=== PATIENT | male | born 1945 | race Caucasian/White ===

== ENCOUNTER → 2017-03-02 | Outpatient (CLI) | payer MEDICARE, OTHER ==
[2017-03-02 18:13] LABS: BLOOD UREA NITROGEN 20 MG/DL (7-18); CREATININE FOR GFR 1.24 MG/DL (0.70-1.30); GLOMERULAR FILTRATION RATE > 60.0 (>42)
== END ==
LOC: M WUC 11:57
PROVIDERS: ATTEND Ophthalmology
DX: Z01.812 Encounter for preprocedural laboratory examination (principal)

== ENCOUNTER → 2017-03-07 | Outpatient (CLI) | payer MEDICARE, OTHER ==
[~2017-03-07] MED LIST: ALLO100T PO; ASPI81TA85 PO; BISO10TA3 PO; EZET10TA PO; FLOM5CAP PO; INDO25SU PO; LISI10TA4 PO; OMEP20CA3 PO; OMEP40CA2 PO; PLAV75TA38 PO; TRAV04OPD OU; TRIC145T PO; VITMTA PO; ZIAC10TA PO
--- NOTE | 2017-03-08 08:52 | REP ---
MRI BRAIN WITHOUT AND WITH IV GADOLINIUM: HISTORY: Right homonymous superior quadrant anopia. No comparison brain imaging. TECHNIQUE: Axial and sagittal imaging planes are utilized for T1 and T2-weighted scans. Sequences include spin-echo, fast spin echo, FLAIR, and diffusion weighted sequences. Post gadolinium enhanced axial and coronal T1 images are included. MRI FINDINGS: No bony calvarial lesion is seen. Craniocervical junction and upper cervical cord are normal in appearance. There is no evidence of significant paranasal sinus disease. No intraorbital abnormality is seen. There is mild to moderate diffuse cerebral atrophy. FLAIR and turbo spin echo T2-weighted scans demonstrate a small area of periventricular T2 hyperintensity in the inferomedial temporo-occipital lobe region. This area of T2 hyperintensity measures up to 2.6 cm in diameter. There is no corresponding T1 hypointensity. A subtle pattern of restricted diffusion is seen in this region on diffusion weighted scans consistent with a subacute infarct. There is no evidence of intracranial hemorrhage. Post gadolinium enhanced images show a subtle contrast enhancement again consistent with enhancement in the subacute infarction. No mass lesion is seen. No other abnormal gadolinium enhancement is seen. No midline shift or extra-axial fluid collection is observed. 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 No evidence of intracranial hemorrhage. Diffuse atrophy. Signed by Yeison Bunch MD 03/08/2017 10:43 A
--- NOTE | 2017-03-08 09:13 | REP ---
MRI STUDY OF THE ORBITS WITHOUT AND WITH IV GADOLINIUM: HISTORY: Right homonymous superior quadrant anopia. No comparison orbital imaging. Gadolinium enhancement dose: 15 mL of intravenous ProHance is administered. MRI TECHNIQUE: Axial and coronal and sagittal imaging planes are utilized. Sequences include turbo spin-echo, spin-echo thin-section and fat sat post gadolinium enhanced T1-weighted spin-echo images. MRI FINDINGS: The intraocular lenses have been replaced bilaterally. The optic nerves appear normal and symmetric. No intraorbital mass lesion is seen. There is diffuse moderate cranial atrophy change. Post gadolinium enhanced images show no abnormal gadolinium enhancement. The optic chiasm is unremarkable. No suprasellar lesion is seen IMPRESSION: Unremarkable MRI study of the orbits without and with IV gadolinium. Signed by Yeison Bunch MD 03/08/2017 10:44 A
== END ==
LOC: M RAD 16:55
PROVIDERS: ATTEND Ophthalmology
DX: H53.461 Homonymous bilateral field defects, right side (principal); H53.462 Homonymous bilateral field defects, left side; I63.9 Cerebral infarction, unspecified
CPT/HCPCS: 70543; 70553; A9576

== ENCOUNTER → 2017-04-06 | Outpatient (CLI) | payer MEDICARE, OTHER ==
[~2017-04-06] VITALS: Ht 170.2 cm; Wt 83.9 kg
[~2017-04-06] MED LIST changes: +INDO50CA PO; +LIDOCAINE 2% INJ 100 MG/5 ML SDV (FOR ANES.) As Ordered ONE; +NS 1,000 ML IV SCH; +PROPOFOL 500 MG/50 ML VIAL As Ordered ONE; +PROTPAK PO; +ROSU5TAB PO; +VITA100037 PO; +ZETI10TA2 PO
--- NOTE | 2017-04-06 08:39 | ROOR ---
Patient Name: Arti Abdul Procedure Date: 04/06/2017 8:26 AM Date of : 1945 Age: 72 Room: [facility] Gender: Male Note Status: Finalized Procedure: Upper GI endoscopy Indications: Heartburn Providers: Nathan ZARATE MD Referring MD: ADAMARIS TAYLOR JR, MD Requesting Provider: Medicines: Monitored Anesthesia Care Complications: No immediate complications. Procedure: Pre-Anesthesia Assessment: - The heart rate, respiratory rate, oxygen saturations, blood pressure, adequacy of pulmonary ventilation, and response to care were monitored throughout the procedure. The Endoscope was introduced through the mouth, and advanced to the second part of duodenum. The upper GI endoscopy was accomplished without difficulty. The patient tolerated the procedure well. Findings: A widely patent and non-obstructing Schatzki ring (acquired) was found at the gastroesophageal junction. The esophagus was normal. The stomach was normal. The examined duodenum was normal. Impression: - A slight eccentric and Widely patent and non-obstructing Schatzki ring. - Normal esophagus. - Normal stomach. - Normal examined duodenum. - No specimens collected. Recommendation: - Continue present medications. - Use Prilosec (omeprazole) 20 mg PO BID. Nathan Zarate MD Nathan ZARATE MD 04/06/2017 8:39:55 AM This report has been signed electronically. Number of Addenda: 0 Note Initiated On: 04/06/2017 8:26 AM Estimated Blood Loss: Estimated blood loss: none.
--- NOTE | 2017-04-06 08:53 | ROOR ---
Patient Name: Arti Abdul Procedure Date: 04/06/2017 8:27 AM Date of : 1945 Age: 72 Room: [facility] Gender: Male Note Status: Finalized Procedure: Colonoscopy Indications: Screening for colorectal malignant neoplasm Providers: Nathan ZARATE MD Referring MD: ADAMARIS TAYLOR JR, MD Requesting Provider: Medicines: Monitored Anesthesia Care Complications: No immediate complications. Procedure: Pre-Anesthesia Assessment: - The heart rate, respiratory rate, oxygen saturations, blood pressure, adequacy of pulmonary ventilation, and response to care were monitored throughout the procedure. The Colonoscope was introduced through the anus and advanced to the cecum, identified by appendiceal orifice and ileocecal valve. The colonoscopy was performed without difficulty. The patient tolerated the procedure well. The quality of the bowel preparation was good. Findings: The perianal and digital rectal examinations were normal. Multiple medium-mouthed diverticula were found in the sigmoid colon. A 4 mm polyp was found in the rectum. The polyp was sessile. The exam was otherwise without abnormality on direct and retroflexion views. Impression: - Moderate diverticulosis in the sigmoid colon. - One 4 mm polyp in the rectum. - The examination was otherwise normal on direct and retroflexion views. - No specimens collected. Recommendation: - Telephone endoscopist for pathology results in 2 weeks. - If the pathology report reveals adenomatous tissue, then repeat the colonoscopy for surveillance in 5 years. Nathan Zarate MD Nathan ZARATE MD 04/06/2017 8:53:25 AM This report has been signed electronically. Number of Addenda: 0 Note Initiated On: 04/06/2017 8:27 AM Estimated Blood Loss: Estimated blood loss: none.
[2017-04-06 09:15] VITALS: BP 156/60
== END | disposition home or self-care (01) ==
LOC: M OPP 06:50
PROVIDERS: ATTEND Internal Medicine Gastroenterology
DX: Z12.11 Encounter for screening for malignant neoplasm of colon (principal); D12.8 Benign neoplasm of rectum; K57.30 Diverticulosis of large intestine without perforation or abscess without bleeding; R12 Heartburn; K22.2 Esophageal obstruction; I10 Essential (primary) hypertension; E78.5 Hyperlipidemia, unspecified; Z95.828 Presence of other vascular implants and grafts; M10.9 Gout, unspecified; R13.10 Dysphagia, unspecified; K57.92 Diverticulitis of intestine, part unspecified, without perforation or abscess without bleeding; I63.9 Cerebral infarction, unspecified; G47.30 Sleep apnea, unspecified; R06.83 Snoring; N40.0 Benign prostatic hyperplasia without lower urinary tract symptoms; Z87.891 Personal history of nicotine dependence; Z79.82 Long term (current) use of aspirin; Z79.899 Other long term (current) drug therapy

== ENCOUNTER 2018-02-15 11:42 | Emergency (ER) | payer OTHER, MEDICARE ==
[2018-02-15 12:27] LABS: BASO % 0.4 % (0.0-1.0); EOS # 0.1 10^3/uL (0.0-0.50); EOS % 1.3 % (0.0-3.0); HEMATOCRIT 39.8 % (42.0-52.0); HEMOGLOBIN 13.5 g/dl (14.0-18.0); IMMATURE GRANULOCYTE % 0.2 % (0-3.0); LYMPH # 1.3 10^3/uL (1.5-4.5); LYMPH % 23.1 % (24.0-44.0); MEAN CORPUSCULAR HGB CONC 33.9 g/dl (32.0-36.5); MEAN CORPUSCULAR VOLUME 91.5 fl (80.0-96.0); MONO # 0.5 10^3/uL (0.0-0.8); NEUTROPHILS # 3.5 10^3/uL (1.8-7.7); PLATELET COUNT, AUTOMATED 198 10^3/uL (150-450); RED BLOOD COUNT 4.35 10^6/uL (4.30-6.10); RED CELL DISTRIBUTION WIDTH 13.2 % (11.5-14.5); WHITE BLOOD COUNT 5.4 10^3/uL (4.0-10.0)
[2018-02-15] MEDS: hydrALAZINE INJ 20 MG/ML VIAL IV ×2 (12:30→13:11)
[2018-02-15 12:46] LABS: INR 0.95; PROTHROMBIN TIME 12.8 SECONDS (12.4-14.5)
[2018-02-15 12:52] LABS: ALBUMIN 3.9 GM/DL (3.2-5.2); ALBUMIN/GLOBULIN RATIO 0.87 (1.00-1.93); ALKALINE PHOSPHATASE 85 U/L (45-117); ALT/SGPT 41 U/L (12-78); ANION GAP 7 MEQ/L (8-16); AST/SGOT 33 U/L (7-37); BILIRUBIN,DIRECT 0.1 MG/DL (0.0-0.2); BILIRUBIN,TOTAL 0.5 MG/DL (0.2-1.0); BLOOD UREA NITROGEN 20 MG/DL (7-18); C REACTIVE PROTEIN QUANTITATIV 0.67 MG/DL (0.00-0.30); CALCIUM LEVEL 9.4 MG/DL (8.8-10.2); CARBON DIOXIDE LEVEL 28 MEQ/L (21-32); CHLORIDE LEVEL 107 MEQ/L (98-107); CPK CREATINE PHOSPHOKINASE 90 U/L (39-308); CREATININE FOR GFR 0.89 MG/DL (0.70-1.30); FREE T4 0.91 NG/DL (0.76-1.46); GLOMERULAR FILTRATION RATE > 60.0 (>42); GLUCOSE, FASTING 110 MG/DL (70-100); LIPASE 193 U/L (73-393); POTASSIUM SERUM 4.3 MEQ/L (3.5-5.1); SODIUM LEVEL 142 MEQ/L (136-145); TOTAL PROTEIN 8.4 GM/DL (6.4-8.2); TROPONIN I < 0.02 NG/ML (< 0.10)
[2018-02-15 12:57] LABS: CK-MB VALUE MASS 1.2 NG/ML (<3.6); MB/CK RELATIVE INDEX 1.33 (< OR =4)
[2018-02-15] MEDS: amLODIPine 10 MG TAB PO (16:43)
[2018-02-15 17:13] LABS: CK-MB VALUE MASS 1.2 NG/ML (<3.6); CPK CREATINE PHOSPHOKINASE 70 U/L (39-308); MB/CK RELATIVE INDEX 1.71 (< OR =4); TROPONIN I < 0.02 NG/ML (< 0.10)
== END 2018-02-15 17:53 | disposition home or self-care (01) ==
LOC: M ED 11:42
DX: I10 Essential (primary) hypertension (principal); N40.0 Benign prostatic hyperplasia without lower urinary tract symptoms; K21.9 Gastro-esophageal reflux disease without esophagitis; M10.9 Gout, unspecified; Z87.891 Personal history of nicotine dependence; Z79.01 Long term (current) use of anticoagulants; Z79.899 Other long term (current) drug therapy; Z79.82 Long term (current) use of aspirin
CPT/HCPCS: 71045

== ENCOUNTER → 2018-09-05 | Outpatient (REF) | payer OTHER ==
[2018-09-07 00:24] LABS: PSA TOTAL 2.5 ng/mL (0.0-4.0)
== END ==
LOC: M LAB REF 13:23
DX: Z12.5 Encounter for screening for malignant neoplasm of prostate (principal)
CPT/HCPCS: 84154

== ENCOUNTER → 2020-01-20 | Outpatient (REF) | payer OTHER ==
[~2020-01-20] MED LIST changes: +AMLO5TAB6 PO; -BISO10TA3 PO; +BISO10TA4 PO; -EZET10TA PO; +EZET10TA21 PO; +FLOM0.4C39 PO; -FLOM5CAP PO; -INDO50CA PO; +INDO50CA91 PO; -LIDOCAINE 2% INJ 100 MG/5 ML SDV (FOR ANES.) As Ordered ONE; -NS 1,000 ML IV SCH; +OMEP1CAP73 PO; -OMEP20CA3 PO; -OMEP40CA2 PO; +OMEP40CA97 PO; +PLAV1TAB2 PO; -PLAV75TA38 PO; -PROPOFOL 500 MG/50 ML VIAL As Ordered ONE; -ROSU5TAB PO; +ROSU5TAB5 PO; -TRIC145T PO; +TRIC145T22 PO; -VITA100037 PO; +VITA100067 PO; +ZETI10TA16 PO; -ZETI10TA2 PO
[2020-01-20 18:57] LABS: C REACTIVE PROTEIN QUANTITATIV 6.13 MG/DL (0.00-0.30); URIC ACID 6.3 MG/DL (3.5-7.2)
== END ==
LOC: M LAB REF 16:42
PROVIDERS: ATTEND Nurse Practitioner Family
DX: M79.672 Pain in left foot (principal)

== ENCOUNTER → 2020-02-06 | Outpatient (REF) | payer OTHER | LOC: M LAB REF 12:33 | PROVIDERS: ATTEND Internal Medicine | DX: R79.82 Elevated C-reactive protein (CRP) (principal) ==

== ENCOUNTER → 2020-03-11 | Outpatient (REF) | payer OTHER | LOC: M LAB REF 16:21 | PROVIDERS: ATTEND Internal Medicine | DX: R32 Unspecified urinary incontinence (principal) ==

== ENCOUNTER 2020-03-23 08:14 | Inpatient (IN) | payer OTHER ==
[~2020-03-23] VITALS: Ht 170.2 cm; Wt 79.5 kg
[2020-03-23] MEDS ORDERED: XARE15TA PO (08:27)
[2020-03-23] MEDS ORDERED: BISO10TA4 PO (08:27)
[2020-03-23] MEDS ORDERED: NS 1,000 ML IV SCH (08:30)
[2020-03-23] MEDS ORDERED: SPIR-10 PO (09:06)
[2020-03-23] MEDS ORDERED: VITAD1000T PO (09:06)
[2020-03-23] MEDS ORDERED: NS 1,000 ML IV ONE (09:15)
[2020-03-23 09:18] LABS: BASO % 0.5 % (0.0-1.0); EOS # 0.1 10^3/uL (0.0-0.5); EOS % 1.1 % (0.0-3.0); HEMOGLOBIN 11.8 g/dl (13.5-17.5); LYMPH # 0.9 10^3/uL (1.5-5.0); LYMPH % 10.5 % (24.0-44.0); MEAN CORPUSCULAR HEMOGLOBIN 31.2 pg (27.0-33.0); MEAN CORPUSCULAR HGB CONC 33.7 g/dl (32.0-36.5); MEAN CORPUSCULAR VOLUME 92.6 fl (80.0-96.0); MONO # 0.6 10^3/uL (0.0-0.8); MONO % 6.9 % (0.0-5.0); NEUTROPHILS # 6.8 10^3/uL (1.5-8.5); NEUTROPHILS % 80.5 % (36.0-66.0); PLATELET COUNT, AUTOMATED 235 10^3/uL (150-450); RED BLOOD COUNT 3.78 10^6/uL (4.30-6.10); WHITE BLOOD COUNT 8.4 10^3/uL (4.0-10.0)
[2020-03-23 09:36] LABS: BLOOD UREA NITROGEN 33 MG/DL (7-18); CALCIUM LEVEL 9.4 MG/DL (8.8-10.2); CARBON DIOXIDE LEVEL 28 MEQ/L (21-32); CHLORIDE LEVEL 103 MEQ/L (98-107); CK-MB VALUE MASS < 1.0 NG/ML (<3.6); CPK CREATINE PHOSPHOKINASE 62 U/L (39-308); CREATININE FOR GFR 1.47 MG/DL (0.70-1.30); GLOMERULAR FILTRATION RATE 49.7 (>42); GLUCOSE, FASTING 144 MG/DL (70-100); MB/CK RELATIVE INDEX 1.61 (< OR =4); SODIUM LEVEL 139 MEQ/L (136-145); TROPONIN I < 0.02 NG/ML (< 0.10)
--- NOTE | 2020-03-23 10:42 | REP ---
CHEST: REASON: History of GI bleed. COMPARISON: 02/15/2018 The technique utilized in obtaining the radiograph has magnified the cardiac silhouette and accentuated the interstitial markings. FINDINGS: The superior mediastinal structures are midline. The cardiac silhouette is unremarkable in size, shape, and position. The diaphragmatic surfaces of the lungs are regular, and the costophrenic angles are clear. The pulmonary henderson are clear. The imaged osseous structures are intact. IMPRESSION: There is no acute cardiopulmonary disease. No significant change from the prior exam. Electronically Signed by Benji Del Toro DO 03/23/2020 02:00 P
[2020-03-23] MEDS ORDERED: amLODIPine 10 MG TAB PO ONE (11:00)
--- NOTE | 2020-03-23 11:21 | HPEPDOC ---
General Date of Admission 03/23/20 Date of Service: Mar 23, 2020 Chief Complaint The patient is a 75-year-old male admitted with a reason for visit of Blood In Stool. Source: Patient Exam Limitations: No limitations Timing/Duration: Day(s) Severity: Moderate History of Present Illness Patient is 75 years old male with past history of peripheral vascular diseases, gout, hypertension, BPH, gastroesophageal reflux disease (GERD), diverticulosis, bilateral extremity stenting and bypass surgery, endarterectomy presented to the hospital with GI bleed. Patient stated around 1 week ago he was found to have extensive deep vein thrombosis of right thigh. Patient received xarelto, last dose was on Monday on 03/21/20. In this day patient developed stool covered with red blood. Patient continued to have bloody stool for past 2 days. In emergency room patient was found elevated systolic blood pressure around 186/78, hemoglobin of 11.8, creatinine 1.47. Of note, patient also took Plavix in the outpatient settings. Home Medications Scheduled Allopurinol (Allopurinol) 100 Mg Tab, 100 MG PO DAILY, (Reported) Bisoprolol/Hydrochlorothiazide (Bisoprolol-Hctz 10-6.25 mg Tab) 1 Each Tablet, 1 TAB PO QPM, (Reported) Cholecalciferol (Vitamin D3) (Vitamin D3) 1,000 Unit Tablet, 1,000 UNITS PO DAILY, (Reported) Clopidogrel Bisulfate (Plavix) 75 Mg Tab, 75 MG PO DAILY, (Reported) Ezetimibe (Zetia) 10 Mg Tab, 10 MG PO QPM, (Reported) Multivitamins (Thera M Plus Tablet) 1 Tab Tab, 1 TAB PO DAILY, (Reported) Pantoprazole Sodium (Protonix) 40 Mg Wally, 40 MG PO Q2D, (Reported) Rivaroxaban (Xarelto) 15 Mg Tablet, 15 MG PO BID, (Reported) Rosuvastatin Calcium (Rosuvastatin Calcium) 5 Mg Tab, 5 MG PO QPM, (Reported) Spironolactone (Spironolactone) 25 Mg Tablet, 25 MG PO QPM, (Reported) Tamsulosin HCl (Flomax) 0.4 Mg Cap, 0.4 MG PO BID, (Reported) Travoprost (Travatan Z) 50 Drop/2.5 Ml Soln, 1 DROP OU QHS, (Reported) Allergies Coded Allergies: No Known Allergies (Verified Allergy, Unknown, 03/23/20) Past Medical History Medical History Significant for gout, hypertension, peripheral vascular disease (PVD), BPH, gastroesophageal reflux disease (GERD), diverticulosis. Surgical History Significant for: Bilateral extremity stenting and bypass surgery, endarterectomy. Family History His mother had PVD Social History * Smoker: former Smoker Alcohol: Denies Drugs: denies A-FIB/CHADSVASC A-FIB History Current/History of A-Fib/PAF?: No Current PO Anticoag Therapy: No Review of Systems Constitutional: Denies: Chills, Fever Eyes: Denies: Pain, Vision change ENT: Denies: Head Aches Skin: Denies: Rash, Lesions Pulmonary: Denies: Dyspnea, Cough Cardiovascular: Denies: Chest Pain Gastrointestinal: Reports: Melena; Denies: Nausea, Vomiting Genitourinary: Denies: Dysuria Endocrine: Denies: Polydipsia Musculoskeletal: Reports: Neck Pain (left neck area painful), Leg Pain (right leg); Denies: Back Pain Neurological: Denies: Weakness Psych: Reports: Mood Normal Physical Examination General Exam: Positive: Alert, Cooperative Eye Exam: Positive: PERRLA ENT Exam: Positive: Atraumatic (in the area of left trapezius muscles palpated mass, tender) Neck Exam: Positive: Supple; Negative: JVD Heart Exam: Positive: Rate Normal Telemetry: Positive: No significant arrhythmia Abdomen Exam: Positive: BS Hyperactive Extremity Exam: Positive: Tenderness, Swelling (right leg); Negative: Clubbing Skin Exam: Positive: Nl turgor and temperature Neuro Exam: Positive: Normal Gait, Strength at 5/5 X4 ext Psych Exam: Positive: Mental status NL Vital Signs Vital Signs Date Time Temp Pulse Resp B/P (MAP) Pulse Ox O2 Delivery O2 Flow Rate FiO2 03/23/20 10:00 57 18 181/79 (113) 98 Room Air 03/23/20 08:14 97.2 Laboratory Data Labs 24H Laboratory Tests 2 03/23/20 08:51: Immature Granulocyte % (Auto) 0.5, Neutrophils (%) (Auto) 80.5H, Lymphocytes (%) (Auto) 10.5L, Monocytes (%) (Auto) 6.9H, Eosinophils (%) (Auto) 1.1, Basophils (%) (Auto) 0.5, Neutrophils # (Auto) 6.8, Lymphocytes # (Auto) 0.9L, Monocytes # (Auto) 0.6, Eosinophils # (Auto) 0.1, Basophils # (Auto) 0.0, Nucleated Red Blood Cells % (auto) 0.0, Anion Gap 8, Glomerular Filtration Rate 49.7, Calcium Level 9.4, Total Creatine Kinase 62, Creatine Kinase MB < 1.0, Creatine Kinase MB Relative Index 1.61, Troponin I < 0.02 03/23/20 09:22: Coronavirus (COVID-19)(PCR) NEGATIVE CBC/BMP Laboratory Tests 03/23/20 08:51 Assessment/Plan Patient is 75 years old male with past history of peripheral vascular diseases, gout, hypertension, BPH, gastroesophageal reflux disease (GERD), diverticulosis, bilateral extremity stenting and bypass surgery, endarterectomy presented to [facility] with GI bleed. Patient stated around 1 week ago he was found to have extensive deep vein thrombosis of right thigh. Patient received xarelto, last dose was on Monday on 03/21/20. In this day patient developed stool covered with red blood. Patient continued to have bloody stool for past 2 days. In emergency room patient was found elevated systolic blood pressure around 186/78, hemoglobin of 11.8, creatinine 1.47. Of note, patient also took Plavix in the outpatient settings. Problems (1) DVT (deep venous thrombosis) Status: Acute Problem Text: Around 1 week ago patient developed extensive deep vein thr ombosis of right thigh Appreciate/agree with IR consult for IVC filter placement We will hold anticoagulation due to acute GI bleed (2) GI bleed Status: Acute Problem Text: Dr. Shields in 2017 upper endoscopy and colonoscopy Patient was found to have Moderate diverticulosis in the sigmoid colon and one 4 mm polyp in the rectum. Upper endoscopy was unremarkable PPI IV H&H every 6 hours Clear liquid diet for now If patient continues to have GI bleed he will need endoscopy and colonoscopy. (3) Anemia due to blood loss, acute Status: Acute Problem Text: Most likely secondary to anticoagulation and antiplatelet medications side effect Differential diagnosis also includes diverticulosis bleed Will transfuse if hemoglobin less than 7 (4) Hypertension Status: Acute Problem Text: Norvasc 10 mg Continue to monitor Plan / VTE VTE Prophylaxis Ordered?: No VTE Exclusion Pharmacological: Active Bleeding RENE MCARTHUR DO Mar 23, 2020 11:21
[2020-03-23 11:45] VITALS: BP 180/78
[2020-03-23] MEDS: TAMSULOSIN 0.4 MG CAP PO SCH ×2 (12:41→21:00)
[2020-03-23] MEDS: D5W/0.9% SODIUM CHLORIDE 1,000 ML IV SCH ×2 (12:41→21:01)
[2020-03-23] MEDS: PANTOPRAZOLE 40MG VIAL (C9113 PER 1) IV SCH ×2 (12:41→21:00)
[2020-03-23] MEDS ORDERED: fentaNYL 100 MCG/2 ML INJECTION (J3010) As Ordered ONE (13:20)
[2020-03-23] MEDS ORDERED: diphenhydrAMINE 50MG/ML VIAL (J1200) As Ordered ONE (13:20)
[2020-03-23] MEDS ORDERED: LIDOCAINE 1% MDV 20ML VIAL As Ordered ONE (13:21)
[2020-03-23] MEDS ORDERED: ISOVUE-300 61% 50ML VIAL As Ordered ONE (13:21)
[2020-03-23] MEDS ORDERED: MIDAZOLAM INJ 2MG/2ML VIAL (J2250 PER 1MG) As Ordered ONE (13:22)
--- NOTE | 2020-03-23 14:30 | REP ---
IR IVC filter placement. IR Venogram. IR moderate sedation. Ultrasound of the right groin. Clinical indication : Right leg DVT. Contraindication to anti coagulation due to GI bleed. Physician: Dr. Ly. Procedure: The patient was advised of the benefits, risks and alternatives of the procedure and informed consent was obtained. The time-out was performed with verification of the patient's name, MRN, site of procedure and type of procedure to be performed. The patient was positioned in the supine position on the angiographic table. The site was prepped and draped in the usual sterile fashion. Moderate sedation was performed by the physician including the presence of an independent trained observer that assisted in monitoring the patient's level of consciousness and physiologic status. Following administration of Fentanyl and Versed , the physician spent 45 minutes of continuous face to face time with the patient. Preliminary ultrasound of the right groin was performed and demonstrates a patent right common femoral vein which is easily compressible. The vein was accessed using a micropuncture kit, under ultrasound guidance. An 035 wire was placed into the peripheral inferior vena cava. An inferior vena cava venogram was then performed demonstrating a normal caliber inferior vena cava without filling defects and the renal vein inflow at the L1- 2 level. No caval anomalies were identified. The wire was then passed into the inferior vena cava and the filter sheath advanced over the wire. A filter was then advanced through the sheath and positioned within the infrarenal inferior vena cava. The filter was then deployed in the usual fashion. Positioning was confirmed fluoroscopically. The sheath was then removed and hemostasis obtained with manual compression. The patient tolerated the procedure well and was returned to PRU in stable condition. EBL: Less than 5 ml. Complications: None. Conclusion: 1. Normal inferior vena cava venogram. 2. Successful deployment of a cook select filter in the infrarenal inferior vena cava. 3. Patient to return for filter retrieval when no longer needed. Follow up in IR clinic in 6 months. Thank you this referral. Electronically Signed by Marcia Ly MD 03/23/2020 02:29 P
--- NOTE | 2020-03-23 14:42 | IRMSE ---
[facility] IR Moderate Sedation Eval. Date and Time Date: Mar 23, 2020 Time: 14:41 ASA Classification ASA Classification: III-Severe systemic dis. Mallampati Score: II NPO: Yes Obstructive Sleep Apnea: No Interval Plan: moderate sedation JAQUELINE SWENSON MD Mar 23, 2020 14:42
[2020-03-23 14:57] VITALS: BP 160/72
[2020-03-23 15:11] LABS: HEMOGLOBIN 10.8 g/dl (13.5-17.5)
[2020-03-23 15:31] VITALS: BP 160/60
[2020-03-23 19:56] LABS: HEMATOCRIT 31.7 % (42.0-52.0); HEMOGLOBIN 10.4 g/dl (13.5-17.5)
[2020-03-23] MEDS: LATANOPROST 0.005% OPHTH SOLN 2.5 ML OU SCH (20:59)
[2020-03-23] MEDS: EZETIMIBE 10 MG TAB (ZETIA) PO SCH (20:59)
[2020-03-23] MEDS: SPIRONOLACTONE 25 MG TAB PO SCH (21:00)
[2020-03-23] MEDS: ROSUVASTATIN 10 MG TAB (CRESTOR) PO SCH (21:00)
[2020-03-23 22:00] VITALS: BP 153/59
--- NOTE | 2020-03-23 22:13 | ECGEPIP ---
[facility] - ED Test Date: 2020-03-23 Pat Name: XOCHITL JEAN Department: Room: - Gender: Male [employer]ic: : 1945 Requested By: Rohith Bernal Order Number: [id number] Reading MD: Nathan Christensen Measurements Intervals [place] Rate: 56 P: 43 TX: 153 QRS: 1 QRSD: 93 T: 14 QT: 449 QTc: 437 Interpretive Statements SINUS BRADYCARDIA Similar to tracing done 02-15-18 Electronically Signed on 03-23-2020 22:13:36 EDT by Nathan Christensen
[2020-03-24 02:01] LABS: HEMATOCRIT 30.4 % (42.0-52.0); HEMOGLOBIN 9.8 g/dl (13.5-17.5)
[2020-03-24 06:00] VITALS: BP 163/71
[2020-03-24 06:58] LABS: BLOOD UREA NITROGEN 28 MG/DL (7-18); CARBON DIOXIDE LEVEL 27 MEQ/L (21-32); CHLORIDE LEVEL 109 MEQ/L (98-107); CREATININE FOR GFR 1.19 MG/DL (0.70-1.30); GLOMERULAR FILTRATION RATE > 60.0 (>42); GLUCOSE, FASTING 142 MG/DL (70-100); MAGNESIUM LEVEL 1.7 MG/DL (1.8-2.4); POTASSIUM SERUM 3.8 MEQ/L (3.5-5.1); SODIUM LEVEL 142 MEQ/L (136-145)
[2020-03-24 07:09] LABS: HEMATOCRIT 30.3 % (42.0-52.0); HEMOGLOBIN 10.1 g/dl (13.5-17.5); MEAN CORPUSCULAR HEMOGLOBIN 30.9 pg (27.0-33.0); MEAN CORPUSCULAR HGB CONC 33.3 g/dl (32.0-36.5); MEAN CORPUSCULAR VOLUME 92.7 fl (80.0-96.0); PLATELET COUNT, AUTOMATED 184 10^3/uL (150-450); RED BLOOD COUNT 3.27 10^6/uL (4.30-6.10); WHITE BLOOD COUNT 6.3 10^3/uL (4.0-10.0)
[2020-03-24] MEDS: PANTOPRAZOLE 40MG VIAL (C9113 PER 1) IV SCH ×2 (08:24→20:35)
[2020-03-24] MEDS: VITAMIN D 1,000 INTERNATIONAL UNITS TABLET PO SCH (08:24)
[2020-03-24] MEDS: TAMSULOSIN 0.4 MG CAP PO SCH ×2 (08:25→20:35)
[2020-03-24] MEDS: amLODIPine 10 MG TAB PO SCH (08:25)
[2020-03-24] MEDS: allopurinoL 100 MG TAB PO SCH (08:25)
[2020-03-24] MEDS: D5W/0.9% SODIUM CHLORIDE 1,000 ML IV SCH ×2 (08:27→20:35)
--- NOTE | 2020-03-24 10:45 | CR ---
DATE OF CONSULTATION: 03/24/2020 REASON FOR CONSULTATION: Gastrointestinal (GI) bleed. BRIEF HISTORY OF PRESENT ILLNESS: The patient is a 75-year-old male who presents with a history of peripheral vascular disease, had a deep venous thrombosis (DVT), was placed on anticoagulation for this and essentially developed bright red blood per rectum for the last 2 days. He was on Xarelto and Plavix/dual therapy. He has not been off Plavix only for last couple days and Xarelto for about 2-1/2 days at this time. Past medical history is significant for history of gout, hypertension, peripheral vascular disease, BPH, gastroesophageal reflux disease, diverticulosis, bilateral extremity stenting and bypass, and carotid endarterectomy. Previous colonoscopy revealing diverticulosis and history of gastroesophageal (GE) reflux. Medications include: - allopurinol - bisoprolol - hydrochlorothiazide - vitamin D - Plavix - Zetia - Thera M Plus - Protonix - Xarelto - rosuvastatin - spirolactone - Flomax - Travatan Physical exam reveals a 75-year-old who looks stated age. HEENT is unremarkable. Neck supple without adenopathy. Lungs are clear to auscultation without crackles, wheezes or rhonchi. Heart is regular. Abdomen is soft, mildly distended, nontender. IMPRESSION/PLAN: The patient had GI bleed undetermined etiology. He has had a colonoscopy in 2016 that did show some diverticulosis and a very small rectal polyp. At this point, the etiology is undetermined. However, he had some bright red blood per rectum, which suggest more of a lower GI etiology, but with all the medications he is taking he may have some gastritis as another possibility, and I would recommend that he undergo an upper and lower endoscopy. We will have him continue on his clear liquid diet, see how he does and if he is doing well with a clear liquid diet will plan on a bowel prep on Monday and plan for a colonoscopy, esophagogastroduodenoscopy (EGD) on . The patient understands and agrees to proceed with this. Otherwise, the patient at this time seems to be relatively stable and this morning did not have any bowel movements suggesting that his GI bleeding has stopped at this time. His hematocrit is stable, also supporting that.
--- NOTE | 2020-03-24 13:21 | IPNPDOC ---
Text Note Date of Service The patient was seen on 03/24/20. NOTE Subjective: No any acute events overnight, patient didn't have bowel movements. Patient denied fever, chills, nausea, vomiting, diarrhea or dysuria Objective: VITAL SIGNS: Please see below. GENERAL: awake, alert, NAD HEENT: NCAT, anicteric sclera, JANE NECK: supple, no JVD, in the area of left trapezius muscles palpated mass, tender CARDIOVASCULAR EXAMINATION: NS1S2, regular rate/rhythm RESPIRATORY EXAMINATION: CTA b/l, no wheezes/rales/rhonchi ABDOMINAL EXAMINATION: positive bowel sounds x 4, NT EXTREMITIES: no cyanosis, +2 pitting edema of right leg SKIN: warm, no rashes. NEUROLOGICAL EXAMINATION: AAO x 3, no motor/sensory deficits PSYCHIATRIC EXAMINATION: calm, normal affect Assessment/Plan Patient is 75 years old male with past history of peripheral vascular diseases, gout, hypertension, BPH, gastroesophageal reflux disease (GERD), diverticulosis, bilateral extremity stenting and bypass surgery, endarterectomy presented to the hospital with GI bleed. Patient stated around 1 week ago he was found to have extensive deep vein thrombosis of right thigh. Patient received xarelto, last dose was on Monday on 03/21/20. In this day patient developed stool co diana with red blood. Patient continued to have bloody stool for past 2 days. In emergency room patient was found elevated systolic blood pressure around 186/78, hemoglobin of 11.8, creatinine 1.47. Of note, patient also took Plavix in the outpatient settings. Problems (1) DVT (deep venous thrombosis) Around 1 week ago patient developed extensive deep vein thrombosis of right thigh IVC filter placed We will hold anticoagulation due to acute GI bleed (2) GI bleed possibly due to anticoagulation Dr. Shields in 2017 upper endoscopy and colonoscopy Patient was found to have Moderate diverticulosis in the sigmoid colon and one 4 mm polyp in the rectum. Upper endoscopy was unremarkable PPI IV H&H every 6 hours Clear liquid diet for now Dr James will proceed with colonoscopy and endoscopy on (3) Anemia due to blood loss, acute Most likely secondary to anticoagulation and antiplatelet medications side effect Differential diagnosis also includes diverticulosis bleed Will transfuse if hemoglobin less than 7 (4) Hypertension Norvasc 10 mg Continue to monitor Left neck mass unknown etiology CT neck VS,Fishbone, I+O VS, Fishbone, I+O Laboratory Tests 03/23/20 15:01 03/23/20 19:50 03/24/20 01:56 03/24/20 06:12 Vital Signs Date Time Temp Pulse Resp B/P (MAP) Pulse Ox O2 Delivery O2 Flow Rate FiO2 03/24/20 08:25 61 163/71 03/24/20 06:00 98.2 17 91 Room Air 03/23/20 14:20 2 I&O- Last 24 Hours up to 6 AM 03/24/20 05:59 Intake Total 1615 ml Output Total 200 ml Balance 1415 ml RENE MCARTHUR DO Mar 24, 2020 13:21
[2020-03-24 14:00] VITALS: BP 148/78
[2020-03-24 14:44] LABS: HEMATOCRIT 32.6 % (42.0-52.0); HEMOGLOBIN 10.6 g/dl (13.5-17.5)
[2020-03-24] MEDS: MAGNESIUM CHLORIDE 64 MG TABCR (SLO MAG) PO SCH (15:33)
--- NOTE | 2020-03-24 16:40 | REP ---
SOFT-TISSUE CT STUDY OF THE NECK WITHOUT CONTRAST: HISTORY: Swelling in the left supraclavicular region of the neck. Left neck mass. The patient reports that this swelling has been present for 2 years. No comparison soft-tissue neck imaging. Comparison is made with prior CT study chest images from June 01, 2018. CT FINDINGS: Digital preliminary geometry professor radiographs demonstrate vascular calcification and surgical clips in the soft tissues of the neck on the left. Axial CT images demonstrate significant asymmetry in the sternocleidomastoid muscle bellies with atrophy on the left compared to the right. There are surgical clips bilaterally suggesting prior carotid endarterectomy. Extensive vascular calcification is noted, and the subclavian arteries and great vessel origins show atherosclerotic calcification. There is skin thickening and soft tissue edema or fibrosis in the left supraclavicular soft tissues of uncertain significance. These changes were not present at the time of the June 01, [address] study. There is a linear area of what appears to be fibrosis extending from lateral to medial through this region suggesting a previous surgical dissection plane or drainage tract. Possibilities include postoperative fibrosis and chronic scarring. A contrast-enhanced study may show these changes to better advantage if this is feasible. No abnormal fluid collection is seen. No definite adenopathy is seen. Thyroid gland lobes are symmetric and unremarkable. Submandibular and parotid glands are unremarkable. The lung apices are clear. There are degenerative spondylosis changes in the cervical spine. IMPRESSION: Diffuse infiltrative and/or fibrotic changes in the supraclavicular and periclavicular soft tissues on the left. There are surgical clips in the region, question postoperative fibrosis and scarring. Correlation with surgical history recommended. Consider contrast-enhanced scan if feasible. An infiltrative neoplastic or lymphoproliferative process could be a possibility as well depending on the history. Electronically Signed by Yeison Bunch MD 03/24/2020 05:11 P
[2020-03-24 19:56] LABS: HEMATOCRIT 29.9 % (42.0-52.0); HEMOGLOBIN 9.9 g/dl (13.5-17.5)
[2020-03-24] MEDS: EZETIMIBE 10 MG TAB (ZETIA) PO SCH (20:35)
[2020-03-24] MEDS: ROSUVASTATIN 10 MG TAB (CRESTOR) PO SCH (20:35)
[2020-03-24] MEDS: LATANOPROST 0.005% OPHTH SOLN 2.5 ML OU SCH (20:35)
[2020-03-24] MEDS: SPIRONOLACTONE 25 MG TAB PO SCH (20:35)
[2020-03-24 22:00] VITALS: BP 155/65
[2020-03-25] MEDS: ACETAMINOPHEN TAB 650MG DOSE (2X325MG) PO PRN ×4 (01:17→20:48)
[2020-03-25 02:06] LABS: HEMOGLOBIN 9.4 g/dl (13.5-17.5)
[2020-03-25 06:00] VITALS: BP 153/64
[2020-03-25 06:45] LABS: HEMATOCRIT 33.1 % (42.0-52.0); HEMOGLOBIN 10.7 g/dl (13.5-17.5); MEAN CORPUSCULAR HEMOGLOBIN 30.4 pg (27.0-33.0); MEAN CORPUSCULAR HGB CONC 32.3 g/dl (32.0-36.5); PLATELET COUNT, AUTOMATED 158 10^3/uL (150-450); RED BLOOD COUNT 3.52 10^6/uL (4.30-6.10); WHITE BLOOD COUNT 6.8 10^3/uL (4.0-10.0)
[2020-03-25 07:09] LABS: BLOOD UREA NITROGEN 20 MG/DL (7-18); CARBON DIOXIDE LEVEL 26 MEQ/L (21-32); CHLORIDE LEVEL 109 MEQ/L (98-107); CREATININE FOR GFR 1.13 MG/DL (0.70-1.30); GLOMERULAR FILTRATION RATE > 60.0 (>42); GLUCOSE, FASTING 123 MG/DL (70-100); MAGNESIUM LEVEL 1.6 MG/DL (1.8-2.4); POTASSIUM SERUM 3.6 MEQ/L (3.5-5.1); SODIUM LEVEL 141 MEQ/L (136-145)
[2020-03-25] MEDS: allopurinoL 100 MG TAB PO SCH (08:05)
[2020-03-25] MEDS: VITAMIN D 1,000 INTERNATIONAL UNITS TABLET PO SCH (08:05)
[2020-03-25] MEDS: D5W/0.9% SODIUM CHLORIDE 1,000 ML IV SCH ×2 (08:05→20:49)
[2020-03-25] MEDS: MAGNESIUM CHLORIDE 64 MG TABCR (SLO MAG) PO SCH (08:05)
[2020-03-25] MEDS: PANTOPRAZOLE 40MG VIAL (C9113 PER 1) IV SCH ×2 (08:05→20:47)
[2020-03-25] MEDS: TAMSULOSIN 0.4 MG CAP PO SCH ×2 (08:05→20:47)
[2020-03-25] MEDS: amLODIPine 10 MG TAB PO SCH (08:07)
[2020-03-25] MEDS ORDERED: MAGNESIUM CITRATE 300 ML BTL PO ONE (13:00)
[2020-03-25] MEDS ORDERED: MOM 30ML SUSPENSION UDC PO ONE (13:00)
[2020-03-25 14:00] VITALS: BP 152/67
--- NOTE | 2020-03-25 14:36 | IPNPDOC ---
Text Note Date of Service The patient was seen on 03/25/20. NOTE Subjective: No any acute events overnight, patient didn't have bowel movements. Patient denied fever, chills, nausea, vomiting, diarrhea or dysuria Objective: VITAL SIGNS: Please see below. GENERAL: awake, alert, NAD HEENT: NCAT, anicteric sclera, JANE NECK: supple, no JVD, in the area of left trapezius muscles palpated mass, tender CARDIOVASCULAR EXAMINATION: NS1S2, regular rate/rhythm RESPIRATORY EXAMINATION: CTA b/l, no wheezes/rales/rhonchi ABDOMINAL EXAMINATION: positive bowel sounds x 4, NT EXTREMITIES: no cyanosis, +2 pitting edema of right leg SKIN: warm, no rashes. NEUROLOGICAL EXAMINATION: AAO x 3, no motor/sensory deficits PSYCHIATRIC EXAMINATION: calm, normal affect Assessment/Plan Patient is 75 years old male with past history of peripheral vascular diseases, gout, hypertension, BPH, gastroesophageal reflux disease (GERD), diverticulosis, bilateral extremity stenting and bypass surgery, endarterectomy presented to the hospital with GI bleed. Patient stated around 1 week ago he was found to have extensive deep vein thrombosis of right thigh. Patient received xarelto, last dose was on Monday on 03/21/20. In this day patient developed stool co diana with red blood. Patient continued to have bloody stool for past 2 days. In emergency room patient was found elevated systolic blood pressure around 186/78, hemoglobin of 11.8, creatinine 1.47. Of note, patient also took Plavix in the outpatient settings. Problems (1) DVT (deep venous thrombosis) Around 1 week ago patient developed extensive deep vein thrombosis of right thigh IVC filter placed We will hold anticoagulation due to acute GI bleed (2) GI bleed possibly due to anticoagulation Dr. Shields in 2017 upper endoscopy and colonoscopy Patient was found to have Moderate diverticulosis in the sigmoid colon and one 4 mm polyp in the rectum. Upper endoscopy was unremarkable PPI IV H&H every 6 hours Clear liquid diet for now Dr James will proceed with colonoscopy and endoscopy on (3) Anemia due to blood loss, acute Most likely secondary to anticoagulation and antiplatelet medications side effect Differential diagnosis also includes diverticulosis bleed Will transfuse if hemoglobin less than 7 (4) Hypertension Norvasc 10 mg Continue to monitor Left neck mass CT neck showed fibrotic changes most likely due to previous surgery. An infiltrative neoplastic or lymphoproliferative process could be a possibility as well depending on the history. Will proceed with US guided biopsy VS,Delvin, I+O VS, Delvin, I+O Laboratory Tests 03/24/20 19:44 03/25/20 01:53 03/25/20 06:33 Vital Signs Date Time Temp Pulse Resp B/P (MAP) Pulse Ox O2 Delivery O2 Flow Rate FiO2 03/25/20 14:00 97.0 70 18 152/67 (95) 95 Room Air 03/23/20 14:20 2 I&O- Last 24 Hours up to 6 AM 03/25/20 05:59 Intake Total 3060 ml Output Total 1400 ml Balance 1660 ml RENE MCARTHUR DO Mar 25, 2020 14:36
[2020-03-25 17:20] VITALS: BP 162/69
[2020-03-25] MEDS: SPIRONOLACTONE 25 MG TAB PO SCH (20:47)
[2020-03-25] MEDS: EZETIMIBE 10 MG TAB (ZETIA) PO SCH (20:48)
[2020-03-25] MEDS: ROSUVASTATIN 10 MG TAB (CRESTOR) PO SCH (20:48)
[2020-03-25] MEDS: LATANOPROST 0.005% OPHTH SOLN 2.5 ML OU SCH (20:50)
[2020-03-25 22:00] VITALS: BP 164/72
[2020-03-26] MEDS: ACETAMINOPHEN TAB 650MG DOSE (2X325MG) PO PRN ×2 (04:08→08:58)
[2020-03-26] MEDS ORDERED: MAGNESIUM CITRATE 300 ML BTL PO ONE (05:00)
[2020-03-26] MEDS: D5W/0.9% SODIUM CHLORIDE 1,000 ML IV SCH (05:18)
[2020-03-26 06:00] VITALS: BP 160/79
[2020-03-26 07:09] LABS: HEMATOCRIT 32.9 % (42.0-52.0); HEMOGLOBIN 10.7 g/dl (13.5-17.5); MEAN CORPUSCULAR HEMOGLOBIN 30.3 pg (27.0-33.0); MEAN CORPUSCULAR HGB CONC 32.5 g/dl (32.0-36.5); MEAN CORPUSCULAR VOLUME 93.2 fl (80.0-96.0); PLATELET COUNT, AUTOMATED 147 10^3/uL (150-450); RED BLOOD COUNT 3.53 10^6/uL (4.30-6.10); WHITE BLOOD COUNT 7.7 10^3/uL (4.0-10.0)
[2020-03-26 07:36] LABS: BLOOD UREA NITROGEN 17 MG/DL (7-18); CARBON DIOXIDE LEVEL 23 MEQ/L (21-32); CHLORIDE LEVEL 114 MEQ/L (98-107); CREATININE FOR GFR 1.09 MG/DL (0.70-1.30); GLOMERULAR FILTRATION RATE > 60.0 (>42); GLUCOSE, FASTING 130 MG/DL (70-100); MAGNESIUM LEVEL 1.8 MG/DL (1.8-2.4); POTASSIUM SERUM 3.4 MEQ/L (3.5-5.1); SODIUM LEVEL 144 MEQ/L (136-145)
[2020-03-26] MEDS: VITAMIN D 1,000 INTERNATIONAL UNITS TABLET PO SCH (08:53)
[2020-03-26] MEDS: TAMSULOSIN 0.4 MG CAP PO SCH (08:53)
[2020-03-26] MEDS: allopurinoL 100 MG TAB PO SCH (08:53)
[2020-03-26] MEDS: MAGNESIUM CHLORIDE 64 MG TABCR (SLO MAG) PO SCH (08:53)
[2020-03-26] MEDS: PANTOPRAZOLE 40MG VIAL (C9113 PER 1) IV SCH (08:53)
[2020-03-26 08:55] VITALS: BP 180/83
[2020-03-26] MEDS: amLODIPine 10 MG TAB PO SCH (08:55)
[2020-03-26] MEDS ORDERED: LIDOCAINE 2% 100MG/5ML SDV (FOR ANES.) As Ordered ONE (11:55)
[2020-03-26] MEDS ORDERED: propofoL 500 MG/50 ML VIAL As Ordered ONE (11:55)
[2020-03-26] MEDS ORDERED: SIMETHICONE 40MG/0.6ML DROPS 30ML As Ordered ONE (12:22)
[2020-03-26] MEDS ORDERED: NS 1,000 ML IV ONE (12:30)
[2020-03-26] MEDS ORDERED: FUROSEMIDE 40MG/4ML VIAL (J1940) IV ONE (12:30)
--- NOTE | 2020-03-26 13:22 | ROOR ---
Patient Name: Arti Abdul Procedure Date: 03/26/2020 12:42 PM Date of : 1945 Age: 75 Room: [facility] Gender: Male Note Status: Finalized Procedure: Upper GI endoscopy Indications: Gastrointestinal bleeding of unknown origin Providers: Carlos James Jr, MD Referring MD: 2. Inpatient 2. Inpatient, ADAMARIS TAYLOR JR, MD Requesting Provider: Medicines: Propofol per Anesthesia Complications: No immediate complications. Procedure: Pre-Anesthesia Assessment: - Prior to the procedure, a History and Physical was performed, and patient medications and allergies were reviewed. The patient is competent. The risks and benefits of the procedure and the sedation options and risks were discussed with the patient. All questions were answered and informed consent was obtained. Patient identification and proposed procedure were verified by the physician and the nurse in the pre-procedure area and in the procedure room. Mental Status Examination: alert and oriented. Airway Examination: normal oropharyngeal airway and neck mobility. Respiratory Examination: clear to auscultation. CV Examination: normal. ASA Grade Assessment: II - A patient with mild systemic disease. After reviewing the risks and benefits, the patient was deemed in satisfactory condition to undergo the procedure. The anesthesia plan was to use moderate sedation / analgesia (conscious sedation). Immediately prior to administration of medications, the patient was re-assessed for adequacy to receive sedatives. The heart rate, respiratory rate, oxygen saturations, blood pressure, adequacy of pulmonary ventilation, and response to care were monitored throughout the procedure. The physical status of the patient was re-assessed after the procedure. The Endoscope was introduced through the mouth, and advanced to the second part of duodenum. The upper GI endoscopy was accomplished without difficulty. The patient tolerated the procedure well. Findings: The upper third of the esophagus, middle third of the esophagus, lower third of the esophagus and gastroesophageal junction were normal. The cardia, gastric fundus, gastric body, gastric antrum, prepyloric region of the stomach and pylorus were normal. The first portion of the duodenum and second portion of the duodenum were normal. Localized mildly erythematous mucosa without active bleeding and with no stigmata of bleeding was found in the duodenal bulb. Estimated blood loss: none. Impression: - Normal upper third of esophagus, middle third of esophagus, lower third of esophagus and gastroesophageal junction. - Normal cardia, gastric fundus, gastric body, antrum, prepyloric region of the stomach and pylorus. - Normal first portion of the duodenum and second portion of the duodenum. - Erythematous duodenopathy. - No specimens collected. Recommendation: - Discharge patient to home (ambulatory). - Return to my office in 2 weeks. Carlos James MD Carlos James Jr, MD 03/26/2020 1:22:35 PM Electronically signed by Carlos James Jr, MD Number of Addenda: 0 Note Initiated On: 03/26/2020 12:42 PM Estimated Blood Loss: Estimated blood loss: none.
--- NOTE | 2020-03-26 13:25 | ROOR ---
Patient Name: Arti Abdul Procedure Date: 03/26/2020 12:43 PM Date of : 1945 Age: 75 Room: [facility] Gender: Male Note Status: Finalized Procedure: Colonoscopy Indications: Rectal bleeding Providers: Carlos James Jr, MD Referring MD: 2. Inpatient 2. Inpatient, ADAMARIS TAYLOR JR, MD Requesting Provider: Medicines: Propofol per Anesthesia Complications: No immediate complications. Procedure: Pre-Anesthesia Assessment: - Prior to the procedure, a History and Physical was performed, and patient medications and allergies were reviewed. The patient is competent. The risks and benefits of the procedure and the sedation options and risks were discussed with the patient. All questions were answered and informed consent was obtained. Patient identification and proposed procedure were verified by the physician and the nurse in the pre-procedure area and in the procedure room. Mental Status Examination: alert and oriented. Airway Examination: normal oropharyngeal airway and neck mobility. Respiratory Examination: clear to auscultation. CV Examination: normal. ASA Grade Assessment: II - A patient with mild systemic disease. After reviewing the risks and benefits, the patient was deemed in satisfactory condition to undergo the procedure. The anesthesia plan was to use moderate sedation / analgesia (conscious sedation). Immediately prior to administration of medications, the patient was re-assessed for adequacy to receive sedatives. The heart rate, respiratory rate, oxygen saturations, blood pressure, adequacy of pulmonary ventilation, and response to care were monitored throughout the procedure. The physical status of the patient was re-assessed after the procedure. The Colonoscope was introduced through the anus and advanced to the cecum, identified by appendiceal orifice and ileocecal valve. The colonoscopy was performed without difficulty. The patient tolerated the procedure well. The quality of the bowel preparation was adequate. Findings: The recto-sigmoid colon, descending colon, transverse colon, ascending colon, cecum, appendiceal orifice and ileocecal valve appeared normal. Many small and large-mouthed diverticula were found in the sigmoid colon. Scattered moderate inflammation characterized by adherent blood, congestion (edema), erythema and mucus was found in the rectum. Biopsies were taken with a cold forceps for histology. Impression: - The recto-sigmoid colon, descending colon, transverse colon, ascending colon, cecum, appendiceal orifice and ileocecal valve are normal. - Diverticulosis in the sigmoid colon. - Scattered moderate inflammation was found in the rectum secondary to proctitis. Biopsied. Recommendation: - Discharge patient to home (ambulatory). - Return to my office in 2 weeks. Carlos James MD Carlos James Jr, MD 03/26/2020 1:25:25 PM Electronically signed by Carlos James Jr, MD Number of Addenda: 0 Note Initiated On: 03/26/2020 12:43 PM Estimated Blood Loss: Estimated blood loss: none.
[2020-03-26 14:00] VITALS: BP 173/76
[2020-03-26] MEDS ORDERED: ANUSOL HC 25MG SUPP PR SCH (14:00)
[2020-03-26] MEDS ORDERED: ANUSHCSU PR (14:53)
[2020-03-26] MEDS ORDERED: MAGN64TASA PO (14:53)
[2020-03-26] MEDS ORDERED: MESA50SU PR (14:53)
[2020-03-26] MEDS ORDERED: FINA5TAB2 PO (14:53)
--- NOTE | 2020-03-26 17:23 | DS.PDOC ---
Discharge Summary General Date of Admission Mar 23, 2020 at 10:41 Date of Discharge 03/26/20 Discharge Summary PROCEDURES PERFORMED DURING STAY: [None]. ADMITTING DIAGNOSES: DVT (deep venous thrombosis) GI bleed possibly due to anticoagulation Anemia due to blood loss, acute Hypertension Left neck mass DISCHARGE DIAGNOSES: DVT (deep venous thrombosis) GI bleed possibly due to anticoagulation Anemia due to blood loss, acute Hypertension Left neck mass COMPLICATIONS/CHIEF COMPLAINT: Gastro Intestinal Bleed. HISTORY OF PRESENT ILLNESS: Patient is 75 years old male with past history of peripheral vascular diseases, gout, hypertension, BPH, gastroesophageal reflux disease (GERD), diverticulosis, bilateral extremity stenting and bypass surgery, endarterectomy presented to the hospital with GI bleed. Patient stated around 1 week ago he was found to have extensive deep vein thrombosis of right thigh. Patient received xarelto, last dose was on Monday on 03/21/20. In this day patient developed stool covered with red blood. Patient continued to have bloody stool for past 2 days. In emergency room patient was found elevated systolic blood pressure around 186/78, hemoglobin of 11.8, creatinine 1.47. Of note, patient also took Plavix in the outpatient settings. HOSPITAL COURSE:(1) DVT (deep venous thrombosis) Around 1 week ago patient developed extensive deep vein thrombosis of right thigh IVC filter placed We held anticoagulation due to acute GI bleed (2) GI bleed possibly due to anticoagulation Dr. Shields in 2017 upper endoscopy and colonoscopy Patient was found to have Moderate diverticulosis in the sigmoid colon and one 4 mm polyp in the rectum. Upper endoscopy was unremarkabl Colonoscopy and EGD done: Findings: The recto-sigmoid colon, descending colon, transverse colon, ascending colon, cecum, appendiceal orifice and ileocecal valve appeared normal. Many small and large-mouthed diverticula were found in the sigmoid colon. Scattered moderate inflammation characterized by adherent blood, congestion (edema), erythema and mucus was found in the rectum. Biopsies were taken with a cold forceps for histology. Impression: - The recto-sigmoid colon, descending colon, transverse colon, ascending colon, cecum, appendiceal orifice and ileocecal valve are normal. - Diverticulosis in the sigmoid colon. - Scattered moderate inflammation was found in the rectum secondary to proctitis. Biopsied. Recommendation: - Discharge patient to home (ambulatory). - Return to my office in 2 weeks. Impression: - Normal upper third of esophagus, middle third of esophagus, lower third of esophagus and gastroesophageal junction. - Normal cardia, gastric fundus, gastric body, antrum, prepyloric region of the stomach and pylorus. - Normal first portion of the duodenum and second portion of the duodenum. - Erythematous duodenopathy. - No specimens collected. Recommendation: - Discharge patient to home (ambulatory). - Return to my office in 2 weeks. (3) Anemia due to blood loss, acute Most likely secondary to anticoagulation and antiplatelet medications side effect Patient can resume xarelto in 4-5 days after DC (4) Hypertension Norvasc 10 mg Continue to monitor Left neck mass CT neck showed fibrotic changes most likely due to previous surgery. An infiltrative neoplastic or lymphoproliferative process could be a possibility as well depending on the history. Will proceed with US guided biopsy in the outpatient settings. Patient will have biopsy on April 06 DISCHARGE MEDICATIONS: Please see below. ALLERGIES: Please see below. PHYSICAL EXAMINATION ON DISCHARGE: VITAL SIGNS: Please see below. GENERAL: awake, alert, NAD HEENT: NCAT, anicteric sclera, JANE NECK: supple, no JVD, in the area of left trapezius muscles palpated mass, tender CARDIOVASCULAR EXAMINATION: NS1S2, regular rate/rhythm RESPIRATORY EXAMINATION: CTA b/l, no wheezes/rales/rhonchi ABDOMINAL EXAMINATION: positive bowel sounds x 4, NT EXTREMITIES: no cyanosis, +2 pitting edema of right leg SKIN: warm, no rashes. NEUROLOGICAL EXAMINATION: AAO x 3, no motor/sensory deficits PSYCHIATRIC EXAMINATION: calm, normal affect LABORATORY DATA: Please see below. PROGNOSIS: Good ACTIVITY: [As tolerated]. DIET: Cardiac DISCHARGE PLAN: Biopsy on April 06, resume xarelto in 4-5 days after DC. Hold xarelto in 4 days before biopsy DISPOSITION: Home, Self-Care. ITEMS TO FOLLOWUP ON ON OUTPATIENT: With PCP, and Dr. James DISCHARGE CONDITION: [Stable]. TIME SPENT ON DISCHARGE: Greater than 20 minutes. Vital Signs/I&Os Vital Signs Date Time Temp Pulse Resp B/P (MAP) Pulse Ox O2 Delivery O2 Flow Rate FiO2 03/26/20 14:00 98.0 108 19 173/76 (108) 96 Room Air 03/23/20 14:20 2 I&O- Last 24 Hours up to 6 AM 03/26/20 06:00 Intake Total 3790 ml Output Total 800 ml Balance 2990 ml Laboratory Data Labs 24H Laboratory Tests 2 03/26/20 06:52: Nucleated Red Blood Cells % (auto) 0.0, Anion Gap 7L, Glomerular Filtration Rate > 60.0, Calcium Level 9.0, Magnesium Level 1.8 CBC/BMP Laboratory Tests 03/26/20 06:52 Discharge Medications Scheduled Allopurinol (Allopurinol) 100 Mg Tab, 100 MG PO DAILY, (Reported) Bisoprolol/Hydrochlorothiazide (Bisoprolol-Hctz 10-6.25 mg Tab) 1 Each Tablet, 1 TAB PO QPM, (Reported) Cholecalciferol (Vitamin D3) (Vitamin D3) 1,000 Unit Tablet, 1,000 UNITS PO DAILY, (Reported) Clopidogrel Bisulfate (Plavix) 75 Mg Tab, 75 MG PO DAILY, (Reported) Ezetimibe (Zetia) 10 Mg Tab, 10 MG PO QPM, (Reported) Finasteride (Finasteride) 5 Mg Tablet, 5 MG PO QPM Hydrocortisone Acetate (Anucort-Hc) 25 Mg Supp.rect, 25 MG WI BID Magnesium Chloride (Mag64) 64 Mg Tablet.dr, 64 MG PO DAILY Mesalamine (Canasa) 1,000 Mg Supp.rect, 1,000 MG WI QHS Multivitamins (Thera M Plus Tablet) 1 Tab Tab, 1 TAB PO DAILY, (Reported) Pantoprazole Sodium (Protonix) 40 Mg Wally, 40 MG PO Q2D, (Reported) Rivaroxaban (Xarelto) 15 Mg Tablet, 15 MG PO BID, (Reported) Rosuvastatin Calcium (Rosuvastatin Calcium) 5 Mg Tab, 5 MG PO QPM, (Reported) Spironolactone (Spironolactone) 25 Mg Tablet, 25 MG PO QPM, (Reported) Tamsulosin HCl (Flomax) 0.4 Mg Cap, 0.4 MG PO BID, (Reported) Travoprost (Travatan Z) 50 Drop/2.5 Ml Soln, 1 DROP OU QHS, (Reported) Allergies Coded Allergies: No Known Allergies (Verified Allergy, Unknown, 03/23/20) RENE MCARTHUR DO Mar 26, 2020 17:23
[2020-03-26] MEDS ORDERED: MESALAMINE 1,000 MG SUPP PR SCH (21:00)
[2020-03-26] MEDS ORDERED: FINASTERIDE 5 MG TAB PO SCH (21:00)
== END 2020-03-26 15:50 | disposition home or self-care (01) | DRG 357 ==
LOC: M ED 08:14 → M ED INP 10:41 → ENRESERV 10:53 → M MSPAV 11:22
PROVIDERS: ADMIT Internal Medicine; ATTEND Internal Medicine
PROC: 06H03DZ Insertion of Intraluminal Device into Inferior Vena Cava, Percutaneous Approach (ICD-10-PCS; principal; 2020-03-23 14:30)
PROC: 0DJ08ZZ Inspection of Upper Intestinal Tract, Via Natural or Artificial Opening Endoscopic (ICD-10-PCS; 2020-03-26)
PROC: 0DBP8ZX Excision of Rectum, Via Natural or Artificial Opening Endoscopic, Diagnostic (ICD-10-PCS; 2020-03-26)
DX: K92.2 Gastrointestinal hemorrhage, unspecified (principal); D62 Acute posthemorrhagic anemia; D68.32 Hemorrhagic disorder due to extrinsic circulating anticoagulants; I82.401 Acute embolism and thrombosis of unspecified deep veins of right lower extremity; I73.9 Peripheral vascular disease, unspecified; M10.9 Gout, unspecified; I10 Essential (primary) hypertension; N40.0 Benign prostatic hyperplasia without lower urinary tract symptoms; R22.1 Localized swelling, mass and lump, neck; K62.89 Other specified diseases of anus and rectum; K21.9 Gastro-esophageal reflux disease without esophagitis; K57.30 Diverticulosis of large intestine without perforation or abscess without bleeding; Z95.820 Peripheral vascular angioplasty status with implants and grafts; Z79.02 Long term (current) use of antithrombotics/antiplatelets; Z79.01 Long term (current) use of anticoagulants; Z79.899 Other long term (current) drug therapy; Z87.891 Personal history of nicotine dependence; Z95.828 Presence of other vascular implants and grafts

== ENCOUNTER → 2020-03-31 | Outpatient (REF) | payer OTHER ==
[~2020-03-31] MED LIST changes: +ANUSHCSU PR; +FINA5TAB2 PO; +MAGN64TASA PO; +MESA50SU PR; +SPIR-10 PO; +VITAD1000T PO; +XARE15TA PO
[2020-03-31 16:59] LABS: INR 2.16; PROTHROMBIN TIME 23.9 SECONDS (11.8-14.0)
[2020-03-31 17:15] LABS: C REACTIVE PROTEIN QUANTITATIV 4.28 MG/DL (0.00-0.30); RHEUMATOID FACTOR QUANT < 10.0 IU/ML (<15.0)
[2020-04-02 14:14] LABS: ANTINUCLEAR ANTIBODIES DIRECT Negative (Negative)
== END ==
LOC: M LAB REF 16:08
PROVIDERS: ATTEND Internal Medicine
DX: I82.401 Acute embolism and thrombosis of unspecified deep veins of right lower extremity (principal); Z01.818 Encounter for other preprocedural examination; R79.82 Elevated C-reactive protein (CRP); M15.9 Polyosteoarthritis, unspecified

== ENCOUNTER 2020-04-05 17:55 | Inpatient (IN) | payer OTHER ==
[~2020-04-05] VITALS: Ht 170.2 cm; Wt 78.1 kg
[2020-04-05] MEDS ORDERED: ISOVUE-370 76% 100ML VIAL As Ordered ONE (18:57)
[2020-04-05 19:03] LABS: BASO % 0.2 % (0.0-1.0); EOS % 0.4 % (0.0-3.0); HEMATOCRIT 33.8 % (42.0-52.0); HEMOGLOBIN 10.9 g/dl (13.5-17.5); LYMPH # 0.7 10^3/uL (1.5-5.0); LYMPH % 7.2 % (24.0-44.0); MEAN CORPUSCULAR HEMOGLOBIN 29.5 pg (27.0-33.0); MEAN CORPUSCULAR HGB CONC 32.2 g/dl (32.0-36.5); MEAN CORPUSCULAR VOLUME 91.4 fl (80.0-96.0); MONO # 0.6 10^3/uL (0.0-0.8); MONO % 6.3 % (0.0-5.0); NEUTROPHILS % 85.5 % (36.0-66.0); PLATELET COUNT, AUTOMATED 121 10^3/uL (150-450); WHITE BLOOD COUNT 9.4 10^3/uL (4.0-10.0)
[2020-04-05 19:11] LABS: INR 1.64; PROTHROMBIN TIME 19.2 SECONDS (11.8-14.0)
[2020-04-05 19:12] LABS: PARTIAL THROMBOPLASTIN TIME 37.6 SECONDS (25.0-38.4)
[2020-04-05 19:32] LABS: ALBUMIN 3.4 GM/DL (3.2-5.2); BILIRUBIN,DIRECT 0.2 MG/DL (0.0-0.2); BILIRUBIN,TOTAL 0.6 MG/DL (0.2-1.0); CK-MB VALUE MASS 2.3 NG/ML (<3.6); MB/CK RELATIVE INDEX 2.88 (< OR =4); TOTAL PROTEIN 7.4 GM/DL (6.4-8.2); TROPONIN I 0.83 NG/ML (< 0.10)
--- NOTE | 2020-04-05 19:57 | REPVR ---
PROCEDURE INFORMATION: Exam: CT Abdomen And Pelvis With Contrast Exam date and time: 04/05/2020 7:06 PM Age: 75 years old Clinical indication: Abdominal pain; Localized; Left lower quadrant (llq) TECHNIQUE: Imaging protocol: Computed tomography of the abdomen and pelvis with intravenous contrast. Radiation optimization: All CT scans at this facility use at least one of these dose optimization techniques: automated exposure control; mA and/or kV adjustment per patient size (includes targeted exams where dose is matched to clinical indication); or iterative reconstruction. Contrast material: ISOVUE 370; Contrast volume: 100 ml; Contrast route: IV; COMPARISON: CT ABD PELVIS WITH CONTRAST 08/23/2016 3:14 PM FINDINGS: Heart: No cardiomegaly or pericardial effusion is noted. There are coronary artery and aortic valve calcifications. Lungs: There is a 12 mm nodular opacity in the posterior segment of the right lower lobe (image 36 of the axial series 201), which is new compared to the prior CT abdomen and pelvis on 08/23/2016. The lungs were not fully imaged. Liver: The attenuation of the liver is more than 40 Hounsfield units lower in attenuation compared to the spleen, which is compatible with fatty liver infiltration. The liver has a nodular contour, which can be seen with cirrhosis. No liver mass is seen. There is a calcified granuloma in the right hepatic lobe. No hepatomegaly is noted. Gallbladder and bile ducts: No calcified gallstones are seen in the distended gallbladder. There is ascites around the gallbladder. No dilation of the bile ducts is noted. No calcified stones are seen in the common bile duct. Pancreas: Normal. No dilation of the main pancreatic duct is noted. There is no inflammatory fat stranding around the pancreas to suggest acute pancreatitis. Spleen: Normal. No splenomegaly is noted. Adrenals: Normal. No adrenal mass is noted. 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 There are simple exophytic cyst arising from the right kidney, the largest measuring 5.8 cm in the superior pole, which were also present in the prior CT abdomen and pelvis on 08/23/2016 and for which follow-up is not necessary. No stones are noted in the renal collecting systems or ureters. There is mild bilateral hydronephrosis. Stomach and bowel: There is thickening of the wall of the stomach, which is compatible with gastritis. The small bowel is unremarkable. There is colonic diverticulosis without evidence for diverticulitis. There is no evidence for a bowel obstruction, colitis, pneumatosis intestinalis, intussusception, volvulus, or perforated viscus. There is thickening of the wall of the rectum, which can be seen with proctitis. Appendix: Normal. There is no evidence for appendicitis. Intraperitoneal space: There is a small amount of ascites in the abdomen and pelvis. Retroperitoneal space: No retroperitoneal mass is noted. Vasculature: There is an inferior vena cava filter in place above the level of the renal veins The infrarenal abdominal aorta is ectatic and measures 2.5 cm x 2.5 cm in diameter, which is stable compared to the prior CT abdomen and pelvis on 08/23/2016. There are extensive atherosclerotic calcifications. No occlusion of the renal arteries are renal veins is noted. There are 2 main left renal arteries and a single main right renal artery. There is an occlusion of a stent in the [place] right superficial femoral artery and a partially imaged right femoral bypass graft, which is patent in its imaged portion. There are extensive atherosclerotic calcifications in the proximal left superficial femoral artery. The left superficial femoral artery was not fully imaged. There are extensive atherosclerotic calcifications of the iliac arteries, but without any occlusion. The portal veins, splenic vein, superior mesenteric vein, and inferior mesenteric vein are patent. Lymph nodes: No enlarged lymph nodes. Bladder: There is severe thickening of the wall of the urinary bladder. No stones are noted in the bladder. Reproductive: The prostate gland is enlarged. The seminal vesicles are unremarkable. Bones/joints: No fracture or dislocation is noted. There is no suspicious osteolytic or osteoblastic lesion. There are degenerative changes involving the lumbar spine. Incidental note is made of a small bone island in the T11 vertebral body, which is unchanged compared to the prior CT abdomen and pelvis on 08/23/2016. Soft tissues: There is mild bilateral gynecomastia. There is a small fat containing indirect right inguinal hernia. There is also a small fat containing umbilical hernia. IMPRESSION: 1. 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 2. Mild bilateral hydronephrosis. No stones in the kidneys, ureters, or urinary bladder. 3. Severe thickening of the wall of the bladder, which may indicate cystitis or bladder wall hypertrophy. Correlation with urinalysis is suggested. 4. Enlarged prostate. 5. Gastritis. 6. Proctitis. 7. Colonic diverticulosis without evidence for diverticulitis. 8. Nodular contour of the liver, which can be seen with cirrhosis. 9. Small amount of ascites. 10. Small fat containing indirect right inguinal hernia. 11. Small fat containing umbilical hernia. 12. 12 mm nodular opacity in the posterior segment of the right lower lobe, which is new compared to the prior CT abdomen and pelvis on 08/23/2016. See management guidelines below. [employer] SOC[employer] 2017 GUIDELINES FOR MANAGEMENT OF INCIDENTAL PULMONARY NODULES: Single solid nodule >8 mm: In a low risk patient, consider CT at 3 months, PET/CT, or tissue sampling. In a high risk patient, consider CT at 3 months, PET/CT, or tissue sampling. Certain patients at high risk with suspicious nodule morphology, upper lobe location, or both may warrant 12-month follow-up. High Risk Patients as defined in the 2017 Fleischner Society Guidelines: ?History of heavy smoking ?Exposure to asbestos, radium, or uranium ?Family history of lung cancer ?Emphysema and pulmonary fibrosis (IPF in particular) ?Older age ?Sex (females at greater risk than men) ?Race (Blacks and at higher risk) ?Marginal spiculation / suspicious morphology ?Upper lobe location (also apex) ?Multiple nodules (2-5 nodules highest risk) ?Exceptions, such as technically suboptimal scanning REFERENCE: Gokul H, Ernie DP, Goo DONN, et al. Guidelines for Management of Incidental Pulmonary Nodules Detected on CT images: From the Fleischner Society 2017. Radiology, May 2017;284(1):228-243. http://pubs.rsna.org/doi/pdf/[email or web address] Electronically signed by: Chago Smith On 04/05/2020 19:57:21 PM
[2020-04-05] MEDS ORDERED: bisoproloL fumarate 10 MG TAB PO SCH (21:00)
[2020-04-05 21:34] LABS: CK-MB VALUE MASS 2.6 NG/ML (<3.6); CPK CREATINE PHOSPHOKINASE 84 U/L (39-308); TROPONIN I 0.87 NG/ML (< 0.10)
[2020-04-05] MEDS ORDERED: MORPHINE 4 MG/ML 1ML VIAL/SYRINGE (J2270) IV PRN (22:00)
[2020-04-05] MEDS ORDERED: ONDANSETRON 4MG/2ML VIAL IV ONE (22:00)
[2020-04-05] MEDS ORDERED: PANT40TA3 PO (22:06)
[2020-04-05] MEDS ORDERED: MOM 30ML SUSPENSION UDC PO PRN (22:15)
--- NOTE | 2020-04-05 23:34 | HPEPDOC ---
General Date of Admission 04/05/2020 Date of Service: April 05, 2020 Chief Complaint The patient is a 75-year-old male admitted with a reason for visit of Abdominal Pain. Source: Patient Exam Limitations: No limitations Timing/Duration: Day(s) (3) Severity: Severe Associated Symptoms: Denies Symptoms History of Present Illness Patient is a 75-year-old male who reported to [facility] ED with complaints of left lower quadrant pain. Patient reported that the pain started 3 days ago. It is sharp, lasts for 30 seconds and occurs every half an hour to 45 minutes, is a 9/10 at its worst, does not radiate, he denied any nausea, vomiting, diarrhea, constipation, anorexia. Patient reported that he has taken 2 Tylenol every 6 hours for the pain but it has not been helpful. He denied any exacerbating factors. Home Medications Scheduled Allopurinol (Allopurinol) 100 Mg Tab, 100 MG PO DAILY, (Reported) Bisoprolol/Hydrochlorothiazide (Bisoprolol-Hctz 10-6.25 mg Tab) 1 Each Tablet, 1 TAB PO QPM, (Reported) Cholecalciferol (Vitamin D3) (Vitamin D3) 1,000 Unit Tablet, 1,000 UNITS PO DAILY, (Reported) Clopidogrel Bisulfate (Plavix) 75 Mg Tab, 75 MG PO DAILY, (Reported) Ezetimibe (Zetia) 10 Mg Tab, 10 MG PO QPM, (Reported) Finasteride (Finasteride) 5 Mg Tablet, 5 MG PO QPM Hydrocortisone Acetate (Anucort-Hc) 25 Mg Supp.rect, 25 MG NC BID Magnesium Chloride (Mag64) 64 Mg Tablet.dr, 64 MG PO DAILY Multivitamins (Thera M Plus Tablet) 1 Tab Tab, 1 TAB PO DAILY, (Reported) Pantoprazole Sodium (Pantoprazole Sodium) 40 Mg Tablet.dr, 40 MG PO Q2D, (Reported) Rosuvastatin Calcium (Rosuvastatin Calcium) 5 Mg Tab, 5 MG PO QPM, (Reported) Tamsulosin HCl (Flomax) 0.4 Mg Cap, 0.4 MG PO BID, (Reported) Travoprost (Travatan Z) 50 Drop/2.5 Ml Soln, 1 DROP OU QHS, (Reported) Allergies Coded Allergies: No Known Allergies (Verified Allergy, Unknown, 03/23/20) Past Medical History Medical History Hypertension. Peripheral vascular disease. Diverticulitis. GERD. BPH. Gout. Dupuytren's contraction Surgical History CABG with stents. Bilateral endarterectomy. stent , RLE Family History Significant Family History: Heart disease (motherpig valve, PVD), Other (fatherCVA. Brother, deceasedliver disease, ESRD with HD) Social History * Smoker: former Smoker (quit 30 years ago) Alcohol: other (until 4 months ago, drank 1-2 beers per night) Drugs: denies A-FIB/CHADSVASC A-FIB History Current/History of A-Fib/PAF?: No Current PO Anticoag Therapy: Yes Review of Systems Constitutional: Denies: Chills, Fever, Night Sweats Eyes: Denies: Pain, Vision change ENT: Denies: Head Aches Skin: Denies: Rash Pulmonary: Denies: Dyspnea, Cough Cardiovascular: Denies: Chest Pain, Palpitations, Orthopnea, Paroxysmal Noc. Dyspnea, Lt Headedness Gastrointestinal: Reports: Abdominal Pain (left lower quadrant; see HPI); Denies: Nausea, Vomiting, Diarrhea, Constipation, Melena, Hematochezia Genitourinary: Denies: Dysuria Hematologic: Denies: Bruising Musculoskeletal: Denies: Neck Pain, Back Pain, Joint Pain, Muscle Pain, Spasms Neurological: Denies: Weakness, Numbness, Change in speech, Confusion Psych: Reports: Mood Normal; Denies: Depression, Memory Issues Physical Examination General Exam: Positive: Alert, Cooperative, No Acute Distress Eye Exam: Positive: PERRLA, Conjunctiva & lids normal, EOMI; Negative: Sclera icteric ENT Exam: Positive: Atraumatic, Mucous membr. moist/pink, Pharynx Normal Neck Exam: Positive: Supple, Other (mass, left side); Negative: JVD, thyromegaly Chest Exam: Positive: Clear to auscultation, Normal air movement Heart Exam: Positive: Rate Normal, Regular Rhythm, Normal S1, Normal S2; Negative: Murmurs, Rubs Telemetry: Positive: No significant arrhythmia Abdomen Exam: Positive: BS Hyperactive, Tenderness (slight, LLQ); Negative: Soft (abdomen slightly distended, hard), Hepatospenomegaly Extremity Exam: Positive: Edema (RLE), Normal pulses (palpable pulses bilateral LEs); Negative: Clubbing, Cyanosis, Tenderness, Swelling Skin Exam: Positive: Nl turgor and temperature Neuro Exam: Positive: Normal Speech, Cranial Nerves 3-12 NL Psych Exam: Positive: Mood NL, Oriented x 3 Vital Signs Vital Signs Date Time Temp Pulse Resp B/P (MAP) Pulse Ox O2 Delivery O2 Flow Rate FiO2 04/05/20 22:08 75 94 04/05/20 22:02 20 04/05/20 21:07 190/60 (103) 04/05/20 18:42 96.7 Room Air Laboratory Data Labs 24H Laboratory Tests 2 04/05/20 18:46: Immature Granulocyte % (Auto) 0.4, Neutrophils (%) (Auto) 85.5H, Lymphocytes (%) (Auto) 7.2L, Monocytes (%) (Auto) 6.3H, Eosinophils (%) (Auto) 0.4, Basophils (%) (Auto) 0.2, Neutrophils # (Auto) 8.0, Lymphocytes # (Auto) 0.7L, Monocytes # (Auto) 0.6, Eosinophils # (Auto) 0.0, Basophils # (Auto) 0.0, Nucleated Red Blood Cells % (auto) 0.0, Prothrombin Time 19.2H, Prothromb Time International Ratio 1.64, Activated Partial Thromboplast Time 37.6, Lactic Acid Level 1.2, Total Bilirubin 0.6, Direct Bilirubin 0.2, Aspartate Amino Transf (AST/SGOT) 42H, Alanine Aminotransferase (ALT/SGPT) 34, Alkaline Phosphatase 255H, Total Creatine Kinase 80, Creatine Kinase MB 2.3, Creatine Kinase MB Relative Index 2.88, Troponin I 0.83H, Total Protein 7.4, Albumin 3.4, Albumin/Globulin Ratio 0.85L, Lipase 209 04/05/20 18:53: POC Glucose (Misc Panel) 127H, POC Sodium (Misc Panel) 139, POC Potassium (Misc Panel) 4.3, POC Chloride (Misc Panel) 105, POC Total CO2 (Misc Panel) 24.0, POC Blood Urea Nitrogen (Misc Panel 28H, POC Ionized Calcium (Misc Panel) 4.9, POC Creatinine (Misc Panel) 1.4H, POC Hematocrit (Misc Panel) 34.0L 04/05/20 20:38: Urine Color YELLOW, Urine Appearance CLEAR, Urine pH 5.0, Urine Specific [place] 1.043, Urine Protein 2+H, Urine Glucose (UA) NEGATIVE, Urine Ketones NEGATIVE, Urine Blood 2+H, Urine Nitrite NEGATIVE, Urine Bilirubin NEGATIVE, Urine Urobilinogen 0.2, Urine Leukocyte Esterase NEGATIVE, Urine WBC (Auto) 23H, Urine RBC (Auto) 48H, Urine Hyaline Casts (Auto) 0, Urine Bacteria (Auto) 1+H, Urine Squamous Epithelial Cells 0, Urine Mucus (Auto) SMALL, Urine Sperm (Auto) 04/05/20 21:00: Total Creatine Kinase 84, Creatine Kinase MB 2.6, Creatine Kinase MB Relative Index 3.10, Troponin I 0.87H CBC/BMP Laboratory Tests 04/05/20 18:46 Microbiology Microbiology 04/05/20 Urine Culture, Received Pending Assessment/Plan Patient is a 75-year-old male who reported to [facility] ED with complaints of left lower quadrant pain. Patient reported that the pain started 3 days ago. It is sharp, lasts for 30 seconds and occurs every half an hour to 45 minutes, is a 9/10 at its worst, does not radiate, he denied any nausea, vomiting, diarrhea, constipation, anorexia. Patient reported that he has taken 2 Tylenol every 6 hours for the pain but it has not been helpful. He denied any exacerbating fa ctors. Patient has a past medical history which includes: Hypertension, peripheral vascular disease, gout, BPH, GERD, diverticulitis, Dupuytren's contraction. Patient was in the hospital on 03/23/20 with complaints of GI bleed. In the week leading up to this. The patient had been found to have a extensive DVT requiring stenting, he was placed on Xarelto and Plavix following the procedure and noted bright red blood per stool within several days. Patient had an endoscopy and colonoscopy while inpatient. Patient found to have diverticulosis in the sigmoid colon and moderate inflammation in the rectum secondary to proctitis. Patient was discharged home with instructions for GI follow-up. CT ABD PELVIS WITH CONTRAST IMPRESSION: 1. 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 2. Mild bilateral hydronephrosis. No stones in the kidneys, ureters, or urinary bladder. 3. Severe thickening of the wall of the bladder, which may indicate cystitis or bladder wall hypertrophy. Correlation with urinalysis is suggested. 4. Enlarged prostate. 5. Gastritis. 6. Proctitis. 7. Colonic diverticulosis without evidence for diverticulitis. 8. Nodular contour of the liver, which can be seen with cirrhosis. 9. Small amount of ascites. 10. Small fat containing indirect right inguinal hernia. 11. Small fat containing umbilical hernia. 12. 12 mm nodular opacity in the posterior segment of the right lower lobe, which is new compared to the prior CT abdomen and pelvis on 08/23/2016. See management guidelines below. #1. Elevated troponin Patient denied symptoms Troponins 0.83 - 0.87; serial troponins #2 Left lower quadrant abdominal pain. No evidence of diverticulitis per CT Suspect secondary to proctitis. Continue hydrocortisone per rectum, home medication Pain control/Zofran prn for nausea, vomiting/strict bowel rest/IV fluid hydration #3. Hypertension. Continue bisoprolol, hydrochlorothiazide #4. Coronary artery disease. Continue bisoprolol, Zetia, Crestor. #5. GERD. Continue PPI #6. BPH. Continue Flomax and Proscar #7. Gout Continue allopurinol Plan / VTE VTE Prophylaxis Ordered?: Yes (heparin) Attending Note Attending Note is a 75 yr w a hx of peripheral vascular diseases, gout, hyper tension, BPH, gastroesophageal reflux disease (GERD), diverticulosis, bilateral extremity stenting, CAD, femoral endarterectomy, neck mass (biopsy scheduled for April 06), DVT s/p IVCF, & proctitis who is admitted for LLQ abd pain. At the time of my evaluation he had no acute c/o and reported that his pain had resolved. #Proctitis - c/w steroids / the day time team may consider Gen surg consult #Elevated trops cause TBD. EKG no ST changes - trend trops / if they double in 6H will treat for NSTEMI #NN Anemia - f/u iron panel #Thrombocytopenia possibly 2/2 reduced thrombopoetin production due to liver dz - f/u Hep panel #Neck mass - will ask the day time team to contact IR to see if he can still have his mass biopsied as scheduled tomorrow (he is NPO) Rest per Marge H&P Late entry The troponin is trending up but hasn't doubled in 6H. The elevation may be due to elevated BP, bc the accelerated HTN w an SBP in the 200s while in the ER - will order ASA daily, atorvastatin, lipid panel, A1C & Echo / if his trops continue to trend upwards the day time team may consider consulting Cardiology CHARLI JACK PA-C April 05, 2020 23:34 TED MCGOWAN MD April 06, 2020 03:55
[2020-04-05 23:50] VITALS: BP 150/74
[2020-04-06 00:33] LABS: BLOOD UREA NITROGEN 30 MG/DL (7-18); CALCIUM LEVEL 8.6 MG/DL (8.8-10.2); CARBON DIOXIDE LEVEL 24 MEQ/L (21-32); CHLORIDE LEVEL 105 MEQ/L (98-107); GLOMERULAR FILTRATION RATE 57.3 (>42); GLUCOSE, FASTING 116 MG/DL (70-100); POTASSIUM SERUM 4.3 MEQ/L (3.5-5.1); SODIUM LEVEL 138 MEQ/L (136-145)
[2020-04-06] MEDS: NS 1,000 ML IV SCH ×4 (00:44→23:01)
[2020-04-06] MEDS: MORPHINE 2 MG/ML 1ML VIAL (J2270) IV PRN ×2 (00:45→14:25)
[2020-04-06 01:17] LABS: FERRITIN 280 NG/ML (26-388); IRON (FE) 29 UG/DL (65-175); PERCENT SATURATION 17.4 % (19.7-50.0); TOTAL IRON BINDING CAPACITY 167 UG/DL (250-450)
[2020-04-06] MEDS: TAMSULOSIN 0.4 MG CAP PO SCH ×3 (01:21→20:12)
[2020-04-06] MEDS: FINASTERIDE 5 MG TAB PO SCH ×2 (01:21→20:11)
[2020-04-06] MEDS: LATANOPROST 0.005% OPHTH SOLN 2.5 ML OU SCH ×2 (01:21→20:14)
[2020-04-06] MEDS: ROSUVASTATIN 10 MG TAB (CRESTOR) PO SCH ×2 (01:21→20:12)
[2020-04-06] MEDS: ANUSOL HC 25MG SUPP PR SCH ×3 (01:22→20:13)
[2020-04-06] MEDS: EZETIMIBE 10 MG TAB (ZETIA) PO SCH ×2 (01:22→20:12)
[2020-04-06 03:45] LABS: TROPONIN I 1.25 NG/ML (< 0.10)
--- NOTE | 2020-04-06 03:47 | REP ---
Clinical: Cough shortness of breath . Comparison: 03/23/2020 . Findings: The mediastinum and cardiac silhouette are stable and within normal limits for portable technique. The lung henderson are clear without acute consolidation, effusion, or pneumothorax. Skeletal structures are intact. Impression: No acute cardiopulmonary process appreciated. Electronically Signed by Eric Schneider MD 04/06/2020 03:39 A
[2020-04-06 04:15] LABS: CHOLESTEROL RISK RATIO 4.764 (<5)
[2020-04-06 06:00] VITALS: BP 136/64
[2020-04-06 06:10] LABS: HEMOGLOBIN 10.6 g/dl (13.5-17.5); MEAN CORPUSCULAR HGB CONC 32.1 g/dl (32.0-36.5); MEAN CORPUSCULAR VOLUME 93.5 fl (80.0-96.0); PLATELET COUNT, AUTOMATED 125 10^3/uL (150-450); RED BLOOD COUNT 3.53 10^6/uL (4.30-6.10); WHITE BLOOD COUNT 11.3 10^3/uL (4.0-10.0)
[2020-04-06 06:22] LABS: HEMOGLOBIN A1c 6.8 %
[2020-04-06 06:35] LABS: CALCIUM LEVEL 8.4 MG/DL (8.8-10.2); CREATININE FOR GFR 1.41 MG/DL (0.70-1.30); GLOMERULAR FILTRATION RATE 52.2 (>42); POTASSIUM SERUM 4.3 MEQ/L (3.5-5.1)
[2020-04-06 08:58] VITALS: BP 142/72
[2020-04-06] MEDS ORDERED: HYDROCHLOROthiazide 6.25MG PER 1/4TAB PO SCH (09:00)
[2020-04-06] MEDS: ASPIRIN 81 MG CHEW TABLET PO SCH (09:42)
[2020-04-06] MEDS: ATORVASTATIN 20 MG TAB PO SCH (09:43)
[2020-04-06] MEDS: allopurinoL 100 MG TAB PO SCH (09:43)
[2020-04-06] MEDS: HEPARIN SOD (PORCINE) 5000UNITS/ML VIAL (J1644 PER 1000UNITS) SC SCH ×2 (09:43→20:11)
--- NOTE | 2020-04-06 09:53 | REP ---
COMPLETE SONOGRAPHY OF THE ABDOMEN WITH RENAL ARTERY DOPPLER FLOW ASSESSMENT: HISTORY: Transaminase. Suspected left renal infarction. Comparison CT study April 05, 2020. SONOGRAPHIC FINDINGS: Scanning through the right upper quadrant of the abdomen demonstrates a distended gallbladder with 5 mm wall thickening. No stone or polyp is appreciated within the lumen of the gallbladder. There is some of abdominal ascites in the right upper quadrant. Common bile duct is normal measuring 0.5 cm in greatest diameter. There is an echogenic focus producing acoustic shadowing in the right lobe of the liver consistent with a hepatic granuloma. No liver mass lesion is seen. Limited views of the pancreas show no abnormality. Scanning of the left upper quadrant demonstrates borderline spleen size. The spleen is homogeneous measuring 10.9 x 5.4 x 11.6 cm. No focal splenic lesion is seen. Renal cortical echogenicity pattern is normal. No hydronephrosis is seen on either side. Right renal dimensions are 11.6 x 5.5 x 5.9 cm. The left kidney measures 13.5 x 4.7 x 5.0 cm. There is a shadowing structure the upper pole region of the left kidney which may be vascular or intrarenal calculus. There are two cysts in the right kidney measuring 4.1 x 3.6 x 6.4 cm and 2.6 x 2.1 x 2.1 cm respectively. These are visible on CT scanning. IMPRESSION: There is evidence of ascites. Gallbladder is distended and thick-walled but no calculus is seen. There are two right renal cysts. RENAL ARTERY DOPPLER FLOW ASSESSMENT: Peak systolic flow velocity in the abdominal aorta is normal at the level of the main renal arteries measured at 112.3 cm/s. Peak systolic flow velocity in the left main renal artery is recorded at 135 cm/s. The Doppler flow in the right main renal artery could not be seen. The distal right main renal artery flow velocity is normal at 131.7 cm/s. Renal to aortic flow velocity ratios are therefore normal, measured at 1.1 on the right and 1.2 on the left. Resistive indices and acceleration times are measured in the intralobar arteries of the upper, mid, and lower pole of each kidney. These values are normal. IMPRESSION: There is no Doppler evidence of renal artery stenosis. Exam is somewhat limited. Electronically Signed by Yeison Bunch MD 04/06/2020 11:09 A
[2020-04-06 10:36] LABS: HEPATITIS B SURFACE ANTIGEN NEGATIVE (NEGATIVE)
[2020-04-06 11:05] LABS: HEPATITIS B CORE ANTIBODY IGM NEGATIVE (NEGATIVE)
[2020-04-06 11:06] LABS: HEPATITIS A ANTIBODY IGM NEGATIVE (NEGATIVE)
[2020-04-06] MEDS: MAGNESIUM CHLORIDE 64 MG TABCR (SLO MAG) PO SCH (11:21)
[2020-04-06 12:00] VITALS: BP 148/82
[2020-04-06] MEDS: CARVedilol 12.5 MG TAB PO SCH ×2 (14:19→20:12)
[2020-04-06] MEDS: PANTOPRAZOLE 40MG TAB (PROTONIX) PO SCH (14:31)
--- NOTE | 2020-04-06 14:31 | IPNPDOC ---
Text Note Date of Service The patient was seen on 04/06/20. NOTE Subjective: Patient is a 75 year old male with a PMHx Recent Hx of RLE DVT (s/p IVC), Recent Hx of GI bleed (s/p Xarelto), New neck mass (scheduled for biopsy on 04/06/2020), HTN, PVD (s/p bypass and stent at RLE), BPH, Gout, Diverticulosis, GERD who presents to the hospital with left sided inguinal/groin pain. Upon arrival to emergency room, patient's systolic blood pressure was in the 200s and was found to have mild troponin leak of 0.8. Patient is not experiencing chest pain, shortness of breath or palpitations at that time. Patient was admitted to hospitalist service for worsening renal function and left inguinal pain on 04/05/2020. Patient was recently admitted on 03/23/2020 for rectal bleed. He noted that he was started on anticoagulation with Xarelto for a recently diagnosed RLE DVT. Patient had received an IVC filter with Dr. Ly given his contraindication to anticoagulation. They then had received an EGD / Colonoscopy on 03/[address] James that revealed scattered moderate inflammation in rectum 2/2 proctitis. During that hospital stay he was also found to have a left neck mass on CT imaging and was scheduled to receive an IR guided biopsy on 04/06/2020. Patient was subsequently discharged home on 03/26/2020. Patient was seen and examined at the bedside. Patient reports that they do not experiencing any chest pain, shortness breath or palpitations. Has not expense, nausea, vomiting, abdominal pain, diarrhea, or urinary discomfort. They report that her left inguinal/groin pain has resolved at this time/ Objective: Vitals (See below) General: Lying in bed, no acute distress, comfortable, AAOx3 HEENT: NC, AT CVS: +S1S2 Lungs: Fair air entry b/l, no appreciable wheezing, rhonchi or rales Abdomen: Soft, nondistended and nontender, left inguinal area without any tenderness on palpation Extremities: Right lower extremity with 1-2+ pitting edema, left lower extremity without any edema, - Calf tenderness Assessment and plan: L inguinal pain - possibly 2/2 referred pain 2/2 recently passed stone, possibly 2/2 renal vascular disease - possibly 2/2 embolic etiology - Presented with Left inguinal pain; currently has reported improvement - Remain hemodynamically stable / Afebrile - No leukocytosis on admission - UA without evidence of infection - CT ab/pel 04/05: 1. 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 2. Mild bilateral hydronephrosis. No stones in the kidneys, ureters, or urinary bladder. 3. Severe thickening of the wall of the bladder, which may indicate cystitis or bladder wall hypertrophy. Correlation with urinalysis is suggested. 4. Enlarged prostate. 5. Gastritis. 6. Proctitis. 7. Colonic diverticulosis without evidence for diverticulitis. 8. Nodular contour of the liver, which can be seen with cirrhosis. 9. Small amount of ascites. 10. Small fat containing indirect right inguinal hernia. 11. Small fat containing umbilical hernia. 12. 12 mm nodular opacity in the posterior se gment of the right lower lobe, which is new compared to the prior CT abdomen and pelvis on 08/23/2016. - Will check Echocardiogram with bubble study - Will check Doppler renal US Elevated troponin - possibly 2/2 Demand ischemia / Type 2 NSTEMI - possibly 2/2 significant hypertension on admission - Patient has not experienced any CP, SOB or palpitations - Patient has not experienced any history of coronary events; no ME / stents or CABG - EKG repeated this morning is without any ischemic changes - Troponins have trended up; will continue to follow trend - Will check ECHO - Will continue with telemetry monitoring Elevated Cr - Baseline Cr of 0.9-1.1; Cr on admission of 1.3, trended up to 1.4 - CT imaging suggesting possibility of L renal artery infarction - UA with evidence of hematuria - Will avoid nephrotoxic medications - Will check urine electrolytes - Will increase rate of IV fluid hydration Hypertensive Urgency - Patient initially presented to the ER with SBP > 200s - Had reported left inguinal pain - Home medications have been resumed; Will DC HCTZ and Bisoprolol - Will start Carvedilol with BID dosing Nodular contour of the liver - Physical without any abdominal discomfort, no evidence of SBP - Imaging has suggested possibility of cirrhosis with small amount of ascites - Slight elevation of AST - Hepatitis workup was negative - Albumin levels appropriate / INR mildly elevated at 1.64 - No significant amount of fluid to warrant drainage at this time RLL with nodular opacity - Imaging with 12 mm nodular opacity in the posterior segment of the right lower lobe, which is new compared to the prior CT abdomen and pelvis on 08/23/2016 - Results of CT scan were verbalized with the patient; he has understood the importance of follow up - Patient is a former smoker - Patient will need to follow up with Pulmonology for likely biopsy / surveillance imaging DLP - c/w Rosuvastatin BPH - c/w Tamsulosin and Finasteride Gout - c/w Allopurinol GERD - c/w Protonix DVT prophylaxis - c/w Heparin Disposition: - Will optimize BP control - Will continue to trend troponins - Will await results of echocardiogram - c/w IV fluid hydration VS,Fishbone, I+O VS, Fishbone, I+O Laboratory Tests 04/05/20 18:46 04/05/20 21:00 04/06/20 05:15 Vital Signs Date Time Temp Pulse Resp B/P (MAP) Pulse Ox O2 Delivery O2 Flow Rate FiO2 04/06/20 12:00 97.9 80 17 148/82 (104) 91 Room Air 04/05/20 23:40 2.0 I&O- Last 24 Hours up to 6 AM 04/06/20 06:00 Intake Total 500 ml Output Total 200 ml Balance 300 ml CAIT MOJICA MD April 06, 2020 12:40
[2020-04-06 15:41] LABS: ALBUMIN 3.1 GM/DL (3.2-5.2); BILIRUBIN,TOTAL 0.5 MG/DL (0.2-1.0); CALCIUM LEVEL 8.1 MG/DL (8.8-10.2); CK-MB VALUE MASS 4.1 NG/ML (<3.6); CREATININE FOR GFR 1.46 MG/DL (0.70-1.30); GLOMERULAR FILTRATION RATE 50.1 (>42); MAGNESIUM LEVEL 2.1 MG/DL (1.8-2.4); MB/CK RELATIVE INDEX 3.2 (< OR =4); POTASSIUM SERUM 4.5 MEQ/L (3.5-5.1); TROPONIN I 1.42 NG/ML (< 0.10)
[2020-04-06 16:00] VITALS: BP 158/78
--- NOTE | 2020-04-06 16:44 | ECGEPIP ---
[facility] - ED Test Date: 2020-04-05 Pat Name: XOCHITL JEAN Department: Room: [place] [address] Gender: Male [employer] Technician: RADHA : 1945 Requested By: KARLEY BRUSH Order Number: [id number] Reading MD: Zina Ng Measurements Intervals [place] Rate: 72 P: 24 WA: 140 QRS: -7 QRSD: 97 T: 10 QT: 403 QTc: 442 Interpretive Statements SINUS RHYTHM NSTTW abnormalities INCREASED RATE 03/23/20 Electronically Signed on 04-06-2020 16:44:17 EDT by Zina Ng
--- NOTE | 2020-04-06 19:35 | ECHO ---
DATE OF PROCEDURE: 04/05/2020 REFERRING PHYSICIAN: Dr. Gunnar Welsh INDICATION: Hypertensive urgency, elevated troponin. Height 170 cm, weight 79 kg. DIMENSIONS: IVS: 1.0 LV: 4.7 LVPW: 1.0 LA: 4.2 Aorta: 2.9 Mitral E wave velocity: 96 A wave: 111 E prime septal: 7.1 E prime lateral: 9.6 IVC: 1.5 FINDINGS: The study is of acceptable technical quality, the patient is in sinus rhythm. Normal left ventricular (LV) size with normal LV systolic function and estimated left ventricular ejection fraction (LVEF) 65-70%. I do not appreciate any segmental wall motion abnormalities. Right ventricle also appears to be normal size and systolic function. Left atrium is mildly enlarged. Right atrium is likely normal size. Aortic valve is tricuspid. It is heavily calcified, and there appears to be small echodensity attached to its cusps, suggestive of possible small vegetation. The appearance is not quite typical, and this could represent just calcification. Mitral valve looks normal. Tricuspid and pulmonic valve also look normal. No pericardial effusion is noted. Inferior vena cava is normal size. Aortic root is normal. Aortic arch and abdominal aorta were not well seen. Doppler interrogation of aortic valve reveals mild insufficiency and mild stenosis with mean gradient 14 mmHg. There is no significant mitral valvular disease. Mild tricuspid insufficiency is seen. Calculated pulmonary artery pressure is within normal limits based on poor quality TR jet. Pulmonic valve is functionally competent. Mitral inflow pattern and tissue Doppler imaging of mitral annulus revealed grade 1 diastolic dysfunction. CONCLUSIONS: 1. Study is of acceptable technical quality, the patient is in sinus rhythm. 2. Normal LV size with hyperdynamic LV systolic function and grade 1 diastolic dysfunction. No left ventricular hypertrophy (LVH). 3. Heavily sclerotic aortic valve with potential vegetation versus calcifications with mild aortic stenosis and mild aortic insufficiency. 4. No additional significant valvular disease. 5. Likely normal central venous pressure and normal pulmonary artery pressure. COMMENT: Depending on the degree of suspicion for bacterial endocarditis, further evaluation in this matter is recommended.
[2020-04-06 20:00] VITALS: BP 141/71
[2020-04-07] VITALS: BP 123/59
[2020-04-07 04:00] VITALS: BP 138/65
[2020-04-07] MEDS: NS 1,000 ML IV SCH ×2 (04:35→09:20)
[2020-04-07 05:51] LABS: HEMATOCRIT 29.1 % (42.0-52.0); HEMOGLOBIN 9.2 g/dl (13.5-17.5); MEAN CORPUSCULAR HGB CONC 31.6 g/dl (32.0-36.5); MEAN CORPUSCULAR VOLUME 94.8 fl (80.0-96.0); PLATELET COUNT, AUTOMATED 121 10^3/uL (150-450); RED BLOOD COUNT 3.07 10^6/uL (4.30-6.10)
[2020-04-07 06:08] LABS: CALCIUM LEVEL 7.7 MG/DL (8.8-10.2); CREATININE FOR GFR 1.56 MG/DL (0.70-1.30); GLOMERULAR FILTRATION RATE 46.4 (>42); POTASSIUM SERUM 4.5 MEQ/L (3.5-5.1); TROPONIN I 1.28 NG/ML (< 0.10)
[2020-04-07 08:00] VITALS: BP 140/40
[2020-04-07] MEDS: ASPIRIN 81 MG CHEW TABLET PO SCH (08:13)
[2020-04-07] MEDS: allopurinoL 100 MG TAB PO SCH (08:13)
[2020-04-07] MEDS: ATORVASTATIN 20 MG TAB PO SCH (08:13)
[2020-04-07] MEDS: PANTOPRAZOLE 40MG TAB (PROTONIX) PO SCH (08:13)
[2020-04-07] MEDS: MAGNESIUM CHLORIDE 64 MG TABCR (SLO MAG) PO SCH (08:13)
[2020-04-07] MEDS: HEPARIN SOD (PORCINE) 5000UNITS/ML VIAL (J1644 PER 1000UNITS) SC SCH (08:14)
[2020-04-07] MEDS: TAMSULOSIN 0.4 MG CAP PO SCH ×2 (08:14→20:00)
[2020-04-07] MEDS: CARVedilol 12.5 MG TAB PO SCH ×2 (08:14→20:02)
[2020-04-07] MEDS: ANUSOL HC 25MG SUPP PR SCH ×2 (08:15→20:02)
[2020-04-07] MEDS ORDERED: PANTOPRAZOLE 40MG TAB (PROTONIX) PO SCH (09:00)
[2020-04-07 12:00] VITALS: BP 140/44
--- NOTE | 2020-04-07 12:20 | IPNPDOC ---
Text Note Date of Service The patient was seen on 04/07/20. NOTE Subjective: No any acute events overnight. Patient noted hematuria. Also patient complains of shortness of breath, currently he is on 2 L via nasal cannula Patient denied any fever, chills, nausea, vomiting, chest pain, palpitations, diarrhea or dysuria PHYSICAL EXAMINATION ON DISCHARGE: VITAL SIGNS: Please see below. GENERAL: awake, alert, NAD HEENT: NCAT, anicteric sclera, JANE NECK: supple, no JVD CARDIOVASCULAR EXAMINATION: NS1S2, regular rate/rhythm RESPIRATORY EXAMINATION: Crackles at the base bilaterally ABDOMINAL EXAMINATION: positive bowel sounds x 4, NT EXTREMITIES: no cyanosis, +2 right pitting edema SKIN: warm, no rashes. NEUROLOGICAL EXAMINATION: AAO x 3, no motor/sensory deficits PSYCHIATRIC EXAMINATION: calm, normal affect Assessment and plan: Patient is 75 years old male with past medical history of recent Hx of RLE DVT (s/p IVC), Recent Hx of GI bleed (s/p Xarelto), new neck mass, HTN, PVD (s/p bypass and stent at RLE), BPH, Gout, Diverticulosis, GERD who presents to the hospital with left sided inguinal/groin pain. Patient was found to have acute kidney injury, left renal infarct, elevated troponin most likely secondary to acute coronary syndrome, 1.2 nodule of the right lung lower lobe. Left inguinal pain Resolved for now Most likely referral pain from left kidney infarct given CT findings of a large wedge-shaped region of low attenuation in the left kidney, which is compatible with a left renal infarct that has developed since the prior CT abdomen and pelvis on 08/23/2016 Shortness of breath Most likely secondary to volume overload Patient received 6 L of fluid with rate 200 mL per hour. Positive balance 2.5 L BNP around 12,000 I discontinued IV fluid Ascites Most likely secondary to BOWEN CT positive for fatty liver infiltration. The liver has a nodular contour, which can be seen with cirrhosis. No liver mass is seen. Will proceed with diagnostic paracentesis Will check alpha-fetoprotein NSTEMI versus Demand ischemia Echo shows normal LV size with hyperdynamic LV systolic function and grade 1 diastolic dysfunction. No left ventricular hypertrophy (LVH). Heavily sclerotic aortic valve with potential vegetation versus calcifications with mild aortic stenosis and mild aortic insufficiency. Currently patient does not have any chest pain or palpitations Patient developed troponin of 1.6 on 04/06/12. Trended down, on 04/07/20 1.2 c/w b román, aspirin, statin I will discuss anticoagulation with Dr. Pretty given history of renal infarct, recent GI bleed and hematuria Will proceed with ESTEFANI given suspicion for vegetation I will repeat blood culture Left kidney infarct Unknown etiology for now There is concern for septic emboli secondary to possible endocarditis. Other differential diagnosis included emboli secondary to malignancy. Patient has left neck mass and lung nodule. 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 There is also concern for emboli secondary to malignancy. We will proceed with ESTEFANI I will repeat blood culture First set of Blood culture result pending I will hold antibiotics until ESTEFANI in and blood culture result DVT I will hold anticoagulation for now given recent history of GI bleed, renal infarct There is concern for underlying malignancy Patient has IVC filter BPH - c/w Tamsulosin and Finasteride Gout I will hold allopurinol due to VINCENT GERD - c/w Protonix VS,Fishbone, I+O VS, Fishbone, I+O Laboratory Tests 04/06/20 14:48 04/07/20 05:33 Vital Signs Date Time Temp Pulse Resp B/P (MAP) Pulse Ox O2 Delivery O2 Flow Rate FiO2 04/07/20 08:14 79 140/40 04/07/20 08:00 98.4 17 96 Nasal Cannula 2.0 I&O- Last 24 Hours up to 6 AM 04/07/20 05:59 Intake Total 3350 ml Output Total 450 ml Balance 2900 ml RENE MCARTHUR DO April 07, 2020 12:20
--- NOTE | 2020-04-07 14:26 | REP ---
REASON FOR EXAM: Followup. All prior chest CTs were reviewed, the latest of which is dated 06/01/2018 also without intravenous contrast. The lack of intravenous contrast decreases the sensitivity of the exam. Limited evaluation of the mediastinum and pulmonary haley show no gross changes. Calcified right hilar lymph nodes status quo. Borderline mediastinal lymph nodes status quo. There is a slight left pleural effusion which has developed since the last exam. There is no pericardial effusion. The imaged upper abdomen shows moderate ascites which represents a change from the prior exam. In addition, there is a wedge-shaped area of decreased density in the interpolar region of the left kidney incompletely imaged and difficulty to evaluate without intravenous contrast. This represents a change from the appearance of the left kidney on the latest prior CT of the abdomen of 10/17/2019. There is an inferior vena cava filter, the tip of which is at a level proximal to the renal veins. This too, represents a change from the prior exam when no IVC filter was identified. The imaged osseous structures are stable and intact. Evaluation of the lung henderson shows patchy airspace opacities in the left lower lobe and in the lingula inferiorly. There are scattered asymmetric densities seen throughout the lung henderson status quo and there is evidence of emphysematous change particularly in the apical region status quo to slightly increased. IMPRESSION: 1. Left lung airspace opacities suspicious for pneumonia. This should be correlated clinically with appropriate followup. 2. Ascites of uncertain etiology. 3. Abnormal area of decreased density in the left kidney possibly representing focal edema and possibly secondary to acute pyelonephritis. This needs to be correlated clinically and if applicable obtain a contrast enhanced abdominal CT for further evaluation. 4. Other findings as described above. Electronically Signed by Benji Del Toro DO 04/07/2020 03:41 P
[2020-04-07 15:22] LABS: ALBUMIN 2.4 GM/DL (3.2-5.2); BILIRUBIN,TOTAL 0.4 MG/DL (0.2-1.0); CALCIUM LEVEL 7.7 MG/DL (8.8-10.2); CREATININE FOR GFR 1.42 MG/DL (0.70-1.30); GLOMERULAR FILTRATION RATE 51.7 (>42); POTASSIUM SERUM 4.6 MEQ/L (3.5-5.1); TOTAL PROTEIN 5.9 GM/DL (6.4-8.2)
[2020-04-07 16:00] VITALS: BP_SYST 129; BP_SYST 160; BP_DIAS 68; BP_DIAS 84
[2020-04-07] MEDS ORDERED: FUROSEMIDE 40MG/4ML VIAL (J1940) IV STA (16:18)
[2020-04-07] MEDS ORDERED: MIDAZOLAM INJ 2MG/2ML VIAL (J2250 PER 1MG) As Ordered ONE (16:46)
[2020-04-07] MEDS ORDERED: propofoL 200 MG/20 ML VIAL As Ordered ONE (16:46)
[2020-04-07] MEDS ORDERED: LIDOCAINE 2% 100MG/5ML SDV (FOR ANES.) As Ordered ONE (16:46)
[2020-04-07] MEDS ORDERED: fentaNYL 100 MCG/2 ML INJECTION (J3010) As Ordered ONE (16:46)
[2020-04-07] MEDS ORDERED: LIDOCAINE VISCOUS 2% SOLN 15ML UDC As Ordered ONE (16:48)
[2020-04-07] MEDS ORDERED: CETACAINE SPRAY 5GM As Ordered ONE (16:48)
[2020-04-07] MEDS ORDERED: HEPARIN (FLUSH) 100 UNITS in SODIUM CHLORIDE 0.45% 99 ML UAC SCH (17:45)
[2020-04-07] MEDS ORDERED: HEPARIN SOD (PORCINE) 5000UNITS/ML VIAL (J1644 PER 1000UNITS) IV STA (17:50)
[2020-04-07] MEDS ORDERED: HEPARIN DRIP 25,000 UNITS in IV 1 EA IV SCH (18:21)
[2020-04-07] MEDS ORDERED: HEPARIN SOD (PORCINE) 5000UNITS/ML VIAL (J1644 PER 1000UNITS) IV PRN (18:30)
[2020-04-07] MEDS: traMADol 50 MG TAB PO PRN (18:38)
[2020-04-07 18:50] LABS: INR 1.62
--- NOTE | 2020-04-07 19:03 | ECGEPIP ---
[facility] Test Date: 2020-04-06 Pat Name: XOCHITL JEAN Department: Room: [place] [address] Gender: Male Auditor: : 1945 Requested By: TED MCGOWAN Order Number: [id number] Reading MD: Brian Pretty Measurements Intervals [place] Rate: 68 P: 37 DE: 156 QRS: -20 QRSD: 92 T: -5 QT: 413 QTc: 442 Interpretive Statements SINUS RHYTHM COMPARED TO 04/05/20 MINIMAL CHANGE Electronically Signed on 04-07-2020 19:03:14 EDT by Brian Pretty
--- NOTE | 2020-04-07 19:04 | ECGEPIP ---
[facility] Test Date: 2020-04-06 Pat Name: XOCHITL JEAN Department: Room: [place] [address] Gender: Male Child & Adolescent Psychiatrist: ELIJAH : 1945 Requested By: CAIT MOJICA Order Number: [id number] Reading MD: Brian Pretty Measurements Intervals [place] Rate: 73 P: 50 FL: 164 QRS: -12 QRSD: 106 T: -3 QT: 407 QTc: 451 Interpretive Statements SINUS RHYTHM NO CHANGE COMPARED TO 3:13 SAME DAY Electronically Signed on 04-07-2020 19:04:30 EDT by Brian Pretty
[2020-04-07 19:22] LABS: PARTIAL THROMBOPLASTIN TIME 39.1 SECONDS (25.0-38.4)
[2020-04-07 20:00] VITALS: BP 145/67
[2020-04-07] MEDS: EZETIMIBE 10 MG TAB (ZETIA) PO SCH (20:00)
[2020-04-07] MEDS: FINASTERIDE 5 MG TAB PO SCH (20:00)
[2020-04-07] MEDS: LATANOPROST 0.005% OPHTH SOLN 2.5 ML OU SCH (20:00)
[2020-04-07 20:20] LABS: HEMATOCRIT 28.1 % (42.0-52.0); HEMOGLOBIN 8.8 g/dl (13.5-17.5); MEAN CORPUSCULAR HEMOGLOBIN 29.7 pg (27.0-33.0); MEAN CORPUSCULAR HGB CONC 31.3 g/dl (32.0-36.5); MEAN CORPUSCULAR VOLUME 94.9 fl (80.0-96.0); PLATELET COUNT, AUTOMATED 109 10^3/uL (150-450); RED BLOOD COUNT 2.96 10^6/uL (4.30-6.10); WHITE BLOOD COUNT 15.2 10^3/uL (4.0-10.0)
[2020-04-07 20:41] LABS: CK-MB VALUE MASS 2.9 NG/ML (<3.6); MB/CK RELATIVE INDEX 1.53 (< OR =4); TROPONIN I 0.97 NG/ML (< 0.10)
[2020-04-07 21:29] LABS: CA19-9 TUMOR MARKER,CARBOHYDRA 13.8 U/ML (<35.0)
[2020-04-07] MEDS: IRON POLYSAC (NIFEREX) 150 MG CAP PO SCH (21:56)
--- NOTE | 2020-04-07 22:21 | CR ---
DATE OF CONSULTATION: 04/07/2020 REFERRING PHYSICIAN: Dr. Michael Diallo INDICATION: Dyspnea. HISTORY OF PRESENT ILLNESS: Mr. Mims is previously unknown to me. He is a very pleasant 75-year-old man who was admitted on April 05, 2020 with complaint of left inguinal pain. It apparently started a few days ago but at times was very sharp and eventually decided to come to emergency room for evaluation. He had a CT of the abdomen that revealed left renal infarct, and he was admitted for further management. The cause of the renal infarction was somewhat mysterious. His recent history indicates that he developed left lower extremity deep vein thrombosis (DVT) some time in mid or early February 2020. He was apparently seen by his primary physician on several occasions and eventually left lower extremity Doppler was performed at [facility], and it was positive for DVT and he was started on Xarelto. At that point, he was already on Plavix for his peripheral vascular disease. He was on the drug probably about 1 week when he noted that he had blood in his stools and was admitted in this facility from March 23, 2020 to March 26, 2020. His anticoagulation was stopped and inferior vena cava (IVC) filter was placed. I was not able to find the procedural note in our system, though. He had esophagogastroduodenoscopy (EGD) which was normal and colonoscopy which revealed diverticulosis but no obvious source of bleeding. He was discharged home on March 26, 2020 but then came on April 05, 2020 with groin pain as outlined above. Because of these renal infarction, it was felt that one of the possibilities was embolization into the kidney, and as the source of emboli, it was felt that cardiac is high on list. And it was further increased when transthoracic echocardiogram revealed preserved left ventricular systolic function and no functionally significant disease, but there were thickening and potential vegetation of the aortic valve. Consequently, I was asked to perform transesophageal echocardiogram. The patient was already in recovery room getting ready for the surgery, but then when I evaluated the patient together with Dr. Bledsoe, we felt that he was too high of a risk to proceed with the procedure. He was quite tachypneic and gasping for air, even without any tube in his throat. Because the transesophageal echocardiogram (ESTEFANI) is unlikely to change immediate management, we decided to postpone the procedure. I called Dr. Diallo, and he asked me to see the patient in consultation. At bedside, the patient tells me that he is feeling now a little bit better but still quite short of breath. He feels that laying flat makes it worse. He denies any chest discomfort throughout this admission, even though his troponin was mildly elevated. He denies any history of coronary artery disease, even though he does have a history of carotid artery disease and peripheral vascular disease of lower extremities. He believes that he had a single stress test more than a decade ago. He does not believe he ever had cardiac catheterization. Before this admission, he it reports that he was feeling relatively well until about 3 weeks ago. He was able to walk short distances without difficulty and if anything, was limited by is legs. He never had any chest discomfort. He denies any outpatient paroxysmal nocturnal dyspnea (PND) or orthopnea. He does admit that in the last few months he was a lot more tired than usual. He lost about 10 pounds and his apparently was constantly complaining about him sleeping too much. He has also chronic mild diarrhea, which did not appreciably change recently. He does have trouble with urination with BPH and at times has to strain. He also has episodes when he is completely incontinent of urine. PAST MEDICAL HISTORY: 1. Peripheral vascular disease. 2. History of bilateral carotid endarterectomies. 3. History of right lower extremity surgical revascularization and stent in left lower extremity. He has been followed by Dr. Gomez at [facility] in [place]. 4. BPH. 5. Gout. 6. Hypertension. 7. History of left lower extremity DVT, as above. 8. Gastroesophageal reflux disease (GERD). 9. Presence of painful hard mass in his left medial clavicle and left side of his neck extending to the posterior neck. The patient reports that it has been present for probably close to 2 years and to the best of his understanding was never biopsied or evaluated in any significant fashion. He had a CT of the neck on March 24, 2020 that revealed diffuse fibrotic mass. It was felt to be most likely scarring even though malignant process could not be ruled out based on the CT. The patient denies any history of coronary artery disease. SURGICAL HISTORY: Bilateral carotid endarterectomy and right lower extremity surgical revascularization, most likely aortofemoral bypass. FAMILY HISTORY: Patient's mother had carotid artery disease and valve replacement. Father had a stroke. 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 He used to smoke but quit more than 30 years ago, typically would drink about a couple of beers a day but has not in the last several months. He is a father of three sons. His is a retired RN. OUTPATIENT MEDICATIONS: - allopurinol 100 mg a day - bisoprolol/HCTZ 10/6.25 once a day - vitamin D3 - Plavix 75 mg daily - Zetia 10 mg a day - finasteride 5 mg a day - magnesium chloride - multivitamin - pantoprazole 40 mg twice a day - Crestor 5 mg at night - tamsulosin 0.4 mg twice a day - Travatan eye drops ALLERGIES: No known medication allergies. REVIEW OF SYSTEMS: It was mostly covered in history of present illness, but he denies any recent fever, chills, nausea or vomiting. No chest pain or palpitations. No syncopal events. Shortness of breath as per history of the present illness. He has chronic diarrhea that is relatively mild, but he typically would have two or three bowel movements a day. He does have occasional urinary incontinence and has to strain with urination at times. Besides his recent rectal bleeding that brought his most recent hospitalization, he denies any prior history of GI bleeds. He does report occasional peripheral edema, mostly on the right lower extremity but prior to DVT diagnosis, it was present in the left lower extremity. No syncopal events. PHYSICAL EXAMINATION: Mr. Abdul is a 75-year-old man who appears approximately his age. He seems to be in mild respiratory distress when he talks. When he is quiet, the breath seems to calm down. Does not appear chronically ill. Last set of vital signs: Blood pressure 145/70, heart rate in 80s, saturation in low 90s on 2 liters of oxygen by nasal cannula, and he has been afebrile. His fluid balance today is positive. The urine output so far has been recorded at about 1600. He received about 2 liters IV. His fluid balance yesterday was recorded as positive 2500. He is alert and oriented and appropriate. His jugular venous pressure (JVP) is somewhat difficult to municipal court judge due to extensive scarring prior to carotid endarterectomies. Does not appear truly grossly elevated, though. On the left side of his neck, there is very hard, indurated area that extends from a medial aspect of his clavicle to the lateral aspect of his neck, involves the vasculature and extends into the left posterior neck. I do not appreciate any obvious axillary lymphadenopathy. Lungs are completely clear on the right; on the left, there are crackles extending approximately one-third way of the left lung field. No distinct wheezing. Heart Exam: Somewhat muffled heart sounds with regular rhythm. I do not appreciate gallop or rub. There is murmur over the aortic valve, not more than maybe 1 or 2 out of 6 intensity radiating towards his neck. I do not appreciate any diastolic murmur. Abdomen is slightly protuberant but soft. No obvious guarding and no obvious tenderness. I do not appreciate any tenderness in his left groin. I do not appreciate any distinct ascites by physical exam. The liver does not seem enlarged. I cannot palpate his spleen. Extremities reveal about 2+ edema in the right lower extremity, and there is a scar after his prior revascularization. Left lower extremity is free of edema. No trophic defects peripherally. Peripheral pulses are detectable even though not of good quality. Neurologically he seems intact. LABORATORY: CBC as of today WBC count 17,000, hemoglobin 9.2, hematocrit 29, platelet count 121,000. His sedimentation rate yesterday was 47. Basic metabolic panel: Sodium 143, potassium 4.6, BUN 41, creatinine 1.4 for calculated GFR 52 and glucose 115. Bilirubin was 0.4, AST 59, ALT 38, alkaline phosphatase 166. He had several troponins drawn since admission; the initial one was 0.87, it peaked at 1.62 and then it has been trending down. His N-terminal pro-BNP was drawn this afternoon and was 12,000. Albumin is 2.4. Immunology: Rheumatoid factor is negative. BRENDEN screen was negative a few days ago and is pending at this point. INR was 1.6 as of 2 days ago. Urine is positive for 2+ protein, 2+ blood. His COVID test was negative repeatedly, and his hepatitis titers have been negative as well. He had several imaging studies. The CT of the neck on March 24, 2020 revealed the mass as described in history of the present illness. He had abdominal CT on April 05, 2020 that reveals questionable cirrhosis with some nodularity to the liver. He has left renal infarct, small right lower lobe nodule was seen in his lung, and he had mild bilateral hydronephrosis and enlarged prostate. He had an echo yesterday that I interpreted. It was a relatively normal study as far as LV systolic function is concerned. There was sclerotic changes on the aortic valve with possible vegetation on the edges of aortic cusps, but it certainly could represent also just calcifications. Blood cultures so far have been negative times two. Electrocardiogram that was performed during this hospitalization on admission revealed sinus rhythm with fairly minimal nonspecific repolarization abnormality. Essentially normal EKG. ASSESSMENT/PLAN: Mr. Abdul is certainly a very complex patient, and I have a difficult time finding unifying diagnosis that would explain all his events and symptoms. As far as the acute shortness of breath that has been worsening in the last couple days is concerned, I think the principal differential diagnosis involves congestive heart failure, pneumonia, malignant process and pulmonary embolism. I do believe it is likely that there is some component of volume overload, probably principally related to very aggressive hydration in the last 36 hours or so. He does have a component of BPH and urinary obstruction, so that may contribute as well. He received 80 mg of IV Lasix and so far did not have very dramatic urine output. I asked his nurse to place a White catheter, so we can rule out obstructive component and monitor his urine output more systematically. As far as the probability of pulmonary embolus is concerned, he has an IVC filter placed, but it certainly does not rule out the diagnosis completely. Unfortunately with his renal insufficiency, it is probably not feasible to proceed with CT angiography. We spoke with Dr. Diallo and decided to anticoagulate the patient with IV heparin. Provided he should have massive hematuria or recurrent bleeding, then the drug can certainly be stopped, but I do believe that the probability of this diagnosis is quite high. As far as the possibility of malignant process is concerned, the induration on the left side of his neck apparently has been present for about 2 years and is getting progressively larger and harder. He has tentatively scheduled needle biopsy tomorrow. He does have crackles over the left base, and the CT of the chest revealed small left pleural effusion, so that could indicate potential extension of the process. I think that it probably would be desirable to involve pulmonary attending to help us sort out these issues. The next issue is elevated troponin. He never had any chest discomfort, and his echocardiogram is relatively unremarkable with the exception of the potential vegetation on the cusp of the aortic valve. He had no chest pain. I am going to request followup EKG but, again, I believe that the most likely diagnosis is pulmonary embolism, and even though the echo did not find any evidence for pulmonary hypertension, that certainly could be part of this complex. We will have to perform a transesophageal echocardiogram but not until the patient is more stable. I believe that in his current condition it would be very high risk procedure. I will follow the patient with you. I have to conclude that there is considerable uncertainty about the diagnosis, at least in my mind that this point, and I still do not find unifying diagnosis.
[2020-04-08] VITALS (10 sets, daily range): BP systolic 142–164; BP diastolic 59–72; O2SAT 96–99
[2020-04-08] MEDS: FUROSEMIDE 40MG/4ML VIAL (J1940) IV SCH ×3 (00:16→16:16)
[2020-04-08 02:07] LABS: HEMATOCRIT 28.3 % (42.0-52.0)
[2020-04-08 02:31] LABS: CK-MB VALUE MASS 2.2 NG/ML (<3.6); MB/CK RELATIVE INDEX 1.52 (< OR =4); TROPONIN I 0.99 NG/ML (< 0.10)
[2020-04-08 06:03] LABS: HEMATOCRIT 28.3 % (42.0-52.0); HEMOGLOBIN 8.9 g/dl (13.5-17.5); MEAN CORPUSCULAR HEMOGLOBIN 30.1 pg (27.0-33.0); MEAN CORPUSCULAR HGB CONC 31.4 g/dl (32.0-36.5); MEAN CORPUSCULAR VOLUME 95.6 fl (80.0-96.0); PLATELET COUNT, AUTOMATED 135 10^3/uL (150-450); RED BLOOD COUNT 2.96 10^6/uL (4.30-6.10); WHITE BLOOD COUNT 15.5 10^3/uL (4.0-10.0)
[2020-04-08 06:12] LABS: CK-MB VALUE MASS 2.2 NG/ML (<3.6); MB/CK RELATIVE INDEX 1.71 (< OR =4); TROPONIN I 0.86 NG/ML (< 0.10)
[2020-04-08 06:14] LABS: INR 1.68; PROTHROMBIN TIME 19.5 SECONDS (11.8-14.0)
[2020-04-08 06:57] LABS: CALCIUM LEVEL 7.8 MG/DL (8.8-10.2); CREATININE FOR GFR 1.47 MG/DL (0.70-1.30); GLOMERULAR FILTRATION RATE 49.7 (>42); POTASSIUM SERUM 4.4 MEQ/L (3.5-5.1)
--- NOTE | 2020-04-08 08:13 | IPN ---
DATE: 04/08/2020 Mr. Abdul is feeling better this morning than he did last night. He said that his shortness of breath improved partially but substantially. Continues to denies any chest discomfort. Does not have any other pain. He initially had a lot of pain apparently after the White catheter was placed but it fairly quickly subsided. Telemetry monitoring did not reveal any arrhythmias. His urine output yesterday was recorded as 1350 mL but this is not completely accurate as he did not have any White catheter in place until late in the afternoon. The IV intake though was 2600 mL. This morning he already made about 500 mL of urine which is mostly bloody. VITAL SIGNS: Blood pressure 155/70, heart rate has been in 70s. His respiratory rate is down to about 24. Saturation is 96% on 3 liters of oxygen by nasal cannula. Weight was recorded as 81.1 kg. He is alert and oriented and appropriate. His jugular venous pulse (JVP) continues to be difficult to malariologist due to his extensive scarring after prior surgeries. Lungs are clear on the right. On the left, I no longer appreciate the crackle that he had yesterday but the base is clearly diminished. Heart exam reveals regular rhythm with unchanged murmur. No gallop or rub is appreciated. Abdomen: Slightly protuberant but soft, nontender. I do not appreciate ascites by physical examination. His left lower extremity remains free of edema. The right lower extremity swelling is down considerably since yesterday. I do not appreciate any trophic lesions on his feet. His both toenails and finger are free of splinter hemorrhages. LABORATORY: As of this morning basic metabolic panel; Sodium 143, potassium 4.4, BUN 46, creatinine 1.5, glucose 111, troponin continues to trend down to 0.86 and I do not believe there is need to follow it anymore. He has been on heparin and his PTT was supratherapeutic at 2-o'clock; the morning one is still pending. ASSESSMENT/PLAN: Mr. Abdul is a complicated patient. He has extensive vascular disease with revascularization of both carotid arteries as well as lower extremities who presented about a month ago with left lower extremity deep venous thrombosis (DVT). This was diagnosed on outpatient basis and we do not have information and I am going to call his primary care physician today to learn more details about this issue. He also has chronic mass on the left side of his neck which probably represent just scarring after prior carotid surgery but in the differential diagnosis is certainly carcinoma. After being started on anticoagulation for DVT he had developed rectal bleeding and all anticoagulation were stopped and an inferior vena cava (IVC) filter was placed. This was in late February. He then presented about 10 days later with pain in his left groin and on imaging was found to have left renal infarct. He also was short of breath. At this point I still struggle to find unifying diagnosis that would explain all his pathology. I do believe that his worsening respiratory status yesterday was probably due to administration of fluids during the day. He has been put on diuretics and he feels better. But I also believe that we have to consider pulmonary embolism in differential diagnosis in spite of his IVC filter. He has been on heparin and I think that we probably should continue that after the biopsy of his neck mass is performed today. As far as the renal infarct is concerned, I still plan to perform transesophageal echocardiogram but not until the patient is more stable. He is improving, which is encouraging. Also all his blood cultures so far have been negative so I think that the probability of bacterial endocarditis is actually relatively low. I will continue following this very interesting and complicated patient with you.
[2020-04-08] MEDS: TAMSULOSIN 0.4 MG CAP PO SCH ×2 (08:58→21:57)
[2020-04-08] MEDS: PANTOPRAZOLE 40MG TAB (PROTONIX) PO SCH (08:58)
[2020-04-08] MEDS: IRON POLYSAC (NIFEREX) 150 MG CAP PO SCH ×2 (08:58→21:57)
[2020-04-08] MEDS: ATORVASTATIN 20 MG TAB PO SCH (08:58)
[2020-04-08] MEDS: CARVedilol 12.5 MG TAB PO SCH ×2 (08:59→21:58)
[2020-04-08] MEDS: ANUSOL HC 25MG SUPP PR SCH ×2 (08:59→21:57)
[2020-04-08] MEDS: ASPIRIN 81 MG CHEW TABLET PO SCH (08:59)
[2020-04-08] MEDS: MAGNESIUM CHLORIDE 64 MG TABCR (SLO MAG) PO SCH (08:59)
--- NOTE | 2020-04-08 11:50 | IPNPDOC ---
Text Note Date of Service The patient was seen on 04/08/20. NOTE Subjective: Patient developed gross hematuria overnight. Heparin drip was sto pped in the morning. Patient stated that his breathing status improved today. Patient denied fever, chills, nausea, vomiting and chest pain, palpitations, diarrhea PHYSICAL EXAMINATION ON DISCHARGE: VITAL SIGNS: Please see below. GENERAL: awake, alert, NAD HEENT: NCAT, anicteric sclera, JANE NECK: supple, no JVD CARDIOVASCULAR EXAMINATION: NS1S2, regular rate/rhythm RESPIRATORY EXAMINATION: Crackles at the base bilaterally ABDOMINAL EXAMINATION: positive bowel sounds x 4, NT EXTREMITIES: no cyanosis, +2 right pitting edema SKIN: warm, no rashes. NEUROLOGICAL EXAMINATION: AAO x 3, no motor/sensory deficits PSYCHIATRIC EXAMINATION: calm, normal affect Assessment and plan: Patient is 75 years old male with past medical history of recent Hx of RLE DVT (s/p IVC), Recent Hx of GI bleed (s/p Xarelto), new neck mass, HTN, PVD (s/p bypass and stent at RLE), BPH, Gout, Diverticulosis, GERD who presents to the hospital with left sided inguinal/groin pain. Patient was found to have acute kidney injury, left renal infarct, elevated troponin most likely secondary to acute coronary syndrome, 1.2 nodule of the right lung lower lobe. Left inguinal pain Resolved for now Most likely referral pain from left kidney infarct given CT findings of a large wedge-shaped region of low attenuation in the left kidney, which is compatible with a left renal infarct that has developed since the prior CT abdomen and pelvis on 08/23/2016 Shortness of breath Most likely secondary to volume overload. Other differential diagnosis also includes pulmonary emboli. We started heparin drip on 04/07/20, however patient developed gross hematuria, heparin was discontinued Patient received 6 L of fluid with rate 200 mL per hour since admission. Positive balance 2.5 L. Fluid was discontinued on 04/07/20 BNP around 12,000 on 04/07/20 I will limit fluid intake to [address] showed left lung airspace opacities suspicious for pneumonia. However patient doesn't have fever, cough, sputum. Appreciate/agree with shake packer consult Continue diuresis Ascites Most likely secondary to BOWEN CT positive for fatty liver infiltration. The liver has a nodular contour, which can be seen with cirrhosis. No liver mass is seen. Will proceed with diagnostic paracentesis alpha-fetoprotein within normal limit CEA elevated which can represent malignancy or secondary to cirrhosis. However it is nonspecific test. There is definitely concern for malignancy given history of lung nodule and left neck mass NSTEMI versus Demand ischemia Echo shows normal LV size with hyperdynamic LV systolic function and grade 1 d iastolic dysfunction. No left ventricular hypertrophy (LVH). Heavily sclerotic aortic valve with potential vegetation versus calcifications with mild aortic stenosis and mild aortic insufficiency. Currently patient does not have any chest pain or palpitations Patient developed troponin of 1.6 on 04/06/12. Trended down, on 04/07/20 1.2 c/w b román, aspirin, statin Will proceed with ESTEFANI after breathing improvement given suspicion for vegetation Blood culture negative Left kidney infarct Unknown etiology for now There is concern for septic emboli secondary to possible endocarditis. Other differential diagnosis included emboli secondary to malignancy. Patient has left neck mass and lung nodule. 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 There is also concern for emboli secondary to malignancy. We will proceed with ESTEFANI blood culture negative I will hold antibiotics until ESTEFANI result DVT I will hold anticoagulation for now given gross hematuria There is concern for underlying malignancy Patient has IVC filter BPH - c/w Tamsulosin and Finasteride Gout I will hold allopurinol due to VINCENT GERD - c/w Protonix VS,Fishbone, I+O VS, Fishbone, I+O Laboratory Tests 04/07/20 14:27 04/07/20 20:01 04/08/20 02:00 04/08/20 05:31 04/08/20 05:32 Vital Signs Date Time Temp Pulse Resp B/P (MAP) Pulse Ox O2 Delivery O2 Flow Rate FiO2 04/08/20 11:31 97.0 68 20 158/68 (98) 94 Nasal Cannula 3.0 I&O- Last 24 Hours up to 6 AM 04/08/20 06:00 Intake Total 1800 ml Output Total 1725 ml Balance 75 ml RENE MCARTHUR DO April 08, 2020 11:50
[2020-04-08] MEDS ORDERED: SLF 3 ML SYR IV PRN (14:15)
--- NOTE | 2020-04-08 16:37 | REP ---
ULTRASOUND-GUIDED LEFT SUPRACLAVICULAR LYMPH NODE BIOPSY The procedure was performed under the direct supervision of Dr. Underwood. The patient has a history of diffuse infiltrative and/or fibrotic changes in the supraclavicular and [place] clavicular soft tissues on the left seen on a previous CT scan dated 03/24/2020. The risks and benefits of the procedure were explained to the patient and informed consent was obtained. A lymph node in the left supraclavicular region was localized using ultrasound guidance. The skin was prepped and draped in a sterile fashion. 1% lidocaine was used as a local anesthetic. Using ultrasound guidance a 17/18 gauge coaxial needle biopsy system was inserted and advanced into the lymph node. Eight core biopsy samples were obtained and sent to lab. The patient tolerated the procedure well and there were no immediate complications. After the appropriate amount of monitored convalescence the patient was discharged from the department. Electronically Signed by XIAO Gibson 04/08/2020 04:08 P Electronically Signed by Dhiraj Underwood MD 04/08/2020 04:29 P
[2020-04-08 18:19] LABS: HEMATOCRIT 28.7 % (42.0-52.0); HEMOGLOBIN 9.2 g/dl (13.5-17.5); MEAN CORPUSCULAR HEMOGLOBIN 30.7 pg (27.0-33.0); MEAN CORPUSCULAR HGB CONC 32.1 g/dl (32.0-36.5); MEAN CORPUSCULAR VOLUME 95.7 fl (80.0-96.0); PLATELET COUNT, AUTOMATED 150 10^3/uL (150-450); WHITE BLOOD COUNT 13.9 10^3/uL (4.0-10.0)
[2020-04-08 18:34] LABS: CALCIUM LEVEL 7.9 MG/DL (8.8-10.2); CREATININE FOR GFR 1.53 MG/DL (0.70-1.30); GLOMERULAR FILTRATION RATE 47.5 (>42); MAGNESIUM LEVEL 2.3 MG/DL (1.8-2.4); POTASSIUM SERUM 4.1 MEQ/L (3.5-5.1)
[2020-04-08] MEDS: FINASTERIDE 5 MG TAB PO SCH (21:57)
[2020-04-08] MEDS: SLF 3 ML SYR IV SCH (21:58)
[2020-04-08] MEDS: EZETIMIBE 10 MG TAB (ZETIA) PO SCH (21:58)
[2020-04-08] MEDS: LATANOPROST 0.005% OPHTH SOLN 2.5 ML OU SCH (21:58)
[2020-04-09] VITALS (15 sets, daily range): BP systolic 137–158; BP diastolic 66–77; O2SAT 91–99
[2020-04-09] MEDS: SLF 3 ML SYR IV SCH ×3 (05:02→20:48)
[2020-04-09 06:05] LABS: HEMATOCRIT 26.8 % (42.0-52.0); HEMOGLOBIN 8.6 g/dl (13.5-17.5); MEAN CORPUSCULAR HGB CONC 32.1 g/dl (32.0-36.5); MEAN CORPUSCULAR VOLUME 93.4 fl (80.0-96.0); PLATELET COUNT, AUTOMATED 141 10^3/uL (150-450); RED BLOOD COUNT 2.87 10^6/uL (4.30-6.10); WHITE BLOOD COUNT 12.5 10^3/uL (4.0-10.0)
[2020-04-09 06:28] LABS: CALCIUM LEVEL 7.8 MG/DL (8.8-10.2); CREATININE FOR GFR 1.34 MG/DL (0.70-1.30); GLOMERULAR FILTRATION RATE 55.3 (>42); POTASSIUM SERUM 3.8 MEQ/L (3.5-5.1)
[2020-04-09 08:00] LABS: MAGNESIUM LEVEL 1.9 MG/DL (1.8-2.4)
[2020-04-09] MEDS: FUROSEMIDE 40MG/4ML VIAL (J1940) IV SCH ×3 (09:14→20:46)
[2020-04-09] MEDS: CARVedilol 12.5 MG TAB PO SCH ×2 (09:15→20:47)
[2020-04-09] MEDS: MAGNESIUM CHLORIDE 64 MG TABCR (SLO MAG) PO SCH (09:15)
[2020-04-09] MEDS: IRON POLYSAC (NIFEREX) 150 MG CAP PO SCH ×2 (09:15→20:44)
[2020-04-09] MEDS: ATORVASTATIN 20 MG TAB PO SCH (09:16)
[2020-04-09] MEDS: PANTOPRAZOLE 40MG TAB (PROTONIX) PO SCH (09:16)
[2020-04-09] MEDS: ASPIRIN 81 MG CHEW TABLET PO SCH (09:16)
[2020-04-09] MEDS: TAMSULOSIN 0.4 MG CAP PO SCH ×2 (09:16→20:44)
[2020-04-09] MEDS: ANUSOL HC 25MG SUPP PR SCH ×2 (09:16→20:45)
--- NOTE | 2020-04-09 09:31 | IPN ---
DATE: 04/09/2020 Mr. Abdul is feeling better today. He is much less short of breath and he was able to get some sleep even though throughout the most of the night he says that he was not sleeping because he just did not feel tired enough. Denies any chest pain. Telemetry monitoring yesterday revealed a single 10 beat run of nonsustained ventricular tachycardia that was asymptomatic. Vital signs this morning, blood pressure 148/76, heart rate has been in 60s to 80s, sinus rhythm with single run of nonsustained ventricular tachycardia (VT) as above, respiratory rate 20, and saturation 97% on 3 liters and 91% on room air. Fluid balance yesterday was recorded as negative 1000. Weight is 79.7 kg. He already made 1100 mL of urine today. He is alert, oriented and appropriate. His jugular venous pulse (JVP) does not look high. Lungs are clear on the right. On the left, he has diminished breath sounds over probably about 1/5 to 1/4 of his lung field. I do not appreciate any crackles or wheezing. Heart exam reveals a regular rhythm with unchanged murmur. No gallop or rub. Abdomen is soft and no apparent tenderness. Extremities are free of edema. Laboratories: WBC count 12.5, hemoglobin 8.6, hematocrit 28, platelet count 141,000. Basic metabolic panel: Sodium 142, potassium 3.8. BUN 47, creatinine 1.3 and glucose 130 The microbiology data reveals that all his blood cultures remain negative so far. He had a biopsy of his mass on the neck, but no additional chest x-rays. ASSESSMENT/PLAN: Mr. Abdul is a 75-year-old man who presented initially with deep vein thrombosis (DVT) that required inferior vena cava (IVC) placement because he developed rectal bleeding on anticoagulation. He subsequently presented with flank pain and was found to have left renal infarct, the etiology of which remains mysterious. He also had mildly elevated troponin and yesterday had 8 beats runs of nonsustained VT. Transthoracic echocardiogram revealed a calcified-looking mass on aortic valve and will proceed transesophageal echocardiogram (ESTEFANI) later today to have a better look at it. Endocarditis or other cardioembolic source remain in the differential diagnosis. I still do not understand how we can have a unifying diagnosis for all his problems, but encouragingly he is improving even without anticoagulation, so I believe that the likelihood that he had large pulmonary embolus is actually quite small. It is probable that the bulk of his dyspnea was related to congestive heart failure due to overzealous IV fluid administration. He still has some process over his left base, at least by physical exam. He is not breathing well and I think we will have to get followup imaging within the next day or two. I talked to the patient about the ESTEFANI today again. I explained the potential risks and indications. He signed the appropriate consent. We tentatively plan to do the procedure around 5:00 p.m. today. I will be off for the rest of the week and Dr. Henley will cover.
--- NOTE | 2020-04-09 13:18 | IPNPDOC ---
Text Note Date of Service The patient was seen on 04/09/20. NOTE Subjective: Patient complains of generalized weakness, he continues to have g ross hematuria. Patient's breathing status improved Patient developed around 10 nonsustained ventricular tachycardia yesterday Objective PHYSICAL EXAMINATION ON DISCHARGE: VITAL SIGNS: Please see below. GENERAL: awake, alert, NAD HEENT: NCAT, anicteric sclera, JANE NECK: supple, no JVD CARDIOVASCULAR EXAMINATION: NS1S2, regular rate/rhythm RESPIRATORY EXAMINATION: Crackles at the base bilaterally ABDOMINAL EXAMINATION: positive bowel sounds x 4, NT EXTREMITIES: no cyanosis, +2 right pitting edema SKIN: warm, no rashes. NEUROLOGICAL EXAMINATION: AAO x 3, no motor/sensory deficits PSYCHIATRIC EXAMINATION: calm, normal affect Assessment and plan: Patient is 75 years old male with past medical history of recent Hx of RLE DVT (s/p IVC), Recent Hx of GI bleed (s/p Xarelto), new neck mass, HTN, PVD (s/p bypass and stent at RLE), BPH, Gout, Diverticulosis, GERD who presents to the hospital with left sided inguinal/groin pain. Patient was found to have acute kidney injury, left renal infarct, elevated troponin most likely secondary to acute coronary syndrome, 1.2 nodule of the right lung lower lobe. Left inguinal pain Resolved for now Most likely referral pain from left kidney infarct given CT findings of a large wedge-shaped region of low attenuation in the left kidney, which is compatible with a left renal infarct that has developed since the prior CT abdomen and pelvis on 08/23/2016 Shortness of breath Most likely secondary to volume overload. Other differential diagnosis also includes pulmonary emboli. We started heparin drip on 04/07/20, however patient developed gross hematuria, heparin was discontinued Patient received 6 L of fluid with rate 200 mL per hour since admission. Positive balance 2.5 L. Fluid was discontinued on 04/07/20 BNP around 12,000 on 04/07/20 I will limit fluid intake to [address] showed left lung airspace opacities suspicious for pneumonia. However patient doesn't have fever, cough, sputum. We will repeat CT scan in 2-3 days Continue diuresis Ascites Most likely secondary to BOWEN CT positive for fatty liver infiltration. The liver has a nodular contour, which can be seen with cirrhosis. No liver mass is seen. Will proceed with diagnostic paracentesis alpha-fetoprotein within normal limit CEA elevated which can represent malignancy or secondary to cirrhosis. However it is nonspecific test. There is definitely concern for malignancy given history of lung nodule and left neck mass CA 19-9 wnl NSTEMI versus Demand ischemia Echo shows normal LV size with hyperdynamic LV systolic function and grade 1 diastolic dysfunction. No left ventricular hypertrophy (LVH). Heavily sclerotic aortic valve with potential vegetation versus calcifications with mild aortic stenosis and mild aortic insufficiency. Currently patient does not have any chest pain or palpitations Patient developed troponin of 1.6 on 04/06/12. Trended down, on 04/07/20 1.2 c/w b román, aspirin, statin Will proceed with ESTEFANI on 04/09/20 Blood culture negative Left kidney infarct Unknown etiology for now There is concern for septic emboli secondary to possible endocarditis. Other differential diagnosis included emboli secondary to malignancy. Patient has left neck mass and lung nodule. 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 There is also concern for emboli secondary to malignancy. We will proceed with ESTEFANI blood culture negative I will hold antibiotics until ESTEFANI result DVT I will hold anticoagulation for now given gross hematuria There is concern for underlying malignancy Patient has IVC filter BPH - c/w Tamsulosin and Finasteride Gout I will hold allopurinol due to VINCENT GERD - c/w Protonix VS,Fishbone, I+O VS, Fishbone, I+O Laboratory Tests 04/08/20 17:50 04/08/20 17:51 04/09/20 05:28 Vital Signs Date Time Temp Pulse Resp B/P (MAP) Pulse Ox O2 Delivery O2 Flow Rate FiO2 04/09/20 12:00 98.6 60 18 142/70 (94) 99 Nasal Cannula 3.0 I&O- Last 24 Hours up to 6 AM 04/09/20 06:00 Intake Total 1080 ml Output Total 2725 ml Balance -1645 ml RENE MCARTHUR DO April 09, 2020 13:18
[2020-04-09] MEDS ORDERED: CETACAINE SPRAY 5GM As Ordered ONE (16:36)
[2020-04-09] MEDS ORDERED: LIDOCAINE VISCOUS 2% SOLN 15ML UDC As Ordered ONE (16:37)
[2020-04-09] MEDS ORDERED: propofoL 200 MG/20 ML VIAL As Ordered ONE (16:59)
[2020-04-09] MEDS ORDERED: fentaNYL 100 MCG/2 ML INJECTION (J3010) As Ordered ONE (16:59)
[2020-04-09] MEDS ORDERED: LIDOCAINE 2% 100MG/5ML SDV (FOR ANES.) As Ordered ONE (16:59)
--- NOTE | 2020-04-09 18:02 | ECGEPIP ---
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
--- NOTE | 2020-04-09 18:13 | ECGEPIP ---
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
[2020-04-09 19:08] LABS: BASO % 0.2 % (0.0-1.0); EOS # 0.2 10^3/uL (0.0-0.5); EOS % 1.5 % (0.0-3.0); HEMATOCRIT 28.4 % (42.0-52.0); LYMPH # 0.5 10^3/uL (1.5-5.0); LYMPH % 5.2 % (24.0-44.0); MEAN CORPUSCULAR HEMOGLOBIN 29.7 pg (27.0-33.0); MEAN CORPUSCULAR HGB CONC 31.7 g/dl (32.0-36.5); MEAN CORPUSCULAR VOLUME 93.7 fl (80.0-96.0); MONO # 0.7 10^3/uL (0.0-0.8); MONO % 7.1 % (0.0-5.0); NEUTROPHILS # 8.4 10^3/uL (1.5-8.5); NEUTROPHILS % 85.6 % (36.0-66.0); PLATELET COUNT, AUTOMATED 126 10^3/uL (150-450); RED BLOOD COUNT 3.03 10^6/uL (4.30-6.10); WHITE BLOOD COUNT 9.8 10^3/uL (4.0-10.0)
[2020-04-09 19:32] LABS: ALBUMIN 2.6 GM/DL (3.2-5.2); BILIRUBIN,TOTAL 0.5 MG/DL (0.2-1.0); CALCIUM LEVEL 8.1 MG/DL (8.8-10.2); CREATININE FOR GFR 1.27 MG/DL (0.70-1.30); GLOMERULAR FILTRATION RATE 58.9 (>42); POTASSIUM SERUM 3.9 MEQ/L (3.5-5.1); TOTAL PROTEIN 6.6 GM/DL (6.4-8.2)
[2020-04-09] MEDS: FINASTERIDE 5 MG TAB PO SCH (20:45)
[2020-04-09] MEDS: EZETIMIBE 10 MG TAB (ZETIA) PO SCH (20:45)
[2020-04-09] MEDS: LATANOPROST 0.005% OPHTH SOLN 2.5 ML OU SCH (20:46)
--- NOTE | 2020-04-09 21:49 | T-ECHO ---
DATE OF PROCEDURE: 04/09/2020 REFERRING PHYSICIAN: Dr. Diallo INDICATION: Renal infarction, suspicion for bacterial endocarditis. ANESTHESIA: Arias Warren CRNA. BRIEF HISTORY: Mr. Abdul is a 75-year-old man who presented with left renal infarction. Transthoracic study revealed an abnormality on the aortic valve looking suspicious for vegetation. We originally attempted to do the study on April 07, 2020, but at that point, he was extremely short of breath and we decided to postpone the study because I did not think it was safe. But with diuresis, the patient felt much better and today I felt that the procedure can be safely performed. He did sign appropriate consent. I explained the rationale for the study and potential implications. DESCRIPTION OF PROCEDURE: The study was performed in the operating room. The patient presented in fasting condition. After appropriate time-out was taken, his posterior pharynx was anesthetized initially by Cetacaine spray and then and then viscous lidocaine. Appropriate monitors were applied. He was then positioned in left lateral decubitus position and bite block was secured. When appropriate level of sedation was accomplished by administration of fentanyl and propofol, the probe was introduced into esophagus and later stomach without difficulty. After appropriate images were taken, it was withdrawn. There were no immediate complications, and the patient tolerated the procedure well. FINDINGS: Left ventricle has normal systolic function, estimated he ejection fraction (EF) around 60-65%. I do not appreciate any segmental wall motion abnormalities. Right ventricle also appears to have normal systolic function. Both atria appear normal. Atrial septum is intact based on 2D imaging, and after injection of agitated saline, there was no evidence for [id number] or [id number] shunt. Aortic valve is tricuspid. There are several small vegetations attached to all three coronary cusps, but principally left coronary cusp. Based on color Doppler imaging, there is moderate aortic insufficiency with several separate aortic insufficiency jets. It appears that the left aortic cusp is actually perforated. Mitral valve appears normal. It has normal mobility, and there is only trace mitral insufficiency. Tricuspid valve also appears normal, only trivial insufficiency is seen. Quality of TR jet was not sufficient to adequately estimate pulmonary artery pressure. Pulmonic valve also appears normal. Trivial insufficiency seen. No pericardial effusion is noted. There is a small echodensity at the base of left atrial appendage of unclear significance. There is normal flow in both right-sided and left-sided pulmonary veins. There is apparent atherosclerosis of the aortic arch and descending aorta, but no obvious ulcers or atherosclerotic material protruding into the lumen. CONCLUSIONS: 1. Several small vegetations on the aortic valve resulting in approximately moderate aortic insufficiency. 2. Normal remaining cardiac valves. 3. Normal left ventricular (LV) systolic function. 4. Intact atrial septum. 5. Normal flow in both right-sided left-sided pulmonary veins. 6. Small echodensity at the base of left atrial appendage of unclear significance, probably just fold of the wall. 7. Prominent aortic atherosclerosis. COMMENT: Results of the study were discussed with the patient, his and attending physician. My recommendation is to obtain cultures for fastidious organisms and then start antibiotic according to recommendations of infectious disease (ID). MTDD
[2020-04-09] MEDS: cefTRIAXone SOD 2 GM in D5W MINI-BAG PLUS 50 ML IV SCH (22:03)
[2020-04-10] VITALS (17 sets, daily range): BP systolic 99–168; BP diastolic 45–72; O2SAT 90–99
[2020-04-10] MEDS: SLF 3 ML SYR IV SCH ×3 (05:01→21:46)
[2020-04-10 06:16] LABS: BLOOD UREA NITROGEN 44 MG/DL (7-18); CALCIUM LEVEL 8.1 MG/DL (8.8-10.2); CARBON DIOXIDE LEVEL 27 MEQ/L (21-32); CHLORIDE LEVEL 109 MEQ/L (98-107); GLOMERULAR FILTRATION RATE > 60.0 (>42); GLUCOSE, FASTING 124 MG/DL (70-100); POTASSIUM SERUM 3.9 MEQ/L (3.5-5.1); SODIUM LEVEL 143 MEQ/L (136-145)
[2020-04-10] MEDS: ASPIRIN 81 MG CHEW TABLET PO SCH (09:16)
[2020-04-10] MEDS: TAMSULOSIN 0.4 MG CAP PO SCH ×2 (09:16→21:46)
[2020-04-10] MEDS: FUROSEMIDE 40MG/4ML VIAL (J1940) IV SCH ×2 (09:16→21:46)
[2020-04-10] MEDS: ANUSOL HC 25MG SUPP PR SCH ×2 (09:16→21:46)
[2020-04-10] MEDS: ATORVASTATIN 20 MG TAB PO SCH (09:16)
[2020-04-10] MEDS: MAGNESIUM CHLORIDE 64 MG TABCR (SLO MAG) PO SCH (09:16)
[2020-04-10] MEDS: PANTOPRAZOLE 40MG TAB (PROTONIX) PO SCH (09:17)
[2020-04-10] MEDS: IRON POLYSAC (NIFEREX) 150 MG CAP PO SCH ×2 (09:17→21:46)
[2020-04-10] MEDS: CARVedilol 12.5 MG TAB PO SCH ×2 (09:17→21:46)
--- NOTE | 2020-04-10 15:29 | IPNPDOC ---
Text Note Date of Service The patient was seen on 04/10/20. NOTE Subjective: Patient continues to have shortness of breath but it markedly imp roved. Also patient has gross hematuria. Objective PHYSICAL EXAMINATION ON DISCHARGE: VITAL SIGNS: Please see below. GENERAL: awake, alert, NAD HEENT: NCAT, anicteric sclera, JANE NECK: supple, no JVD CARDIOVASCULAR EXAMINATION: NS1S2, regular rate/rhythm RESPIRATORY EXAMINATION: Crackles at the base bilaterally ABDOMINAL EXAMINATION: positive bowel sounds x 4, NT EXTREMITIES: no cyanosis, +2 right pitting edema SKIN: warm, no rashes. NEUROLOGICAL EXAMINATION: AAO x 3, no motor/sensory deficits PSYCHIATRIC EXAMINATION: calm, normal affect Assessment and plan: Patient is 75 years old male with past medical history of recent Hx of RLE DVT (s/p IVC), Recent Hx of GI bleed (s/p Xarelto), new neck mass, HTN, PVD (s/p bypass and stent at RLE), BPH, Gout, Diverticulosis, GERD who presents to the hospital with left sided inguinal/groin pain. Patient was found to have acute kidney injury, left renal infarct, elevated troponin most likely secondary to acute coronary syndrome, 1.2 nodule of the right lung lower lobe. 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 Patient needs anticoagulation, unfortunately we cannot give it to him due to gross hematuria Appreciate/agree with oncologist consult Left inguinal pain Resolved for now Most likely referral pain from left kidney infarct given CT findings of a large wedge-shaped region of low attenuation in the left kidney, which is compatible with a left renal infarct that has developed since the prior CT abdomen and pelvis on 08/23/2016 Shortness of breath Most likely secondary to volume overload. Other differential diagnosis also includes pulmonary emboli. We started heparin drip on 04/07/20, however patient developed gross hematuria, heparin was discontinued Patient received 6 L of fluid with rate 200 mL per hour since admission. Positive balance 2.5 L. Fluid was discontinued on 04/07/20 BNP around 12,000 on 04/07/20 I will limit fluid intake to [address] showed left lung airspace opacities suspicious for pneumonia. However patient doesn't have fever, cough, sputum. We will repeat CT scan in 2-3 days Continue diuresis Ascites Most likely secondary to BOWEN versus malignancy CT positive for fatty liver infiltration. The liver has a nodular contour, which can be seen with cirrhosis. No liver mass is seen. alpha-fetoprotein within normal limit CEA elevated which can represent malignancy or secondary to cirrhosis. However it is nonspecific test. CA 19-9 wnl NSTEMI versus Demand ischemia Echo shows normal LV size with hyperdynamic LV systolic function and grade 1 diastolic dysfunction. No left ventricular hypertrophy (LVH). Heavily sclerotic aortic valve with potential vegetation versus calcifications with mild aortic stenosis and mild aortic insufficiency. Currently patient does not have any chest pain or palpitations Patient developed troponin of 1.6 on 04/06/12. Trended down, on 04/07/20 1.2 c/w b román, aspirin, statin ESTEFANI showed vegetation of aortic valve 04/09/20. Most likely secondary to malignancy Multiple blood culture sets negative Marantic endocarditis ESTEFANI showed small vegetation of aortic wall with mild aortic insufficiency most likely secondary to malignancy Neck biopsy showed metastatic adenocarcinoma most likely from the lung is a primary site Left kidney infarct Most likely secondary to malignant emboli Continue to monitor Kidney function improved VINCENT Improved Most likely secondary to left renal infarct Continue to monitor Hypertensive emergency Resolved Blood pressures under control Continue cardioprotective medications Right Lung nodule There is concern for malignancy given size of the nodule 1.2 cm and risk factors as age, previous smoking history, occupational history, 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 Ruiz follows the patient DVT I will hold anticoagulation for now given gross hematuria Patient has IVC filter BPH - c/w Tamsulosin and Finasteride Gout I will hold allopurinol due to VINCENT GERD - c/w Protonix VS,Fishbone, I+O VS, Fishbone, I+O Laboratory Tests 04/09/20 18:52 04/10/20 05:10 Vital Signs Date Time Temp Pulse Resp B/P (MAP) Pulse Ox O2 Delivery O2 Flow Rate FiO2 04/10/20 12:00 96.8 60 18 154/67 (96) 95 Nasal Cannula 3.0 I&O- Last 24 Hours up to 6 AM 04/10/20 06:00 Intake Total 1390 ml Output Total 3300 ml Balance -1910 ml RENE MCARTHUR DO April 10, 2020 15:29
[2020-04-10 15:35] LABS: BASO % 0.1 % (0.0-1.0); EOS # 0.1 10^3/uL (0.0-0.5); EOS % 0.9 % (0.0-3.0); HEMATOCRIT 25.4 % (42.0-52.0); HEMOGLOBIN 8.1 g/dl (13.5-17.5); LYMPH # 0.5 10^3/uL (1.5-5.0); LYMPH % 5.6 % (24.0-44.0); MEAN CORPUSCULAR HEMOGLOBIN 29.8 pg (27.0-33.0); MEAN CORPUSCULAR HGB CONC 31.9 g/dl (32.0-36.5); MEAN CORPUSCULAR VOLUME 93.4 fl (80.0-96.0); MONO # 0.7 10^3/uL (0.0-0.8); MONO % 7.7 % (0.0-5.0); NEUTROPHILS # 8.2 10^3/uL (1.5-8.5); NEUTROPHILS % 85.1 % (36.0-66.0); PLATELET COUNT, AUTOMATED 113 10^3/uL (150-450); RED BLOOD COUNT 2.72 10^6/uL (4.30-6.10); WHITE BLOOD COUNT 9.7 10^3/uL (4.0-10.0)
[2020-04-10 19:19] LABS: HEMOGLOBIN 8.2 g/dl (13.5-17.5); MEAN CORPUSCULAR HEMOGLOBIN 30.4 pg (27.0-33.0); MEAN CORPUSCULAR HGB CONC 32.8 g/dl (32.0-36.5); MEAN CORPUSCULAR VOLUME 92.6 fl (80.0-96.0); PLATELET COUNT, AUTOMATED 111 10^3/uL (150-450); WHITE BLOOD COUNT 10.6 10^3/uL (4.0-10.0)
[2020-04-10] MEDS: cefTRIAXone SOD 2 GM in D5W MINI-BAG PLUS 50 ML IV SCH (21:45)
[2020-04-10] MEDS: EZETIMIBE 10 MG TAB (ZETIA) PO SCH (21:46)
[2020-04-10] MEDS: FINASTERIDE 5 MG TAB PO SCH (21:46)
[2020-04-10] MEDS: LATANOPROST 0.005% OPHTH SOLN 2.5 ML OU SCH (21:46)
[2020-04-11] VITALS (12 sets, daily range): BP systolic 129–198; BP diastolic 56–81; O2SAT 93–100
[2020-04-11 00:06] LABS: ANA (HEP2) Negative (.); ANTINUCLEAR ANTIBODIES DIRECT Negative (Negative)
[2020-04-11] MEDS: SLF 3 ML SYR IV SCH ×3 (05:29→20:26)
[2020-04-11 05:30] LABS: BASO % 0.1 % (0.0-1.0); EOS # 0.1 10^3/uL (0.0-0.5); EOS % 0.5 % (0.0-3.0); HEMATOCRIT 24.6 % (42.0-52.0); LYMPH # 0.7 10^3/uL (1.5-5.0); LYMPH % 7.4 % (24.0-44.0); MEAN CORPUSCULAR HEMOGLOBIN 30.2 pg (27.0-33.0); MEAN CORPUSCULAR HGB CONC 32.5 g/dl (32.0-36.5); MEAN CORPUSCULAR VOLUME 92.8 fl (80.0-96.0); MONO # 0.7 10^3/uL (0.0-0.8); MONO % 7.7 % (0.0-5.0); NEUTROPHILS % 83.7 % (36.0-66.0); RED BLOOD COUNT 2.65 10^6/uL (4.30-6.10); WHITE BLOOD COUNT 9.6 10^3/uL (4.0-10.0)
[2020-04-11 05:33] LABS: PLATELET COUNT, AUTOMATED 97 10^3/uL (150-450)
[2020-04-11 06:10] LABS: CALCIUM LEVEL 8.2 MG/DL (8.8-10.2); CREATININE FOR GFR 1.25 MG/DL (0.70-1.30); GLOMERULAR FILTRATION RATE 59.9 (>42); POTASSIUM SERUM 3.7 MEQ/L (3.5-5.1)
--- NOTE | 2020-04-11 06:39 | CR ---
MEDICAL ONCOLOGY CONSULTATION: DATE OF ENCOUNTER: 04/10/2020 REFERRING PHYSICIAN: Stephan Diallo MD INDICATION FOR CONSULTATION: Newly diagnosed adenocarcinoma. IDENTIFICATION AND CHIEF COMPLAINT: Arti Abdul is a pleasant 75-year-old seen at the request of Stephan Diallo MD for evaluation and management recommendations regarding recently diagnosed adenocarcinoma of uncertain origin. Mr. Abdul reports "I came in because I had pain in my left leg, but I had had pain and swelling in my right leg before that." HISTORY OF PRESENT ILLNESS; Arti Abdul is a 75-year-old gentleman who presented to the emergency department on this occasion on April 05, 2020, with chief complaint of left groin pain of several days' duration. In the emergency department, imaging studies by CT scanning showed a left renal infarct and the patient was admitted. Mr. Abdul had recently been found to have swelling and pain in the right lower extremity in February 2020, and Doppler blood flow studies performed at [facility] documented deep vein thrombosis; he was then placed on an oral Anti-Xa inhibitor as anticoagulation. The patient has a long history of atherosclerotic vascular disease involving multiple sites, including cerebrovascular disease with bilateral carotid artery atherosclerosis, coronary artery disease, and peripheral arterial vascular disease of the lower extremities; and he was therefore being maintained on clopidogrel prior to the addition of Xarelto. In late February 2020, approximately 1 week after starting the Xarelto, he developed hematochezia, and presented to the emergency department at [facility] on March 23, 2020 with an obvious lower gastrointestinal tract hemorrhage. The patient's hemoglobin had been 13.5 gram per decaliter on February 15, 2018 and fell to 10.4 gram per decaliter on March 23, 2020. The patient was taken off Xarelto, and an inferior vena cava filter placed. He underwent both upper and lower GI endoscopy. He was discharged home on March 26, 2020, returning for this admission on April 05, 2020. The patient was placed on heparin during this admission but has developed gross hematuria. Anticoagulation has therefore been discontinued at present. The patient's hemoglobin has fallen to 8.1 gram per decaliter as of this morning April 10, 2020. During this admission, the patient has undergone detailed diagnostic studies, and echocardiogram on April 09, 2020 documented several small vegetations on the aortic valve, with resultant moderate aortic insufficiency. Prominent aortic atherosclerosis was also noted. Mr. Abdul reports that he has had an area of "firmness" in his left supraclavicular region for the past 2 years, without discomfort. Since he had no discomfort, he did not pursue medical evaluation. Upon speaking with his Diane by telephone, however, she reports that the mass lesion in the left supraclavicular region has been present for only approximately the past two months, as best she can discern. However, core biopsy of this lesion obtain on April 08, 2020 (specimen [id number]) during the present admission document metastatic adenocarcinoma. Tumor cells are positive for TTF-1, CK7, CK20 and APURVA-3. The pathologist notes that possible primary sites include lung, salivary gland, and gland forming organs. At present, Mr. Abdul reports feeling well, and left leg pain has regressed. However, gross hematuria persists. ALLERGIES: The patient has no known medication allergies CURRENT MEDICATIONS: - ceftriaxone 2 grams IV q.24 h - furosemide 40 mg IV b.i.d. - tramadol 50 mg p.o. q.8 h p.r.n. moderate pain - allopurinol 100 mg p.o. q. day - aspirin 81 mg p.o. q. day - Lipitor 20 mg p.o. q. day - Carvedilol 25 mg p.o. b.i.d. - pantoprazole 40 mg p.o. q. day - Zetia 10 mg p.o. q.p.m. - finasteride 5 mg p.o. q.p.m. - hydrocortisone 25 mg p.o. b.i.d. - tamsulosin 0.4 mg p.o. b.i.d. - latanoprost 0.005% 1 drop both eyes q.h.s. PAST MEDICAL HISTORY: The patient has a past medical history significant for longstanding hypertension and hyperlipidemia. These in turn have been complicated by diffuse atherosclerotic arterial vascular disease. There is history of carotid artery atherosclerosis and he is status post bilateral carotid endarterectomies. There is history of peripheral vascular arterial disease and he has undergone bilateral lower extremity arterial bypass procedures in the past. There is history of recent deep vein thrombosis of the right lower extremity as noted above, with therapy complicated by hematochezia for which inferior vena cava filter was placed. There is a history of gout and a history of gastroesophageal reflux disease. There is also a history of prostatic enlargement with urinary hesitancy. The patient was admitted to [facility] on February,, per his 's report, with visual disturbances, and magnetic resonance imaging demonstrated a small subacute infarcts in the left temporal region. The patient's reports that his neurologic deficit of impaired vision has since resolved. 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 Tobacco: The patient smoked one pack per day for approximately 30 years but quit approximately 30 years ago. Alcohol: The patient consumed beer on a regular basis until the very recent past. Illicit drugs: There is no history of illicit drug use. FAMILY HISTORY: The patient's mother had a history of carotid artery disease and heart valve replacement surgery. The patient's father had history of stroke. REVIEW OF SYSTEMS: Neurologic: History of visual disturbances with MRI showing subacute infarct as detailed above. No seizure disorder. No focal neurologic deficits. Respiratory: No cough. No shortness of breath. No chest pain. No hemoptysis. Cardiac: No history of myocardial infarction. No exertional chest pressure. The patient is noted to have endocarditis with aortic valve vegetations this admission as detailed above. This apparently has been complicated by embolus to the left kidney. No exertional chest pressure. Gastrointestinal: The patient reports mild chronic loose bowel habits. No recent nausea, vomiting, abdominal pain. No history of jaundice. Genitourinary: History of gout. History of urinary hesitancy. No history of nephrolithiases. The patient currently has gross hematuria. Musculoskeletal: The patient has chronic mild joint discomfort. No recent fractures. No bone pain. No joint effusions. Constitutional: No recent fevers, chills or sweats. The remainder of the review of systems was obtained and was negative. PHYSICAL EXAMINATION: The patient has a well-developed, well-nourished gentleman awake, alert and fully oriented, friendly and cooperative, in no distress. Temperature 96.8, pulse 60, respirations 18, blood pressure 154/67, oxygen saturation 95% on 3 liters by nasal cannula. Skin: Full turgor, anicteric. There is a dressing on the left supraclavicular region. HEENT Examination: Normocephalic, atraumatic. Pupils round and reactive, extraocular muscles intact. Sclerae anicteric. Oropharynx without evident lesions. Neck: Supple. There is fullness in the left supraclavicular region, which is firm but poorly defined. Lymphatics: No focal lymphadenopathy in the cervical region bilaterally nor in the right supraclavicular region nor the axillary nor the groin. Lungs: Bilateral breath sounds, mildly prolonged expiratory phase. No wheezes or rales appreciated. Cardiac Exam: Regular rhythm, point of maximal impulse nondisplaced. S1, S2, with a 2/6 systolic murmur at the upper sternal borders. No gallop or rub appreciated. Abdomen: Active bowel sounds, soft, nontender. The liver percusses to 12 cm. The spleen percusses to 8 cm. Rectal Examination: Deferred. Extremities: 2+ edema of the right lower extremity. Trace edema of the left lower extremity. No cyanosis appreciated. Borderline clubbing present. Neurologic Exam: Mental status intact. Cranial nerves intact. Motor and sensory grossly intact. LABORATORY DATA: Laboratory studies dated April 10, 2020 include the following white blood count 9700 per microliter, hemoglobin 8.1 gram per decaliter, hematocrit 25.4%, platelet count 113,000. BUN 44, creatinine 1.2 mg per decaliter, glucose 124 mg per decaliter, calcium 8.1 mg per decaliter, total bilirubin 0.5 mg/dL, AST 89, ALT 76, alkaline phosphatase 183, albumin 2.6 grams per decaliter. 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 The patient has adenocarcinoma of uncertain primary. CT scan of the chest dated April 07, 2020 makes note of left lung air space opacity suspicious for pneumonia. The site of origin of the adenocarcinoma would best be evaluated by PET/CT scan, in addition to further immunohistochemical analysis of the biopsy specimen, which may identify the primary site of disease. Identification of the primary site is generally helpful in guiding the choice of anti-neoplastic therapy recommended. In addition, molecular analysis for mutations that may provide targets for specific therapeutics should be requested of the Pathology Department. Once the above data has been acquired, with results of PET/CT scan and molecular diagnostics, then a rational treatment plan can be formulated. 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 The mucin in adenocarcinoma has been shown in many cases to activate factor Xa, and initiate pathologic thrombosis. Patients with adenocarcinoma are well-documented to be at increased risk for recurrent venous thromboembolic disease, and in the setting of malignancy, either [id number]-[id number] heparinoids - as established by the so-called "CLOT" study published by Rafael and colleagues in the [place] [employer] of [employer] more than a decade ago - or an oral anti-Xa inhibitor, recently shown in a [place] [employer] study published in 2019 to be non-inferior to low molecular weight heparin - should ideally be administered, going forward. These agents are now a standard of care, as they have been shown to be twice as effective as warfarin anticoagulation in the management of venous thromboembolic disease in the setting of active cancer. The patient has gross hematuria at this time making anticoagulation difficult, but once gross hematuria has resolved, the patient should ideally resume anticoagulation. Of the anticoagulants available, although the oral anti Xa inhibitors are easier to use, the half-life of enoxaparin is short and therefore bleeding complications are relatively easier to control with use of low molecular weight heparinoids than with oral anti Xa inhibitors. RECOMMENDATIONS: It is recommended that the patient be scheduled for outpatient PET/CT scan as soon as feasible - ideally in the next week - to stage the patient and determine, if possible, the site of the primary tumor. Molecular diagnostic studies, including staining the tumor for expression of PD-L1, for expression of HER2/alex EGFR, and for mutations such as ALK, MET, and ROS1, should be formally ordered and the request submitted to Pathology. PSA and CEA should be obtained as baseline studies. This will then help direct antineoplastic therapy. It is recommended that as soon as feasible, the patient should resume anticoagulation, preferably with Lovenox, titrated up to a therapeutic dose to minimize the risk of major bleeding; but injection therapy is not feasible then edoxaban or another of the oral anti Xa inhibitors. 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 The patient should be scheduled for followup with medical oncology promptly after discharge. A long-term management plan will be formulated once adequate data is available, as noted above. This was shared with the patient at the time of consult, and discussed in detail with the patient's by telephone.
[2020-04-11] MEDS: ANUSOL HC 25MG SUPP PR SCH ×2 (09:00→20:11)
[2020-04-11] MEDS: MAGNESIUM CHLORIDE 64 MG TABCR (SLO MAG) PO SCH (09:00)
[2020-04-11] MEDS: IRON POLYSAC (NIFEREX) 150 MG CAP PO SCH ×2 (09:00→20:11)
[2020-04-11] MEDS: CARVedilol 12.5 MG TAB PO SCH ×2 (09:10→20:12)
[2020-04-11] MEDS: TAMSULOSIN 0.4 MG CAP PO SCH ×2 (09:10→20:11)
[2020-04-11] MEDS: ASPIRIN 81 MG CHEW TABLET PO SCH (09:10)
[2020-04-11] MEDS: ATORVASTATIN 20 MG TAB PO SCH (09:10)
[2020-04-11] MEDS: allopurinoL 100 MG TAB PO SCH (09:11)
[2020-04-11] MEDS: FUROSEMIDE 40MG/4ML VIAL (J1940) IV SCH ×2 (09:11→20:11)
[2020-04-11] MEDS: PANTOPRAZOLE 40MG TAB (PROTONIX) PO SCH (09:11)
--- NOTE | 2020-04-11 10:44 | IPNPDOC ---
Text Note Date of Service The patient was seen on 04/11/20. NOTE Subjective: Patient's breathing markedly improved. He is on the room air Patient continues to have gross hematuria. Patient denies fever, chills, nausea, vomiting, chest pain. Objective PHYSICAL EXAMINATION ON DISCHARGE: VITAL SIGNS: Please see below. GENERAL: awake, alert, NAD HEENT: NCAT, anicteric sclera, JANE NECK: supple, no JVD CARDIOVASCULAR EXAMINATION: NS1S2, regular rate/rhythm RESPIRATORY EXAMINATION: Crackles at the base bilaterally ABDOMINAL EXAMINATION: positive bowel sounds x 4, NT EXTREMITIES: no cyanosis, +2 right pitting edema SKIN: warm, no rashes. NEUROLOGICAL EXAMINATION: AAO x 3, no motor/sensory deficits PSYCHIATRIC EXAMINATION: calm, normal affect Assessment and plan: Patient is 75 years old male with past medical history of recent Hx of RLE DVT (s/p IVC), Recent Hx of GI bleed (s/p Xarelto), new neck mass, HTN, PVD (s/p bypass and stent at RLE), BPH, Gout, Diverticulosis, GERD who presents to the hospital with left sided inguinal/groin pain. Patient was found to have acute kidney injury, left renal infarct, elevated troponin most likely secondary to acute coronary syndrome, 1.2 nodule of the right lung lower lobe. Metastatic adenocarcinoma Unknown primary site Patient will need PET scan in the outpatient settings Most likely malignancy is cause of multiple manifestation as right leg DVT, endocarditis, kidney infarct Left neck mass Biopsy showed metastatic adenocarcinoma. Patient needs anticoagulation, unfortunately we cannot give it to him due to gross hematuria oncologist Dr. iRtchie follows him, he recommended to start anticoagulation after resolution of gross hematuria. Patient has high risk of PE Left inguinal pain Resolved for now Most likely referral pain from left kidney infarct given CT findings of a large wedge-shaped region of low attenuation in the left kidney, which is compatible with a left renal infarct that has developed since the prior CT abdomen and pelvis on 08/23/2016 Shortness of breath Most likely secondary to volume overload. Other differential diagnosis also includes pulmonary emboli. We started heparin drip on 04/07/20, however patient developed gross hematuria, heparin was discontinued Patient received 6 L of fluid with rate 200 mL per hour since admission. Positive balance 2.5 L. Fluid was discontinued on 04/07/20 BNP around 12,000 on 04/07/20 I limited fluid intake to [address] showed left lung airspace opacities suspicious for pneumonia. However patient doesn't have fever, cough, sputum. We will repeat CT scan in 2-3 days Continue diuresis Ascites Most likely secondary to BOWEN versus malignancy CT positive for fatty liver infiltration. The liver has a nodular contour, which can be seen with cirrhosis. No liver mass is seen. alpha-fetoprotein within normal limit CEA elevated which can represent malignancy or secondary to cirrhosis. However it is nonspecific test. CA 19-9 wnl NSTEMI versus Demand ischemia Echo shows normal LV size with hyperdynamic LV systolic function and grade 1 diastolic dysfunction. No left ventricular hypertrophy (LVH). Heavily sclerotic aortic valve with potential vegetation versus calcifications with mild aortic stenosis and mild aortic insufficiency. Currently patient does not have any chest pain or palpitations Patient developed troponin of 1.6 on 04/06/12. Trended down, on 04/07/20 1.2 c/w b román, aspirin, statin ESTEFANI showed vegetation of aortic valve 04/09/20. Most likely secondary to malignancy Multiple blood culture sets negative Marantic endocarditis ESTEFANI showed small vegetation of aortic wall with mild aortic insufficiency most likely secondary to malignancy Neck biopsy showed metastatic adenocarcinoma most likely from the lung is a primary site Left kidney infarct Most likely secondary to malignant emboli Continue to monitor Kidney function improved VINCENT Improved Most likely secondary to left renal infarct Continue to monitor Hypertensive emergency Resolved Blood pressures under control Continue cardioprotective medications Right Lung nodule There is concern for malignancy given size of the nodule 1.2 cm and risk factors as age, previous smoking history, 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 Ruiz follows the patient DVT I will hold anticoagulation for now given gross hematuria Patient has IVC filter BPH - c/w Tamsulosin and Finasteride Gout I will hold allopurinol due to VINCENT GERD - c/w Protonix VS,Fishbone, I+O VS, Fishbone, I+O Laboratory Tests 04/10/20 15:18 04/10/20 18:39 04/11/20 05:18 Vital Signs Date Time Temp Pulse Resp B/P (MAP) Pulse Ox O2 Delivery O2 Flow Rate FiO2 04/11/20 09:10 66 198/81 04/11/20 08:00 98.0 18 97 Room Air 04/11/20 04:00 3.0 I&O- Last 24 Hours up to 6 AM 04/11/20 06:00 Intake Total 1980 ml Output Total 500 ml Balance 1480 ml RENE MCARTHUR DO April 11, 2020 10:44
--- NOTE | 2020-04-11 10:55 | CR ---
DATE OF CONSULTATION: 04/10/2020 REASON FOR CONSULTATION: Endocarditis. REQUESTING PHYSICIAN: Dr. Michael Diallo. HISTORY OF PRESENT ILLNESS: Patient is a 75-year-old male who presented to the emergency department on 04/05/2020 with reports of left lower quadrant pain that started about 3 days prior to his admission. Patient described the pain as sharp and lasted for 30 seconds that hurt every half hour to 45 minutes. Patient was recently admitted into [facility] on 03/23/2020 for a gastrointestinal (GI) bleed. Patient was found to have extensive deep venous thrombosis (DVT) about a week prior to his GI bleed and was started on Xarelto, which was believed to be the exacerbating factor for his GI bleed. Patient was discharged on 03/26/2020. Patient had been feeling well until he developed the acute left lower quadrant abdominal pain. Patient had a CT abdomen and pelvis which did show an infarct to the left kidney with thrombus present in the left renal artery, which was new as compared to 2016. At this time, it was believed that the heart was involved as the source of clotting so a transthoracic echocardiogram was ordered. Transthoracic echocardiogram showed heavily sclerotic aortic valve with potential vegetation versus calcifications with mild aortic stenosis and mild aortic insufficiency. A transesophageal echo was performed and appeared to show several small vegetations on the aortic valve resulting in approximate aortic insufficiency. Because of this finding, the infectious disease was called. Patient today says he is feeling okay, however, he does feel weak. The left lower quadrant abdominal pain that he was experiencing has resolved. Patient does not have any acute complaints today. The only thing the patient is still waiting for is pathology report on a biopsy of a mass that he patient has on the left side of his neck. Patient states that this mass was there for about 3 years. He first noticed it 3 years ago and thought it was a tightness of the muscle of his neck. Patient says the mass does not appear to have grown any bigger but The mass is exquisitely painful. Patient also says that he was supposed to get a biopsy after his last hospitalization, however, this was cancelled due to him coming back into the hospital. Biopsy was performed while he was in the hospital during this hospitalization. PAST MEDICAL HISTORY: Hypertension. Peripheral vascular disease. Diverticulitis. Gastroesophageal reflux disease (GERD). Benign prostatic hypertrophy (BPH). Gout Dupuytren's contraction in bilateral hands. PAST SURGICAL HISTORY: Bilateral carotid endarterectomy. Femoral stent placed with then lead to a vascular bypass surgery which patient is unsure of exactly what kind of surgery it was. However, he says they took one vessel to the other side and it did not take and they had to redo it. SOCIAL HISTORY: Patient is a former smoker and says he quit about 40 years ago. He used to drink beer about 1-2 a night every night for many years, but he quit about 4 months ago. He denies any other drug use. 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 He lives at home with his and lives with two cats. FAMILY HISTORY: Patient's mother had heart disease and in her older age. His father of a cerebral hemorrhage when he was in his 60s. ALLERGIES: No known drug allergies. CURRENT INPATIENT MEDICATIONS: - ceftriaxone 2 grams every 24 hours - Lasix 40 mg IV twice a day - iron 150 mg twice a day - tramadol 50 mg every 8 hours as needed - magnesium chloride - allopurinol 100 mg daily - baby aspirin daily - atorvastatin 20 mg daily - carvedilol 25 mg twice a day - pantoprazole 40 mg daily - Zetia 10 mg daily - finasteride 5 mg daily - hydrocortisone suppository twice a day - tamsulosin 0.4 mg twice a day - Latanoprost one drop at night in both eyes. The patient is also on as needed Tylenol and bowel care. REVIEW OF SYSTEMS: GENERAL: Patient denies fevers, chills, night sweats or weight loss. HEENT: Patient denies headaches, changes in vision, ringing in his ears, or sore throat. CARDIOVASCULAR: Patient denies any chest pain or palpitations. RESPIRATORY: Patient denies any shortness of breath or coughing. GASTROINTESTINAL (GI): Patient denies any abdominal pain at this time says bowels are working like normally. GENITOURINARY: At the time, patient does have a urinary catheter in place and is having navin hematuria. The patient did have his White catheter removed in the morning and was able to void. NEUROLOGICAL: Patient denies any numbness or tingling. EXTREMITIES: Patient does endorse swelling in his right lower extremity especially compared to his left lower extremity. SKIN: Patient denies any rashes or lesions on the skin. LYMPHATICS: Patient does described a swelling on the side of neck that has been present for 3 years as described above in the history of present illness (HPI). PHYSICAL EXAMINATION: VITALS: Temperature 96.8 degrees Fahrenheit, pulse 60, respiratory rate 18, blood pressure 154/67, pulse oximetry 95% on 3 liters of oxygen via nasal cannula. GENERAL: Patient is an alert and oriented male patient who was laying in the hospital bed when I walked into the room. Patient was able to sit up and role over without difficult but did appear ill but did not appear to be in any acute distress. HEENT: Normocephalic, atraumatic, anicteric sclerae. Patient is missing a few teeth and does have extensive dental work which he says is in the past but there did not appear to be any acute fractures in his teeth or decaying caries at this time. NECK: There is an exquisitely tender nodule that is present on the left side of the neck in the supraclavicular area. There is a bandage over the area with biopsy with a fine needle aspiration. This area is healing well and is not showing any surrounding erythema. There is no thyromegaly or masses palpated in the thyroid. CARDIOVASCULAR: Patient does have a 1/6 systolic murmur that is heard the loudest over the 2nd intercostal space on the right sternal border. Patient's heart is at a regular rate and rhythm. LUNGS: Clear to auscultation bilaterally. ABDOMEN: Soft, nontender to palpation with normoactive bowel sounds. EXTREMITIES: There is 2+pitting edema of the right lower extremity up pass the level of the knee. There is trace pitting edema in the left lower extremity. There are no splinter hemorrhages, Janeway lesions or Osler nodes in the fingers or toes. SKIN: There is no evidence of rash, lesions and the skin is intact and warm and dry. LABORATORY STUDIES: White blood cells today 9.8, hemoglobin 9.0, hematocrit 28.4, platelet count 126, ESR 46. Sodium 143, potassium 3.9, chloride 109, bicarbonate 27, BUN 44, creatinine 1.20, fasting glucose 124, calcium 8.1, magnesium 2.0. IMAGING: A chest x-ray performed on was reported as showing no acute cardiopulmonary process. A CT of the abdomen and pelvis performed with IV contrast performed on 04/05/2020 was reported to show left renal artery infarct which has developed since prior CT abdomen and pelvis on 08/23/2016. Mild bilateral hydronephrosis. No stones in the kidneys, ureters, or urinary bladder. Severe thickening of the ornelas of the bladder which may indicate cystitis or bladder wall hypertrophy. Enlarged prostate, gastritis, proctitis, colonic diverticulosis without evidence of diverticulitis. Nodular contour of the liver, which can be seen with cirrhosis. Small amount of ascites. Small fat-containing indirect, right inguinal hernia. Small fat-containing umbilical hernia. 12 mm nodular opacity in the posterior segment of the right lower lobe, which is new compared to the prior CT abdomen and pelvis on 08/23/2016. An ultrasound of the abdomen from 04/06/2020 was reported to show no Doppler evidence of renal artery stenosis and the exam is somewhat limited. Chest, CT performed on 04/07/2020 was reported to show left lung airspace opacities suspicious for pneumonia. This should be correlated clinically. Ascites of uncertain etiology and abnormal area of decreased density in the left kidney also representing focal edema possibly secondary to acute pyelonephrosis. Needs to be correlated clinically. Microbiology: Two blood cultures performed on 04/06/2020 and a blood cultures performed on 04/07/2020 are all negative times 72hours. A urine culture from 04/05/2020 is also negative for any growth. There are two blood cultures performed on 04/09/2020 which are pending. ASSESSMENT/PLAN: Patient is a 75-year-old male who presents to the hospital with acute left lower quadrant pain from left renal infarct . He had also elevated troponins, a transthoracic echocardiogram which showed possible vegetations which was then confirmed with a transesophageal echocardiogram that is suspicious for endocarditis.All blood culture were negative and patient afebrile. Differential diagnosis culture negative endocarditis versus marantic endocarditis: So far blood cultures have been negative for the patient and there does not appear to be a source of infection at this time. Work up for CX negative endocarditis was done Bartonella henselae Coxiella, and Legionella are pending. The fine needle aspiration, although pending does appear to be positive for an adenocarcinoma of unknown primary. 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 PLAN At this time, we will continue to follow the cultures results as well as there is also the other tests that have been previously stated in order to rule out culture negative bacterial endocarditis. If the patient does not have bacterial endocarditis, antibiotics can be stopped. At this point, we will continue with ceftriaxone until we are able to prove that this is not bacterial endocarditis and it is truly marantic endocarditis. Patient will also be seen by medical oncology and further workup should be done in order to find the patient's primary tumor lung possibly as he has a nodule, and cysto as hematuria work up. MTDD
[2020-04-11] MEDS: FINASTERIDE 5 MG TAB PO SCH (20:11)
[2020-04-11] MEDS: EZETIMIBE 10 MG TAB (ZETIA) PO SCH (20:11)
[2020-04-11] MEDS: LATANOPROST 0.005% OPHTH SOLN 2.5 ML OU SCH (20:13)
[2020-04-11] MEDS: cefTRIAXone SOD 2 GM in D5W MINI-BAG PLUS 50 ML IV SCH (20:26)
[2020-04-12] VITALS (13 sets, daily range): BP systolic 126–183; BP diastolic 50–78; O2SAT 92–100
[2020-04-12] MEDS: SLF 3 ML SYR IV SCH ×3 (04:25→21:37)
[2020-04-12 05:12] LABS: BASO % 0.1 % (0.0-1.0); EOS # 0.1 10^3/uL (0.0-0.5); EOS % 0.4 % (0.0-3.0); HEMATOCRIT 23.9 % (42.0-52.0); HEMOGLOBIN 7.7 g/dl (13.5-17.5); LYMPH # 0.7 10^3/uL (1.5-5.0); LYMPH % 5.3 % (24.0-44.0); MEAN CORPUSCULAR HGB CONC 32.2 g/dl (32.0-36.5); MONO % 7.4 % (0.0-5.0); NEUTROPHILS # 11.5 10^3/uL (1.5-8.5); NEUTROPHILS % 86.3 % (36.0-66.0); RED BLOOD COUNT 2.57 10^6/uL (4.30-6.10); WHITE BLOOD COUNT 13.3 10^3/uL (4.0-10.0)
[2020-04-12 05:20] LABS: PLATELET COUNT, AUTOMATED 89 10^3/uL (150-450)
[2020-04-12 05:34] LABS: CALCIUM LEVEL 8.1 MG/DL (8.8-10.2); CREATININE FOR GFR 1.34 MG/DL (0.70-1.30); GLOMERULAR FILTRATION RATE 55.3 (>42); POTASSIUM SERUM 3.5 MEQ/L (3.5-5.1)
[2020-04-12] MEDS: ANUSOL HC 25MG SUPP PR SCH ×2 (08:53→21:37)
[2020-04-12] MEDS: PANTOPRAZOLE 40MG TAB (PROTONIX) PO SCH (08:53)
[2020-04-12] MEDS: ASPIRIN 81 MG CHEW TABLET PO SCH (08:53)
[2020-04-12] MEDS: TAMSULOSIN 0.4 MG CAP PO SCH ×2 (08:54→21:37)
[2020-04-12] MEDS: IRON POLYSAC (NIFEREX) 150 MG CAP PO SCH ×2 (08:54→21:37)
[2020-04-12] MEDS: amLODIPine 10 MG TAB PO SCH (08:54)
[2020-04-12] MEDS: allopurinoL 100 MG TAB PO SCH (08:54)
[2020-04-12] MEDS: ATORVASTATIN 20 MG TAB PO SCH (08:54)
[2020-04-12] MEDS: CARVedilol 12.5 MG TAB PO SCH ×2 (08:55→21:38)
[2020-04-12] MEDS: MAGNESIUM CHLORIDE 64 MG TABCR (SLO MAG) PO SCH (08:55)
--- NOTE | 2020-04-12 09:13 | REP ---
Clinical: Dyspnea. Technique: Axial noncontrast images from the thoracic inlet to the upper abdomen with coronal and sagittal re-formations. Comparison: 04/07/2020. Findings: Mild/early moderate emphysematous changes are suggested along with minimal chronic scattered fibroatelectatic changes. Previously noted multi focal left-sided infiltrates have improved with only minimal residual lingular and left basilar air space disease noted and the previous small left effusion has essentially resolved. Tracheobronchial tree is patent. Stable cardiomegaly along with atherosclerotic disease to the thoracic aorta and coronary arteries again noted. No significant pericardial effusion. No pneumothorax. No significant adenopathy. Surrounding musculoskeletal structures are intact without acute osseous abnormality. Limited upper abdomen again demonstrates mild upper abdominal ascites, diffuse mesenteric edema/infiltration, and mild perinephric stranding along with mild hydronephrosis and stable right renal hypodensity. Impression: 1. Previously noted in the left sided infiltrates have significantly improved with only minimal residual left basilar and lingular air space disease noted. No new acute mediastinal or pleuroparenchymal process appreciated. 2. 12 mm noncalcified nodule in the deep right posterior sulcus again noted and 3 month follow-up may be warranted. 3. Stable cardiomegaly and atherosclerotic disease. 4. Limited upper abdomen again demonstrates ascites, mesenteric infiltration, and bilateral renal fullness along with right renal hypodensity. Electronically Signed by Eric Schneider MD 04/12/2020 09:04 A
[2020-04-12] MEDS ORDERED: hydrALAZINE 20MG/ML 1ML VIAL (J0360 PER 20MG) IV STA (11:03)
[2020-04-12] MEDS ORDERED: hydrALAZINE 20MG/ML 1ML VIAL (J0360 PER 20MG) IV PRN (11:15)
--- NOTE | 2020-04-12 11:18 | IPNPDOC ---
Text Note Date of Service The patient was seen on 04/12/20. NOTE Subjective: Patient is on the room air. He has lightheadedness. Patient continues to have gross hematuria. Patient denies fever, chills, nausea, vomiting, chest pain. Objective PHYSICAL EXAMINATION ON DISCHARGE: VITAL SIGNS: Please see below. GENERAL: awake, alert, NAD HEENT: NCAT, anicteric sclera, JANE NECK: supple, no JVD CARDIOVASCULAR EXAMINATION: NS1S2, regular rate/rhythm RESPIRATORY EXAMINATION: Crackles at the base bilaterally ABDOMINAL EXAMINATION: positive bowel sounds x 4, NT EXTREMITIES: no cyanosis, +2 right pitting edema SKIN: warm, no rashes. NEUROLOGICAL EXAMINATION: AAO x 3, no motor/sensory deficits PSYCHIATRIC EXAMINATION: calm, normal affect Assessment and plan: Patient is 75 years old male with past medical history of recent Hx of RLE DVT (s/p IVC), Recent Hx of GI bleed (s/p Xarelto), new neck mass, HTN, PVD (s/p bypass and stent at RLE), BPH, Gout, Diverticulosis, GERD who presents to the hospital with left sided inguinal/groin pain. Patient was found to have acute kidney injury, left renal infarct, elevated troponin most likely secondary to acute coronary syndrome, 1.2 nodule of the right lung lower lobe. Metastatic adenocarcinoma Unknown primary site Patient will need PET scan in the outpatient settings Most likely malignancy is cause of multiple manifestations as right leg DVT, endocarditis, kidney infarct Left neck mass Biopsy showed metastatic adenocarcinoma. Patient needs anticoagulation, unfortunately we cannot give it to him due to gross hematuria oncologist Dr. Ritchie follows him, he recommended to start anticoagulation after resolution of gross hematuria. Patient has high risk of PE Acute blood loss anemia Secondary to hematuria Will transfuse if hemoglobin less than 7 Left inguinal pain Resolved for now Most likely referral pain from left kidney infarct given CT findings of a large wedge-shaped region of low attenuation in the left kidney, which is compatible with a left renal infarct that has developed since the prior CT abdomen and pelvis on 08/23/2016 Shortness of breath Most likely secondary to volume overload. Other differential diagnosis also includes pulmonary emboli. We started heparin drip on 04/07/20, however patient developed gross hematuria, heparin was discontinued Patient received 6 L of fluid with rate 200 mL per hour since admission. Positive balance 2.5 L. Fluid was discontinued on 04/07/20 BNP around 12,000 on 04/07/20 I limited fluid intake to [address] showed left lung airspace opacities suspicious for pneumonia. However patient doesn't have fever, cough, sputum. On 04/12/20 CT chest showed previously noted in the left sided infiltrates have significantly improved with only minimal residual left basilar and lingular air space disease noted. No new acute mediastinal or pleuroparenchymal process appreciated. Ascites Most likely secondary to BOWEN versus malignancy CT positive for fatty liver infiltration. The liver has a nodular contour, which can be seen with cirrhosis. No liver mass is seen. alpha-fetoprotein within normal limit CEA elevated which can represent malignancy or secondary to cirrhosis. However it is nonspecific test. CA 19-9 wnl NSTEMI versus Demand ischemia Echo shows normal LV size with hyperdynamic LV systolic function and grade 1 diastolic dysfunction. No left ventricular hypertrophy (LVH). Heavily sclerotic aortic valve with potential vegetation versus calcifications with mild aortic stenosis and mild aortic insufficiency. Currently patient does not have any chest pain or palpitations Patient developed troponin of 1.6 on 04/06/12. Trended down, on 04/07/20 1.2 c/w b román, aspirin, statin ESTEFANI showed vegetation of aortic valve 04/09/20. Most likely secondary to malignancy Multiple blood culture sets negative Marantic endocarditis ESTEFANI showed small vegetation of aortic wall with mild aortic insufficiency most likely secondary to malignancy Neck biopsy showed metastatic adenocarcinoma most likely from the lung is a primary site Left kidney infarct Most likely secondary to malignant emboli or arterial clot Continue to monitor VINCENT Most likely secondary to left renal infarct Worsening today DC Lasix Continue to monitor Hypertensive emergency/Hypertension I added Norvasc 10 mg Hydralazine IV when necessary with parameters Right Lung nodule There is concern for malignancy given size of the nodule 1.2 cm and risk factors as age, previous smoking history, 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 Patient will need PET scan to define the primary source of malignancy Leukocytosis Up to 13 today. Patient does not have fever, chills Patient does not have any abdominal pain. 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 Ruiz follows the patient DVT I will hold anticoagulation for now given gross hematuria Patient has IVC filter BPH - c/w Tamsulosin and Finasteride Gout I will hold allopurinol due to VINCENT GERD - c/w Protonix VS,Fishbone, I+O VS, Fishbone, I+O Laboratory Tests 04/12/20 04:53 Vital Signs Date Time Temp Pulse Resp B/P (MAP) Pulse Ox O2 Delivery O2 Flow Rate FiO2 04/12/20 08:55 61 183/78 04/12/20 08:00 96.5 18 100 Nasal Cannula 2.0 I&O- Last 24 Hours up to 6 AM 04/12/20 05:59 Intake Total 1076 ml Output Total 500 ml Balance 576 ml RENE MCARTHUR DO April 12, 2020 11:18
[2020-04-12] MEDS: FINASTERIDE 5 MG TAB PO SCH (21:37)
[2020-04-12] MEDS: cefTRIAXone SOD 2 GM in D5W MINI-BAG PLUS 50 ML IV SCH (21:37)
[2020-04-12] MEDS: EZETIMIBE 10 MG TAB (ZETIA) PO SCH (21:37)
[2020-04-12] MEDS: LATANOPROST 0.005% OPHTH SOLN 2.5 ML OU SCH (21:38)
[2020-04-12 23:17] LABS: CLOSTRIDIUM DIFFICILE PCR NEGATIVE (NEGATIVE)
[2020-04-13] VITALS (12 sets, daily range): BP systolic 140–170; BP diastolic 48–74
[2020-04-13 04:27] LABS: BASO % 0.1 % (0.0-1.0); EOS # 0.1 10^3/uL (0.0-0.5); EOS % 0.5 % (0.0-3.0); HEMATOCRIT 22.3 % (42.0-52.0); HEMOGLOBIN 7.2 g/dl (13.5-17.5); LYMPH # 0.8 10^3/uL (1.5-5.0); MEAN CORPUSCULAR HEMOGLOBIN 29.9 pg (27.0-33.0); MEAN CORPUSCULAR HGB CONC 32.3 g/dl (32.0-36.5); MEAN CORPUSCULAR VOLUME 92.5 fl (80.0-96.0); MONO # 0.9 10^3/uL (0.0-0.8); MONO % 6.6 % (0.0-5.0); NEUTROPHILS # 11.3 10^3/uL (1.5-8.5); NEUTROPHILS % 85.5 % (36.0-66.0); RED BLOOD COUNT 2.41 10^6/uL (4.30-6.10); WHITE BLOOD COUNT 13.2 10^3/uL (4.0-10.0)
[2020-04-13 04:32] LABS: PLATELET COUNT, AUTOMATED 90 10^3/uL (150-450)
[2020-04-13 04:53] LABS: CALCIUM LEVEL 8.1 MG/DL (8.8-10.2); CREATININE FOR GFR 1.3 MG/DL (0.70-1.30); GLOMERULAR FILTRATION RATE 57.3 (>42); MAGNESIUM LEVEL 2.1 MG/DL (1.8-2.4); POTASSIUM SERUM 3.3 MEQ/L (3.5-5.1)
[2020-04-13] MEDS: SLF 3 ML SYR IV SCH ×3 (05:33→21:52)
[2020-04-13] MEDS: ASPIRIN 81 MG CHEW TABLET PO SCH (08:28)
[2020-04-13] MEDS: TAMSULOSIN 0.4 MG CAP PO SCH ×2 (08:29→21:49)
[2020-04-13] MEDS: ANUSOL HC 25MG SUPP PR SCH ×3 (08:29→21:52)
[2020-04-13] MEDS: PANTOPRAZOLE 40MG TAB (PROTONIX) PO SCH (08:29)
[2020-04-13] MEDS: IRON POLYSAC (NIFEREX) 150 MG CAP PO SCH ×2 (08:29→21:52)
[2020-04-13] MEDS: ATORVASTATIN 20 MG TAB PO SCH (08:29)
[2020-04-13] MEDS: CARVedilol 12.5 MG TAB PO SCH ×2 (08:31→21:51)
[2020-04-13] MEDS: amLODIPine 10 MG TAB PO SCH (08:31)
[2020-04-13] MEDS: MAGNESIUM CHLORIDE 64 MG TABCR (SLO MAG) PO SCH (08:32)
[2020-04-13] MEDS ORDERED: POTASSIUM CHLORIDE 10 MEQ SR TABLET PO ONE (09:00)
[2020-04-13 13:01] LABS: APPEARANCE, BODY FLUID TURBID (CLEAR); ASCITES FL COLOR YELLOW (COLORLESS); SOURCE, BODY FLUID ASCITES; SPEC. GRAVITY BODY FLUIDS 1.029 (NOT ESTABLISHED)
--- NOTE | 2020-04-13 13:02 | IPNPDOC ---
Text Note Date of Service The patient was seen on 04/13/20. NOTE Subjective: Patient is on the room air. He continues to have lightheadedness. Patient continues to have gross hematuria, no clots. Patient denies fever, chills, nausea, vomiting, chest pain. Objective PHYSICAL EXAMINATION ON DISCHARGE: VITAL SIGNS: Please see below. GENERAL: awake, alert, NAD HEENT: NCAT, anicteric sclera, JANE NECK: supple, no JVD CARDIOVASCULAR EXAMINATION: NS1S2, regular rate/rhythm RESPIRATORY EXAMINATION: Crackles at the base bilaterally ABDOMINAL EXAMINATION: positive bowel sounds x 4, NT EXTREMITIES: no cyanosis, +2 right pitting edema SKIN: warm, no rashes. NEUROLOGICAL EXAMINATION: AAO x 3, no motor/sensory deficits PSYCHIATRIC EXAMINATION: calm, normal affect Assessment and plan: Patient is 75 years old male with past medical history of recent Hx of RLE DVT (s/p IVC), Recent Hx of GI bleed (s/p Xarelto), new neck mass, HTN, PVD (s/p b ypass and stent at RLE), BPH, Gout, Diverticulosis, GERD who presents to the hospital with left sided inguinal/groin pain. Patient was found to have acute kidney injury, left renal infarct, elevated troponin most likely secondary to acute coronary syndrome, 1.2 nodule of the right lung lower lobe. Metastatic adenocarcinoma Unknown primary site Patient will need PET scan in the outpatient settings Most likely malignancy is cause of multiple manifestations as right leg DVT, endocarditis, kidney infarct Left neck mass Biopsy showed metastatic adenocarcinoma. Patient needs anticoagulation, u nfortunately we cannot give it to him due to gross hematuria oncologist Dr. Ritchie follows him, he recommended to start anticoagulation after resolution of gross hematuria. Patient has high risk of PE Acute blood loss anemia Secondary to hematuria Will transfuse if hemoglobin less than 7 Appreciate/agree with urologist consult Left inguinal pain Resolved for now Most likely referral pain from left kidney infarct given CT findings of a large wedge-shaped region of low attenuation in the left kidney, which is compatible with a left renal infarct that has developed since the prior CT abdomen and pelvis on 08/23/2016 Shortness of breath Most likely secondary to volume overload. Other differential diagnosis also includes pulmonary emboli. We started heparin drip on 04/07/20, however patient developed gross hematuria, heparin was discontinued Patient received 6 L of fluid with rate 200 mL per hour since admission. Positive balance 2.5 L. Fluid was discontinued on 04/07/20 BNP around 12,000 on 04/07/20 I limited fluid intake to [address] showed left lung airspace opacities suspicious for pneumonia. However patient doesn't have fever, cough, sputum. On 04/12/20 CT chest showed previously noted in the left sided infiltrates have significantly improved with only minimal residual left basilar and lingular air space disease noted. No new acute mediastinal or pleuroparenchymal process appreciated. Ascites Most likely secondary to BOWEN versus malignancy CT positive for fatty liver infiltration. The liver has a nodular contour, which can be seen with cirrhosis. No liver mass is seen. alpha-fetoprotein within normal limit CEA elevated which can represent malignancy or secondary to cirrhosis. However it is nonspecific test. CA 19-9 wnl Paracentesis on 04/13/20 NSTEMI versus Demand ischemia Echo shows normal LV size with hyperdynamic LV systolic function and grade 1 diastolic dysfunction. No left ventricular hypertrophy (LVH). Heavily sclerotic aortic valve with potential vegetation versus calcifications with mild aortic stenosis and mild aortic insufficiency. Currently patient does not have any chest pain or palpitations Patient developed troponin of 1.6 on 04/06/12. Trended down, on 04/07/20 1.2 c/w b román, aspirin, statin ESTEFANI showed vegetation of aortic valve 04/09/20. Most likely secondary to malignancy Multiple blood culture sets negative. Marantic endocarditis ESTEFANI showed small vegetation of aortic wall with mild aortic insufficiency most likely secondary to malignancy Neck biopsy showed metastatic adenocarcinoma most likely from the lung is a primary site DC'd ceftriaxone Left kidney infarct Most likely secondary to malignant emboli or arterial clot Continue to monitor VINCENT Most likely secondary to left renal infarct Slightly improved today Continue to monitor Hypertensive emergency/Hypertension I added Norvasc 10 mg Hydralazine IV when necessary with parameters Right Lung nodule There is concern for malignancy given size of the nodule 1.2 cm and risk factors as age, previous smoking history, 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 Patient will need PET scan to define the primary source of malignancy Leukocytosis Up to 13.2 today. Patient does not have fever, chills Patient does not have any abdominal pain. 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 On 04/13/[address] Ruiz follows the patient DVT On hold anticoagulation for now given gross hematuria Patient has IVC filter BPH - c/w Tamsulosin and Finasteride Gout on hold allopurinol due to VINCENT GERD - c/w Protonix VS,Fishbone, I+O VS, Fishbone, I+O Laboratory Tests 04/13/20 04:02 Vital Signs Date Time Temp Pulse Resp B/P (MAP) Pulse Ox O2 Delivery O2 Flow Rate FiO2 04/13/20 12:00 97.4 62 16 148/65 (92) 95 Room Air 04/13/20 04:00 2.0 I&O- Last 24 Hours up to 6 AM 04/13/20 06:00 Intake Total 1582 ml Output Total 350 ml Balance 1232 ml RENE MCARTHUR DO April 13, 2020 13:02
[2020-04-13 13:36] LABS: SOURCE, BODY FLUID ALBUMIN ASCITES; SOURCE, BODY FLUID GLUCOSE ASCITES; SOURCE, BODY FLUID TOT PROTEIN ASCITES; TOTAL PROTEIN, BODY FLUID 4.4 G/DL (NOT ESTABLISHED)
[2020-04-13 14:17] LABS: BASO % 0.1 % (0.0-1.0); EOS # 0.1 10^3/uL (0.0-0.5); EOS % 0.8 % (0.0-3.0); HEMATOCRIT 23.2 % (42.0-52.0); HEMOGLOBIN 7.2 g/dl (13.5-17.5); LYMPH # 0.8 10^3/uL (1.5-5.0); LYMPH % 7.3 % (24.0-44.0); MEAN CORPUSCULAR HEMOGLOBIN 29.1 pg (27.0-33.0); MEAN CORPUSCULAR VOLUME 93.9 fl (80.0-96.0); MONO # 0.8 10^3/uL (0.0-0.8); MONO % 6.8 % (0.0-5.0); NEUTROPHILS # 9.4 10^3/uL (1.5-8.5); NEUTROPHILS % 83.5 % (36.0-66.0); RED BLOOD COUNT 2.47 10^6/uL (4.30-6.10); WHITE BLOOD COUNT 11.2 10^3/uL (4.0-10.0)
[2020-04-13 14:20] LABS: PLATELET COUNT, AUTOMATED 86 10^3/uL (150-450)
[2020-04-13] MEDS ORDERED: LIDOCAINE 2% 100MG/5ML SDV (FOR ANES.) As Ordered ONE (17:38)
[2020-04-13] MEDS ORDERED: propofoL 200 MG/20 ML VIAL As Ordered ONE (17:38)
[2020-04-13] MEDS ORDERED: MIDAZOLAM INJ 2MG/2ML VIAL (J2250 PER 1MG) As Ordered ONE (18:22)
[2020-04-13] MEDS ORDERED: ONDANSETRON 4MG/2ML VIAL As Ordered ONE (18:23)
[2020-04-13] MEDS ORDERED: fentaNYL 100 MCG/2 ML INJECTION (J3010) As Ordered ONE ×2 (18:23→19:44)
[2020-04-13] MEDS ORDERED: ROCURONIUM BROMIDE 50 MG/5 ML VIAL As Ordered ONE ×2 (18:23→19:28)
[2020-04-13] MEDS ORDERED: dexameTHASONE 4 MG/ML 1ML VIAL (J1100 PER 1MG) As Ordered ONE (18:24)
--- NOTE | 2020-04-13 18:24 | SMCUROLCON ---
Urology Consultation General Date of Consultation 04/13/20 Reason For Consultation This patient is seen for Elevated Troponin. History of Present Illness This is a 75 y/o M w/ a PMH significant for RLE dvt (s/p IVC filter), recent GI bleed, HTN, PVD (s/p bypass and stent at RLE), BPH, Gout, Diverticulosis, and GERD, who presented to the hospital approximately 1 wk ago w/ left sided inguinal/groin pain and was found to have VINCENT, a left renal infarct, and elevated troponin most likely secondary to acute coronary syndrome. Since admission, he has developed hematuria while on a heparin drip. Despite lilo sation of the heparin drip his hematuria has continued and his Hb has gradually trended down, reaching as low as 7.[address] A/P done admission is notable for a left renal infarct and diffuse bladder wall thickening. The patient denies having hematuria prior to this admission. He is a former smoker, noting that he smoked a pack per day x 15 years. He has no prior urologic history. 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 Past Medical History Medical History see HPI Surgical Hstory B/L cataract surgery Right femoral endarterectomy IVC Filter Medications Current Medications Current Medications Medications (Trade) Dose Ordered Sig/Soheila Route PRN Reason Start Time Stop Time Status Last Admin Dose Admin Acetaminophen (Tylenol Tab) 650 mg Q4H PRN PO PAIN OR FEVER 04/05/20 22:15 Allopurinol (Zyloprim) 100 mg DAILY PO 04/06/20 09:00 04/12/20 11:16 DC 04/12/20 08:54 Amlodipine Besylate (Norvasc) 10 mg DAILY PO 04/12/20 09:00 04/13/20 08:31 Aspirin (Aspirin Chewable) 81 mg DAILY PO 04/06/20 09:00 04/13/20 08:28 Atorvastatin Calcium (Lipitor) 20 mg DAILY PO 04/06/20 09:00 04/13/20 08:29 Bisoprolol Fumarate (Zebeta) 10 mg QHS PO 04/05/20 21:00 04/06/20 14:03 DC 04/06/20 01:22 Carvedilol (COReg) 25 mg BID PO 04/06/20 09:00 04/13/20 08:31 Ceftriaxone Sodium 2 gm/ Dextrose 50 ml @ 100 mls/hr Q24H IV 04/09/20 22:00 04/13/20 09:20 DC 04/12/20 21:37 EZETIMIBE (Zetia) 10 mg QPM PO 04/05/20 21:00 04/12/20 21:37 Finasteride (Proscar) 5 mg QPM PO 04/05/20 21:00 04/12/20 21:37 Furosemide (LASIX injection) 40 mg BID IV 04/09/20 21:00 04/12/20 07:58 DC 04/11/20 20:11 Furosemide (LASIX injection) 40 mg Q8H IV 04/08/20 00:00 04/09/20 12:37 DC 04/09/20 00:00 Furosemide (LASIX injection) 40 mg STAT STAT IV 04/07/20 16:18 04/07/20 16:19 DC 04/07/20 16:22 Heparin Sodium (Porcine) (Heparin) ASDIRECTED PRN IV SEE LABEL COMMENTS 04/07/20 18:30 Cancel Heparin Sodium (Porcine) (Heparin) 5,000 units Q12H SC 04/06/20 09:00 04/07/20 17:43 DC 04/07/20 08:14 Heparin Sodium (Porcine) (Heparin) 5,900 units STAT STAT IV 04/07/20 17:50 04/07/20 18:06 DC 04/07/20 20:17 Heparin Sodium (Porcine) 22696 units/IV Miscellaneous Supplies 250 ml @ 11.8 mls/hr [id number] IV 04/07/20 18:21 04/08/20 08:50 DC 04/07/20 20:18 Heparin Sodium 100 units/Sodium Chloride 100 ml @ 1 mls/hr Q24H UAC 04/07/20 17:45 04/07/20 18:05 DC Home Med (Med Rec Complete!) ASDIRECTED XX 04/05/20 22:15 04/05/20 22:09 DC Hydralazine HCl (Apresoline) 5 mg STAT STAT IV 04/12/20 11:03 04/12/20 11:04 Cancel Hydralazine HCl (Apresoline) 10 mg Q1H PRN IV hypertension 04/12/20 11:15 Hydrochlorothiazide (Hydrodiuril) 6.25 mg QAM PO 04/06/20 09:00 04/06/20 14:03 DC 04/06/20 11:21 Hydrocortisone Acetate (Anusol Hc Supp) 25 mg BID IN 04/05/20 21:00 04/13/20 08:29 Iron (Niferex) 150 mg BID PO 04/07/20 21:00 04/13/20 08:29 Latanoprost (Xalatan 0.005% Op Soln) 1 drop QHS OU 04/05/20 21:00 04/12/20 21:38 Magnesium Hydroxide (Milk Of Magnesia) 30 ml DAILY PRN PO CONSTIPATION 04/05/20 22:15 Magnesium Chloride (Slow-Mag) 64 mg DAILY PO 04/06/20 09:00 04/13/20 08:32 Morphine Sulfate (Morphine Sulfate Inj) 2 mg Q6H PRN IV MODERATE PAIN (PS 5-7) 04/06/20 00:30 04/06/20 14:45 DC 04/06/20 14:25 Morphine Sulfate (Morphine Sulfate Inj) 4 mg Q30M PRN IV SEVERE PAIN (PS 8-10) 04/05/20 22:00 04/05/20 23:58 DC 04/05/20 22:02 Non-Formulary Medication (Heparin Iv Rate Change Documentation ml/ Hr) ASDIRECTED XX 04/07/20 18:30 04/08/20 08:50 DC 04/08/20 05:10 Pantoprazole Sodium (Protonix) 40 mg DAILY PO 04/06/20 09:00 04/13/20 08:29 Pantoprazole Sodium (Protonix) 40 mg Q2D PO 04/07/20 09:00 04/06/20 14:15 DC Rosuvastatin Calcium (Crestor) 5 mg QPM PO 04/05/20 21:00 04/07/20 12:15 DC 04/06/20 20:12 Sodium Chloride 1,000 ml @ 100 mls/hr Q10H IV 04/05/20 23:15 04/07/20 13:55 DC 04/07/20 09:20 Sodium Chloride (Saline Lock Flush) 2 ml ASDIRECTED PRN IV SEE LABEL COMMENTS 04/08/20 14:15 Sodium Chloride (Saline Lock Flush) 2 ml SLF IV 04/08/20 22:00 04/13/20 14:00 Tamsulosin HCl (Flomax) 0.4 mg BID PO 04/05/20 21:00 04/13/20 08:29 Tramadol HCl (Ultram) 50 mg Q8HP PRN PO MODERATE PAIN (PS 5-7) 04/07/20 18:45 04/07/20 18:38 Allergies Allergies: Coded Allergies: No Known Allergies (Verified Allergy, Unknown, 03/23/20) Review of Systems Constitutional: Denies: Fever, Chills Skin: Denies: Rash, Lesions, Breakdown, Nail Changes Pulmonary: Reports: Dyspnea Cardiovascular: Denies Chest Pain, Denies Palpitations Gastrointestinal: Denies: Nausea, Vomiting, Abdominal Pain Genitourinary: Reports: Dysuria (mild recently), Hematuria Musculoskeletal: Denies: Back Pain Psych: Reports: Mood Normal Physical Examination General Exam: Alert, Cooperative Chest Exam: Normal air movement Heart Exam: Rate Normal Abdomen Exam: Soft; No: BS Hypoactive, Tenderness, Mass Male Exam circumcised phallus w/ normal meatus; b/l descended testicles normal in size and w/o masses Skin Exam: Nl turgor and temperature Neuro Exam: Normal Speech Psych Exam: Mental status NL, Mood NL Vital Signs/I&O Vital Signs Date Time Temp Pulse Resp B/P (MAP) Pulse Ox O2 Delivery O2 Flow Rate FiO2 04/13/20 12:22 60 18 97 04/13/20 12:03 97.6 Room Air 04/13/20 12:00 148/65 (92) 04/13/20 04:00 2.0 I&O- Last 24 Hours up to 6 AM 04/13/20 06:00 Intake Total 1582 ml Output Total 350 ml Balance 1232 ml Laboratory Data 24H Labs Laboratory Tests 2 04/12/20 21:54: Clostridium difficile [id number] PRESUMPTIVE NEGATIVE, Clostridium difficile Toxin (PCR) NEGATIVE 04/13/20 04:02: Immature Granulocyte % (Auto) 1.3, Neutrophils (%) (Auto) 85.5H, Lymphocytes (%) (Auto) 6.0L, Monocytes (%) (Auto) 6.6H, Eosinophils (%) (Auto) 0.5, Basophils (%) (Auto) 0.1, Neutrophils # (Auto) 11.3H, Lymphocytes # (Auto) 0.8L, Monocytes # (Auto) 0.9H, Eosinophils # (Auto) 0.1, Basophils # (Auto) 0.0, Nucleated Red Blood Cells % (auto) 0.0, Immature Platelet Fraction 7.1, Anion Gap 7L, Glomerular Filtration Rate 57.3, Calcium Level 8.1L, Magnesium Level 2.1 04/13/20 12:20: Body Fluid Source ASCITES, Body Fluid Color YELLOW, Body Fluid Appearance TURBID, Body Fluid Specific [place] 1.029, Body Fluid WBC (Auto) 4484H, Body Fluid RBC (Auto) 3, Body Fluid Mononuclear Cells % Auto 97.6H, Fluid Polymorph onuclear Cell % Auto 2.4H, Body Fluid Glucose Source ASCITES, Body Fluid Glucose 99, Body Fluid Protein Source ASCITES, Body Fluid Total Protein 4.4, Body Fluid Albumin Source ASCITES, Body Fluid Albumin 2.2 04/13/20 13:35: Immature Granulocyte % (Auto) 1.5, Neutrophils (%) (Auto) 83.5H, Lymphocytes (%) (Auto) 7.3L, Monocytes (%) (Auto) 6.8H, Eosinophils (%) (Auto) 0.8, Basophils (%) (Auto) 0.1, Neutrophils # (Auto) 9.4H, Lymphocytes # (Auto) 0.8L, Monocytes # (Auto) 0.8, Eosinophils # (Auto) 0.1, Basophils # (Auto) 0.0, Nucleated Red Blood Cells % (auto) 0.0 CBC/BMP Laboratory Tests 04/13/20 04:02 04/13/20 13:35 Microbiology Microbiology 04/13/20 Acid Fast Stain, Received Pending 04/13/20 Mycobacterial Culture, Received Pending 04/13/20 Fungal Smear, Received Pending 04/13/20 Fungal Culture, Received Pending 04/13/20 Gram Stain - Final, Resulted 04/13/20 Body Fluid Culture, Resulted Pending 04/09/20 Blood Culture - Preliminary, Resulted No Growth after 72 hours. All specime... 04/09/20 Blood Culture - Preliminary, Resulted No Growth after 72 hours. All specime... 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 Given the dropping Hb, I recommended that we take the patient to the OR today for cystoscopy, clot evacuation, and possible transurethral resection of bladder tumor. After a discussion of the risks and benefits, informed consent was signed. Plan - informed consent signed - anticoag held - NPO - 2g ancef OCOR - plan for OR around 7pm FELICITY WALDROP MD April 13, 2020 18:24
[2020-04-13] MEDS ORDERED: ceFAZolin 2 GM/D5W 50 ML IV BAG (J0690 PER 500MG) As Ordered ONE (18:49)
[2020-04-13] MEDS ORDERED: ceFAZolin SOD 2 GM in IV 1 EA IV ONE (19:00)
--- NOTE | 2020-04-13 19:12 | REP ---
Ultrasound-guided paracentesis The procedure was performed under the direct supervision of Dr. Underwood. The risks and benefits of the procedure were explained to the patient and informed consent was obtained. The largest pocket of fluid was localized in the left flank using ultrasound guidance. The skin was prepped and draped in a sterile fashion. 1% lidocaine was used as a local anesthetic. Using ultrasound guidance an 8-[place] multi side-hole catheter was inserted using trocar technique. 750 ml of dark yellow fluid was withdrawn and sent to the lab for analysis. The patient tolerated the procedure well and there were no immediate complications. After the appropriate amount of monitored convalescence the patient was discharged from the department. Electronically Signed by XIAO Gibson 04/13/2020 05:27 P Electronically Signed by Dhiraj Underwood MD 04/13/2020 07:04 P
[2020-04-13] MEDS ORDERED: ePHEDrine SULFATE 25 MG/5 ML(5MG/ML) SYRINGE As Ordered ONE ×2 (19:23→19:36)
[2020-04-13] MEDS ORDERED: SUGAMMADEX SODIUM 500 MG/5 ML VIAL (BRIDION) As Ordered ONE (19:31)
[2020-04-13] MEDS ORDERED: ONDANSETRON 4MG/2ML VIAL IV PRN (21:00)
[2020-04-13] MEDS: LATANOPROST 0.005% OPHTH SOLN 2.5 ML OU SCH (21:00)
[2020-04-13] MEDS ORDERED: oxyCODONE 5MG TAB PO PRN (21:00)
[2020-04-13] MEDS ORDERED: LR 1,000 ML IV SCH (21:00)
[2020-04-13] MEDS ORDERED: fentaNYL 100 MCG/2 ML INJECTION (J3010) IV PRN (21:00)
[2020-04-13] MEDS: FINASTERIDE 5 MG TAB PO SCH (21:49)
[2020-04-13] MEDS: EZETIMIBE 10 MG TAB (ZETIA) PO SCH (21:49)
[2020-04-13] MEDS: oxyBUTYnin 5 MG TAB PO PRN (22:09)
[2020-04-13] MEDS: traMADol 50 MG TAB PO PRN (22:20)
[2020-04-13 22:21] LABS: HEMATOCRIT 25.5 % (42.0-52.0); HEMOGLOBIN 7.8 g/dl (13.5-17.5); MEAN CORPUSCULAR HEMOGLOBIN 28.7 pg (27.0-33.0); MEAN CORPUSCULAR HGB CONC 30.6 g/dl (32.0-36.5); MEAN CORPUSCULAR VOLUME 93.8 fl (80.0-96.0); PLATELET COUNT, AUTOMATED 96 10^3/uL (150-450); RED BLOOD COUNT 2.72 10^6/uL (4.30-6.10); WHITE BLOOD COUNT 13.6 10^3/uL (4.0-10.0)
[2020-04-13] MEDS ORDERED: HYDROMORPHONE HCL 0.5 MG/ 0.5 ML SYRINGE (J1170 PER 1) IV PRN (23:15)
[2020-04-14] VITALS (14 sets, daily range): BP systolic 122–169; BP diastolic 56–72
[2020-04-14] MEDS: ACETAMINOPHEN TAB 650MG DOSE (2X325MG) PO PRN (02:34)
[2020-04-14 06:26] LABS: BASO % 0.1 % (0.0-1.0); HEMATOCRIT 29.3 % (42.0-52.0); HEMOGLOBIN 9.7 g/dl (13.5-17.5); LYMPH # 0.6 10^3/uL (1.5-5.0); LYMPH % 5.5 % (24.0-44.0); MEAN CORPUSCULAR HEMOGLOBIN 30.4 pg (27.0-33.0); MEAN CORPUSCULAR HGB CONC 33.1 g/dl (32.0-36.5); MEAN CORPUSCULAR VOLUME 91.8 fl (80.0-96.0); MONO # 0.3 10^3/uL (0.0-0.8); MONO % 2.8 % (0.0-5.0); NEUTROPHILS # 9.1 10^3/uL (1.5-8.5); NEUTROPHILS % 89.1 % (36.0-66.0); RED BLOOD COUNT 3.19 10^6/uL (4.30-6.10); WHITE BLOOD COUNT 10.2 10^3/uL (4.0-10.0)
[2020-04-14 06:28] LABS: PLATELET COUNT, AUTOMATED 87 10^3/uL (150-450)
[2020-04-14] MEDS: SLF 3 ML SYR IV SCH ×3 (06:35→20:45)
--- NOTE | 2020-04-14 06:53 | IPN ---
DATE: 04/13/2020 Mr. Abdul is scheduled to have cystoscopy this afternoon for followup on hematuria with persistent bleeding. He also is having rectal bleeding and bloating. He had a paracentesis today. He has no nausea or vomiting. No fever or chill. No night sweats. Temperature is 97.4, pulse 62, respirations 16, blood pressure 148/65, oxygen saturation 95% on room air. Heart: Normal S1, S2. No murmurs appreciated. Lungs: Diminished breath sounds, but clear. No wheezes, rales or rhonchi. Abdomen: Distended. Mildly tender in the lower quadrants. Extremities: +1 pitting edema bilaterally. No calf tenderness. Neck: Supple. No jugular venous distention. With left supraclavicular indurated adenopathy. LABS: White count 11.2, hemoglobin 7.2, hematocrit 23.2, platelets 86, 83% neutrophils, 7% lymphocytes, 6% monocytes. Sodium 141, potassium 3.3, chloride 106, bicarbonate 28, BUN 46, creatinine 1.3, glucose 141, calcium 8.1. Magnesium 2.1. BRENDEN negative. Anticardiolipin antibodies are pending. Clostridium difficile negative. Further work up for culture negative endocarditis is pending, including Bortonella, legionella and whipplei disease. Blood cultures have all been negative from 04/06/2020, 04/07/2020 and 04/09/2020 times five sets. Ascites fluid gram stain, cultured, AFB smear and culture are all pending. Ascites fluid had 4484 white cells with 97% mononuclear cells and 2.4% PMNs. IMPRESSIONS: 1. Metastatic adenocarcinoma of unknown primary. The patient is currently being worked up with a cystoscopy. He will need a PET scan as an outpatient. 2. Hematuria. Patient is getting cystoscopy today as that may also be the source of the primary of malignancy. 3. 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 So far workup has been negative on bacterial culture. The rest of antigen antibody testing for Legionella and Bartonella are pending, but my suspicion is this is not infectious in nature, but marantic endocarditis non-bacterial thrombotic endocarditis. 4. Left renal infarct with persistent hematuria. The patient is getting cystoscopy today. Plan to discontinue IV Rocephin. PLAN: Infectious disease signing off. MTDD
[2020-04-14 06:56] LABS: CALCIUM LEVEL 7.7 MG/DL (8.8-10.2); CREATININE FOR GFR 1.31 MG/DL (0.70-1.30); GLOMERULAR FILTRATION RATE 56.8 (>42); MAGNESIUM LEVEL 2.3 MG/DL (1.8-2.4)
[2020-04-14 06:58] LABS: POTASSIUM SERUM 4.9 MEQ/L (3.5-5.1)
--- NOTE | 2020-04-14 07:28 | IPN ---
DATE: 04/13/2020 Mr. Abdul is obviously rather distraught. He tells me that he physically feels relatively well other than feeling tired and weak, but most importantly he says that he would very much like to go home. He is uncertain what he can or cannot do and what he can expect. He denies any chest pain or immediate shortness of breath. He continues to have gross hematuria. Vital signs this morning, blood pressure 158/52, heart rate has been in 60s, sinus rhythm, afebrile, saturation 98% on room air. Weight was recorded 76 kg. He was alert, oriented and appropriate. His jugular venous pulse (JVP) was not high. Lungs are reasonably clear on the right, but diminished on the left base. Heart exam reveals a regular rhythm. There is a murmur over the base, not very prominent, maybe 2/6 intensity and radiating towards his neck. Abdomen is soft without tenderness. I do not appreciate hepatosplenomegaly. Extremities are free of edema. White catheter and bag has visible blood. Laboratories: Hemoglobin 7.2, hematocrit 22, platelet count 90,000. Basic metabolic panel: Sodium 131, potassium 3.3. BUN 46, creatinine 1.3 and glucose 141. His BRENDEN is negative. Anticardiolipin antibodies are still pending. All his blood cultures have been negative. He had paracentesis earlier today and gram stain is still pending. CT of the chest that was performed yesterday reports improvement of left sided pulmonary infiltrates. There is a nodule in the right posterior sulcus and ongoing ascites is present. ASSESSMENT/PLAN: Mr. Abdul is a rather unfortunate man. He presented after having left flank pain and was found to have renal infarction. Eventually, he had a transesophageal echocardiogram that revealed vegetation on his aortic valve, but simultaneously all his blood cultures have remained negative. Biopsy of the mass on his left side of his neck revealed adenocarcinoma of unclear primary. At this point, we had a navin discussion. I explained to him that to the best of my understanding even though I am not an oncologist his overall prognosis is certainly poor. If we can identify the source of primary cancer then appropriate chemotherapy can hopefully be instituted to delay progression of tumor. As far as the vegetation of the aortic valve is concerned at this point it seems more likely that it is indeed manifestation of malignancy rather than infectious endocarditis. The patient would like to go home. I think that in this setting it is appropriate. He probably should discuss his condition with his family before he makes any ultimate decisions. Once we can stabilize his blood count, hopefully, we can give him a few units of blood and the gross hematuria will stop, which will allow him to go home. Unfortunately, in the long horizon I am afraid that probably regardless of the primary source he has widely metastatic cancer and at this point the success of therapy is likely limited. I believe that DO NOT INTUBATE/DO NOT RESUSCITATE would be in order, but I think that at a minimum he should consult his prognosis with an oncologist before making any decisions about ocean transportation intermediary treatment.
[2020-04-14] MEDS: CARVedilol 12.5 MG TAB PO SCH ×2 (08:16→20:44)
[2020-04-14] MEDS: ANUSOL HC 25MG SUPP PR SCH ×2 (08:46→20:42)
[2020-04-14] MEDS: PANTOPRAZOLE 40MG TAB (PROTONIX) PO SCH (09:33)
[2020-04-14] MEDS: ASPIRIN 81 MG CHEW TABLET PO SCH (09:33)
[2020-04-14] MEDS: TAMSULOSIN 0.4 MG CAP PO SCH ×2 (09:33→20:42)
[2020-04-14] MEDS: amLODIPine 10 MG TAB PO SCH (09:34)
[2020-04-14] MEDS: MAGNESIUM CHLORIDE 64 MG TABCR (SLO MAG) PO SCH (09:34)
[2020-04-14] MEDS: IRON POLYSAC (NIFEREX) 150 MG CAP PO SCH ×2 (09:34→20:43)
[2020-04-14] MEDS: ATORVASTATIN 20 MG TAB PO SCH (09:34)
--- NOTE | 2020-04-14 09:47 | IPNPDOC ---
Subjective Review oF Systems Chief Complaint The patient is a 75-year-old male admitted with a reason for visit of Elevated Troponin. Events since Last Encounter Patient had severe bladder pain postop last night. He notes it is gone this morning. His catheter drained well on CBI throughout the night. He feels well this am. No n/v. No f/c/ns. Objective Physical Examination General Exam: Alert, Cooperative, No Acute Distress ABDOMEN EXAM: Soft; No: Tenderness Skin Exam: Nl turgor and temperature Neuro Exam: Normal Speech Psych Exam: Mental status NL, Mood NL Other physical findings 24Fr 3-way catheter draining light pink w/ irrigation wide open Vital Signs/I&O Vital Signs Date Time Temp Pulse Resp B/P (MAP) Pulse Ox O2 Delivery O2 Flow Rate FiO2 04/14/20 08:38 55 18 142/65 (90) 98 Room Air 04/14/20 08:00 98.3 1.0 I&O- Last 24 Hours up to 6 AM 04/14/20 06:00 Intake Total 3170 ml Output Total 9350 ml Balance -6180 ml Laboratory Data Labs 24H Laboratory Tests 2 04/13/20 12:20: Body Fluid Source ASCITES, Body Fluid Color YELLOW, Body Fluid Appearance TURBID, Body Fluid Specific [place] 1.029, Body Fluid WBC (Auto) 4484H, Body Fluid RBC (Auto) 3, Body Fluid Mononuclear Cells % Auto 97.6H, Fluid Poly morphonuclear Cell % Auto 2.4H, Body Fluid Glucose Source ASCITES, Body Fluid Glucose 99, Body Fluid Protein Source ASCITES, Body Fluid Total Protein 4.4, Body Fluid Albumin Source ASCITES, Body Fluid Albumin 2.2 04/13/20 13:35: Immature Granulocyte % (Auto) 1.5, Neutrophils (%) (Auto) 83.5H, Lymphocytes (%) (Auto) 7.3L, Monocytes (%) (Auto) 6.8H, Eosinophils (%) (Auto) 0.8, Basophils (%) (Auto) 0.1, Neutrophils # (Auto) 9.4H, Lymphocytes # (Auto) 0.8L, Monocytes # (Auto) 0.8, Eosinophils # (Auto) 0.1, Basophils # (Auto) 0.0, Nucleated Red Blood Cells % (auto) 0.0 04/13/20 21:56: Nucleated Red Blood Cells % (auto) 0.0 04/14/20 06:02: Immature Granulocyte % (Auto) 2.5, Neutrophils (%) (Auto) 89.1H, Lymphocytes (%) (Auto) 5.5L, Monocytes (%) (Auto) 2.8, Eosinophils (%) (Auto) 0.0, Basophils (%) (Auto) 0.1, Neutrophils # (Auto) 9.1H, Lymphocytes # (Auto) 0.6L, Monocytes # (Auto) 0.3, Eosinophils # (Auto) 0.0, Basophils # (Auto) 0.0, Nucleated Red Blood Cells % (auto) 0.0, Immature Platelet Fraction 10.3, Anion Gap 7L, Glomeru lar Filtration Rate 56.8, Calcium Level 7.7L, Magnesium Level 2.3 CBC/BMP Laboratory Tests 04/13/20 13:35 04/13/20 21:56 04/14/20 06:02 Microbiology Microbiology 04/13/20 Acid Fast Stain, Received Pending 04/13/20 Mycobacterial Culture, Received Pending 04/13/20 Fungal Smear, Received Pending 04/13/20 Fungal Culture, Received Pending 04/13/20 Gram Stain - Final, Resulted 04/13/20 Body Fluid Culture, Resulted Pending 04/09/20 Blood Culture - Preliminary, Resulted No Growth after 72 hours. All specime... 04/09/20 Blood Culture - Preliminary, Resulted No Growth after 72 hours. All specime... 04/07/20 Blood Culture - Final, Complete NO GROWTH AFTER 5 DAYS 04/06/20 Blood Culture - Final, Complete NO GROWTH AFTER 5 DAYS 04/06/20 Blood Culture - Final, Complete NO GROWTH AFTER 5 DAYS 04/05/20 Urine Culture - Final, Complete Assessment/Plan Date Seen The patient was seen on 04/14/20. Patient Summary This is a 75 y/o M w/ admitted for VINCENT, a left renal infarct, and elevated troponin most likely secondary to acute coronary syndrome, now diagnosed w/ metastatic adenocarcinoma w/o known primary and persistent hematuria. He is POD1 s/p cysto, clot evacuation, and TURBT. Cysto revealed diffuse and what appeared to be infiltrative bladder cancer. No normal urothelium could be visualized and b/c of this every surface of his bladder bled easily w/ minimal manipulation. His tumors could not be completely resected, but enough tissue was obtained for pathology. I cauterized a large portion of the bladder to help decrease bleeding. His Hb is stable this morning s/p transfusion of 2u PRBC. His hematuria appears to be improving. Pathology will assess tissue obtained from his bladder to determine if it is the primary source for his supraclavicular mass. He will likely need chemotherapy. Surgery at this point will not be enough to manage this stage of bladder cancer and will be reserved mainly for palliative purposes to control bleeding. Plan/VTE VTE Prophylaxis Ordered?: Yes VTE Exclusion Mechanical Proph: N/A:VTE Prophy Ordered VTE Exclusion Pharmacological: Active Bleeding Plan/Urinary Catheter Reason for insertion/continuin: Acute obstruct/retention Plan - titrate CBI so that urine remains pink or clearer - ok to turn CBI off as long as urine looks ok - if urine remains pink or clear for a few hrs w/ CBI off, will recommend remov ing the catheter as leaving it in will likely irritate his bladder more and cause more hematuria - would recommend against anticoagulation at this time - recommend having oncology see patient again once pathology results are back from the bladder tumor resection - if hematuria is minimal throughout the day and his Hb remains stable, should be ok to discharge home from urologic standpoint tomorrow - will follow FELICITY WALDROP MD April 14, 2020 09:47
--- NOTE | 2020-04-14 10:46 | IPN ---
DATE: 04/14/2020 Mr. Abdul tells me that he is feeling better today. He had quite an eventful day yesterday. He was seen by Dr. Linder for urology and the decision was made to take him to the operating room (OR) for cystoscopy. Per my communication with Dr. Linder, he has a bladder that is diffusely infiltrated by tumor and he believes that it will be very challenging to stop his bleeding unless it spontaneously stops on its own. Biopsy samples were taken and it is of opinion that it is likely that it will be same histology that the mass on his neck. There were no other significant events. On physical exam, he is alert and oriented and appropriate. Blood pressure 148/64. Heart rate was from 40s to 60s, sinus rhythm. He is afebrile. Saturation 99% on 2 liters. No weight was documented this morning. Weight was 76 kg yesterday. Jugular venous pulse (JVP) is not high. Lungs are clear today. The previous diminished breath sounds over left base are almost completely clear. Heart exam reveals regular rhythm. I do not appreciate as much of a murmur today as of yesterday, maybe 1/6 systolic murmur over the aortic valve. Abdomen is soft, nontender. Extremities have no significant edema. There is 3-way White catheter in place. LABORATORIES: CBC: WBC count 10.2, hemoglobin 9.7, hematocrit 29, platelet count 87,000. Basic Metabolic Panel: Sodium 141, potassium 4.9. BUN 44, creatinine 1.3, and glucose 181. ASSESSMENT AND PLAN: Mr. Abdul is a very unfortunate 75-year-old man who at this point I think we can conclude that his metastatic adenocarcinoma probably originated in his bladder. In view of this finding, it seems likely that a vegetation which was on the aortic valve was secondary to cancer and is so- called marantic endocarditis. From cardiac perspective, I do not have much to contribute. In my opinion, the patient should be allowed to go home as soon as possible because his prognosis is certainly poor. He will have to make some decisions about further care best in cooperation with his . ROGERIO
--- NOTE | 2020-04-14 11:08 | IPNPDOC ---
Text Note Date of Service The patient was seen on 04/14/20. NOTE Subjective: Patient is on the room air. Patient tolerates cystoscopy well, cu rrently on bladder irrigation Patient denies fever, chills, nausea, vomiting, chest pain. Objective PHYSICAL EXAMINATION ON DISCHARGE: VITAL SIGNS: Please see below. GENERAL: awake, alert, NAD HEENT: NCAT, anicteric sclera, JANE NECK: supple, no JVD CARDIOVASCULAR EXAMINATION: NS1S2, regular rate/rhythm RESPIRATORY EXAMINATION: Crackles at the base bilaterally ABDOMINAL EXAMINATION: positive bowel sounds x 4, NT EXTREMITIES: no cyanosis, +2 right pitting edema SKIN: warm, no rashes. NEUROLOGICAL EXAMINATION: AAO x 3, no motor/sensory deficits PSYCHIATRIC EXAMINATION: calm, normal affect Assessment and plan: Patient is 75 years old male with past medical history of recent Hx of RLE DVT (s/p IVC), Recent Hx of GI bleed (s/p Xarelto), new neck mass, HTN, PVD (s/p bypass and stent at RLE), BPH, Gout, Diverticulosis, GERD who presents to the hospital with left sided inguinal/groin pain. Patient was found to have acute kidney injury, left renal infarct, elevated troponin most likely secondary to acute coronary syndrome, 1.2 nodule of the right lung lower lobe. Bladder cancer Cystoscopy was done on 04/13/20, patient was found to have infiltrative bladder cancer Await pathology report Most likely primary site of tumor When hematuria stop patient will be discharged with oncologist follow-up Overall prognosis is very poor. Metastatic adenocarcinoma Most likely bladder cancer is a primary source Patient will need PET scan in the outpatient settings Most likely malignancy is cause of multiple manifestations as right leg DVT, endocarditis, kidney infarct Left neck mass Biopsy showed metastatic adenocarcinoma. Patient needs anticoagulation, unfortunately we cannot give it to him due to gross hematuria oncologist Dr. Ritchie follows him. Unlikely patient is candidate for ant icoagulation due to high risk of hematuria Acute blood loss anemia Secondary to hematuria On 04/13/20 cystoscopy was done with partial cauterization. Continue blood irrigation Patient received 2 units of blood, hemoglobin stable Urology team follows him Left inguinal pain Resolved for now Most likely referral pain from left kidney infarct given CT findings of a large wedge-shaped region of low attenuation in the left kidney, which is compatible with a left renal infarct that has developed since the prior CT abdomen and pelvis on 08/23/2016 Shortness of breath Resolved Most likely secondary to volume overload. Other differential diagnosis also includes pulmonary emboli. We started heparin drip on 04/07/20, however patient developed gross hematuria, heparin was discontinued Patient received 6 L of fluid with rate 200 mL per hour since admission. Positive balance 2.5 L. Fluid was discontinued on 04/07/20 BNP around 12,000 on 04/07/20 I limited fluid intake to [address] showed left lung airspace opacities suspicious for pneumonia. However patient doesn't have fever, cough, sputum. On 04/12/20 CT chest showed previously noted in the left sided infiltrates have significantly improved with only minimal residual left basilar and lingular air space disease noted. No new acute mediastinal or pleuroparenchymal process appreciated. Ascites Most likely secondary malignancy due to bladder carcinoma is a primary source CT positive for fatty liver infiltration. The liver has a nodular contour, which can be seen with cirrhosis. No liver mass is seen. alpha-fetoprotein within normal limit CEA elevated which can represent malignancy or secondary to cirrhosis. However it is nonspecific test. CA 19-9 wnl Paracentesis was done on 04/13/20. Ascitic fluid noninfectious. NSTEMI versus Demand ischemia Echo shows normal LV size with hyperdynamic LV systolic function and grade 1 diastolic dysfunction. No left ventricular hypertrophy (LVH). Heavily sclerotic aortic valve with potential vegetation versus calcifications with mild aortic stenosis and mild aortic insufficiency. Currently patient does not have any chest pain or palpitations Patient developed troponin of 1.6 on 04/06/12. Trended down, on 04/07/20 1.2 c/w b román, aspirin, statin ESTEFANI showed vegetation of aortic valve 04/09/20. Most likely secondary to malignancy Multiple blood culture sets negative. Marantic endocarditis ESTEFANI showed small vegetation of aortic wall with mild aortic insufficiency most likely secondary to malignancy Neck biopsy showed metastatic adenocarcinoma most likely from bladder cancer DC'd ceftriaxone Left kidney infarct Most likely secondary to malignant emboli or arterial clot Continue to monitor VINCENT Most likely secondary to left renal infarct Continue to monitor Hypertensive emergency/Hypertension I added Norvasc 10 mg Hydralazine IV when necessary with parameters Right Lung nodule Most likely metastases There is concern for malignancy given size of the nodule 1.2 cm and risk factors as age, previous smoking history, 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 Most likely primary site is bladder cancer Leukocytosis Up to 10.2 today. Patient does not have fever, chills Patient does not have any abdominal pain. 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 On 04/13/20 ceftriaxone stopped DVT On hold anticoagulation for now given gross hematuria Patient has IVC filter BPH - c/w Tamsulosin and Finasteride Gout on hold allopurinol due to VINCENT GERD - c/w Protonix VS,Fishbone, I+O VS, Fishbone, I+O Laboratory Tests 04/13/20 13:35 04/13/20 21:56 04/14/20 06:02 Vital Signs Date Time Temp Pulse Resp B/P (MAP) Pulse Ox O2 Delivery O2 Flow Rate FiO2 04/14/20 09:34 60 142/65 04/14/20 08:38 18 98 Room Air 04/14/20 08:00 98.3 1.0 I&O- Last 24 Hours up to 6 AM 04/14/20 06:00 Intake Total 3170 ml Output Total 9350 ml Balance -6180 ml RENE MCARTHUR DO April 14, 2020 11:08
[2020-04-14 12:03] LABS: HEMATOCRIT 27.4 % (42.0-52.0); HEMOGLOBIN 8.9 g/dl (13.5-17.5)
[2020-04-14] MEDS: oxyBUTYnin 5 MG TAB PO PRN (15:05)
[2020-04-14] MEDS: traMADol 50 MG TAB PO PRN ×2 (15:05→23:22)
[2020-04-14] MEDS: FUROSEMIDE 20MG/2ML VIAL (J1940) IV SCH (17:10)
[2020-04-14 18:12] LABS: HEMATOCRIT 28.1 % (42.0-52.0); HEMOGLOBIN 9.3 g/dl (13.5-17.5)
[2020-04-14] MEDS: LATANOPROST 0.005% OPHTH SOLN 2.5 ML OU SCH (20:41)
[2020-04-14] MEDS: FINASTERIDE 5 MG TAB PO SCH (20:42)
[2020-04-14] MEDS: EZETIMIBE 10 MG TAB (ZETIA) PO SCH (20:43)
[2020-04-14 23:55] LABS: HEMATOCRIT 27.6 % (42.0-52.0)
[2020-04-15] VITALS: BP 163/71
[2020-04-15 04:00] VITALS: BP 126/74
[2020-04-15 04:31] LABS: BASO % 0.2 % (0.0-1.0); EOS % 0.3 % (0.0-3.0); HEMATOCRIT 27.6 % (42.0-52.0); LYMPH # 0.8 10^3/uL (1.5-5.0); LYMPH % 5.8 % (24.0-44.0); MEAN CORPUSCULAR HEMOGLOBIN 29.9 pg (27.0-33.0); MEAN CORPUSCULAR HGB CONC 32.6 g/dl (32.0-36.5); MEAN CORPUSCULAR VOLUME 91.7 fl (80.0-96.0); MONO # 0.9 10^3/uL (0.0-0.8); MONO % 6.5 % (0.0-5.0); NEUTROPHILS # 11.9 10^3/uL (1.5-8.5); NEUTROPHILS % 84.8 % (36.0-66.0); RED BLOOD COUNT 3.01 10^6/uL (4.30-6.10)
[2020-04-15 04:32] LABS: PLATELET COUNT, AUTOMATED 83 10^3/uL (150-450)
[2020-04-15 04:48] LABS: CALCIUM LEVEL 7.9 MG/DL (8.8-10.2); CREATININE FOR GFR 1.53 MG/DL (0.70-1.30); GLOMERULAR FILTRATION RATE 47.5 (>42); MAGNESIUM LEVEL 2.2 MG/DL (1.8-2.4); POTASSIUM SERUM 4.1 MEQ/L (3.5-5.1)
[2020-04-15] MEDS: ACETAMINOPHEN TAB 650MG DOSE (2X325MG) PO PRN (06:00)
[2020-04-15] MEDS: SLF 3 ML SYR IV SCH ×3 (06:00→20:15)
[2020-04-15 08:00] VITALS: BP 144/63
[2020-04-15] MEDS: MAGNESIUM CHLORIDE 64 MG TABCR (SLO MAG) PO SCH (08:23)
[2020-04-15] MEDS: FUROSEMIDE 20MG/2ML VIAL (J1940) IV SCH ×2 (08:23→16:05)
[2020-04-15] MEDS: ASPIRIN 81 MG CHEW TABLET PO SCH (08:23)
[2020-04-15] MEDS: IRON POLYSAC (NIFEREX) 150 MG CAP PO SCH ×2 (08:23→20:14)
[2020-04-15] MEDS: CARVedilol 12.5 MG TAB PO SCH ×2 (08:24→20:14)
[2020-04-15] MEDS: amLODIPine 10 MG TAB PO SCH (08:24)
[2020-04-15] MEDS: ANUSOL HC 25MG SUPP PR SCH ×3 (08:24→20:14)
[2020-04-15] MEDS: PANTOPRAZOLE 40MG TAB (PROTONIX) PO SCH (08:24)
[2020-04-15] MEDS: TAMSULOSIN 0.4 MG CAP PO SCH ×2 (08:24→20:14)
[2020-04-15] MEDS: ATORVASTATIN 20 MG TAB PO SCH (08:24)
--- NOTE | 2020-04-15 10:27 | RO ---
DATE OF PROCEDURE: 04/13/2020 PREPROCEDURE DIAGNOSIS: Gross hematuria. POSTPROCEDURE DIAGNOSIS: Bladder tumors. PROCEDURE: Cystoscopy, transurethral resection of the bladder tumors (greater than 5 cm), clot evacuation. SURGEON: Dr. Rigoberto Linder. SUB PLANT MANAGER: None. ANESTHESIA: General. OPERATIVE INDICATIONS: This is a 75-year-old male with gross hematuria with resultant anemia. He was brought to the operating room today to investigate the cause of the hematuria and try to stop it. DESCRIPTION OF PROCEDURE: The patient was brought to the operating room and general anesthesia induced. Prophylactic antibiotics were infused. He was placed in the dorsal lithotomy position and prepped and draped in the usual sterile fashion. A resectoscope inserted into the urethral meatus and advanced into the bladder using a visual obturator. Once inside the bladder, a moderate amount of clots were drained out of the bladder. The bladder was then thoroughly examined. Of note, the patient had several tumors throughout his bladder. No normal urothelium could be seen. The largest of the bladder tumors were on the lateral wall near the trigone and there were other papillary tumors as well as smaller friable tumors throughout the bladder. The larger of the tumors were resected using the Gyrus loop. We then removed the tumors and sent them for pathologic analysis. The base of resection was carefully cauterized. Bilateral ureteral orifices were visualized and we did not resect on top of them. Of note, the patient's entire bladder was very friable and each time the bladder was distended with irrigation, it would start to bleed. Once the bladder was decompressed. I tried to cauterize the majority of the bladder to help prevent resultant hematuria. Once done, the resectoscope was removed and a 24-Trinidadian three-way catheter was inserted into the bladder and the balloon was filled with 30 mL of sterile water. The irrigation port was hooked up to a bag with normal saline and then the drainage port was connected to gravity drainage and this marked the conclusion of the procedure. The patient was then taken out of the dorsal lithotomy position, awakened from anesthesia and transported to the recovery room in stable condition. ESTIMATED BLOOD LOSS: 100 mL COMPLICATIONS: None. SPECIMENS: Bladder tumors. PLAN: The patient will go back to the progressive care unit (PCU) and we will keep under continuous bladder irrigation for now. He will ultimately need additional treatment for what appears to be metastatic bladder cancer. MTDD
[2020-04-15 12:00] VITALS: BP_SYST 132; BP_SYST 134; BP_DIAS 74; BP_DIAS 79
--- NOTE | 2020-04-15 12:04 | IPNPDOC ---
Text Note Date of Service The patient was seen on 04/15/20. NOTE Subjective: Patient is on the room air. Patient continues to have hematuria Patient denies fever, chills, nausea, vomiting, chest pain. Objective PHYSICAL EXAMINATION ON DISCHARGE: VITAL SIGNS: Please see below. GENERAL: awake, alert, NAD HEENT: NCAT, anicteric sclera, JANE NECK: supple, no JVD CARDIOVASCULAR EXAMINATION: NS1S2, regular rate/rhythm RESPIRATORY EXAMINATION: Crackles at the base bilaterally ABDOMINAL EXAMINATION: positive bowel sounds x 4, NT EXTREMITIES: no cyanosis, +2 right pitting edema SKIN: warm, no rashes. NEUROLOGICAL EXAMINATION: AAO x 3, no motor/sensory deficits PSYCHIATRIC EXAMINATION: calm, normal affect Assessment and plan: Patient is 75 years old male with past medical history of recent Hx of RLE DVT (s/p IVC), Recent Hx of GI bleed (s/p Xarelto), new neck mass, HTN, PVD (s/p bypass and stent at RLE), BPH, Gout, Diverticulosis, GERD who presents to the hospital with left sided inguinal/groin pain. Patient was found to have acute k idney injury, left renal infarct, elevated troponin most likely secondary to acute coronary syndrome, 1.2 nodule of the right lung lower lobe. Bladder cancer Cystoscopy was done on 04/13/20, patient was found to have infiltrative bladder cancer Await pathology report Most likely primary site of tumor When hematuria stop patient will be discharged with oncologist follow-up Overall prognosis is very poor. Hematuria Secondary to bladder cancer Continue irrigation Metastatic adenocarcinoma Most likely bladder cancer is a primary source Patient will need PET scan in the outpatient settings Most likely malignancy is cause of multiple manifestations as right leg DVT, endocarditis, kidney infarct Left neck mass Biopsy showed metastatic adenocarcinoma. Patient needs anticoagulation, unfortunately we cannot give it to him due to gross hematuria oncologist Dr. Ritchie follows him. Unlikely patient is candidate for anticoagulation due to high risk of hematuria Acute blood loss anemia Secondary to hematuria On 04/13/20 cystoscopy was done with partial cauterization. Continue blood irrigation Patient received 2 units of blood, hemoglobin stable Urology team follows him Left inguinal pain Resolved for now Most likely referral pain from left kidney infarct given CT findings of a large wedge-shaped region of low attenuation in the left kidney, which is compatible with a left renal infarct that has developed since the prior CT abdomen and pelvis on 08/23/2016 Shortness of breath Resolved Most likely secondary to volume overload. Other differential diagnosis also includes pulmonary emboli. We started heparin drip on 04/07/20, however patient developed gross hematuria, heparin was discontinued Patient received 6 L of fluid with rate 200 mL per hour since admission. Positive balance 2.5 L. Fluid was discontinued on 04/07/20 BNP around 12,000 on 04/07/20 I limited fluid intake to [address] showed left lung airspace opacities suspicious for pneumonia. However patient doesn't have fever, cough, sputum. On 04/12/20 CT chest showed previously noted in the left sided infiltrates have significantly improved with only minimal residual left basilar and lingular air space disease noted. No new acute mediastinal or pleuroparenchymal process appreciated. On 04/15/20 urine Legionella test came back positive, patient does not have fever, chills, shortness of breath. We will check Legionella antibody Ascites Most likely secondary malignancy due to bladder carcinoma is a primary source CT positive for fatty liver infiltration. The liver has a nodular contour, which can be seen with cirrhosis. No liver mass is seen. alpha-fetoprotein within normal limit CEA elevated which can represent malignancy or secondary to cirrhosis. However it is nonspecific test. CA 19-9 wnl Paracentesis was done on 04/13/20. Ascitic fluid noninfectious. Ascitic fluid positive for malignancy NSTEMI versus Demand ischemia Echo shows normal LV size with hyperdynamic LV systolic function and grade 1 diastolic dysfunction. No left ventricular hypertrophy (LVH). Heavily sclerotic aortic valve with potential vegetation versus calcifications with mild aortic stenosis and mild aortic insufficiency. Currently patient does not have any chest pain or palpitations Patient developed troponin of 1.6 on 04/06/12. Trended down, on 04/07/20 1.2 c/w b román, aspirin, statin ESTEFANI showed vegetation of aortic valve 04/09/20. Most likely secondary to malignancy Multiple blood culture sets negative. Marantic endocarditis ESTEFANI showed small vegetation of aortic wall with mild aortic insufficiency most likely secondary to malignancy Neck biopsy showed metastatic adenocarcinoma most likely from bladder cancer DC'd ceftriaxone Left kidney infarct Most likely secondary to malignant emboli or arterial clot Continue to monitor VINCENT Most likely secondary to left renal infarct Continue to monitor Hypertensive emergency/Hypertension I added Norvasc 10 mg Hydralazine IV when necessary with parameters Right Lung nodule Most likely metastases There is concern for malignancy given size of the nodule 1.2 cm and risk factors as age, previous smoking history, 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 Most likely primary site is bladder cancer Leukocytosis Up to 10.2 today. Patient does not have fever, chills Patient does not have any abdominal pain. 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 On 04/13/20 ceftriaxone stopped DVT On hold anticoagulation for now given gross hematuria Patient has IVC filter BPH - c/w Tamsulosin and Finasteride Gout on hold allopurinol due to VINCENT GERD - c/w Protonix VS,Fishbone, I+O VS, Fishbone, I+O Laboratory Tests 04/14/20 18:02 04/14/20 23:51 04/15/20 03:35 Vital Signs Date Time Temp Pulse Resp B/P (MAP) Pulse Ox O2 Delivery O2 Flow Rate FiO2 04/15/20 08:24 57 126/74 04/15/20 08:00 97.7 18 94 Room Air 04/14/20 08:00 1.0 I&O- Last 24 Hours up to 6 AM 04/15/20 06:00 Intake Total 580 ml Output Total 925 ml Balance -345 ml RENE MCARTHUR DO April 15, 2020 12:04
[2020-04-15 12:45] LABS: HEMATOCRIT 28.2 % (42.0-52.0); HEMOGLOBIN 9.1 g/dl (13.5-17.5)
--- NOTE | 2020-04-15 15:45 | IPNPDOC ---
Subjective Review oF Systems Chief Complaint The patient is a 75-year-old male admitted with a reason for visit of Elevated Troponin. Events since Last Encounter No acute events o/n. Patient notes mild occasional bladder discomfort. No n/v. No f/c/ns. Objective Physical Examination General Exam: Alert, Cooperative, No Acute Distress ABDOMEN EXAM: Soft; No: Tenderness Skin Exam: Nl turgor and temperature Neuro Exam: Normal Speech Psych Exam: Mental status NL, Mood NL Other physical findings 24Fr [address] w/ CBI on minimal drip and light pink urine d raining Vital Signs/I&O Vital Signs Date Time Temp Pulse Resp B/P (MAP) Pulse Ox O2 Delivery O2 Flow Rate FiO2 04/15/20 12:00 97.7 54 18 132/74 (93) 94 Room Air 04/14/20 08:00 1.0 I&O- Last 24 Hours up to 6 AM 04/15/20 06:00 Intake Total 580 ml Output Total 925 ml Balance -345 ml Laboratory Data Labs 24H Laboratory Tests 2 04/15/20 03:35: Immature Granulocyte % (Auto) 2.4, Neutrophils (%) (Auto) 84.8H, Lymphocytes (%) (Auto) 5.8L, Monocytes (%) (Auto) 6.5H, Eosinophils (%) (Auto) 0.3, Basophils (%) (Auto) 0.2, Neutrophils # (Auto) 11.9H, Lymphocytes # (Auto) 0.8L, Monocytes # (Auto) 0.9H, Eosinophils # (Auto) 0.0, Basophils # (Auto) 0.0, Nucleated Red Blood Cells % (auto) 0.0, Anion Gap 6L, Glomerular Filtration Rate 47.5, Calcium Level 7.9L, Magnesium Level 2.2 04/15/20 12:29: CBC/BMP Laboratory Tests 04/14/20 18:02 04/14/20 23:51 04/15/20 03:35 04/15/20 12:29 Microbiology Microbiology 04/13/20 Acid Fast Stain, Received Pending 04/13/20 Mycobacterial Culture, Received Pending 04/13/20 Fungal Smear, Received Pending 04/13/20 Fungal Culture, Received Pending 04/13/20 Gram Stain - Final, Complete 04/13/20 Body Fluid Culture - Final, Complete 04/09/20 Blood Culture - Final, Complete NO GROWTH AFTER 5 DAYS 04/09/20 Blood Culture - Final, Complete NO GROWTH AFTER 5 DAYS 04/07/20 Blood Culture - Final, Complete NO GROWTH AFTER 5 DAYS 04/06/20 Blood Culture - Final, Complete NO GROWTH AFTER 5 DAYS 04/06/20 Blood Culture - Final, Complete NO GROWTH AFTER 5 DAYS 04/05/20 Urine Culture - Final, Complete Assessment/Plan Date Seen The patient was seen on 04/15/20. Patient Summary This is a 75 y/o M w/ admitted for VINCENT, a left renal infarct, and elevated troponin most likely secondary to acute coronary syndrome, now diagnosed w/ metastatic cancer w/o known primary and persistent hematuria. He is POD2 s/p cysto, clot evacuation, and TURBT. 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 Based on my conversation w/ pathology, the left supraclavicular lymph node is metastatic urothelial carcinoma. Plan/VTE VTE Prophylaxis Ordered?: Yes VTE Exclusion Mechanical Proph: N/A:VTE Prophy Ordered VTE Exclusion Pharmacological: Active Bleeding Plan/Urinary Catheter Urinary Catheter: D/C White Reason for insertion/continuin: Acute obstruct/retention Plan - stop CBI and d/c catheter - the patient will likely continue to have some hematuria on and off - as long as he is not in clot retention and his Hb is stable, we should leave his catheter out - would continue to hold anticoagulation as his hematuria will worsen if resumed - he will need to see med onc at some point to discuss treatment options for metastatic urothelial carcinoma - I will arrange f/u in my office FELICITY WALDROP MD April 15, 2020 15:45
[2020-04-15 16:00] VITALS: BP 146/83
[2020-04-15 18:10] LABS: HEMATOCRIT 28.2 % (42.0-52.0)
[2020-04-15 20:00] VITALS: BP 131/61
[2020-04-15] MEDS: FINASTERIDE 5 MG TAB PO SCH (20:13)
[2020-04-15] MEDS: LATANOPROST 0.005% OPHTH SOLN 2.5 ML OU SCH (20:14)
[2020-04-15] MEDS: EZETIMIBE 10 MG TAB (ZETIA) PO SCH (20:14)
[2020-04-16] VITALS: BP 150/58
[2020-04-16] MEDS: ACETAMINOPHEN TAB 650MG DOSE (2X325MG) PO PRN ×2 (00:25→06:50)
[2020-04-16 00:28] LABS: HEMATOCRIT 27.5 % (42.0-52.0)
[2020-04-16 04:00] VITALS: BP 146/65
[2020-04-16] MEDS: SLF 3 ML SYR IV SCH (04:04)
[2020-04-16 06:39] LABS: BASO % 0.2 % (0.0-1.0); EOS # 0.3 10^3/uL (0.0-0.5); EOS % 2.5 % (0.0-3.0); HEMATOCRIT 27.7 % (42.0-52.0); LYMPH % 7.3 % (24.0-44.0); MEAN CORPUSCULAR HEMOGLOBIN 29.8 pg (27.0-33.0); MEAN CORPUSCULAR HGB CONC 32.5 g/dl (32.0-36.5); MEAN CORPUSCULAR VOLUME 91.7 fl (80.0-96.0); MONO # 0.9 10^3/uL (0.0-0.8); MONO % 6.4 % (0.0-5.0); NEUTROPHILS # 10.9 10^3/uL (1.5-8.5); NEUTROPHILS % 81.1 % (36.0-66.0); RED BLOOD COUNT 3.02 10^6/uL (4.30-6.10); WHITE BLOOD COUNT 13.5 10^3/uL (4.0-10.0)
[2020-04-16 06:40] LABS: PLATELET COUNT, AUTOMATED 78 10^3/uL (150-450)
[2020-04-16 07:05] LABS: CALCIUM LEVEL 7.9 MG/DL (8.8-10.2); CREATININE FOR GFR 1.56 MG/DL (0.70-1.30); GLOMERULAR FILTRATION RATE 46.4 (>42); MAGNESIUM LEVEL 2.3 MG/DL (1.8-2.4); POTASSIUM SERUM 4.1 MEQ/L (3.5-5.1)
[2020-04-16 08:00] VITALS: BP 138/82
[2020-04-16 08:12] VITALS: BP 138/82
[2020-04-16] MEDS: MAGNESIUM CHLORIDE 64 MG TABCR (SLO MAG) PO SCH (08:12)
[2020-04-16] MEDS: CARVedilol 12.5 MG TAB PO SCH (08:12)
[2020-04-16] MEDS: ASPIRIN 81 MG CHEW TABLET PO SCH (08:12)
[2020-04-16] MEDS: IRON POLYSAC (NIFEREX) 150 MG CAP PO SCH (08:12)
[2020-04-16] MEDS: TAMSULOSIN 0.4 MG CAP PO SCH (08:13)
[2020-04-16] MEDS: PANTOPRAZOLE 40MG TAB (PROTONIX) PO SCH (08:13)
[2020-04-16] MEDS: FUROSEMIDE 20MG/2ML VIAL (J1940) IV SCH (08:13)
[2020-04-16] MEDS: ATORVASTATIN 20 MG TAB PO SCH (08:13)
[2020-04-16] MEDS: amLODIPine 10 MG TAB PO SCH (08:13)
[2020-04-16] MEDS: ANUSOL HC 25MG SUPP PR SCH (08:14)
[2020-04-16] MEDS ORDERED: IRON325T9 PO (10:03)
[2020-04-16] MEDS ORDERED: OXYB5TAB10 PO (10:03)
--- NOTE | 2020-04-16 17:38 | DS.PDOC ---
Discharge Summary General Date of Admission April 05, 2020 at 22:36 Date of Discharge 04/16/20 Discharge Summary PROCEDURES PERFORMED DURING STAY: [None]. ADMITTING DIAGNOSES: Bladder cancer Shortness of breath Hematuria Metastatic adenocarcinoma Left inguinal pain Acute blood loss anemia Left neck mass Ascites NSTEMI versus Demand ischemia Marantic endocarditis Left kidney infarct VINCENT Leukocytosis Right Lung nodule Hypertensive emergency/Hypertension BPH Gout GERD DISCHARGE DIAGNOSES: Bladder cancer Shortness of breath Hematuria Metastatic adenocarcinoma Left inguinal pain Acute blood loss anemia Left neck mass Ascites NSTEMI versus Demand ischemia Marantic endocarditis Left kidney infarct VINCENT Leukocytosis Right Lung nodule Hypertensive emergency/Hypertension BPH Gout GERD COMPLICATIONS/CHIEF COMPLAINT: Elevated Troponin. HISTORY OF PRESENT ILLNESS: Patient is 75 years old male with past medical history of recent Hx of RLE DVT (s/p IVC), Recent Hx of GI bleed (s/p Xarelto), new neck mass, HTN, PVD (s/p bypass and stent at RLE), BPH, Gout, Diverticulosis, GERD who presents to the hospital with left sided inguinal/groin pain. Patient was found to have acute kidney injury, left renal infarct, elevated troponin most likely secondary to acute coronary syndrome, 1.2 nodule of the right lung lower lobe. HOSPITAL COURSE: During hospital stay following issue addressed Patient was found to have Bladder cancer Cystoscopy was done on 04/13/20, patient was found to have infiltrative bladder cancer Pathology report showed urothelial carcinoma Most likely primary site of tumor Patient developed severe hematuria, stopped after bladder irrigation for 2 days Metastatic carcinoma Most likely bladder cancer is a primary source Patient will need PET scan in the outpatient settings Most likely malignancy is cause of multiple manifestations as right leg DVT, endocarditis, kidney infarct Left neck mass Biopsy showed metastatic carcinoma. Patient needs anticoagulation, unfortunately we cannot give it to him due to gross hematuria oncologist Dr. Ritchie follows him. Unlikely patient is candidate for anticoagulation due to high risk of hematuria Acute blood loss anemia Secondary to hematuria On 04/13/20 cystoscopy was done with partial cauterization. Patient received 2 units of blood, hemoglobin stable Urology team follows him Left inguinal pain Resolved for now Most likely referral pain from left kidney infarct given CT findings of a large wedge-shaped region of low attenuation in the left kidney, which is compatible with a left renal infarct that has developed since the prior CT abdomen and pelvis on 08/23/2016 Shortness of breath Resolved Most likely secondary to volume overload. Other differential diagnosis also includes pulmonary emboli. We started heparin drip on 04/07/20, however patient developed gross hematuria, heparin was discontinued Patient received 6 L of fluid with rate 200 mL per hour since admission. Positive balance 2.5 L. Fluid was discontinued on 04/07/20 BNP around 12,000 on 04/07/20 I limited fluid intake to [address] showed left lung airspace opacities suspicious for pneumonia. However patient doesn't have fever, cough, sputum. On 04/12/20 CT chest showed previously noted in the left sided infiltrates have significantly improved with only minimal residual left basilar and lingular air space disease noted. No new acute mediastinal or pleuroparenchymal process appreciated. On 04/15/20 urine Legionella test came back positive, patient does not have fever, chills, shortness of breath. We will check Legionella antibody and rec heck sputum for Legionella. Ascites Most likely secondary malignancy due to bladder carcinoma is a primary source CT positive for fatty liver infiltration. The liver has a nodular contour, which can be seen with cirrhosis. No liver mass is seen. alpha-fetoprotein within normal limit CEA elevated which can represent malignancy or secondary to cirrhosis. However it is nonspecific test. CA 19-9 wnl Paracentesis was done on 04/13/20. Ascitic fluid noninfectious. Ascitic fluid positive for malignancy NSTEMI versus Demand ischemia Echo shows normal LV size with hyperdynamic LV systolic function and grade 1 diastolic dysfunction. No left ventricular hypertrophy (LVH). Heavily sclerotic aortic valve with potential vegetation versus calcifications with mild aortic stenosis and mild aortic insufficiency. Currently patient does not have any chest pain or palpitations Patient developed troponin of 1.6 on 04/06/12. Trended down, on 04/07/20 1.2 c/w b román, aspirin, statin ESTEFANI showed vegetation of aortic valve 04/09/20. Most likely secondary to malignancy Multiple blood culture sets negative. Marantic endocarditis ESTEFANI showed small vegetation of aortic wall with mild aortic insufficiency most likely secondary to malignancy Neck biopsy showed metastatic carcinoma most likely from bladder cancer DC'd ceftriaxone Left kidney infarct Most likely secondary to malignant emboli or arterial clot Continue to monitor VINCENT Most likely secondary to left renal infarct Continue to monitor Hypertensive emergency/Hypertension I added Norvasc 10 mg Hydralazine IV when necessary with parameters Right Lung nodule Most likely metastases There is concern for malignancy given size of the nodule 1.2 cm and risk factors as age, previous smoking history, occupational history, 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 Most likely primary site is bladder cancer DISCHARGE MEDICATIONS: Please see below. ALLERGIES: Please see below. PHYSICAL EXAMINATION ON DISCHARGE: VITAL SIGNS: Please see below. PHYSICAL EXAMINATION ON DISCHARGE: VITAL SIGNS: Please see below. GENERAL: awake, alert, NAD HEENT: NCAT, anicteric sclera, JANE NECK: supple, no JVD CARDIOVASCULAR EXAMINATION: NS1S2, regular rate/rhythm RESPIRATORY EXAMINATION: Crackles at the base bilaterally ABDOMINAL EXAMINATION: positive bowel sounds x 4, NT EXTREMITIES: no cyanosis, +2 right pitting edema SKIN: warm, no rashes. NEUROLOGICAL EXAMINATION: AAO x 3, no motor/sensory deficits PSYCHIATRIC EXAMINATION: calm, normal affect LABORATORY DATA: Please see below. IMAGING: [facility] NAME: XOCHITL ABDUL DATE OF : 1945 AGE: 75 SEX: M REPORT #: [id number] ROOM: [facility] TECHNOLOG[facility] DOCTOR: TED MCGOWAN MD Ordered for Date&Time: 04/06/20 0700 cc: [~ rep ct ivnm] Service Date&Time: 04/06/20 0852 This report is in Signed status. If this report is in a DRAFT status it has not yet been reviewed by the radiologist for accuracy. Thank you for having your radiology procedures performed at [facility] RADIOLOGY REPORT Date&Time printed: [~ rep prt dt last] [~ rep prt tm last] Page 2 of 2 [place] [address] RADIOLOGY REPORT This report is in Signed status. If this report is in a DRAFT status it has not yet been reviewed by the radiologist for accuracy. Thank you for having your radiology procedures performed at [facility] RADIOLOGY REPORT Date&Time printed: [~ rep prt dt last] [~ rep prt tm last] Page 1 of 2 COMPLETE SONOGRAPHY OF THE ABDOMEN WITH RENAL ARTERY DOPPLER FLOW ASSESSMENT: HISTORY: Transaminase. Suspected left renal infarction. Comparison CT study April 05, 2020. SONOGRAPHIC FINDINGS: Scanning through the right upper quadrant of the abdomen demonstrates a distended gallbladder with 5 mm wall thickening. No stone or polyp is appreciated within the lumen of the gallbladder. There is some of abdominal ascites in the right upper quadrant. Common bile duct is normal measuring 0.5 cm in greatest diameter. There is an echogenic focus producing acoustic shadowing in the right lobe of the liver consistent with a hepatic granuloma. No liver mass lesion is seen. Limited views of the pancreas show no abnormality. Scanning of the left upper quadrant demonstrates borderline spleen size. The spleen is homogeneous measuring 10.9 x 5.4 x 11.6 cm. No focal splenic lesion is seen. Renal cortical echogenicity pattern is normal. No hydronephrosis is seen on either side. Right renal dimensions are 11.6 x 5.5 x 5.9 cm. The left kidney measures 13.5 x 4.7 x 5.0 cm. There is a shadowing structure the upper pole region of the left kidney which may be vascular or intrarenal calculus. There are two cysts in the right kidney measuring 4.1 x 3.6 x 6.4 cm and 2.6 x 2.1 x 2.1 cm respectively. These are visible on CT scanning. IMPRESSION: There is evidence of ascites. Gallbladder is distended and thick-walled but no calculus is seen. There are two right renal cysts. RENAL ARTERY DOPPLER FLOW ASSESSMENT: Peak systolic flow velocity in the abdominal aorta is normal at the level of the main renal arteries measured at 112.3 cm/s. Peak systolic flow velocity in the left main renal artery is recorded at 135 cm/s. The Doppler flow in the right main renal artery could not be seen. The distal right main renal artery flow velocity is normal at 131.7 cm/s. Renal to aortic flow velocity ratios are therefore normal, measured at 1.1 on the right and 1.2 on the left. Resistive indices and acceleration times are measured in the intralobar arteries of the upper, mid, and lower pole of each kidney. These values are normal. IMPRESSION: There is no Doppler evidence of renal artery stenosis. Exam is somewhat limited. Electronically Signed by Yeison Bunch MD 04/06/2020 11:09 A DD: Yeison Bunch MD 04/06/20 0936 DT: HALIMA 04/06/20 0951 DS: JOHAN 04/06/20 1109 04/06/20 1109 [~ rep ct labl] DATE OF PROCEDURE: 04/09/2020 REFERRING PHYSICIAN: Dr. Mcarthur INDICATION: Renal infarction, suspicion for bacterial endocarditis. ANESTHESIA: Arias Warren CRNA. BRIEF HISTORY: Mr. Abdul is a 75-year-old man who presented with left renal infarction. Transthoracic study revealed an abnormality on the aortic valve looking suspicious for vegetation. We originally attempted to do the study on April 07, 2020, but at that point, he was extremely short of breath and we decided to postpone the study because I did not think it was safe. But with diuresis, the patient felt much better and today I felt that the procedure can be safely performed. He did sign appropriate consent. I explained the rationale for the study and potential implications. DESCRIPTION OF PROCEDURE: The study was performed in the operating room. The patient presented in fasting condition. After appropriate time-out was taken, his posterior pharynx was anesthetized initially by Cetacaine spray and then and then viscous lidocaine. Appropriate monitors were applied. He was then positioned in left lateral decubitus position and bite block was secured. When appropriate level of sedation was accomplished by administration of fentanyl and propofol, the probe was introduced into esophagus and later stomach without difficulty. After appropriate images were taken, it was withdrawn. There were no immediate complications, and the patient tolerated the procedure well. FINDINGS: Left ventricle has normal systolic function, estimated he ejection fraction (EF) around 60-65%. I do not appreciate any segmental wall motion abnormalities. Right ventricle also appears to have normal systolic function. Both atria appear normal. Atrial septum is intact based on 2D imaging, and after injection of agitated saline, there was no evidence for jnoy-ti-xizen or [id number]-ibxf shunt. Aortic valve is tricuspid. There are several small vegetations attached to all three coronary cusps, but principally left coronary cusp. Based on color Doppler imaging, there is moderate aortic insufficiency with several separate aortic insufficiency jets. It appears that the left aortic cusp is actually perforated. Mitral valve appears normal. It has normal mobility, and there is only trace mitral insufficiency. Tricuspid valve also appears normal, only trivial insufficiency is seen. Quality of TR jet was not sufficient to adequately estimate pulmonary artery pressure. Pulmonic valve also appears normal. Trivial insufficiency seen. No pericardial effusion is noted. There is a small echodensity at the base of left atrial appendage of unclear significance. There is normal flow in both right-sided and left-sided pulmonary veins. There is apparent atherosclerosis of the aortic arch and descending aorta, but no obvious ulcers or atherosclerotic material protruding into the lumen. CONCLUSIONS: 1. Several small vegetations on the aortic valve resulting in approximately moderate aortic insufficiency. 2. Normal remaining cardiac valves. 3. Normal left ventricular (LV) systolic function. 4. Intact atrial septum. 5. Normal flow in both right-sided left-sided pulmonary veins. 6. Small echodensity at the base of left atrial appendage of unclear significance, probably just fold of the wall. 7. Prominent aortic atherosclerosis. COMMENT: Results of the study were discussed with the patient, his and attending physician. My recommendation is to obtain cultures for fastidious organisms and then start antibiotic according to recommendations of infectious disease (ID). DD: Brian Pretty MD 04/09/201902 DT: SEVERINO 04/09/202137 DS: SHAWANDA 04/10/201945 <Electronically signed by Brian Pretty MD> 04/10/201945 DS2: PROGNOSIS: Poor ACTIVITY: [As tolerated]. DIET: Cardiac DISPOSITION: 01 Home, Self-Care. DISCHARGE INSTRUCTIONS: Repeat CBC in 2-3 days ITEMS TO FOLLOWUP ON ON OUTPATIENT: With oncologist, PCP and urologist DISCHARGE CONDITION: [Stable]. TIME SPENT ON DISCHARGE: Greater than 40 minutes. Vital Signs/I&Os Vital Signs Date Time Temp Pulse Resp B/P (MAP) Pulse Ox O2 Delivery O2 Flow Rate FiO2 04/16/20 08:12 61 138/82 04/16/20 08:00 98.3 20 97 04/16/20 04:00 Room Air 04/14/20 08:00 1.0 I&O- Last 24 Hours up to 6 AM 04/16/20 06:00 Intake Total 1380 ml Output Total 800 ml Balance 580 ml Laboratory Data Labs 24H Laboratory Tests 2 04/16/20 06:22: Immature Granulocyte % (Auto) 2.5, Neutrophils (%) (Auto) 81.1H, Lymphocytes (%) (Auto) 7.3L, Monocytes (%) (Auto) 6.4H, Eosinophils (%) (Auto) 2.5, Basophils (%) (Auto) 0.2, Neutrophils # (Auto) 10.9H, Lymphocytes # (Auto) 1.0L, Monocytes # (Auto) 0.9H, Eosinophils # (Auto) 0.3, Basophils # (Auto) 0.0, Nucleated Red Blood Cells % (auto) 0.1H, Immature Platelet Fraction 8.0, Anion Gap 6L, Glomerular Filtration Rate 46.4, Calcium Level 7.9L, Magnesium Level 2.3 CBC/BMP Laboratory Tests 04/15/20 17:57 04/16/20 00:18 04/16/20 06:22 Microbiology Microbiology 04/16/20 Legionella Culture, Received Pending 04/13/20 Acid Fast Stain, Received Pending 04/13/20 Mycobacterial Culture, Received Pending 04/13/20 Fungal Smear, Received Pending 04/13/20 Fungal Culture, Received Pending 04/13/20 Gram Stain - Final, Complete 04/13/20 Body Fluid Culture - Final, Complete 04/09/20 Blood Culture - Final, Complete NO GROWTH AFTER 5 DAYS 04/09/20 Blood Culture - Final, Complete NO GROWTH AFTER 5 DAYS 04/07/20 Blood Culture - Final, Complete NO GROWTH AFTER 5 DAYS 04/06/20 Blood Culture - Final, Complete NO GROWTH AFTER 5 DAYS 04/06/20 Blood Culture - Final, Complete NO GROWTH AFTER 5 DAYS Discharge Medications Scheduled Allopurinol (Allopurinol) 100 Mg Tab, 100 MG PO DAILY, (Reported) Bisoprolol/Hydrochlorothiazide (Bisoprolol-Hctz 10-6.25 mg Tab) 1 Each Tablet, 1 TAB PO QPM, (Reported) Cholecalciferol (Vitamin D3) (Vitamin D3) 1,000 Unit Tablet, 1,000 UNITS PO DAILY, (Reported) Ezetimibe (Zetia) 10 Mg Tab, 10 MG PO QPM, (Reported) Ferrous Sulfate (Iron) 325 Mg Tablet, 1 TAB PO BID Finasteride (Finasteride) 5 Mg Tablet, 5 MG PO QPM Hydrocortisone Acetate (Anucort-Hc) 25 Mg Supp.rect, 25 MG NV BID Magnesium Chloride (Mag64) 64 Mg Tablet.dr, 64 MG PO DAILY Multivitamins (Thera M Plus Tablet) 1 Tab Tab, 1 TAB PO DAILY, (Reported) Pantoprazole Sodium (Pantoprazole Sodium) 40 Mg Tablet.dr, 40 MG PO Q2D, (Reported) Rosuvastatin Calcium (Rosuvastatin Calcium) 5 Mg Tab, 5 MG PO QPM, (Reported) Tamsulosin HCl (Flomax) 0.4 Mg Cap, 0.4 MG PO BID, (Reported) Travoprost (Travatan Z) 50 Drop/2.5 Ml Soln, 1 DROP OU QHS, (Reported) Scheduled PRN Oxybutynin Chloride (Oxybutynin Chloride) 5 Mg Tablet, 5 MG PO Q8HP PRN for BLADDER SPASM Allergies Coded Allergies: No Known Allergies (Verified Allergy, Unknown, 03/23/20) RENE MCARTHUR DO April 16, 2020 17:38
[2020-04-17 00:06] LABS: L. PNEUMOPHILA (1,3,4,5,6,8) <0.91 OD ratio (0.00-0.90)
[2020-04-17 00:06] LABS: COX BURN IgG AB 1 Negative (Negative); COX BURN IgG AB 2 Negative (Negative); COX BURN IgM AB 2 Negative (Negative); COX BURN IgM ABY 1 Negative (Negative)
== END 2020-04-16 12:05 | disposition home or self-care (01) | DRG 668 ==
LOC: M ED 17:55 → M ED INP 22:36 → ENRESERV 23:00 → M MSPAV 23:48 → M PCU 04-06 08:58 → M ICU 04-13 23:53 → M PCU 04-14 17:36
PROVIDERS: ADMIT Internal Medicine; ATTEND Internal Medicine
PROC: 07B23ZX Excision of Left Neck Lymphatic, Percutaneous Approach, Diagnostic (ICD-10-PCS; 2020-04-08)
PROC: B246YZZ Ultrasonography of Right and Left Heart using Other Contrast (ICD-10-PCS; 2020-04-09)
PROC: 0W9G3ZZ Drainage of Peritoneal Cavity, Percutaneous Approach (ICD-10-PCS; 2020-04-13)
PROC: 0TCB8ZZ Extirpation of Matter from Bladder, Via Natural or Artificial Opening Endoscopic (ICD-10-PCS; 2020-04-13)
PROC: 30233N1 Transfusion of Nonautologous Red Blood Cells into Peripheral Vein, Percutaneous Approach (ICD-10-PCS; 2020-04-13)
PROC: 0TBB8ZX Excision of Bladder, Via Natural or Artificial Opening Endoscopic, Diagnostic (ICD-10-PCS; principal; 2020-04-13 16:30)
DX: C67.5 Malignant neoplasm of bladder neck (principal); I21.4 Non-ST elevation (NSTEMI) myocardial infarction; R18.0 Malignant ascites; N17.9 Acute kidney failure, unspecified; N28.0 Ischemia and infarction of kidney; I47.2 Ventricular tachycardia; D62 Acute posthemorrhagic anemia; C77.0 Secondary and unspecified malignant neoplasm of lymph nodes of head, face and neck; R10.32 Left lower quadrant pain; I73.9 Peripheral vascular disease, unspecified; K21.9 Gastro-esophageal reflux disease without esophagitis; N40.1 Benign prostatic hyperplasia with lower urinary tract symptoms; M10.9 Gout, unspecified; I10 Essential (primary) hypertension; D69.6 Thrombocytopenia, unspecified; R91.1 Solitary pulmonary nodule; K52.9 Noninfective gastroenteritis and colitis, unspecified; R32 Unspecified urinary incontinence; K74.60 Unspecified cirrhosis of liver; K62.89 Other specified diseases of anus and rectum; I35.8 Other nonrheumatic aortic valve disorders; R31.0 Gross hematuria; K75.81 Nonalcoholic steatohepatitis (NASH); K57.30 Diverticulosis of large intestine without perforation or abscess without bleeding; I16.0 Hypertensive urgency; M72.0 Palmar fascial fibromatosis [Dupuytren]; Z95.5 Presence of coronary angioplasty implant and graft; Z95.820 Peripheral vascular angioplasty status with implants and grafts; Z87.891 Personal history of nicotine dependence; Z79.02 Long term (current) use of antithrombotics/antiplatelets; Z79.899 Other long term (current) drug therapy; Z86.718 Personal history of other venous thrombosis and embolism; Z95.828 Presence of other vascular implants and grafts

== ENCOUNTER 2020-04-21 06:27 | Inpatient (IN) | payer OTHER ==
[2020-04-21] VITALS (8 sets, daily range): BP systolic 90–178; BP diastolic 50–93
[~2020-04-21] VITALS: Ht 170.2 cm; Wt 75.8 kg
[~2020-04-21 06:27] MED LIST changes: +IRON325T9 PO; +OXYB5TAB10 PO; +PANT40TA3 PO
[2020-04-21] MEDS ORDERED: ONDANSETRON 4MG/2ML VIAL IV ONE (07:15)
[2020-04-21 07:31] LABS: BASO % 0.2 % (0.0-1.0); EOS # 0.2 10^3/uL (0.0-0.5); EOS % 0.8 % (0.0-3.0); HEMOGLOBIN 8.3 g/dl (13.5-17.5); LYMPH # 0.7 10^3/uL (1.5-5.0); LYMPH % 2.7 % (24.0-44.0); MEAN CORPUSCULAR HEMOGLOBIN 29.7 pg (27.0-33.0); MEAN CORPUSCULAR HGB CONC 31.9 g/dl (32.0-36.5); MEAN CORPUSCULAR VOLUME 93.2 fl (80.0-96.0); MONO # 1.3 10^3/uL (0.0-0.8); MONO % 5.1 % (0.0-5.0); NEUTROPHILS # 22.8 10^3/uL (1.5-8.5); NEUTROPHILS % 89.6 % (36.0-66.0); PLATELET COUNT, AUTOMATED 84 10^3/uL (150-450); RED BLOOD COUNT 2.79 10^6/uL (4.30-6.10); WHITE BLOOD COUNT 25.5 10^3/uL (4.0-10.0)
[2020-04-21 07:44] LABS: PROTHROMBIN TIME 21.6 SECONDS (11.8-14.0)
[2020-04-21 07:45] LABS: PARTIAL THROMBOPLASTIN TIME 48.6 SECONDS (25.0-38.4)
[2020-04-21] MEDS ORDERED: NS 2,250 ML in IV 1 EA IV ONE (07:45)
[2020-04-21] MEDS ORDERED: PIPERACILLIN/TAZOBACTAM SOD 4.5 GM in D5W MINI-BAG PLUS 50 ML IV ONE (07:45)
[2020-04-21] MEDS: fentaNYL 100 MCG/2 ML INJECTION (J3010) IV PRN ×2 (07:49→08:08)
--- NOTE | 2020-04-21 07:59 | REPVR ---
PROCEDURE INFORMATION: Exam: CT Abdomen And Pelvis Without Contrast Exam date and time: 04/21/2020 7:37 AM Age: 75 years old Clinical indication: Abdominal pain; Acute; Additional info: Acute abdomen TECHNIQUE: Imaging protocol: Computed tomography of the abdomen and pelvis without contrast. Radiation optimization: All CT scans at this facility use at least one of these dose optimization techniques: automated exposure control; mA and/or kV adjustment per patient size (includes targeted exams where dose is matched to clinical indication); or iterative reconstruction. COMPARISON: CT ABD/PEL W/IV CONTRAST ONLY 04/05/2020 7:03 PM FINDINGS: Limitations: Assessment of vascular structures, soft tissues, and organs is limited due to lack of IV contrast. Tubes, catheters and devices: White catheter in place with tip and balloon within the lumen of the bladder. Liver: Small calcified granuloma in the liver. Gallbladder and bile ducts: Cholelithiasis. No gallbladder wall thickening or biliary dilatation. Pancreas: Normal. No ductal dilation. Spleen: Normal. No splenomegaly. Adrenals: Normal. No mass. Kidneys and ureters: Hypodensity in the lateral left renal cortex in area of hypoenhancement seen on the prior study. Unchanged right renal cysts. Similar mild bilateral hydronephrosis. Stomach and bowel: Thickening of the ornelas of the rectum. No pneumatosis. Colonic diverticulosis without evidence of diverticulitis. No evidence of obstruction. Appendix: No evidence of appendicitis. Intraperitoneal space: Moderate ascites. No pneumoperitoneum. Vasculature: Atherosclerosis. No aneurysm in the included aorta. IVC filter in place. Lymph nodes: No enlarged lymph nodes. Bladder: Diffuse bladder wall thickening. No stones. Small gas in the bladder. Reproductive: Unremarkable. Bones/joints: No acute fracture. No dislocation. Degenerative changes in the spine. Soft tissues: Fat-containing right inguinal hernia. IMPRESSION: 1. Hypodensity in the lateral left renal cortex in area of previously seen renal infarction. 2. Mild bilateral hydronephrosis. Diffuse bladder wall thickening. Findings are suspicious for urinary tract infection. Small gas in the bladder could be due to recent instrumentation or gas-forming infection. 3. Rectal wall thickening consistent with proctitis. 4. Moderate ascites. 5. Nonacute/incidental findings in the report. Electronically signed by: Aamir Trejo On 04/21/2020 07:59:19 AM
[2020-04-21 08:01] LABS: ALBUMIN 2.6 GM/DL (3.2-5.2); BILIRUBIN,DIRECT 1.1 MG/DL (0.0-0.2); BILIRUBIN,TOTAL 1.8 MG/DL (0.2-1.0); CK-MB VALUE MASS 1.3 NG/ML (<3.6); CPK CREATINE PHOSPHOKINASE 71 U/L (39-308); MB/CK RELATIVE INDEX 1.83 (< OR =4); TROPONIN I < 0.02 NG/ML (< 0.10)
--- NOTE | 2020-04-21 08:13 | ECGEPIP ---
[facility] - ED Test Date: 2020-04-21 Pat Name: XOCHITL JEAN Department: Room: - Gender: Male Solution Advisor: : 1945 Requested By: Juan Francisco Gant Order Number: [id number] Reading MD: Rohith Richmond Measurements Intervals [place]more Rate: 56 P: 55 TX: 166 QRS: -29 QRSD: 110 T: -12 QT: 442 QTc: 427 Interpretive Statements SINUS BRADYCARDIA BORDERLINE LEFT AXIS DEVIATION BASELINE ARTIFACT AFFECTS INTERPRETATION Electronically Signed on 04-21-2020 8:12:56 EDT by Rohith Richmond
[2020-04-21 08:19] LABS: APPEARANCE, URINE MANUAL TURBID (CLEAR); COLOR, URINE MANUAL RED (YELLOW); PROTEIN, URINE MANUAL 3+ mg/dL (NEGATIVE); SPECIFIC GRAVITY,URINE MANUAL 1.019 (1.002-1.035)
[2020-04-21 08:20] LABS: BILIRUBIN, URINE MANUAL OBSCURED (NEGATIVE); BLOOD URINE MANUAL POSITIVE (NEGATIVE); GLUCOSE, URINE (UA) MANUAL NEGATIVE (NEGATIVE); KETONE, URINE MANUAL OBSCURED mg/dL (NEGATIVE); LEUKOCYTE ESTERASE, URINE MAN POSITIVE (NEGATIVE); NITRITE, URINE MANUAL OBSCURED (NEGATIVE); UROBILINOGEN, URINE MANUAL OBSCURED mg/dl (NORMAL)
[2020-04-21 08:23] LABS: AMORPHOUS SEDIMENT, URINE LARGE AMOUNT (NEGATIVE); BACTERIA, URINE MOD AMOUNT; HYALINE CAST, URINE NONE SEEN /lpf (0-1); RBC, URINE TNTC /hpf (0-3); SQUAMOUS EPITHELIAL CELL URINE SMALL AMOUNT /hpf (SMALL AMT)
[2020-04-21 08:24] LABS: C REACTIVE PROTEIN QUANTITATIV 8.59 MG/DL (0.00-0.30); CALCIUM LEVEL 8.4 MG/DL (8.8-10.2); CREATININE FOR GFR 2.58 MG/DL (0.70-1.30); POTASSIUM SERUM 4.6 MEQ/L (3.5-5.1)
[2020-04-21] MEDS ORDERED: fentaNYL 100 MCG/2 ML INJECTION (J3010) IV ONE ×2 (09:15→09:45)
[2020-04-21] MEDS ORDERED: FERR1TAB8 PO (09:24)
[2020-04-21] MEDS ORDERED: ANUSHCSU PR (09:24)
[2020-04-21] MEDS ORDERED: OXYB5TAB10 PO (09:24)
[2020-04-21] MEDS ORDERED: FINA5TAB2 PO (09:24)
[2020-04-21] MEDS ORDERED: MAGN64TASA PO (09:24)
[2020-04-21] MEDS ORDERED: PERC5TAB12 PO (09:26)
[2020-04-21] MEDS ORDERED: IBUP200T45 PO (09:39)
[2020-04-21] MEDS ORDERED: MORPHINE 2 MG/ML 1ML VIAL (J2270) IV ONE (10:00)
[2020-04-21] MEDS ORDERED: NS 1,000 ML IV SCH (10:45)
[2020-04-21 11:12] LABS: FIBRINOGEN 115 MG/DL (221-452)
[2020-04-21] MEDS: MORPHINE 4 MG/ML 1ML VIAL/SYRINGE (J2270) IV PRN ×3 (11:12→23:17)
[2020-04-21 11:33] LABS: D-DIMER QUANT > 4000 ng/ml (<500)
--- NOTE | 2020-04-21 12:33 | REP ---
CHEST, SINGLE VIEW: There is no evidence of acute infiltrate. No pleural effusion is seen. The heart is normal in size. The mediastinal silhouette is unremarkable. The visualized osseous structures are intact. IMPRESSION: No acute pulmonary disease. Electronically Signed by Dhiraj Underwood MD 04/21/2020 01:42 P
--- NOTE | 2020-04-21 12:35 | CR.PDOC ---
General Surgery Consultation Date of Consultation 04/21/20 History and Physical CONSULT REPORT FOR: ED physician/hospitalist service REASON FOR CONSULTATION: abdominal pain, hypotension, sepsis HISTORY OF PRESENT ILLNESS: I was asked to emergently evaluate Mr. Abdul for possibility of need for emergency surgery. He presented to the emergency room with severe abdominal pain. Emergency room physician describes this as generalized pain. He was at one point noted to be hypotensive which was responsive to an IV fluid bolus. He was crying in pain, very uncomfortable when he came in. He has a recent diagnosis of metastatic urinary bladder CA with ascites that was tapped a couple weeks ago with cytology showing metastasis. He is awaiting full evaluation by oncology. He tells me that since his admission 2 weeks ago he has been having severe pain right at the area where the tapped his abdomen. He also has pain localized to his right scrotum, worse with movements. He has been having urinary frequency but is only able to void small amounts at a time but sometimes voiding clots. He denies any fevers or chills. He is moving his bowels normally and moves his bowels yesterday which is performed without any blood. He reports decreased appetite, intermittent nausea and vomiting. On arrival to the ER he was noted to be mildly hypotensive he was given 1 L of IV fluid with response to it. He continues to the in a lot of discomfort. The emergency room physicians concern about possible vascular event/mesenteric or small bowel ischemia given the degree of discomfort in relation to the physical findings thus I was asked to emergently evaluate the patient. PAST MEDICAL HISTORY: 1. 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 He is also having hematuria secondary to this. 2. Hypertension 3. Gastroesophageal reflux disease 4. Hyperlipidemia 5. Gout 6. DVT PAST SURGICAL HISTORY: INCLUDES: 1. Bilateral cataract surgery 2. Right femoral endarterectomy 3. Endoscopy and colonoscopy 4. Recent cystoscopy with biopsy. 5. Left thumb surgery 6. Left knee arthroscopy 5. Recent placement of IVC filter ALLERGIES: Please see below. FAMILY HISTORY: Noncontributory HOME MEDICATIONS: Please see below. REVIEW OF SYSTEMS: Patient has recent admissions to the hospital prior GI bleed from March 23 of 03/26/2020, left lower quadrant pain for April 05 of 04/16/2020 for which she was diagnosed with metastatic adenocarcinoma at the urinary bladder. It looks like he has been chronically ill for the past month, month and a half and has been in pain for about that time. He has decreased oral intake. He complains of problems with urination. He has a recent diagnosis of DVT for which she is on Eliquis. He is not reporting any fevers or chills nor any signs of any respiratory tract infection. He is undergoing workup for his metastatic cancer. PHYSICAL EXAMINATION: VITALS SIGNS: Please see below. GENERAL APPEARANCE: Patient is moderately uncomfortable with main source of pain and discomfort he is pointing is into his right groin and scrotum. He has just received some IV pain medication which has improved his symptoms but not totally resolve that. He has a White catheter that this recently placed with pinkish urine. SKIN: Warm and dry. HEENT: Normocephalic, atraumatic. Rossie palpebral conjunctiva, anicteric sclerae. Lips and mucosa appear very dry. NECK: Supple, no thyromegaly. No obvious jugular venous distention. LUNGS: Clear to auscultation bilaterally. No wheezing appreciated. HEART: No chest wall abnormalities. Regular rate and rhythm with no murmurs appreciated. ABDOMEN: Abdomen is round, soft, somewhat distended but not terribly tympanitic on percussion. Hypoactive bowel sounds. No definite tenderness to palpation around the upper abdomen though he does voice some discomfort with deep palpation mostly to the lower abdomen. No rebound or guarding. No hepatosplenomegaly. No umbilical or groin herniations, nondistended. No noticeable rebound or guarding. No grimacing with palpation. No rebound tenderness. No masses appreciated. EXTREMITIES: No significant extremity edema ANCILLARIES: . LABORATORY DATA: Please see below. IMAGING STUDIES: CT abdomen and pelvis that is noncontrast. IMPRESSION AND PLAN: abdominal pain - mainly located at the suprapubic area with radiation to the testicles bilaterally . Minimal discomfort on the whole of the abdomen with prominence from mild bloating/distention. Does not have peritonitis. Abdomen pr ominent both from habitus as well as from ascites also have some subcutaneous pitting edema which may point to general anasarca. He has some scattered ecchymosis, petechiae unclear etiology. No CVA tenderness So I was asked to emergently evaluate the patient as he was writhing in pain, had some transient hypotension responsive to fluid for concerns about 1. possible bleeding needing an emergent surgery or 2. generalized peritonitis as cause of the pain which may need emergent surgery. Given presentation and history, probably have chronic anemia and chronic blood loss anemia from the bladder cancer. His pain seems to be centered at the suprapubic area, bladder outlet so either from the cancer or from bleeding/clots maybe obstructed with resulting UTI/urosepsis. He does not have cva tenderness but does have mild bilateral hydronephrosis on CT so there is some obstruction at the level of the UVJ/bladder outlet but does not seem to have an ascending type of urogenital infection/pyelonephritis as cause of sepsis. Certainly a UA and culture is needed. He has ascites which was tapped recently showing evidence of malignant ascites as etiology and amount seems to be just about same. No layering of the ascites to point to possible postprocedure bleed. Though he does have significant leukocytosis and lactic acidosis, the history and exam does not correlate with possible mesenteric ischemia as the cause of this or of his pain. Review of CT (with contrast on the ) comparing the CT now (noncontrast) whows a relatively patent SMA, no secondary signs of bowel wall thickening. Since he currently has renal failure and a contrast exam is not feasible at this time, serial close clinical followup and follow up of his lactic acidosis is needed. At this time, I do not think he has anything that is requiring emergent surgery from my end A referral back to urology maybe needed to determine whether he needs bladder irrigation or even diversion/suprapubic catheter is needed. Vital Signs Vital Signs Date Time Temp Pulse Resp B/P (MAP) Pulse Ox O2 Delivery O2 Flow Rate FiO2 04/21/20 12:23 20 Room Air 04/21/20 12:00 97.3 66 145/70 (95) 99 Laboratory Data Labs 24H Laboratory Tests 2 04/21/20 07:16: Immature Granulocyte % (Auto) 1.6, Neutrophils (%) (Auto) 89.6H, Lymphocytes (%) (Auto) 2.7L, Monocytes (%) (Auto) 5.1H, Eosinophils (%) (Auto) 0.8, Basophils (%) (Auto) 0.2, Neutrophils # (Auto) 22.8H, Lymphocytes # (Auto) 0.7L, Monocytes # (Auto) 1.3H, Eosinophils # (Auto) 0.2, Basophils # (Auto) 0.0, Nucleated Red Blood Cells % (auto) 0.0, Immature Platelet Fraction 9.5, Prothrombin Time 21.6H, Prothromb Time International Ratio 1.90, Activated Partial Thromboplast Time 48.6H, Fibrinogen 115L, D-Dimer, Quantitative > 4000H, POC Glucose (Misc Panel) 142H, POC Sodium (Misc Panel) 132L, POC Potassium (Misc Panel) 4.7, POC Chloride (Misc Panel) 102, POC Total CO2 (Misc Panel) 20.0L, POC Blood Urea Nitrogen (Misc Panel 66H, POC Ionized Calcium (Misc Panel) 4.2L, POC Creatinine (Misc Panel) 2.8H, POC Hematocrit (Misc Panel) 25.0L, Anion Gap 14, Glomerular Filtration Rate 26.0L, Calcium Level 8.4L, Total Bilirubin 1.8H, Direct Bilirubin 1.1H, Aspartate Amino Transf (AST/SGOT) 37, Alanine Aminotransferase (ALT/SGPT) 29, Alkaline Phosphatase 264H, Total Creatine Kinase 71, Creatine Kinase MB 1.3, Creatine Kinase MB Relative Index 1.83, Troponin I < 0.02, C- Reactive Protein, Quantitative 8.59H, Total Protein 6.0L, Albumin 2.6L, Albumin/Globulin Ratio 0.8, Lipase 109 04/21/20 07:17: POC Lactate (Misc Panel) 3.12*H 04/21/20 07:57: Bedside Urine Color (LAB) REDH, Bedside Urine Appearance (LAB) TURBIDH, Bedside Urine pH (LAB) 5.0, Bedside Urine Specific Bend (LAB 1.019, Bedside Urine Protein (LAB) 3+H, Bedside Urine Glucose (UA) NEGATIVE, Bedside Urine Ketones (LAB) OBSCUREDH, Bedside Urine Blood POSITIVEH, Bedside Urine Nitrite (LAB) OBSCUREDH, Bedside Urine Bilirubin (LAB) OBSCUREDH, Bedside Urine Urobilinogen (LAB) OBSCUREDH, Bedside Urine Leukocyte Esterase (L POSITIVEH, Urine Sediment Examination UNSPUN, Urine RBC TNTCH, Urine WBC 7-10H, Urine Squamous Epithelial Cells SMALL AMOUNT, Urine Amorphous Sediment LARGE AMOUNTH, Urine Bacteria MOD AMOUNTH, Urine Hyaline Casts NONE SEEN 04/21/20 11:21: POC Lactate (Misc Panel) 1.02 04/21/20 11:27: Lactic Acid Followup at 4 Hours 1.3 CBC/BMP Laboratory Tests 04/21/20 07:16 Microbiology Microbiology 04/21/20 Blood Culture, Received Pending 04/21/20 Blood Culture, Received Pending Home Medications Scheduled Allopurinol (Allopurinol) 100 Mg Tab, 100 MG PO DAILY, (Reported) Apixaban (Eliquis) 5 Mg Tablet, 5 MG PO BID Bisoprolol/Hydrochlorothiazide (Bisoprolol-Hctz 10-6.25 mg Tab) 1 Each Tablet, 1 TAB PO DAILY, (Reported) Cholecalciferol (Vitamin D3) (Vitamin D3) 1,000 Unit Tablet, 1,000 UNITS PO DAILY, (Reported) Ezetimibe (Zetia) 10 Mg Tab, 10 MG PO QPM, (Reported) Ferrous Sulfate (Ferrous Sulfate) 325 Mg Tablet, 325 MG PO BID, (Reported) Finasteride (Finasteride) 5 Mg Tablet, 5 MG PO QPM, (Reported) Magnesium Chloride (Mag64) 64 Mg Tablet.dr, 64 MG PO DAILY, (Reported) Multivitamins (Thera M Plus Tablet) 1 Tab Tab, 1 TAB PO DAILY, (Reported) Pantoprazole Sodium (Pantoprazole Sodium) 40 Mg Tablet.dr, 40 MG PO DAILY, (Reported) Rosuvastatin Calcium (Rosuvastatin Calcium) 5 Mg Tab, 5 MG PO QPM, (Reported) Tamsulosin HCl (Flomax) 0.4 Mg Cap, 0.4 MG PO BID, (Reported) Travoprost (Travatan Z) 50 Drop/2.5 Ml Soln, 1 DROP OU QHS, (Reported) Scheduled PRN Ibuprofen (Ibu-200) 200 Mg Tablet, 400 MG PO Q6H PRN for PAIN, (Reported) Oxybutynin Chloride (Oxybutynin Chloride) 5 Mg Tablet, 5 MG PO Q8H PRN for BLADDER SPASM, (Reported) Oxycodone HCl/Acetaminophen (Percocet 5-325 mg Tablet) 1 Each Tablet, 1 TAB PO Q4H PRN for PAIN, (Reported) Allergies Coded Allergies: No Known Allergies (Verified Allergy, Unknown, 03/23/20) CLEMENCIA KAY MD April 21, 2020 12:35
[2020-04-21] MEDS ORDERED: PERCOCET 5MG/325MG TAB PO PRN (14:15)
--- NOTE | 2020-04-21 14:27 | HPEPDOC ---
General Date of Admission April 21, 2020 at 10:38 Date of Service: April 21, 2020 Attending Physician: HARDY MILLS MD Chief Complaint The patient is a 75-year-old male admitted with a reason for visit of Abdominal Pain, Lactic Acidosis. Source: Patient Exam Limitations: No limitations Timing/Duration: Week(s) (3 weeks) Severity: Severe Associated Symptoms: Other (abdominal pain) History of Present Illness 75 yo M with a recent diagnosis of metastatic adenocarcinoma with +FNA of R neck mass, malignant cells in ascitic fluid and bladder mass presumed to be origin with chronic hematuria and oncology work up for definitive diagnosis and typing, who was recently admitted 04/05-04/16 during which most of the above was established, as well as a history of DVT previously on AC c/b GIB, recent diagnosis of left renal infarct, marantic endocarditis, PVD, carotic disease s/p endarterectomy, HTN, HLD, GERD, gout who now represents to the ED reporting wors ening abdominal pain that he reports to have been present over the last 3 weeks with ongoing painless hematuria. In the ED, he was HDS and afebrile with an exam that was notable for abdominal distention, severe abdominal pain that remitted with fentanyl and initially per ED physician was tense and she was concerned about an acute abdomen such that she consulted surgery that examined him at bedside and on evaluation determined he did not have an acute abdomen, while imaging as discussed below was also consistent with that assessment. Workup was notable for leukocytosis to 25.2, hgb 8.3, platelets 84, INR 1.9, troponin wnl, lipase wnl, Tbili 1.8 with Dbili 1.1, with normal AST and ALT, na 136, K 4.6, worsening Cr of 2.59, UA with navin hematuria with 3+ protein, +leukoestarase while CXR was with an elevated R hemidiaphragm with sharp angles without effusions or consolidations with noted n odules, and CT A/P without contrast showed a hypodensity in the lateral left renal cortex in area of previously seen renal infarction, mild bilateral hydronephrosis, diffuse bladder wall thickening and small gas in the bladder, as well as rectal wall thickening and moderate ascites. Of note, he had a 3 way amaya placed empirically in the ED that after discussion with Dr. Linder, the ED physician reported that Dr. Linder recommended discontinuing the amaya given known etiology of hematuria without clinically relevant obstruction that may increase risk of infection. Given the recent history presumed marantic endocarditis with negative BCx, leukocytosis and relatively low BP compared to his baseline, I continued him on zosyn that was started by the ED and consulted Dr. Ruiz as well as oncology. While in the ED, he got 2u pRBCs, fentanyl 25mg x 3 doses and 2.25L NS. Home Medications Scheduled Allopurinol (Allopurinol) 100 Mg Tab, 100 MG PO DAILY, (Reported) Bisoprolol/Hydrochlorothiazide (Bisoprolol-Hctz 10-6.25 mg Tab) 1 Each Tablet, 1 TAB PO DAILY, (Reported) Cholecalciferol (Vitamin D3) (Vitamin D3) 1,000 Unit Tablet, 1,000 UNITS PO DAILY, (Reported) Ezetimibe (Zetia) 10 Mg Tab, 10 MG PO QPM, (Reported) Ferrous Sulfate (Ferrous Sulfate) 325 Mg Tablet, 325 MG PO BID, (Reported) Finasteride (Finasteride) 5 Mg Tablet, 5 MG PO QPM, (Reported) Magnesium Chloride (Mag64) 64 Mg Tablet.dr, 64 MG PO DAILY, (Reported) Multivitamins (Thera M Plus Tablet) 1 Tab Tab, 1 TAB PO DAILY, (Reported) Pantoprazole Sodium (Pantoprazole Sodium) 40 Mg Tablet.dr, 40 MG PO DAILY, (Repo rted) Rosuvastatin Calcium (Rosuvastatin Calcium) 5 Mg Tab, 5 MG PO QPM, (Reported) Tamsulosin HCl (Flomax) 0.4 Mg Cap, 0.4 MG PO BID, (Reported) Travoprost (Travatan Z) 50 Drop/2.5 Ml Soln, 1 DROP OU QHS, (Reported) Scheduled PRN Ibuprofen (Ibu-200) 200 Mg Tablet, 400 MG PO Q6H PRN for PAIN, (Reported) Oxybutynin Chloride (Oxybutynin Chloride) 5 Mg Tablet, 5 MG PO Q8H PRN for BLADDER SPASM, (Reported) Oxycodone HCl/Acetaminophen (Percocet 5-325 mg Tablet) 1 Each Tablet, 1 TAB PO Q4H PRN for PAIN, (Reported) Allergies Coded Allergies: No Known Allergies (Verified Allergy, Unknown, 03/23/20) Past Medical History Medical History Bladder cancer Shortness of breath Hematuria Metastatic adenocarcinoma Left neck mass Bladder cancer Ongoing malignancy workup Ascites Marantic endocarditis Left kidney infarct Progressive renal failure since 11/2019 Right Lung nodule Hypertension HLD BPH Gout GERD history of DVT s/p IVC filter History of GIB Surgical History CABG with stents. Bilateral endarterectomy Bilateral LE stents Family History Motherpig heart valve, PVD. FatherCVA. Brother, deceasedfrom liver disease and ESRD with HD Social History * Smoker: Denies Alcohol: Denies Drugs: denies Recent Travel/Sick Contacts: Reports: Recent travel Former Smoker (quit 30 years ago) until 5 months ago, drank 1-2 beers per night No illicit drug use A-FIB/CHADSVASC A-FIB History Current/History of A-Fib/PAF?: No Current PO Anticoag Therapy: No Age/Risk Factor Scoring CHADSVASC: CHADSVASC Response (Comments) Value Age Risk Factor Age >/= 75 years old 2 Gender Risk Factor Male 0 Hx of CHF Yes 1 Hx of HTN Yes 1 Hx of Stroke/TIA/or VTE No 0 Hx of Diabetes No 0 Hx of Vascular Disease Yes 1 Total 5 Treatment Treatment ordered: NONE Reason Anticoagulant not given: Current bleeding Review of Systems Constitutional: Denies: Chills, Fever, Night Sweats Eyes: Denies: Pain, Vision change ENT: Denies: Head Aches, Ear Pain, Dysphagia Skin: Denies: Rash, Lesions, Breakdown Pulmonary: Denies: Dyspnea, Cough Cardiovascular: Denies: Chest Pain, Palpitations, Orthopnea, Paroxysmal Noc. Dyspnea, Lt Headedness Gastrointestinal: Reports: Abdominal Pain (worsening, diffuse); Denies: Nausea, Vomiting, Diarrhea, Constipation, Melena, Hematochezia Genitourinary: Reports: Hematuria; Denies: Dysuria, Incontinence, Retention Hematologic: Reports: Bruising, Bleeding Excessively, Purpura Endocrine: Denies: Polydipsia, Polyphagia, Polyuria, Heat Intolerance, Cold Intolerance, Other Endocrine Sx Musculoskeletal: Denies: Neck Pain, Back Pain, Joint Pain, Muscle Pain, Spasms Neurological: Denies: Weakness, Numbness, Change in speech, Confusion Psych: Reports: Mood Normal; Denies: Depression, Memory Issues Physical Examination General Exam: Positive: Alert, Cooperative, Moderate Distress Eye Exam: Positive: PERRLA, Conjunctiva & lids normal, EOMI; Negative: Sclera icteric ENT Exam: Positive: Atraumatic, Pharynx Normal, Other ENT (has dry blood at posterior oropharynx and on teeth event though he denies bleeding gums or hematemesis or hemoptysis); Negative: Mucous membr. moist/pink (dry) Neck Exam: Positive: Lymphadenopathy Chest Exam: Positive: Clear to auscultation, Normal air movement Heart Exam: Positive: Rate Normal, Normal S1 Telemetry: Positive: No significant arrhythmia Abdomen Exam: Positive: BS Hypoactive, Soft, Tenderness (throughout, no involuntary guarding or rebound tenderness. My exam was after some pain medications however.), Hepatospenomegaly Extremity Exam: Positive: Edema (2+ to midshins bilaterally), Normal pulses, Swelling; Negative: Tenderness Skin Exam: Positive: Nl turgor and temperature; Negative: Breakdown, Lesion Neuro Exam: Positive: Normal Speech, Strength at 5/5 X4 ext, Normal Tone, Sensation Intact, Cranial Nerves 3-12 NL Psych Exam: Positive: Mental status NL, Mood NL, Oriented x 3 Vital Signs Vital Signs Date Time Temp Pulse Resp B/P (MAP) Pulse Ox O2 Delivery O2 Flow Rate FiO2 04/21/20 11:12 20 04/21/20 08:56 97.1 72 103/65 (78) 97 Room Air Laboratory Data Labs 24H Laboratory Tests 2 04/21/20 07:16: Immature Granulocyte % (Auto) 1.6, Neutrophils (%) (Auto) 89.6H, Lymphocytes (%) (Auto) 2.7L, Monocytes (%) (Auto) 5.1H, Eosinophils (%) (Auto) 0.8, Basophils (%) (Auto) 0.2, Neutrophils # (Auto) 22.8H, Lymphocytes # (Auto) 0.7L, Monocytes # (Auto) 1.3H, Eosinophils # (Auto) 0.2, Basophils # (Auto) 0.0, Nucleated Red Blood Cells % (auto) 0.0, Immature Platelet Fraction 9.5, Prothrombin Time 21.6H, Prothromb Time International Ratio 1.90, Activated Partial Thromboplast Time 48.6H, Fibrinogen 115L, D-Dimer, Quantitative > 4000H, POC Glucose (Misc Panel) 142H, POC Sodium (Misc Panel) 132L, POC Potassium (Misc Panel) 4.7, POC Chloride (Misc Panel) 102, POC Total CO2 (Misc Panel) 20.0L, POC Blood Urea Nitrogen (Misc Panel 66H, POC Ionized Calcium (Misc Panel) 4.2L, POC Creatinine (Misc Panel) 2.8H, POC Hematocrit (Misc Panel) 25.0L, Anion Gap 14, Glomerular Filtration Rate 26.0L, Calcium Level 8.4L, Total Bilirubin 1.8H, Direct Bilirubin 1.1H, Aspartate Amino Transf (AST/SGOT) 37, Alanine Aminotransferase (ALT/SGPT) 29, Alkaline Phosphatase 264H, Total Creatine Kinase 71, Creatine Kinase MB 1.3, Creatine Kinase MB Relative Index 1.83, Troponin I < 0.02, C- Reactive Protein, Quantitative 8.59H, Total Protein 6.0L, Albumin 2.6L, Albumin/Globulin Ratio 0.8, Lipase 109 04/21/20 07:17: POC Lactate (Misc Panel) 3.12*H 04/21/20 07:57: Bedside Urine Color (LAB) REDH, Bedside Urine Appearance (LAB) TURBIDH, Bedside Urine pH (LAB) 5.0, Bedside Urine Specific [place] (LAB 1.019, Bedside Urine Protein (LAB) 3+H, Bedside Urine Glucose (UA) NEGATIVE, Bedside Urine Ketones (LAB) OBSCUREDH, Bedside Urine Blood POSITIVEH, Bedside Urine Nitrite (LAB) OBSCUREDH, Bedside Urine Bilirubin (LAB) OBSCUREDH, Bedside Urine Urobilinogen (LAB) OBSCUREDH, Bedside Urine Leukocyte Esterase (L POSITIVEH, Urine Sediment Examination UNSPUN, Urine RBC TNTCH, Urine WBC 7-10H, Urine Squamous Epithelial Cells SMALL AMOUNT, Urine Amorphous Sediment LARGE AMOUNTH, Urine Bacteria MOD AMOUNTH, Urine Hyaline Casts NONE SEEN 04/21/20 11:21: POC Lactate (Misc Panel) 1.02 04/21/20 11:27: CBC/BMP Laboratory Tests 04/21/20 07:16 Microbiology Microbiology 04/21/20 Blood Culture, Received Pending 04/21/20 Blood Culture, Received Pending Assessment/Plan 75 yo M with a recent diagnosis of metastatic high grade urothelial carcinoma, adenocarcinoma +FNA of supraclavicular LN, urothelial CA cells in ascitic fluid with chronic hematuria and ongoing oncology work up who was recently admitted 04/05-04/16 during which most of the above was established, as well as a history of DVT previously on AC c/b GIB, s/p IVF filter, recent diagnosis of left renal infarct, marantic endocarditis, PVD, carotic disease s/p endarterectomy, HTN, HLD, GERD, gout who now represents to the ED reporting worsening abdominal pain that he reports to have been present over the last 3 weeks with ongoing painless hematuria. Abdominal pain: Imaging showing moderate ascites, renal hypodensity c/w recent L renal infarct, bladder wall thickening with some bladder wall gas c/f infection, and potential proctitis without obstruction, masses, pneumoperitoneum or navin evidence ischemia, though it was not performed with contrast. -Surgery evaluated him in the ED recommending medical management for now -pain management with morphine [id number] -IVF -NPO for now Metastatic bladder cancer: -Cystoscopy was done on 04/13/20, patient was found to have high-grade urothelial carcinoma, infiltrating lamina propria and muscularis propria -Ascitic fluid on 04/13 was positive metastatic urothelial carcinoma -Was seen by Dr. Ritchie consultation during last admission, was due for outpatient evaluation with Dr. Jimenez and pending PET -Most likely malignancy is cause of multiple manifestations as right leg DVT, endocarditis, kidney infarct. Cannot start AC due to peristent active hematuria Thrombocytopenia: c/f DIC given thrombocytopenia and coagulopathy -will check fibrinogen and DVT -consulting heme/onc Left neck mass -Biopsy showed metastatic adenocarcinoma. Persistent navin hematuria -Secondary to bladder cancer -will consult Dr. Linder, bilateral hydro is mild, he recommended discontinui ng the ED placed amaya Acute blood loss anemia on chronic anemia -Secondary to hematuria -Receiving 2 units of blood -Urology consulted -continue home Fe supplementation -Labs showing elevated INR, PTT, low fibrinogen, anemia and thrombocytopenia, c/f DIC Ascites -2/2 metastatic bladder carcinoma -Last paracentesis was done on 04/13/20, may require paracentesis for r/o infection/SBP HFpEF: with some LE edema -will hold off diuresis with soft BPs from baseline Endocarditis: presumed marantic -Recent TTE showed normal LV size with hyperdynamic LV systolic function and grade 1 diastolic dysfunction. No left ventricular hypertrophy (LVH). Heavily sclerotic aortic valve with potential vegetation versus calcifications with mild aortic stenosis and mild aortic insufficiency, while ESTEFANI showed vegetation of aortic valve 04/09/20 that was deemed likely secondary to malignancy with multiple negative blood cultures Left kidney infarct Most likely secondary to malignant emboli or arterial clot Continue to monitor Worsening VINCENT -Most likely multifactorial secondary to left renal infarct, recent NSAID and allopurinol -Also with proteinuria and hematuria, rechecking UA due to inadequate navin hematuria sample -hold NSAIDs, allopurinol, give fluids Leukocytosis with relative hypotension compared to his baseline -C/f UTI given imaging findings of bladder wall thickening with gas -Will start empiric pip/tazo -Follow up BCx, UCx -CXR without acute infiltrates or effusions -Consulted ID given the recent history of marantic endocarditis DVT -No AC given gross hematuria -s/p IVC filter BPH - c/w Tamsulosin and Finasteride Gout -continue holding allopurinol with declining renal function GERD - c/w pantoprazole 40 daily HTN: -holding home meds with soft BPs Dispo: PCU DVT ppx: TEDs and sequentials Plan / VTE VTE Prophylaxis Ordered?: Yes HARDY MILLS MD April 21, 2020 12:42
[2020-04-21] MEDS ORDERED: PILL CUTTER 1 EACH XX PRN (14:30)
[2020-04-21] MEDS ORDERED: SLF 3 ML SYR IV PRN (14:30)
[2020-04-21] MEDS: PANTOPRAZOLE 40MG TAB (PROTONIX) PO SCH (14:32)
[2020-04-21] MEDS: PIPERACILLIN/TAZOBACTAM SOD 3.375 GM in D5W MINI-BAG PLUS 50 ML IV SCH ×2 (15:43→22:15)
[2020-04-21 18:04] LABS: HEMOGLOBIN 11.1 g/dl (13.5-17.5)
--- NOTE | 2020-04-21 18:25 | CR.PDOC ---
General Date of Consultation: April 22, 2020 Referring Provider: HARDY MILLS MD Attending Physician: HARDY MILLS MD Consultation REASON FOR CONSULTATION/CHIEF COMPLAINT: [Coagulopathy]. DIAGNOSIS: 1. Metastatic urothelial carcinoma -CT abdomen/pelvis with contrast, 04/05/20: The liver has a nodule or contour which can be seen with cirrhosis. No liver masses seen. No splenomegaly is noted. There is a large wedge-shaped region of low attenuation in the left kidney compatible with left renal infarct. Mild bilateral hydronephrosis noted. There is thickening of the wall of the stomach concerning for gastritis. There is a small amount of ascites in the abdomen and pelvis. Inferior vena cava filter is in place. There is severe thickening of the wall of the urinary chen dder. The prostate gland is enlarged. -CT chest without contrast, 04/07/20: Left lung airspace opacities suspicious for pneumonia noted. Ascites of uncertain etiology. -Left supraclavicular lymph node, FNA, 04/08/20: Metastatic carcinoma with minimal lymphoid cells noted. Tumor cells are positive for TTF-1 (weak), CK 7, CK 20 and APURVA-3. -Transurethral resection, 04/14/20: Pathology showed high-grade urothelial carcinoma, infiltrating lamina propria and muscularis propria. Malignant cells are positive for CK 7, CK 20, p63, and APURVA-3. Ascitic fluid also shows metastatic urothelial carcinoma. 2. Bilateral lower extremity edema, initially right lower extremity DVT - The patient developed swelling and pain in the right lower extremity in February,. Doppler blood flow studies performed at [facility] documented deep venous thrombosis. He was placed on an oral anti-XA inhibitor as anticoagulation consisting of xarelto. He was also on Plavix given arteriosclerotic disease. - In late February, the patient developed hematochezia one week after starting Xarelto. He presented to [facility] emergency Department on 03/23/20 with lower gastrointestinal tract hemorrhage. -The patient was taken off Xarelto and an inferior vena cava filter was placed. -The patient developed gross hematuria during hospitalization on 04/05/20. Anticoagulation was thus discontinued. -Ultrasound, bilateral lower extremity, 04/21/20: Extensive bilateral lower extremity deep venous thrombosis. Left lower extremity now with hypoechoic nearly occlusive to occlusive thrombus in the common femoral, femoral, and popliteal veins as well as tibioperoneal trunk. 3. DIC HISTORY OF PRESENT ILLNESS: Mr. Abdul is a 75-year-old male with a recent diagnosis of metastatic urothelial adenocarcinoma with supraclavicular lymph node, malignant cells and ascitic fluid, and bladder and mass positive for poorly differentiated adenocarcinoma. He was also recently diagnosed with a right lower extremity deep venous thrombosis in February, on anticoagulation which was discontinued given GI bleed and gross hematuria. He has a recent diagnosis of left renal infarct. Outpatient PET CT scan was planned for staging of disease. The patient presented for hospitalization on 04/21/20 with worsening abdominal pain. He continues to have navin hematuria; urology has been consultative for further evaluation of that. This is thought to be likely secondary to malignancy. Hematology was consultative given concern of coagulopathy. Review of laboratory data shows leukocytosis, anemia, and thrombocytopenia with platelet count of 84. DIC panel shows elevated d-dimer, fibrinogen of 115, PT 21.6, INR 1.9, and PTT 48.6. Upon visiting the patient, he is unable to provide much of the history. He did develop confusion yesterday evening. He has a sitter at bedside. Hematuria has improved per the patient's nurse. Hemoccult is positive. CT brain without contrast shows small old left posterior temporal and occipital lobe infarct. Diffuse atrophy and vascular calcification noted. There is no acute intracranial abnormality. He denies pain but is grimacing. His was called during the consultation. ALLERGIES: Please see below. HOME MEDICATIONS: Please see below. PAST MEDICAL AND SURGICAL HISTORY: 1. Hypertension 2. Hyperlipidemia 3. Arteriosclerotic arterial vascular disease, CABG with stents 4. History of carotid artery to your sclerosis status post bilateral carotid endarterectomies 5. Peripheral vascular disease status post bilateral lower extremity arterial bypass procedures 6. Right lower extremity deep venous thrombosis as stated above status post IVC filter placement 7. Gout 8. Gastroesophageal reflux disease 9. History of small subacute infarcts in the left temporal region leading to impaired vision, February, 10. Prosthetic enlargement with urinary hesitancy FAMILY HISTORY: Father: History of stroke Mother: History of carotid artery disease and heart valve replacement surgery SOCIAL HISTORY: Marital status and/or living arrangements: The patient is . His is a retired nurse. 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 Tobacco use: The patient smoked one pack per day for approximately 30 years but quit approximately 30 years ago. ETOH: The patient consumed beer on a regular basis until the very recent past. Illicit drug use: There is no history of illicit drug use. REVIEW OF SYSTEMS: Constitutional: Denies: Chills, Fever, Night Sweats Eyes: Denies: Pain, Vision change ENT: Denies: Head Aches, Ear Pain, Dysphagia Skin: Denies: Rash, Lesions, Breakdown Pulmonary: Denies: Dyspnea, Cough Cardiovascular: Denies: Chest Pain, Palpitations, Orthopnea, Paroxysmal Noc. Dyspnea, Lt Headedness Gastrointestinal: Reports: Abdominal Pain (worsening, diffuse); Denies: Nausea, Vomiting, Diarrhea, Constipation, Melena, Hematochezia Genitourinary: Reports: Hematuria; Denies: Dysuria, Incontinence, Retention Hematologic: Reports: Bruising, Bleeding Excessively, Purpura Endocrine: Denies: Polydipsia, Polyphagia, Polyuria, Heat Intolerance, Cold Intolerance, Other Endocrine Sx Musculoskeletal: Denies: Neck Pain, Back Pain, Joint Pain, Muscle Pain, Spasms Neurological: Denies: Weakness, Numbness, Change in speech, Confusion Psych: Reports: Mood Normal; Denies: Depression, Memory Issues PHYSICAL EXAMINATION: VITAL SIGNS: Please see below. GENERAL APPEARANCE: [Elderly male sitting at the side of the bed, occasionally grimacing in pain, ECOG performance status 2]. HEENT: [Very mild petechiae and buccal mucosa otherwise moist mucous membranes]. RESPIRATORY: [Coarse breath sounds throughout with expiratory wheezes noted, no increased work of breathing]. CARDIOVASCULAR: [Regular rate and rhythm with normal S1 and S2]. ABDOMEN: [Distended with positive fluid wave. No tenderness to palpation. Normoactive bowel sounds]. EXTREMITIES: [Bilateral 2-3+ lower extremity edema]. NEUROLOGICAL: [Alert and oriented to person and place but not time. He thinks it's 2020.]. LABORATORY DATA: Please see below. ASSESSMENT/PLAN: 1. DIC: Review of laboratory data does show that the patient did not have thrombocytopenia in late February, prior to development of deep venous thrombosis. He has since had a worsening thrombocytopenia. PT and PTT are prolonged with low fibrinogen level. This is concerning for DIC which can be seen with some mucinous carcinomas. We will check additional blood work including a PT and PTT mixing study, LDH, haptoglobin, and additional studies for bleeding diathesis and abnormal PT and PTT. His bilirubin is elevated and as a result we will look for hemolysis as well by checking an LDH and haptoglobin. I do recommend giving 2 units cryoprecipitate given continued hematuria. I recommend checking a fibrinogen level at least daily and continuing to give cryoprecipitate to maintain fibrinogen level greater than 100 is continuing to bleed. Patient is also noted to have an elevated direct bilirubin. Recent CT scan of the abdomen and pelvis did show concern of nodular appearance of the liver with possible cirrhosis. This could also be leading to coagulopathy. 2. Metastatic urothelial carcinoma: The patient will require outpatient PET CT scan prior to discussion of further therapy. Additional studies need to be checked such as PDL 1 to evaluate for immunotherapy. The patient continues to have quite a bit of hematuria due to bladder cancer. We've discussed the case with Dr. Fermin of radiation oncology to see if palliative radiation therapy may help ease bleeding. 3. Right lower extremity deep venous thrombosis: Anticoagulation is currently on hold given the patient's hematuria. Given his change in kidney function, he would likely require heparin drip at this time. IVC filter is in place. Would recommend starting a heparin infusion without bolus. We will need to carefully monitor CBC every 6 hours. I would also check fibrinogen level at least daily and give cryoprecipitate if she is actively bleeding. 4. Confusion: CT brain was reviewed with attending physician. MRI brain with and without contrast can be checked to evaluate for metastatic disease though urothelial cancer rarely leads to have brain metastasis. The patient is critically Heidi does have a poor prognosis. I did call his and discuss this with him. He also now has possible bacteremia with 1 out of 2 blood cultures from 04/21 growing gram-positive cocci in clusters. He is certainly at risk for bleeding with anticoagulation but does need a given DIC and worsening deep venous thrombosis. We will keep her updated. Thank you so very much for the consult. Please call with questions. Vital Signs/I&O Vital Signs Date Time Temp Pulse Resp B/P (MAP) Pulse Ox O2 Delivery O2 Flow Rate FiO2 04/21/20 17:18 97.2 61 18 178/74 99 Room Air Laboratory Data Labs 24H Laboratory Tests 2 04/21/20 07:16: Immature Granulocyte % (Auto) 1.6, Neutrophils (%) (Auto) 89.6H, Lymphocytes (%) (Auto) 2.7L, Monocytes (%) (Auto) 5.1H, Eosinophils (%) (Auto) 0.8, Basophils (%) (Auto) 0.2, Neutrophils # (Auto) 22.8H, Lymphocytes # (Auto) 0.7L, Monocytes # (Auto) 1.3H, Eosinophils # (Auto) 0.2, Basophils # (Auto) 0.0, Nucleated Red Blood Cells % (auto) 0.0, Immature Platelet Fraction 9.5, Prothrombin Time 21.6H, Prothromb Time International Ratio 1.90, Activated Partial Thromboplast Time 48.6H, Fibrinogen 115L, D-Dimer, Quantitative > 4000H, POC Glucose (Misc Panel) 142H, POC Sodium (Misc Panel) 132L, POC Potassium (Misc Panel) 4.7, POC Chloride (Misc Panel) 102, POC Total CO2 (Misc Panel) 20.0L, POC Blood Urea Nitrogen (Misc Panel 66H, POC Ionized Calcium (Misc Panel) 4.2L, POC Creatinine (Misc Panel) 2.8H, POC Hematocrit (Misc Panel) 25.0L, Anion Gap 14, Glomerular Filtration Rate 26.0L, Calcium Level 8.4L, Total Bilirubin 1.8H, Direct Bilirubin 1.1H, Aspartate Amino Transf (AST/SGOT) 37, Alanine Aminotransferase (ALT/SGPT) 29, Alkaline Phosphatase 264H, Total Creatine Kinase 71, Creatine Kinase MB 1.3, Creatine Kinase MB Relative Index 1.83, Troponin I < 0.02, C- Reactive Protein, Quantitative 8.59H, Total Protein 6.0L, Albumin 2.6L, Albumin/Globulin Ratio 0.8, Lipase 109 04/21/20 07:17: POC Lactate (Misc Panel) 3.12*H 04/21/20 07:57: Bedside Urine Color (LAB) REDH, Bedside Urine Appearance (LAB) TURBIDH, Bedside Urine pH (LAB) 5.0, Bedside Urine Specific [place] (LAB 1.019, Bedside Urine Protein (LAB) 3+H, Bedside Urine Glucose (UA) NEGATIVE, Bedside Urine Ketones (LAB) OBSCUREDH, Bedside Urine Blood POSITIVEH, Bedside Urine Nitrite (LAB) OBSCUREDH, Bedside Urine Bilirubin (LAB) OBSCUREDH, Bedside Urine Urobilinogen (LAB) OBSCUREDH, Bedside Urine Leukocyte Esterase (L POSITIVEH, Urine Sediment Examination UNSPUN, Urine RBC TNTCH, Urine WBC 7-10H, Urine Squamous Epithelial Cells SMALL AMOUNT, Urine Amorphous Sediment LARGE AMOUNTH, Urine Bacteria MOD AMOUNTH, Urine Hyaline Casts NONE SEEN 04/21/20 11:21: POC Lactate (Misc Panel) 1.02 04/21/20 11:27: Lactic Acid Followup at 4 Hours 1.3 04/21/20 17:17: Urine Color REDH, Urine Appearance CLOUDYH, Urine pH 5.0, Urine Specific [place] 1.016, Urine Protein 2+H, Urine Glucose (UA) NEGATIVE, Urine Ketones NEGATIVE, Urine Blood 3+H, Urine Nitrite NEGATIVE, Urine Bilirubin NEGATIVE, Urine Urobilinogen 0.2, Urine Leukocyte Esterase 3+H, Urine WBC (Auto) TNTCH, Urine RBC (Auto) TNTCH, Urine Hyaline Casts (Auto) 0, Urine Bacteria (Auto) NEGATIVE, Urine Squamous Epithelial Cells 0, Urine Mucus (Auto) SMALL, Urine Sperm (Auto) CBC/BMP Laboratory Tests 04/21/20 07:16 Microbiology Microbiology 04/21/20 Urine Culture, Received Pending 04/21/20 Blood Culture, Received Pending 04/21/20 Blood Culture, Received Pending Allergies Coded Allergies: No Known Allergies (Verified Allergy, Unknown, 03/23/20) Home Medications Scheduled Allopurinol (Allopurinol) 100 Mg Tab, 100 MG PO DAILY, (Reported) Bisoprolol/Hydrochlorothiazide (Bisoprolol-Hctz 10-6.25 mg Tab) 1 Each Tablet, 1 TAB PO DAILY, (Reported) Cholecalciferol (Vitamin D3) (Vitamin D3) 1,000 Unit Tablet, 1,000 UNITS PO DAILY, (Reported) Ezetimibe (Zetia) 10 Mg Tab, 10 MG PO QPM, (Reported) Ferrous Sulfate (Ferrous Sulfate) 325 Mg Tablet, 325 MG PO BID, (Reported) Finasteride (Finasteride) 5 Mg Tablet, 5 MG PO QPM, (Reported) Magnesium Chloride (Mag64) 64 Mg Tablet.dr, 64 MG PO DAILY, (Reported) Multivitamins (Thera M Plus Tablet) 1 Tab Tab, 1 TAB PO DAILY, (Reported) Pantoprazole Sodium (Pantoprazole Sodium) 40 Mg Tablet.dr, 40 MG PO DAILY, (Reported) Rosuvastatin Calcium (Rosuvastatin Calcium) 5 Mg Tab, 5 MG PO QPM, (Reported) Tamsulosin HCl (Flomax) 0.4 Mg Cap, 0.4 MG PO BID, (Reported) Travoprost (Travatan Z) 50 Drop/2.5 Ml Soln, 1 DROP OU QHS, (Reported) Scheduled PRN Ibuprofen (Ibu-200) 200 Mg Tablet, 400 MG PO Q6H PRN for PAIN, (Reported) Oxybutynin Chloride (Oxybutynin Chloride) 5 Mg Tablet, 5 MG PO Q8H PRN for BLADDER SPASM, (Reported) Oxycodone HCl/Acetaminophen (Percocet 5-325 mg Tablet) 1 Each Tablet, 1 TAB PO Q4H PRN for PAIN, (Reported) FLORIDALMA MOJICA MD April 21, 2020 18:25
--- NOTE | 2020-04-21 19:16 | REPVR ---
PROCEDURE INFORMATION: Exam: US Duplex Lower Extremity Veins, Bilateral Exam date and time: 04/21/2020 7:06 PM Age: 75 years old Clinical indication: Edema, localized; Lower extremity, bilateral; Additional info: Dvt TECHNIQUE: Imaging protocol: Real-time duplex ultrasound of the extremities with 2-D young scale, color Doppler flow and spectral waveform analysis with image documentation. Complete exam focused on the bilateral lower extremity veins. COMPARISON: No relevant prior studies available. FINDINGS: Right deep veins: Heterogeneously hypoechoic nearly occlusive to occlusive thrombus in the common femoral, femoral and popliteal veins, as well as the tibioperoneal trunk. Left deep veins: Heterogeneously hypoechoic nearly occlusive to occlusive thrombus in the common femoral, femoral and popliteal veins, as well as the tibioperoneal trunk. Soft tissues: Diffuse subcutaneous edema. IMPRESSION: Extensive bilateral lower extremity deep vein thrombosis. Please note the patient has a known IVC filter. Electronically signed by: El Soriano On 04/21/2020 19:16:15 PM
[2020-04-21 20:40] LABS: BILIRUBIN,DIRECT 2.7 MG/DL (0.0-0.2)
[2020-04-21] MEDS: FERROUS SULFATE 325MG TAB PO SCH (20:42)
[2020-04-21] MEDS: LATANOPROST 0.005% OPHTH SOLN 2.5 ML OU SCH (20:43)
[2020-04-21] MEDS: TAMSULOSIN 0.4 MG CAP PO SCH (20:43)
[2020-04-21] MEDS: SLF 3 ML SYR IV SCH (20:43)
[2020-04-21] MEDS: FINASTERIDE 5 MG TAB PO SCH (20:43)
[2020-04-21] MEDS ORDERED: EZETIMIBE 10 MG TAB (ZETIA) PO SCH (21:00)
[2020-04-21] MEDS ORDERED: ROSUVASTATIN 10 MG TAB (CRESTOR) PO SCH (21:00)
[2020-04-22] VITALS (22 sets, daily range): BP systolic 131–186; BP diastolic 56–88
[2020-04-22] MEDS: SLF 3 ML SYR IV SCH ×2 (04:05→15:00)
[2020-04-22] MEDS: PIPERACILLIN/TAZOBACTAM SOD 3.375 GM in D5W MINI-BAG PLUS 50 ML IV SCH ×3 (04:05→16:33)
[2020-04-22 04:10] LABS: HEMATOCRIT 33.4 % (42.0-52.0); HEMOGLOBIN 10.6 g/dl (13.5-17.5); MEAN CORPUSCULAR HEMOGLOBIN 28.8 pg (27.0-33.0); MEAN CORPUSCULAR HGB CONC 31.7 g/dl (32.0-36.5); MEAN CORPUSCULAR VOLUME 90.8 fl (80.0-96.0); PLATELET COUNT, AUTOMATED 74 10^3/uL (150-450); RED BLOOD COUNT 3.68 10^6/uL (4.30-6.10); WHITE BLOOD COUNT 22.2 10^3/uL (4.0-10.0)
[2020-04-22 04:24] LABS: ALBUMIN 2.7 GM/DL (3.2-5.2); BILIRUBIN,TOTAL 3.8 MG/DL (0.2-1.0); CALCIUM LEVEL 8.1 MG/DL (8.8-10.2); CREATININE FOR GFR 2.13 MG/DL (0.70-1.30); GLOMERULAR FILTRATION RATE 32.4 (>42); MAGNESIUM LEVEL 2.6 MG/DL (1.8-2.4); POTASSIUM SERUM 5.2 MEQ/L (3.5-5.1); TOTAL PROTEIN 6.2 GM/DL (6.4-8.2)
--- NOTE | 2020-04-22 07:48 | MEDONCENPD ---
Date/Time of Encounter Date of Encounter: April 21, 2020 Time of Encounter: 19:00 Encounter Attempted to see patient. He is off of the floor getting an ultrasound. Initial laboratory data reviewed in the tests ordered. I will check on the patient tomorrow around noon. FLORIDALMA MOJICA MD April 22, 2020 07:48
[2020-04-22] MEDS ORDERED: MAGNESIUM CHLORIDE 64 MG TABCR (SLO MAG) PO SCH (09:00)
[2020-04-22] MEDS: FERROUS SULFATE 325MG TAB PO SCH (09:00)
[2020-04-22] MEDS ORDERED: VITAMIN D 1,000 INTERNATIONAL UNITS TABLET PO SCH (09:00)
[2020-04-22] MEDS ORDERED: MULTIVITAMINS/MINERALS THERAP 1 TAB PO SCH (09:00)
[2020-04-22] MEDS: LORazepam 2 MG/ML VIAL IV STA ×2 (09:26→09:55)
[2020-04-22] MEDS ORDERED: VANCOMYCIN HCL 1,000 MG in IV FLUID PLACE HOLDER 1 EA IV SCH (09:30)
--- NOTE | 2020-04-22 11:07 | CR ---
DATE OF CONSULTATION: 04/21/2020 I was asked to consult by Dr. Retana for evaluation of abdominal pain in the setting of metastatic bladder cancer. HISTORY OF PRESENT ILLNESS: Mr. Abdul is a 75-year-old gentleman with a recent diagnosis of metastatic adenocarcinoma and bladder cancer with extensive tumors in the bladder. The patient was discharged on April 16 with deep venous thrombosis (DVT). 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 The patient had a left leg DVT, had an inferior vena cava (IVC) filter due to hematuria and GI bleed. He was home for 5 days. Last night he woke up in the middle of the night complaining of increasing abdominal pain, difficulty urinating with frequency. He is having cramps in both thighs, calves, and the bottom of his feet. After getting up many times, at 4:00 a.m. his gave him some Ibuprofen. Within minutes, he developed abdominal pain and she thought it was related to the medication. She gave him a cheese stick and some milk without any improvement. The patient became delirious yelling for help and she called 9-1-1. He was complaining of increasing bloating being gassy he had no appetite. His last bowel movement was about a day or two prior to admission. He had improvement in his hematuria for which was the cause of his previous admission for a couple of days but the hematuria recurrent last night. A White catheter was placed in the emergency room and he had improvement of his abdominal pain and bloating. In the emergency department (ED) he was afebrile. His platelets of 484. His white count had increased to 25,000. CT of abdomen and pelvis showed the hyperdensity in the left renal cortex which was old. There was some thickening of the bladder as well as rectal wall thickening and moderate ascites. He was given IV fluids and White catheter, IV Zosyn. His blood pressure improved and he was transferred to the floor. The patient was also received fentanyl for pain management and oncology was called for second opinion as well regarding DIC. MEDICATIONS: - Allopurinol 100 mg daily - bisoprolol hydrochlorothiazide one tablet daily - vitamin D3 1,000 daily - Zetia 10 mg daily, - ferrous sulfate 325 mg twice a day - finasteride 5 mg by mouth nightly - magnesium chloride 64 mg daily - multivitamin one tablet daily - pantoprazole 40 mg daily - rosuvastatin 5 mg daily - tamsulosin 0.4 mg twice a day. - Travatan eye drops nightly as needed - ibuprofen - oxybutynin ALLERGIES: No known drug allergies. PAST MEDICAL HISTORY: Metastatic bladder cancer with positive ascitic fluid for malignancy. Positive left supraclavicular lymph node with metastatic adenocarcinoma. Hematuria from bladder cancer. Uniretic endocarditis culture negative. Workup included Klebsiella IgA, IgM, IgG were negative. Legionella antigen was positive by urine but antibody was negative. Legionella sputum cultures is still pending. My suspicion is that Legionella antigen is a false positive test and the patient has not received any treatment for that as I am convinced this is a false positive test progressive. Acute kidney injury. Right lung nodule, hypertension, hyperlipidemia, benign prostatic hypertrophy. Gout, deep venous thrombosis (DVT) status post IVC filter, GI bleed. PAST SURGICAL HISTORY: Coronary artery bypass graft (CABG) with stents, bilateral endarterectomy. Bilateral lower extremity stents. FAMILY HISTORY: Mother had a heart valve replacement, peripheral vascular disease. Father had cerebrovascular accident (CVA). Brother of liver disease. SOCIAL HISTORY: He lives with his Diane who is a retired nurse. He denies smoking. He drank at least 2-3 beers everyday. He has been to his over 50 years. They moved from [place] to [place] to be closer to his family. REVIEW OF SYSTEMS: He denies having fever, chills or night sweats. He has significant pain in his abdomen. No nausea or vomiting. He had hematuria, trouble urinating with frequency. He was having rectal bleeding on previous hospitalization significant gas and bloating. No upper or lower extremity weakness but he does complain of being much more forgetful recently. Temperature is 97.2, pulse 61, respirations 18, blood pressure 178/74, O2 sat 99% on room air. Heart: Normal S1, S2. No murmurs appreciated. Lungs are diminished breath sounds at the bases but clear. Abdomen: Distended, mildly tender to touch in the suprapubic area and no guarding. No costovertebral angle (CVA) tenderness. Extremities: +2 pitting edema bilaterally. Shiny both lower extremities. Much worse swelling than on previous hospitalizations. LABS: White count is 25.5 hemoglobin 8.3, hematocrit 26, platelets 84, 89% neutrophils, 2% lymphocytes, 5% monocytes. Repeat hemoglobin was 11.1, hematocrit 34. Haptoglobin is pending. Sodium 136, 4.6, chloride 102, bicarb 20, BUN 65, creatinine 2.58 which has increased from 1.5 last admission glucose 139, calcium 8.4 bilirubin, 1.8, direct 1.1. Repeat bilirubin was 2.7, lactic acid 1.3, LDH 480, CPK 71, CRP 8.59, total protein 6, albumin 2.6. Blood cultures and urine cultures are pending. CT abdomen and pelvis: Liver shows calcified granuloma, cholelithiasis. No gallbladder wall thickening or biliary dilatation. Pancreas, no ductal dilatation. Spleen no splenomegaly. Thickening of the ornelas of the rectum. No pneumatosis. Diverticulosis without diverticulitis. Mild bilateral hydronephrosis and left renal infarct. Moderate ascites. Urinalysis had +3 red , +3 leukocyte esterase, too numerous to count white cells. IMPRESSION: This is a 56-year-old gentleman who was admitted with confusion and delirium hypertension with severe abdominal pain which was somewhat relieved with White catheter placement. Urine was very bloody and concentrated. He has mild bilateral hydronephrosis, which could have been suggestive of an obstruction especially with the improvement after the catheter was placed. He was started on IV Zosyn 3.375 grams every 6 hours. His coagulation markers are consistent with the DIC with elevated PT 21.6, PTT 48.6, low fibrinogen of 115 and D-dimer of more than 4000. He has metastatic bladder carcinoma with possibly peritoneal carcinomatosis and supraclavicular lymph node. PLAN: Continue with IV Zosyn to treat a urinary tract infection. I would suggest getting White catheter in place until he gets some form of treatment and his hematuria improves. He has bilateral lower extremity DVTs, which one is new despite him being on blood thinner which is consistent with Trousseau syndrome and his metastatic adenocarcinoma. Legionnaire antigen urinary was positive with a negative antibody legionnaire culture. Legionella culture was negative. The patient was never treated with antibiotics for Legionella and his chest x-ray is clear. He did not have Legionnaire's disease and this is not a nosocomial infection. We will keep holding off on antibiotics at this time unless there is a positive sputum culture. MTDD
--- NOTE | 2020-04-22 11:10 | PHACANCOPD ---
PHARMACY VANCOMYCIN DOSING Pt Demographics Demographics Patient Age:75 , Weight:75.000 , Gender: male Adjusted Body Weight Date: 04/22/20, Adjusted Body Weight: Events Past 24 Hours Events Past 24 Hours: NO: Dialysis, Diuretic Therapy, Change in CrCl, Fever, Elevation in WBC, Pending Diagnostics, Pending Procedures, Other Vancomycin Vancomycin indication: BACTEREMIA Vancomycin Target Ranges: 15-20 mcg/ml Vancomycin Load Y/N: Yes Load Dose Date Time Vancomycin Load Dose: 1500MG Date: 04/22/20 Time: 1200 Vancomycin Dose Date: 04/22/20. Current Vancomycin Dose: Intermittent Dosing?: No Labs Labs Laboratory Tests 04/21/20 17:41 04/22/20 03:34 Micro Microbiology 04/22/20 Stool Occult Blood (RAY) - Final, Complete 04/21/20 Urine Culture, Received Pending 04/21/20 Blood Culture - Preliminary, Resulted No growth after 24 hours . All specim... 04/21/20 Blood Culture - Preliminary, Resulted Creatinine Clearance Date:04/22/20. Creatinine Clearance: CALCULATED TO BE 25 Assessment and Plan Maintaining Current Dose?: Yes Reason for dose change: No Dose Change Pharmacist Note Pharmacist Note Date: 04/22/20. Pharmacist note: Vancomycin consult received for this patient after preliminary blood culture grew gram positive cocci in clusters. Also being treated with zosyn 3.375g q6h. MRSA PCR pending. Patient does not have a history of vancomycin usage here at [facility]. Calculated CrCl is 25. Giving loading dose of 1500mg IV vancomycin at 1200 followed by 1G q24h thereafter. Scheduled trough for 04/24/20 at 1100 before the third dose. I will continue to monitor this patient and adjust the dose as needed. GILBERTO DELUCA [facility]ARM[facility] April 22, 2020 11:09
--- NOTE | 2020-04-22 11:23 | REP ---
CT BRAIN WITHOUT CONTRAST: HISTORY: Altered mental status. Comparison brain CT study February 20, 2018. CT FINDINGS: Digital preliminary senior hardware design engineer radiographs unremarkable. The bony calvarium is intact. There is heavy vascular calcification in the distal internal carotid and distal vertebral arteries. Visualized paranasal sinuses are clear. No intraorbital abnormality is seen. On soft tissue window settings, the lateral, third, and fourth ventricles are normal in position. 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 This is unchanged from comparison CT study February 15, 2018. There is no evidence of acute infarction. No intracranial hemorrhage is seen. Mild diffuse atrophy is noted. No extra-axial fluid collection or mass lesion is seen. IMPRESSION: Small old left posterotemporal and occipital lobe infarct. Diffuse atrophy and vascular calcification. No acute intracranial abnormality. Electronically Signed by Yeison Bunch MD 04/22/2020 11:46 A
[2020-04-22] MEDS ORDERED: HEPARIN DRIP 25,000 UNITS in IV 1 EA IV SCH (11:45)
[2020-04-22] MEDS ORDERED: HEPARIN SOD (PORCINE) 5000UNITS/ML VIAL (J1644 PER 1000UNITS) IV PRN (11:45)
[2020-04-22] MEDS ORDERED: VANCOMYCIN HCL 1,000 MG, VIAL MATE ADAPTER 1 EACH in D5W 250 ML IV SCH (12:00)
[2020-04-22] MEDS: PANTOPRAZOLE 40MG TAB (PROTONIX) PO SCH (12:03)
[2020-04-22] MEDS: TAMSULOSIN 0.4 MG CAP PO SCH ×2 (12:03→21:06)
[2020-04-22 12:33] LABS: PARTIAL THROMBOPLASTIN TIME 39.9 SECONDS (25.0-38.4)
--- NOTE | 2020-04-22 13:52 | IPNPDOC ---
Text Note Date of Service The patient was seen on 04/22/20. NOTE Subjective: -Abdomen feels a lot better than when he came in -Continues to have some hematuria (amaya remains in place) -HDS, afebrile -Confused this morning, combative with nursing, refused labs Interim events: -Had placed him on empiric zosyn pending ID consult given leukocytosis without navin evidence of ongoing infection. Dr. Ruiz had an in depth conversation with his and the patient about the current poor prognosis. -Had bilateral LE dopplers with massive clot extension at this time (do not have access to his initial DVT doppler scan) -Consulted hematology who are also concerned about his consumptive coagulopathy that is still under investigation with c/f DIC as well hemolysis, recommended heparin gtt though c/b ongoing hematuria but will trial given stable H/H -Was placed on clears for dinner yesterday evening Objective: Vitals: HDS, afebrile, breathing comfortably on room air. See details below General: Alert, Cooperative, NAD this morning Eye: PERRLA, EOMI, anicteric ENT: Dry MM, clear posterior oropharynx Chest: CTAB Heart: RRR, no mrg Abdomen: Normoactive bowel sounds, had palpable hepatomegaly 2-3cm below coastal margin, mild TTP throughout Extremities: 2+ to midshins bilaterally Skin: No skin breakdown or lesions, no noted rashes Neuro: Normal Speech, Strength at 5/5 X4 ext, Normal Tone, Sensation Intact, Cranial Nerves 3-12 NL Psych: Oriented x 3 Laboratory Data: Reviewed. WBC 22.2, Hgb 10.6, platelets 74, Na 138, K 5.2, Cr 2.13, Tbili 3.8, PTT 36 Microbiology 04/21/20 Blood Culture x 2 - 1 bottle growing GPCs in clusters. UCx pending Imaging: Noncon head CT: Digital preliminary industrial hygiene engineer radiographs unremarkable. The bony calvarium is intact. There is heavy vascular calcification in the distal internal carotid and distal vertebral arteries. Visualized paranasal sinuses are clear. No intraorbital abnormality is seen. On soft tissue window settings, the lateral, third, and fourth ventricles are normal in position. 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 This is unchanged from comparison CT study February 15, 2018. There is no evidence of acute infarction. No intracranial hemorrhage is seen. Mild diffuse atrophy is noted. No extra- axial fluid collection or mass lesion is seen. LE venous doppler US: Right deep veins: Heterogeneously hypoechoic nearly occlusive to occlusive thrombus in the common femoral, femoral and popliteal veins, as well as the tibioperoneal trunk. Left deep veins: Heterogeneously hypoechoic nearly occlusive to occlusive thrombus in the common femoral, femoral and popliteal veins, as well as the tibioperoneal trunk. Soft tissues: Diffuse subcutaneous edema. Assessment: 75 yo M with a recent diagnosis of metastatic high grade urothelial carcinoma, +supraclavicular LN, urothelial CA cells in ascitic fluid with chronic hematuria and ongoing oncology work up for staging, pending PET, who was recently admitted 04/05-04/16 during which most of the above was established, as well as a history of a recent DVT previously on AC c/b GIB, s/p IVF filter, recent diagnosis of left renal infarct, marantic endocarditis, as well as PVD, carotic disease s/p endarterectomy, HTN, HLD, GERD, gout who presented to the ED reporting acute worsening of abdominal pain that he reports to have been present over the last 3 weeks with ongoing painless hematuria with worsening leukocytosis and extensive LE clot burden. AMS: nonfocal on neuro exam with inattention, restlessness and AOx2 to self and place. -CT head without new findings, showed an old infarct. -getting MRI brain -Possibly all delirium -Stop all opioid pain medication now that pain has resolved and they are possible precipitants Abdominal pain: Imaging showed moderate ascites, renal hypodensity c/w recent L renal infarct, bladder wall thickening with some bladder wall gas c/f infection, and potential proctitis without obstruction, masses, pneumoperitoneum or nvain evidence ischemia, though it was not performed with contrast. -Surgery evaluated him in the ED recommending medical management -Pain resolved at this time so dc opioid therapy with AMS -advance diet at tolerated Metastatic bladder cancer: -Cystoscopy was done on 04/13/20, patient was found to have high-grade urothelial carcinoma, infiltrating lamina propria and muscularis propria -Ascitic fluid on 04/13 was positive metastatic urothelial carcinoma -Was seen by Dr. Ritchie consultation during last admission, was due for outpatient evaluation with Dr. Jimenez and pending PET -Most likely malignancy is cause of multiple manifestations as right leg DVT, endocarditis, kidney infarct, with now noted extensive bilateral LE DVTs. Would like to anticoagulate but also has active hematuria with evidence of DIC and possible hemolysis. --per hematology recs will start anticoagulation with heparin gtt, but will not bolus given high bleeding risk and will give 20u of cryo with Q6H CBC and fibrinogen Hematologic abnormalities with evidence of coagulopathy extensive DVT) and bleeding (hematuria, +FOBT) and likely hemolysis (elevated bilis, LDH, pending hapto): -Low fibrinogen, elevated INR and PTTwith low platelets c/w DIC -Elevated LDH, pending hapto and smear with c/f hemolysis as well -consulted heme with pending smear, mixing studies, factor quantifications -may have to consider thromboelastography -heparin gtt with no starting bolus with Q6H CBC -Will give cryoprecipitate 20u at this time, and will check fibrinogen Q6H for goal >100, or transfuse 10U Persistent navin hematuria: -Secondary to bladder cancer -Reached out to Dr. Linder, bilateral hydro is mild and stable while there is nothing procedurally he could do to stop the bleeding until tumor is treated. Re commending removal of amaya that may cause further irritation at this time -In speaking with hematology, placed rad-onc consult with Dr. Welsh ([facility]) to discuss radiation with Dr. Fermin in an effort to control the bleeding Acute blood loss anemia on chronic anemia: stable per recent baseline despite hematuria -Multifactorial to hematuria and with other evidence of coagulopathy -s/p 2 units of blood in the ED -Discussed with urology, and now consulted radiation oncology, for hematuria -will continue home Fe supplementation -Labs c/w DIC and investigation hemolysis ongoing as well -q6h H/H, while on heparin gtt and may increase intervals as indicated Ascites -2/2 metastatic bladder carcinoma -Last paracentesis was done on 04/13/20, will consider reaching out to IR for paracentesis for r/o infection/SBP, for now abdominal pain has resolved HFpEF: with some LE edema -will hold off diuresis with ongoing VINCENT and soft BPs Endocarditis: marantic -Recent TTE showed normal LV size with hyperdynamic LV systolic function and grade 1 diastolic dysfunction. No left ventricular hypertrophy (LVH). Heavily sclerotic aortic valve withvegetation versus calcifications with mild aortic stenosis and mild aortic insufficiency, while ESTEFANI showed vegetation of aortic valve 04/09/20 that was deemed secondary to malignancy with multiple negative blood cultures Left kidney infarct Most likely secondary to malignant emboli vs arterial clot Continue to monitor Worsening VINCENT: improving -Most likely multifactorial secondary to left renal infarct, post obstructive nephropathy with bilateral hydro, recent NSAID, allopurinol and dehydration -Also with proteinuria and hematuria, rechecking UA due to inadequate navin hematuria sample -hold NSAIDs, allopurinol, s/p volume resuscitation with fluids and blood products -will dc amaya today and monitor PVRs Q8H and strict I/Os Leukocytosis: -C/f UTI given imaging findings of bladder wall thickening with gas, pending UCx -Continue empiric pip/tazo and adding vanc given 1 of the 2 bottles of the 04/21 BCx is growing GPCs in clusters. MRSA PCR pending. -follow up 04/21 BCx, UCx -CXR without acute infiltrates or effusions -Will consider IR for paracentesis, for now held off while starting heparin gtt -Consulted ID, appreciate recs -possibly reactive to clots as well, starting heparin gtt Extensive DVTs -Starting heparin gtt this AM with hematology onboard, without bolus given gross hematuria -s/p IVC filter -ongoing coagulopathy workup BPH - c/w Tamsulosin and Finasteride Gout -continue holding allopurinol given declining renal function GERD - c/w pantoprazole 40 daily HTN: -holding home meds with soft BPs. To restart as indicated Dispo: PCU DVT ppx: TEDs and sequentials for now. Starting heparin gtt VS,Fishbone, I+O VS, Fishbone, I+O Laboratory Tests 04/21/20 07:16 04/21/20 17:41 04/22/20 03:34 Vital Signs Date Time Temp Pulse Resp B/P (MAP) Pulse Ox O2 Delivery O2 Flow Rate FiO2 04/22/20 04:00 97.3 74 16 131/56 (81) 94 Room Air I&O- Last 24 Hours up to 6 AM 04/22/20 05:59 Intake Total 3500 ml Output Total 1175 ml Balance 2325 ml HARDY MILLS MD April 22, 2020 07:39
[2020-04-22] MEDS ORDERED: VANCOMYCIN HCL 500 MG in D5W MINI-BAG PLUS 100 ML IV ONE (14:00)
[2020-04-22] MEDS: MORPHINE 4 MG/ML 1ML VIAL/SYRINGE (J2270) IV PRN ×2 (16:55→22:03)
[2020-04-22] MEDS ORDERED: MIDAZOLAM INJ 2MG/2ML VIAL (J2250 PER 1MG) As Ordered ONE (18:00)
[2020-04-22 19:25] LABS: HEMATOCRIT 29.8 % (42.0-52.0); HEMOGLOBIN 9.7 g/dl (13.5-17.5); MEAN CORPUSCULAR HEMOGLOBIN 29.3 pg (27.0-33.0); MEAN CORPUSCULAR HGB CONC 32.6 g/dl (32.0-36.5); RED BLOOD COUNT 3.31 10^6/uL (4.30-6.10); WHITE BLOOD COUNT 20.4 10^3/uL (4.0-10.0)
[2020-04-22 19:26] LABS: PLATELET COUNT, AUTOMATED 64 10^3/uL (150-450)
[2020-04-22 19:36] LABS: PARTIAL THROMBOPLASTIN TIME 42.6 SECONDS (25.0-38.4)
[2020-04-22] MEDS ORDERED: ONDANSETRON 4MG/2ML VIAL IV PRN (20:00)
[2020-04-22] MEDS ORDERED: MIDAZOLAM INJ 2MG/2ML VIAL (J2250 PER 1MG) IV STA (20:30)
[2020-04-22] MEDS: LATANOPROST 0.005% OPHTH SOLN 2.5 ML OU SCH (21:06)
[2020-04-22] MEDS: FINASTERIDE 5 MG TAB PO SCH (21:06)
--- NOTE | 2020-04-22 22:51 | REP ---
REASON: Status post central line placement. COMPARISON: Yesterday. The technique utilized in obtaining the radiograph has magnified the cardiac silhouette and accentuated the interstitial markings. The lung henderson are hypoexpanded. Since the last examination, a right-sided internal jugular central venous catheter has been placed. The tip is in the superior vena cava. There is no pneumothorax. There are chronic lung field changes, status quo. There are no new opacities. There is no change in the osseous structures. IMPRESSION: Central line placement, as described above. There is no evidence of acute cardiopulmonary disease. Electronically Signed by Benji Del Toro DO 04/23/2020 11:58 A
[2020-04-23] MEDS: MORPHINE 2 MG/ML 1ML VIAL (J2270) IV PRN ×2 (01:47→08:10)
[2020-04-23] MEDS: TAMSULOSIN 0.4 MG CAP PO SCH ×2 (08:09→20:46)
[2020-04-23 12:57] LABS: HEMATOCRIT 32.9 % (42.0-52.0); HEMOGLOBIN 10.3 g/dl (13.5-17.5); MEAN CORPUSCULAR HGB CONC 31.3 g/dl (32.0-36.5); MEAN CORPUSCULAR VOLUME 92.7 fl (80.0-96.0); RED BLOOD COUNT 3.55 10^6/uL (4.30-6.10); WHITE BLOOD COUNT 17.7 10^3/uL (4.0-10.0)
[2020-04-23 12:58] LABS: PLATELET COUNT, AUTOMATED 60 10^3/uL (150-450)
[2020-04-23 13:16] LABS: INR 1.86; PROTHROMBIN TIME 21.2 SECONDS (11.8-14.0)
[2020-04-23 13:17] LABS: PARTIAL THROMBOPLASTIN TIME 45.6 SECONDS (25.0-38.4)
[2020-04-23 13:25] LABS: ALBUMIN 2.6 GM/DL (3.2-5.2); BILIRUBIN,TOTAL 4.2 MG/DL (0.2-1.0); CALCIUM LEVEL 8.3 MG/DL (8.8-10.2); CREATININE FOR GFR 2.09 MG/DL (0.70-1.30); GLOMERULAR FILTRATION RATE 33.1 (>42); MAGNESIUM LEVEL 2.8 MG/DL (1.8-2.4); PHOSPHORUS LEVEL 3.3 MG/DL (2.5-4.9); POTASSIUM SERUM 4.4 MEQ/L (3.5-5.1); TOTAL PROTEIN 6.2 GM/DL (6.4-8.2)
[2020-04-23 13:45] VITALS: BP 163/47
[2020-04-23] MEDS: MORPHINE 4 MG/ML 1ML VIAL/SYRINGE (J2270) IV PRN (14:15)
--- NOTE | 2020-04-23 14:43 | IPNPDOC ---
Date Seen The patient was seen on 04/23/20. Progress Note DIAGNOSIS: 1. Metastatic urothelial carcinoma -CT abdomen/pelvis with contrast, 04/05/20: The liver has a nodule or contour which can be seen with cirrhosis. No liver masses seen. No splenomegaly is noted. There is a large wedge-shaped region of low attenuation in the left kidney compatible with left renal infarct. Mild bilateral hydronephrosis noted. There is thickening of the wall of the stomach concerning for gastritis. There is a small amount of ascites in the abdomen and pelvis. Inferior vena cava filter is in place. There is severe thickening of the wall of the urinary bladder. The prostate gland is enlarged. -CT chest without contrast, 04/07/20: Left lung airspace opacities suspicious for pneumonia noted. Ascites of uncertain etiology. -Left supraclavicular lymph node, FNA, 04/08/20: Metastatic carcinoma with minimal lymphoid cells noted. Tumor cells are positive for TTF-1 (weak), CK 7, CK 20 and APURVA-3. -Transurethral resection, 04/14/20: Pathology showed high-grade urothelial carcinoma, infiltrating lamina propria and muscularis propria. Malignant cells are positive for CK 7, CK 20, p63, and APURVA-3. Ascitic fluid also shows metastatic urothelial carcinoma. 2. Bilateral lower extremity edema, initially right lower extremity DVT - The patient developed swelling and pain in the right lower extremity in February,. Doppler blood flow studies performed at [facility] documented deep venous thrombosis. He was placed on an oral anti-XA inhibitor as anticoagulation consisting of xarelto. He was also on Plavix given arteriosclerotic disease. - In late February, the patient developed hematochezia one week after starting Xarelto. He presented to [facility] emergency Department on 03/23/20 with lower gastrointestinal tract hemorrhage. -The patient was taken off Xarelto and an inferior vena cava filter was placed. -The patient developed gross hematuria during hospitalization on 04/05/20. Anticoagulation was thus discontinued. -Ultrasound, bilateral lower extremity, 04/21/20: Extensive bilateral lower extremity deep venous thrombosis. Left lower extremity now with hypoechoic nearly occlusive to occlusive thrombus in the common femoral, femoral, and popliteal veins as well as tibioperoneal trunk. 3. DIC SUBJECTIVE: Patient is a 75-year-old male with metastatic urothelial carcinoma, DIC, and bilateral lower extremity thrombosis. The patient had an uneventful evening. He became more confused overnight and this was transferred to the ICU. Discussion was held with the patient's and son. The patient was made comfort care. However, today he felt much better. He is now alert and oriented to person, place, and time. He feels much better. He did have a small amount of blood in his stool earlier this morning. Hematuria has improved. The patient has a small amount of abdominal pain. His is at bedside. OBJECTIVE PHYSICAL EXAMINATION: VITAL SIGNS: Please see below. GENERAL APPEARANCE: [Elderly male sitting in bed, ECOG performance status 2]. HEENT: [Very mild petechiae and buccal mucosa otherwise moist mucous membranes]. RESPIRATORY: [Coarse breath sounds throughout with expiratory wheezes noted, no increased work of breathing]. CARDIOVASCULAR: [Regular rate and rhythm with normal S1 and S2]. ABDOMEN: [Distended with positive fluid wave. No tenderness to palpation. Normoactive bowel sounds]. EXTREMITIES: [Bilateral 2-3+ lower extremity edema]. NEUROLOGICAL: [Alert and oriented to person, place, and time]. LABORATORY DATA, IMAGING STUDIES, MICROBIOLOGY: Please see below. ASSESSMENT AND PLAN: Mr. Abdul is a 75-year-old male with: PROBLEMS: 1. DIC: Review of laboratory data does show that the patient did not have thrombocytopenia in late February, prior to development of deep venous thrombosis. He has since had a worsening thrombocytopenia. PT and PTT are prolonged with low fibrinogen level. This is concerning for DIC which can be seen with some mucinous carcinomas. The patient was given 2 units cryoprecipitate yesterday given continued hematuria. Bring antigen level is since improved. I recommend checking a fibrinogen level at least daily and continuing to give cryoprecipitate to maintain fibrinogen level greater than 100 is continuing to bleed. Patient is also noted to have an elevated direct bilirubin. Recent CT scan of the abdomen and pelvis did show concern of nodular appearance of the liver with possible cirrhosis. This could also be leading to coagulopathy. 2. Metastatic urothelial carcinoma: The patient will require outpatient PET CT scan prior to discussion of further therapy. Additional studies need to be checked such as PDL 1 to evaluate for immunotherapy. The patient continues to have quite a bit of hematuria due to bladder cancer. I have discussed the case with Dr. Fermin of radiation oncology to see if palliative radiation therapy may help ease bleeding. Dr. Fermin saw the patient but he was made comfort care at that time. I did notify Dr. Fermin that the patient is doing better currently. 3. Bilateral lower extremity edema, initially right lower extremity DVT: Anticoagulation is currently on hold given the patient's hematuria. Given his change in kidney function, he would likely require heparin drip at this time. IVC filter is in place. Would recommend starting a heparin infusion without bolus. This will be started after checking repeat labs today to ensure hemoglobin and hematocrit are stable. We will need to carefully monitor CBC every 6 hours. I would also check fibrinogen level at least daily and give cryoprecipitate if she is actively bleeding. Thank you so very much for the consult. Please call with questions. VS, I&O, 24H, Jme Vital Signs/I&O Vital Signs Date Time Temp Pulse Resp B/P (MAP) Pulse Ox O2 Delivery O2 Flow Rate FiO2 04/23/20 14:25 20 04/23/20 01:47 Room Air 04/22/20 20:00 98.2 69 166/72 (103) 95 04/22/20 19:20 2.0 04/22/20 18:37 96 I&O- Last 24 Hours up to 6 AM 04/23/20 06:00 Intake Total 810 ml Output Total 400 ml Balance 410 ml Laboratory Data 24H LABS Laboratory Tests 2 04/22/20 19:12: Nucleated Red Blood Cells % (auto) 0.0, Immature Platelet Fraction 5.6, Activated Partial Thromboplast Time 42.6H, Fibrinogen 269 04/22/20 19:39: Methicillin-Resist S.aureus DNA PCR NOT DETECTED 04/23/20 12:39: Activated Partial Thromboplast Time 45.6H, Fibrinogen 233, Prothrombin Time 21.2H, Prothromb Time International Ratio 1.86, Anion Gap 13, Glomerular Filtration Rate 33.1L, Calcium Level 8.3L, Phosphorus Level 3.3, Magnesium Level 2.8H, Total Bilirubin 4.2H, Aspartate Amino Transf (AST/SGOT) 74H, Alanine Aminotransferase (ALT/SGPT) 48, Alkaline Phosphatase 537H, Lactate Dehydrogenase 453H, Total Protein 6.2L, Albumin 2.6L, Albumin/Globulin Ratio 0.7 04/23/20 12:40: Nucleated Red Blood Cells % (auto) 0.0 CBC/BMP Laboratory Tests 04/22/20 19:12 04/23/20 12:39 04/23/20 12:40 Microbiology Microbiology 04/23/20 Blood Culture, Received Pending 04/23/20 Blood Culture, Received Pending 04/22/20 Stool Occult Blood (RAY) - Final, Complete 04/21/20 Urine Culture - Final, Complete 04/21/20 Blood Culture - Preliminary, Resulted No Growth after 48 hours. All Specime... 04/21/20 Blood Culture - Preliminary, Resulted FLORIDALMA MOJICA MD April 23, 2020 14:43
--- NOTE | 2020-04-23 14:46 | IPNPDOC ---
Text Note Date of Service The patient was seen on 04/23/20. NOTE Interim events: Had multiple extensive discussions throughout the day with updates with his by phone yesterday who had also spoken with Dr. Welsh( heme/onc) about his poor prognosis due to advanced disease and ongoing DIC with both thromboses and bleeding. Earlier in the day we gave him fibrinogen for the DIC, placed a TLC with the intention to start a heparin gtt without a bolus given the ongoing hematuria and navin hematochezia and had done an CT head that was stable from prior for AMS. 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 Meanwhile one of his admission blood cultures was showing GPCs in clusters while the other remained negative with my suspicion being of contaminant coag negative staph but did empirically add vancomycin to the empiric zosyn, despite him being HDS, afebrile and stable on room air. Dr. Welsh (heme/onc) had also recommended rad onc involvement to try and radiate his bladder tumor to stem the navin hematuria that Dr. Linder in urology had attempted to reduce during the last admission without success despite CBI and cystoscopy. Radiation oncology attempted to consent him for radiation with plan for potential radiation this admission. Given his increased distress however by late afternoon, I had an extensive conversation with his Mrs. Selam Abdul about all our efforts to halt the bleeding and correct the consumptive coagulopathy but that I did not see how we could successfully correct DIC without an acute possible solution to the underlying cause which is most likely his advanced metastatic urothelial CA. She took the time to discuss this with her two sons and a short while later called me back and consented to changing his GOC to comfort measures only. This morning Mr. Abdul is doing much better. Is AOx3, pain is much better controlled, is normotensive, afebrile, and comfortably sitting up in bed visiting with his son. Given the significant clinical improvement, I had another discussion with his son and who was on facetime as well as Mr. Mims himself and they made the collective decision to make him DNR/DNI Subjective: -No pain at this time -Continues to have some hematuria, amaya remains in place -AOx3 Objective: Vitals: breathing comfortably on room air General: Alert, in NAD this morning Eye: EOMI, reactive to light ENT: Dry MM Chest: CTAB Heart: RRR, no mrg Abdomen: Moderate distention, soft, moderate distention Extremities: swollen LE, 2+ pitting edema, TTP calves bilaterally Skin: No skin breakdown or lesions, no noted rashes Neuro: Normal Speech, CN 2-12 appear in tact, moving all extremities Psych: Oriented to self this morning, and sometimes place Laboratory: WBC 17.7 Hgb 10.3 platelets 60 INR 1.86 PTT 45.6 fibrinogen 233 na 141 K 4.4 Cr 2.09 AST 74 ALT 48 Alk phos 537 LDH 435 Microbiology 04/21/20 Blood Culture x 2 - 1 bottle growing GPCs in clusters. Imaging: Noncon head CT: Digital preliminary diet aid radiographs unremarkable. The bony calvarium is intact. There is heavy vascular calcification in the distal internal carotid and distal vertebral arteries. Visualized paranasal sinuses are clear. No intraorbital abnormality is seen. On soft tissue window settings, the lateral, third, and fourth ventricles are normal in position. 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 This is unchanged from comparison CT study February 15, 2018. There is no evidence of acute infarction. No intracranial hemorrhage is seen. Mild diffuse atrophy is noted. No extra- axial fluid collection or mass lesion is seen. LE venous doppler US: Right deep veins: Heterogeneously hypoechoic nearly occlusive to occlusive thrombus in the common femoral, femoral and popliteal veins, as well as the tibioperoneal trunk. Left deep veins: Heterogeneously hypoechoic nearly occlusive to occlusive thrombus in the common femoral, femoral and popliteal veins, as well as the tibioperoneal trunk. Soft tissues: Diffuse subcutaneous edema. Assessment: 75 yo M with a recent diagnosis of metastatic high grade urothelial carcinoma, +supraclavicular LN, urothelial CA cells in ascitic fluid with chronic hematuria with tentative plan for oncology work up for staging, pending PET, who was recently admitted 04/05-04/16 during which most of the above was established, as well as a history of a recent DVT previously on AC c/b GIB, s/p IVF filter, recent diagnosis of left renal infarct, marantic endocarditis, as well as PVD, carotic disease s/p endarterectomy, HTN, HLD, GERD, gout who presented to the ED reporting acute worsening of abdominal pain that he reports to have been present over the last 3 weeks with ongoing painless hematuria with worsening leukocytosis and extensive LE clot burden found to be in DIC with bleeding and thromboses, AMS and worsening pain, briefly made [employer] who is doing better this morning now DNR/DNI. Abdominal and LE pain: Imaging showed moderate ascites, renal hypodensity c/w recent L renal infarct, bladder wall thickening with some bladder wall gas c/f infection, and potential proctitis without obstruction, masses, pneumoperitoneum or navin evidence ischemia, though it was not performed with contrast to definitively query vascular compromise. Has extensive bilateral LE DVTs -continue morphine 2Q2 IV PRN for mild to moderate pain and morphine 4Q4HP for severe pain Metastatic bladder cancer: Cystoscopy was done on 04/13/20, patient was found to have high-grade urothelial carcinoma, infiltrating lamina propria and muscularis propria. Ascitic fluid on 04/13 was positive metastatic urothelial carcinoma, and L clavicular node was positive for malignancy. Was seen by Dr. Ritchie consultation during last admission, was due for outpatient evaluation with Dr. Jimenez and pending PET -c/b navin DIC with thromboses and bleeding, s/p 20units of cryoprecipitate on 04/22 -Consulted heme/onc, appreciate Dr. Blaise sierra -consulted radiation oncology for possible bladder tumor radiation to curb hematuria, appreciate rigo -is still to establish with oncology in the outpatient setting, pending PET -stat MRI brain ordered given the AMS this admission, trying to get it done while he is doing well currently DIC with extensive DVTs, renal infarct and bleeding (hematuria, +FOBT with navin hematochezia) -s/p cryoprecipitate 20u -will cautiously start heparin gtt without bolus -Q6H CBC, fibrinogen, goal Hgb >8 and fibrinogen>100 AMS: on 03/23 had pinpoint pupils, AOx1, in the setting of DIC 2/2 metastatic urothelial bladder CA -Noncon CT head without new findings, showed an old infarct. -getting MRI brain today -Monitor for now Persistent navin hematuria: -Secondary to bladder cancer -Reached out to Dr. Linder, bilateral hydro is mild and stable while there is nothing procedurally he could do to stop the bleeding until tumor is treated. Recommended removal of amaya that may cause further irritation and increased risk for infection. -In speaking with hematology, placed rad-onc consult with Dr. Welsh (heme) discussing with Dr. Fermin an effort to control the bleeding Acute blood loss anemia on chronic anemia: -Multifactorial 2/2 hematuria, hematochezia, hemolysis with DIC -s/p 2 units of blood in the ED and 20u -Discussed with urology, and now consulted radiation oncology, for hematuria -will continue home Fe supplementation -Labs c/w DIC and investigation hemolysis ongoing as well -q6h H/H, while on heparin gtt, fibrinogen q6 with 10u for fibrinogen<100 Ascites -2/2 metastatic bladder carcinoma -Last paracentesis was done on 04/13/20, will consider reaching out to IR for paracentesis for r/o infection/SBP, for now abdominal pain has resolved HFpEF: with some LE edema -will hold off diuresis for now Endocarditis: marantic -Recent TTE showed normal LV size with hyperdynamic LV systolic function and grade 1 diastolic dysfunction. No left ventricular hypertrophy (LVH). Heavily sclerotic aortic valve withvegetation versus calcifications with mild aortic stenosis and mild aortic insufficiency, while ESTEFANI showed vegetation of aortic valve 04/09/20 that was deemed secondary to malignancy with multiple negative blood cultures -follow up 04/20 and 04/22 BCx -For now will give empiric zosyn Left kidney infarct -Most likely secondary to malignant emboli vs arterial clot -Continue to monitor Worsening VINCENT: improving -Most likely multifactorial secondary to left renal infarct, post obstructive nephropathy with bilateral hydro, recent NSAID, allopurinol and dehydration -Also with proteinuria and hematuria with sterile pyuria without UTI -hold NSAIDs, allopurinol, s/p volume resuscitation with fluids and blood products -will dc amaya today and monitor PVRs Q8H and strict I/Os Leukocytosis: improved, after recent antibiotics -C/f UTI given imaging findings of bladder wall thickening with gas, however culture was negative and UA did not have bacteria -1 of the 2 bottles of the 04/21 BCx grew GPCs in clusters. MRSA PCR was negative. -04/21 UCx was negative -restart zosyn -CXR without acute infiltrates or effusions -Will consider IR for paracentesis, for now held off while starting heparin gtt -Consulted ID, appreciate recs -possibly reactive to clots as well, starting heparin gtt Extensive DVTs -Finally decided that we will start heparin gtt this AM with hematology onboard, without bolus given gross hematuria -s/p IVC filter -with ongoing DIC with both thromboses and bleeding, will move to PCU BPH - c/w Tamsulosin and Finasteride Gout -continue holding allopurinol given declining renal function GERD - Restart pantoprazole as IV 40 BID in the setting of ongoing bleeding HTN: -holding home meds. To restart as indicated Dispo: Transfer back to PCU from floor whilel starting heparin gtt in high risk patient in DIC DVT ppx: Starting heparin gtt VS,Fishbone, I+O VS, Fishbone, I+O Laboratory Tests 04/22/20 19:12 Vital Signs Date Time Temp Pulse Resp B/P (MAP) Pulse Ox O2 Delivery O2 Flow Rate FiO2 04/23/20 01:57 18 04/23/20 01:47 Room Air 04/22/20 20:00 98.2 69 166/72 (103) 95 04/22/20 19:20 2.0 04/22/20 18:37 96 I&O- Last 24 Hours up to 6 AM 04/23/20 06:00 Intake Total 810 ml Output Total 400 ml Balance 410 ml HARDY MILLS MD April 23, 2020 08:04
[2020-04-23] MEDS ORDERED: HEPARIN SOD (PORCINE) 5000UNITS/ML VIAL (J1644 PER 1000UNITS) IV PRN (15:00)
[2020-04-23] MEDS ORDERED: VANCOMYCIN HCL 1,000 MG, VIAL MATE ADAPTER 1 EACH in D5W 250 ML IV SCH (15:00)
[2020-04-23] MEDS: PIPERACILLIN/TAZOBACTAM SOD 3.375 GM in D5W MINI-BAG PLUS 50 ML IV SCH ×2 (16:38→20:45)
[2020-04-23 18:30] VITALS: BP_SYST 136
[2020-04-23] MEDS: HEPARIN DRIP 25,000 UNITS in IV 1 EA IV SCH (18:31)
[2020-04-23 18:36] LABS: HEMATOCRIT 31.4 % (42.0-52.0); MEAN CORPUSCULAR HEMOGLOBIN 29.6 pg (27.0-33.0); MEAN CORPUSCULAR HGB CONC 31.8 g/dl (32.0-36.5); MEAN CORPUSCULAR VOLUME 92.9 fl (80.0-96.0); RED BLOOD COUNT 3.38 10^6/uL (4.30-6.10); WHITE BLOOD COUNT 18.8 10^3/uL (4.0-10.0)
[2020-04-23 18:41] LABS: PLATELET COUNT, AUTOMATED 59 10^3/uL (150-450)
[2020-04-23 20:00] VITALS: BP 142/58
[2020-04-23] MEDS: PANTOPRAZOLE 40MG VIAL (C9113 PER 1) IV SCH (20:45)
[2020-04-23] MEDS: FINASTERIDE 5 MG TAB PO SCH (20:46)
[2020-04-23] MEDS: LATANOPROST 0.005% OPHTH SOLN 2.5 ML OU SCH (21:00)
[2020-04-24] VITALS (16 sets, daily range): BP systolic 127–180; BP diastolic 58–75
[2020-04-24] MEDS: PIPERACILLIN/TAZOBACTAM SOD 3.375 GM in D5W MINI-BAG PLUS 50 ML IV SCH ×4 (03:40→20:47)
[2020-04-24] MEDS: MORPHINE 2 MG/ML 1ML VIAL (J2270) IV PRN ×3 (03:40→11:04)
[2020-04-24 05:30] LABS: HEMATOCRIT 31.9 % (42.0-52.0); MEAN CORPUSCULAR HEMOGLOBIN 29.1 pg (27.0-33.0); MEAN CORPUSCULAR HGB CONC 31.3 g/dl (32.0-36.5); MEAN CORPUSCULAR VOLUME 92.7 fl (80.0-96.0); RED BLOOD COUNT 3.44 10^6/uL (4.30-6.10); WHITE BLOOD COUNT 17.6 10^3/uL (4.0-10.0)
[2020-04-24 05:33] LABS: INR 1.87; PLATELET COUNT, AUTOMATED 61 10^3/uL (150-450); PROTHROMBIN TIME 21.3 SECONDS (11.8-14.0)
[2020-04-24 05:34] LABS: PARTIAL THROMBOPLASTIN TIME 43.3 SECONDS (25.0-38.4)
[2020-04-24 05:59] LABS: ALBUMIN 2.6 GM/DL (3.2-5.2); BILIRUBIN,TOTAL 5.7 MG/DL (0.2-1.0); CALCIUM LEVEL 8.4 MG/DL (8.8-10.2); CREATININE FOR GFR 2.37 MG/DL (0.70-1.30); GLOMERULAR FILTRATION RATE 28.6 (>42); POTASSIUM SERUM 4.4 MEQ/L (3.5-5.1); TOTAL PROTEIN 6.3 GM/DL (6.4-8.2)
[2020-04-24] MEDS: TAMSULOSIN 0.4 MG CAP PO SCH ×2 (09:00→20:47)
[2020-04-24] MEDS: PANTOPRAZOLE 40MG VIAL (C9113 PER 1) IV SCH ×2 (09:00→20:46)
[2020-04-24 12:04] LABS: HEMATOCRIT 29.8 % (42.0-52.0); HEMOGLOBIN 9.4 g/dl (13.5-17.5); MEAN CORPUSCULAR HEMOGLOBIN 28.9 pg (27.0-33.0); MEAN CORPUSCULAR HGB CONC 31.5 g/dl (32.0-36.5); MEAN CORPUSCULAR VOLUME 91.7 fl (80.0-96.0); PLATELET COUNT, AUTOMATED 57 10^3/uL (150-450); RED BLOOD COUNT 3.25 10^6/uL (4.30-6.10); WHITE BLOOD COUNT 14.7 10^3/uL (4.0-10.0)
--- NOTE | 2020-04-24 12:57 | IPNPDOC ---
Text Note Date of Service The patient was seen on 04/24/20. NOTE Subjective: -Had significant hematuria overnight and PTT was supratherapeutic so heparin gtt was briefly held, 10u of cryo given, and then heparin gtt was restarted. At this time hematuria persists but H/H was stable this morning so heparin gtt was continued. -Was seen by radiation oncology for bladder tumor radiation yesterday -Tried to get brain MRI c/b hx of LE stents that need to be clarified of the type --> amazing nursing staff got the information from his and he is now getting the MRI this morning. -Unfortunately is in significant pain today requiring more pain medication Objective: Vitals: breathing comfortably on room air General: Alert, in NAD this morning Eye: EOMI, reactive to light ENT: Dry MM Chest: CTAB Heart: RRR, no mrg Abdomen: Normoactive bowel sounds, soft, NTND this morning Extremities: swollen LE, 2+ pitting edema, TTP calves bilaterally Skin: No skin breakdown or lesions, no noted rashes Neuro: Normal Speech, CN 2-12 appear in tact, moving all extremities Psych: AOx3 Laboratory: WBC 17.6 Hgb 10 platelets 61 INR 1.87 PTT 43.3 fibrinogen 331 na 134 K 4.4 Cr 2.37 AST 96 ALT 61 Alk phos 652 haptoglobin 294 Microbiology 04/21/20 Blood Culture x 2 - 1 bottle grew staph epi 04/23 BCx NGTD MRSA negative Imaging: Noncon head CT: Digital preliminary gate operator radiographs unremarkable. The bony calvarium is intact. There is heavy vascular calcification in the distal internal carotid and distal vertebral arteries. Visualized paranasal sinuses are clear. No intraorbital abnormality is seen. On soft tissue window settings, the lateral, third, and fourth ventricles are normal in position. 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 This is unchanged from comparison CT study February 15, 2018. There is no evidence of acute infarction. No intracranial hemorrhage is seen. Mild diffuse atrophy is noted. No extra- axial fluid collection or mass lesion is seen. LE venous doppler US: Right deep veins: Heterogeneously hypoechoic nearly occlusive to occlusive thrombus in the common femoral, femoral and popliteal veins, as well as the tibioperoneal trunk. Left deep veins: Heterogeneously hypoechoic nearly occlusive to occlusive thrombus in the common femoral, femoral and popliteal veins, as well as the tibioperoneal trunk. Soft tissues: Diffuse subcutaneous edema. Assessment: 75 yo M with a recent diagnosis of metastatic high grade urothelial carcinoma, +supraclavicular LN, urothelial CA cells in ascitic fluid with chronic hematuria with tentative plan for oncology work up for staging, pending PET, who was recently admitted 04/05-04/16 during which most of the above was established, as well as a history of a recent DVT previously on AC c/b GIB, s/p IVF filter, recent diagnosis of left renal infarct, marantic endocarditis, as well as PVD, carotic disease s/p endarterectomy, HTN, HLD, GERD, gout who presented to the ED reporting acute worsening of abdominal pain that he reports to have been present over the last 3 weeks with ongoing painless hematuria with worsening leukocytosis and extensive LE clot burden found to be in DIC with bleeding and thromboses, with course c/b AMS and worsening pain now clinically improved currently on a heparin gtt and radon evaluating for bladder tumor radiation. Abdominal and LE pain: Imaging showed moderate ascites, renal hypodensity c/w recent L renal infarct, bladder wall thickening with some bladder wall gas c/f infection, and potential proctitis without obstruction, masses, pneumoperitoneum or navin evidence ischemia, though it was not performed with contrast to definitively query vascular compromise. Has extensive bilateral LE DVTs -continue morphine 2Q2 IV PRN for mild to moderate pain and morphine 4Q4HP for severe pain Metastatic bladder cancer: Cystoscopy was done on 04/13/20, patient was found to have high-grade urothelial carcinoma, infiltrating lamina propria and muscularis propria. Ascitic fluid on 04/13 was positive metastatic urothelial carcinoma, and L clavicular node was positive for malignancy. Was seen by Dr. Ritchie consultation during last admission, was due for outpatient evaluation with Dr. Jimenez and pending PET -c/b navin DIC with thromboses and bleeding, s/p 30units of cryoprecipitate to date -Consulted heme/onc, appreciate Dr. Blaise sierra -consulted radiation oncology for possible bladder tumor radiation to curb hematuria, appreciate recs -is still to establish with oncology in the outpatient setting, pending PET -f/u MRI brain DIC with extensive DVTs, renal infarct and bleeding (hematuria, +FOBT with navin hematochezia) -s/p cryoprecipitate 30u to date -currently on a heparin gtt for thromboses -Q6H CBC, fibrinogen, goal Hgb >8 and fibrinogen>100 AMS: on 03/23 had pinpoint pupils, AOx1, in the setting of DIC 2/2 metastatic urothelial bladder CA. Resolved at this time. -Noncon CT head without new findings, showed an old infarct. -getting MRI brain now -Monitor for now Persistent navin hematuria: -Secondary to bladder cancer -Reached out to Dr. Linder, bilateral hydro is mild and stable and there is nothing procedurally he could do to stop the bleeding until tumor is treated. Recommended removal of amaya that may cause further irritation and increased risk for infection, to only consider if he has obstructive symptoms. -Under evaluation by rad-onc for bladder tumor radiation in an effort to control the bleeding Acute blood loss anemia on chronic anemia: -Multifactorial 2/2 hematuria, hematochezia, in DIC -s/p 2 units of blood in the ED and 30u of fibrinogen to date -Discussed with urology, and now consulted radiation oncology, for hematuria -will continue home Fe supplementation -q6h H/H, while on heparin gtt, fibrinogen q6 with 10u for fibrinogen<100 or if navin worsening of bleeding Ascites -2/2 metastatic bladder carcinoma -Last paracentesis was done on 04/13/20, will consider reaching out to IR for paracentesis for r/o infection/SBP, for now abdominal pain has resolved and exam improved HFpEF: with some LE edema -will hold off diuresis for now Endocarditis: marantic -Recent TTE showed normal LV size with hyperdynamic LV systolic function and grade 1 diastolic dysfunction. No left ventricular hypertrophy (LVH). Heavily sclerotic aortic valve withvegetation versus calcifications with mild aortic stenosis and mild aortic insufficiency, while ESTEFANI showed vegetation of aortic valve 04/09/20 that was deemed secondary to malignancy with multiple negative blood cultures at that time. -04/21 Bcx with 1 bottle growing staph epi, likely contaminant of skin rosenda, repeated BCx on 04/23 NGTD, MRSA negative, on empiric zosyn Left kidney infarct -Most likely secondary to malignant emboli vs thromboses -Continue to monitor Worsening VINCENT: -Most likely multifactorial secondary to left renal infarct, post obstructive ne phropathy with bilateral hydro, recent NSAID, allopurinol and dehydration -Also with proteinuria and hematuria with sterile pyuria without UTI -hold NSAIDs, allopurinol, s/p volume resuscitation with fluids and blood products -continue to monitor PVRs Q8H and strict I/Os given ongoing hematuria Leukocytosis: -C/f UTI given imaging findings of bladder wall thickening with gas, however culture was negative and UA did not have bacteria, continue empiric zosyn -1 of the 2 bottles of the 04/21 BCx grew staph epi, though I suspect skin rosenda contamination. MRSA PCR was negative. Will continue zosyn for now -04/23 BCx NGTSD -CXR without acute infiltrates or effusions -Will consider IR for paracentesis, for now held off -Consulted ID, appreciate recs, recommended zosyn for possible UTI -possibly reactive to clots as well, on heparin gtt Extensive DVTs -On heparin gtt per hematology recs, c/b persistent hematuria, monitoring closely -s/p IVC filter -with ongoing DIC with both thromboses and bleeding BPH - c/w Tamsulosin and Finasteride Gout -continue holding allopurinol given declining renal function GERD - pantoprazole IV 40 BID in the setting of ongoing bleeding, with some episodes of hematochezia HTN: -holding home meds. To restart as indicated Dispo: PCU. My ambitious goal this admission is to try to have some reduction in the hematuria with radiation oncology's help to give enough room to safely anticoagulate him for home discharge. For now on heparin gtt with plan to tr ansition to a NoAC. As for the DIC, he has required some cryo, but hope that it may be low grade enough to land in oncology clinic to start treatment, because the only definitive treatment for his DIC will be to treat the underlying cause which is his malignancy. DVT ppx: heparin gtt VS,Fishbone, I+O VS, Fishbone, I+O Laboratory Tests 04/23/20 12:39 04/23/20 12:40 04/23/20 17:43 04/24/20 05:14 Vital Signs Date Time Temp Pulse Resp B/P (MAP) Pulse Ox O2 Delivery O2 Flow Rate FiO2 04/24/20 04:20 97.3 74 18 144/67 (92) 92 Room Air 04/22/20 19:20 2.0 04/22/20 18:37 96 I&O- Last 24 Hours up to 6 AM 04/24/20 06:00 Intake Total 220 ml Output Total 0 ml Balance 220 ml HARDY MILLS MD April 24, 2020 08:09
[2020-04-24 13:16] LABS: PARTIAL THROMBOPLASTIN TIME 215.1 SECONDS (25.0-38.4)
--- NOTE | 2020-04-24 13:42 | IPNPDOC ---
Date Seen The patient was seen on 04/24/20. Progress Note 1. Metastatic urothelial carcinoma -CT abdomen/pelvis with contrast, 04/05/20: The liver has a nodule or contour which can be seen with cirrhosis. No liver masses seen. No splenomegaly is noted. There is a large wedge-shaped region of low attenuation in the left kidney compatible with left renal infarct. Mild bilateral hydronephrosis noted. There is thickening of the wall of the stomach concerning for gastritis. There is a small amount of ascites in the abdomen and pelvis. Inferior vena cava filter is in place. There is severe thickening of the wall of the urinary bladder. The prostate gland is enlarged. -CT chest without contrast, 04/07/20: Left lung airspace opacities suspicious for pneumonia noted. Ascites of uncertain etiology. -Left supraclavicular lymph node, FNA, 04/08/20: Metastatic carcinoma with minimal lymphoid cells noted. Tumor cells are positive for TTF-1 (weak), CK 7, CK 20 and APURVA-3. -Transurethral resection, 04/14/20: Pathology showed high-grade urothelial carcinoma, infiltrating lamina propria and muscularis propria. Malignant cells are positive for CK 7, CK 20, p63, and APURVA-3. Ascitic fluid also shows metastatic urothelial carcinoma. 2. Bilateral lower extremity edema, initially right lower extremity DVT - The patient developed swelling and pain in the right lower extremity in February,. Doppler blood flow studies performed at [facility] documented deep venous thrombosis. He was placed on an oral anti-XA inhibitor as anticoagulation consisting of xarelto. He was also on Plavix given arteriosclerotic disease. - In late February, the patient developed hematochezia one week after starting Xarelto. He presented to [facility] emergency Department on 03/23/20 with lower gastrointestinal tract hemorrhage. -The patient was taken off Xarelto and an inferior vena cava filter was placed. -The patient developed gross hematuria during hospitalization on 04/05/20. Anticoagulation was thus discontinued. -Ultrasound, bilateral lower extremity, 04/21/20: Extensive bilateral lower extremity deep venous thrombosis. Left lower extremity now with hypoechoic nearly occlusive to occlusive thrombus in the common femoral, femoral, and popliteal veins as well as tibioperoneal trunk. 3. DIC SUBJECTIVE: Patient is a 75-year-old male with metastatic urothelial carcinoma, DIC, and bilateral lower extremity thrombosis. The patient was transferred to the PCU yesterday. He appears to be more confused. He is grimacing in pain. He is alone at the bedside. He is not sure why he was transferred to the PCU. Review of the chart shows that the patient had significant hematuria overnight and PTT was supratherapeutic so the heparin drip was briefly placed on hold. The patient received an additional 10 units of cryoprecipitate. The heparin drip was then restarted. Hematuria persists but hemoglobin and hematocrit remain stable so heparin drip was discontinued. OBJECTIVE PHYSICAL EXAMINATION: VITAL SIGNS: Please see below. GENERAL APPEARANCE: [Elderly male sitting in bed, ECOG performance status 2]. HEENT: [Very mild petechiae and buccal mucosa otherwise moist mucous membranes]. RESPIRATORY: [Coarse breath sounds throughout with expiratory wheezes noted, no increased work of breathing]. CARDIOVASCULAR: [Regular rate and rhythm with normal S1 and S2]. ABDOMEN: [Distended with positive fluid wave. No tenderness to palpation. Normoactive bowel sounds]. EXTREMITIES: [Bilateral 2-3+ lower extremity edema]. NEUROLOGICAL: [Alert and oriented to person, not place (he thinks he is in [place]) or time (he thinks it's 2020)]. LABORATORY DATA, IMAGING STUDIES, MICROBIOLOGY: Please see below. ASSESSMENT AND PLAN: Mr. Abdul is a 75-year-old male with: PROBLEMS: 1. DIC: Review of laboratory data does show that the patient did not have thrombocytopenia in late February, prior to development of deep venous thrombosis. He has since had a worsening thrombocytopenia. PT and PTT are prolonged with low fibrinogen level. This is concerning for DIC which can be seen with some mucinous carcinomas. The patient received 20 units of cryoprecipitate earlier this week and received an additional 10 units of cryoprecipitate yesterday evening when PTT was supratherapeutic. Additional lab studies were ordered including PT and PTT mixing study, factor X level, factor XI level, and factor XIII level to evaluate bleeding diathesis. Unfortunately, these are either pending or were canceled by the lab. This will make diagnosis of what is going on very difficult. I have talked to the lab and hopefully they will run these tests. I have reordered PT and PTT mixing studies as these were canceled by the lab. I recommend checking a fibrinogen level at least daily and continuing to give cryoprecipitate to maintain fibrinogen level greater than 100 if he is continuing to bleed. Patient is also noted to have an elevated direct bilirubin. Recent CT scan of the abdomen and pelvis did show concern of nodular appearance of the liver with possible cirrhosis. This could also be leading to coagulopathy. 2. Metastatic urothelial carcinoma: The patient will require outpatient PET CT scan prior to discussion of further therapy. Additional studies need to be checked such as PDL 1 to evaluate for immunotherapy. The patient continues to have quite a bit of hematuria due to bladder cancer. I have discussed the case with Dr. Fermin of radiation oncology to see if palliative radiation therapy may help ease bleeding. Dr. Fermin saw the patient but he was made comfort care at that time. I did notify Dr. Fermin that the patient is doing better currently. I spoke to pathology and PDL 1 has been checked to see if the patient would be a candidate for immunotherapy. 3. Bilateral lower extremity edema, initially right lower extremity DVT: The patient is currently on continuous heparin infusion for extensive bilateral lower extremity DVT. I do think that he needs anticoagulation given DIC and worsening bilateral lower extremity edema. I have discussed with the patient's that he is at risk of further bleeding while on anticoagulation. 4. Normocytic anemia secondary to acute blood loss and anemia of chronic disease: He is at risk for hematuria given bladder cancer. He also has been having bright red blood per rectum. CBC with need to be carefully monitored every 6 hours. I recommended transfusion of packed red blood cells for hemoglobin less than 8. DISPOSITION: The patient remains critically ill. The case was discussed with the patient's in person yesterday. Our goal is to help treat him with anticoagulation while stopping hematuria. Our best hope to stop hematuria with likely be palliative radiation therapy. Then consideration could be made for outpatient treatment for his metastatic bladder cancer. PDL 1 is pending to see if the patient would be a candidate for immunotherapy. Thank you so very much for the consult. Please call with questions over the weekend. VS, I&O, 24H, Fishbone Vital Signs/I&O Vital Signs Date Time Temp Pulse Resp B/P (MAP) Pulse Ox O2 Delivery O2 Flow Rate FiO2 04/24/20 12:00 98.5 77 20 178/58 (98) 93 Room Air 04/22/20 19:20 2.0 5/27/20 18:37 96 I&O- Last 24 Hours up to 6 AM 04/24/20 05:59 Intake Total 220 ml Output Total 400 ml Balance -180 ml Laboratory Data 24H LABS Laboratory Tests 2 04/23/20 17:43: Nucleated Red Blood Cells % (auto) 0.0, Fibrinogen 200L 04/23/20 21:05: Activated Partial Thromboplast Time 185.6*H 04/24/20 05:14: Nucleated Red Blood Cells % (auto) 0.0, Fibrinogen 331, Activated Partial Thromboplast Time 43.3H, Immature Platelet Fraction 6.4, Prothrombin Time 21.3H, Prothromb Time International Ratio 1.87, Anion Gap 10, Glomerular Filtration Rate 28.6L, Calcium Level 8.4L, Total Bilirubin 5.7H, Aspartate Amino Transf (AST/SGOT) 96H, Alanine Aminotransferase (ALT/SGPT) 61, Alkaline Phosphatase 652H, Total Protein 6.3L, Albumin 2.6L, Albumin/Globulin Ratio 0.7 04/24/20 11:52: Nucleated Red Blood Cells % (auto) 0.0, Fibrinogen 290, Activated Partial Thromboplast Time 215.1*H CBC/BMP Laboratory Tests 04/23/20 17:43 04/24/20 05:14 04/24/20 11:52 Microbiology Microbiology 04/23/20 Blood Culture, Received Pending 04/23/20 Blood Culture - Preliminary, Resulted No growth after 24 hours . All specim... 04/22/20 Stool Occult Blood (RAY) - Final, Complete 04/21/20 Urine Culture - Final, Complete 04/21/20 Blood Culture - Preliminary, Resulted No Growth after 72 hours. All specime... 04/21/20 Blood Culture - Final, Complete Staphylococcus Epidermidis FLORIDALMA MOJICA MD April 24, 2020 13:42
[2020-04-24] MEDS: MORPHINE 4 MG/ML 1ML VIAL/SYRINGE (J2270) IV PRN (13:53)
[2020-04-24 16:35] LABS: PROTHROMBIN TIME 21.1 SECONDS (11.8-14.0)
[2020-04-24] MEDS: FINASTERIDE 5 MG TAB PO SCH (20:46)
[2020-04-24] MEDS: LATANOPROST 0.005% OPHTH SOLN 2.5 ML OU SCH (20:47)
[2020-04-25] VITALS (7 sets, daily range): BP systolic 135–180; BP diastolic 60–78
[2020-04-25] MEDS: PIPERACILLIN/TAZOBACTAM SOD 3.375 GM in D5W MINI-BAG PLUS 50 ML IV SCH ×2 (02:51→08:19)
[2020-04-25] MEDS: ACETAMINOPHEN TAB 650MG DOSE (2X325MG) PO PRN ×5 (03:36→23:13)
[2020-04-25] MEDS: MORPHINE 2 MG/ML 1ML VIAL (J2270) IV PRN (05:02)
[2020-04-25 05:35] LABS: HEMATOCRIT 29.4 % (42.0-52.0); HEMOGLOBIN 9.6 g/dl (13.5-17.5); MEAN CORPUSCULAR HEMOGLOBIN 29.7 pg (27.0-33.0); MEAN CORPUSCULAR HGB CONC 32.7 g/dl (32.0-36.5); RED BLOOD COUNT 3.23 10^6/uL (4.30-6.10); WHITE BLOOD COUNT 14.6 10^3/uL (4.0-10.0)
[2020-04-25 05:38] LABS: PLATELET COUNT, AUTOMATED 59 10^3/uL (150-450)
[2020-04-25 05:49] LABS: INR 2.05; PROTHROMBIN TIME 22.9 SECONDS (11.8-14.0)
[2020-04-25 05:55] LABS: ALBUMIN 2.2 GM/DL (3.2-5.2); BILIRUBIN,TOTAL 7.9 MG/DL (0.2-1.0); CALCIUM LEVEL 8.2 MG/DL (8.8-10.2); CREATININE FOR GFR 2.41 MG/DL (0.70-1.30); GLOMERULAR FILTRATION RATE 28.1 (>42); TOTAL PROTEIN 6.1 GM/DL (6.4-8.2)
[2020-04-25] MEDS: HEPARIN DRIP 25,000 UNITS in IV 1 EA IV SCH (07:45)
[2020-04-25] MEDS: PANTOPRAZOLE 40MG VIAL (C9113 PER 1) IV SCH ×2 (08:19→20:44)
[2020-04-25] MEDS: TAMSULOSIN 0.4 MG CAP PO SCH ×2 (08:19→20:44)
[2020-04-25 08:44] LABS: PT 1:2 SUBSTITUTION 15.5 SECONDS
[2020-04-25 08:47] LABS: APTT 1:2 SUBSTITUTION 106.8 SECONDS
[2020-04-25] MEDS ORDERED: hydroCHLOROthiazide 12.5 MG CAPSULE PO SCH (09:00)
--- NOTE | 2020-04-25 11:37 | IPNPDOC ---
Text Note Date of Service The patient was seen on 04/25/20. NOTE Subjective: -Has significant abdominal and LE pain this morning, however, declined morphine and preferred to take the tylenol thus far -Had radiation to his bladder yesterday. -Per nursing, urine a dark straw color -MRI was not done yesterday, he reports that it was too uncomfortable Objective: Vitals: HDS, hypertensive to SBP 180s, afebrile General: Alert, in NAD this morning Eye: EOMI, reactive to light ENT: Dry MM Chest: CTAB Heart: RRR, no mrg Abdomen: Hypoactive bowel sounds, soft, TTP diffusely, no guarding or rigidity Extremities: swollen LE, 3+ pitting edema, TTP calves and thighs bilaterally Skin: No skin breakdown or lesions, no noted rashes Neuro: Normal Speech, CN 2-12 appear in tact, moving all extremities Psych: AOx3 Laboratory: WBC 14.6 Hgb 9.6 platelets 59 INR 1.87 PTT 181 na 140 K 4.0 Cr 2.41 AST 121 ALT 91 Alk phos 771 Microbiology 04/21/20 Blood Culture x 2 - 1 bottle grew staph epi 04/23 BCx NGTD MRSA PCR negative Imaging: Noncon head CT: Digital preliminary continuous 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 The bony calvarium is intact. There is heavy vascular calcification in the distal internal carotid and distal vertebral arteries. Visualized paranasal sinuses are clear. No intraorbital abnormality is seen. On soft tissue window settings, the lateral, third, and fourth ventricles are normal in position. 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 This is unchanged from compar becki CT study February 15, 2018. There is no evidence of acute infarction. No intracranial hemorrhage is seen. Mild diffuse atrophy is noted. No extra-axial fluid collection or mass lesion is seen. LE venous doppler US: Right deep veins: Heterogeneously hypoechoic nearly occlusive to occlusive throm bus in the common femoral, femoral and popliteal veins, as well as the tibioperoneal trunk. Left deep veins: Heterogeneously hypoechoic nearly occlusive to occlusive thrombus in the common femoral, femoral and popliteal veins, as well as the tibioperoneal trunk. Soft tissues: Diffuse subcutaneous edema. Assessment: 75 yo M with a recent diagnosis of metastatic high grade urothelial carcinoma, +supraclavicular LN, urothelial CA cells in ascitic fluid with chronic hematuria with tentative plan for oncology work up for staging, pending PET, who was recently admitted 04/05-04/16 during which most of the above was established, as well as a history of a recent DVT previously on AC c/b GIB, s/p IVF filter, recent diagnosis of left renal infarct, marantic endocarditis, as well as PVD, carotic disease s/p endarterectomy, HTN, HLD, GERD, gout who presented to the ED reporting acute worsening of abdominal pain that he reports to have been present over the last 3 weeks with ongoing painless hematuria with worsening leukocytosis and extensive LE clot burden found to be in DIC with bleeding and thromboses, with course c/b AMS and worsening pain now clinically improved currently on a heparin gtt and [facility] evaluating for bladder tumor radiation. Abdominal and LE pain: Imaging showed moderate ascites, renal hypodensity c/w recent L renal infarct, bladder wall thickening with some bladder wall gas c/f infection, and potential proctitis without obstruction, masses, pneumoperitoneum or navin evidence ischemia, though it was not performed with contrast to definitively query vascular compromise. Has extensive bilateral LE DVTs -continue tylenol PRN for mild pain, morphine 2Q2 IV PRN for mild to moderate pain and morphine 4Q4HP for severe pain Metastatic bladder cancer: Cystoscopy was done on 04/13/20, patient was found to have high-grade urothelial carcinoma, infiltrating lamina propria and muscularis propria. Ascitic fluid on 04/13 was positive metastatic urothelial carcinoma, and L clavicular node was positive for malignancy. Was seen by Dr. Ritchie consultation during last admission, was due for outpatient evaluation with Dr. Jimenez and pending PET -c/b navin DIC with thromboses and bleeding, s/p 30units of cryoprecipitate to date -Consulted heme/onc, appreciate Dr. Blaise sierra -consulted radiation oncology s/p bladder tumor radiation to curb hematuria, appreciate recs -is still to establish with oncology in the outpatient setting, pending PET -tried to get MRI brain but was too uncomfortable and declined DIC with extensive DVTs, renal infarct and bleeding (hematuria, +FOBT with navin hematochezia) -s/p cryoprecipitate 30u to date -currently on a heparin gtt for thromboses -Q6H CBC, daily fibrinogen, goal Hgb >8 and fibrinogen>100 AMS: on 03/23 had pinpoint pupils, AOx1, in the setting of DIC 2/2 metastatic urothelial bladder CA. Improved at this time. -Noncon CT head without new findings, showed an old infarct. -MRI brain deferred as patient did not tolerate -Monitor for now Persistent navin hematuria: -Secondary to bladder cancer -Reached out to Dr. Linder, bilateral hydro is mild and stable and there is nothing procedurally he could do to stop the bleeding until tumor is treated. Recommended removal of amaya that may cause further irritation and increased risk for infection, to only consider if he has obstructive symptoms. -s/p radiation by rad-onc for bladder tumor radiation in an effort to control the bleeding Acute blood loss anemia on chronic anemia: -Multifactorial 2/2 hematuria, hematochezia, in DIC -s/p 2 units of blood in the ED and 30u of fibrinogen to date -Discussed with urology, and now consulted radiation oncology and s/p bladder tumor radiation for hematuria -will continue home Fe supplementation -q6h H/H, while on heparin gtt, fibrinogen daily with 10u for fibrinogen<100 or if navin worsening of bleeding Ascites -2/2 metastatic bladder carcinoma -Last paracentesis was done on 04/13/20, will defer paracentesis at this time with ongoing anticoagulation acute on chronic HFpEF: with massive LE edema -lasix 40 IV Endocarditis: marantic -Recent TTE showed normal LV size with hyperdynamic LV systolic function and grade 1 diastolic dysfunction. No left ventricular hypertrophy (LVH). Heavily sclerotic aortic valve with vegetation versus calcifications with mild aortic stenosis and mild aortic insufficiency, while ESTEFANI showed vegetation of aortic valve 04/09/20 that was deemed secondary to malignancy with multiple negative blood cultures at that time. -04/21 Bcx with 1 bottle growing staph epi, likely contaminant of skin rosenda, repeated BCx on 04/23 NGTD, MRSA negative, will DC empiric zosyn at this time. Either way adequately treated a possible UTI. Left kidney infarct -Most likely secondary to malignant emboli vs thromboses -Continue to monitor Worsening VINCENT: -Most likely multifactorial secondary to left renal infarct, post obstructive nephropathy with bilateral hydro, recent NSAID, allopurinol and dehydration -Also with proteinuria and hematuria with sterile pyuria without UTI -hold NSAIDs, allopurinol, s/p volume resuscitation with fluids and blood products -continue to monitor PVRs Q8H and strict I/Os given ongoing hematuria Leukocytosis: -C/f UTI given imaging findings of bladder wall thickening with gas, however culture was negative and UA did not have bacteria, continue empiric zosyn -1 of the 2 bottles of the 04/21 BCx grew staph epi, though I suspect skin rosenda contamination. MRSA PCR was negative. -04/23 BCx NGTSD -CXR without acute infiltrates or effusions -Will consider IR for paracentesis, for now held off while on heparin gtt and coagulopathy -Consulted ID, appreciate recs, will DC zosyn at this time -possibly reactive to clots as well, on heparin gtt Extensive DVTs -On heparin gtt per hematology recs, c/b persistent hematuria, monitoring closely -s/p IVC filter -with ongoing DIC with both thromboses and bleeding BPH - c/w Tamsulosin and Finasteride Gout -continue holding allopurinol given declining renal function GERD - pantoprazole IV 40 BID in the setting of ongoing bleeding, with some episodes of hematochezia HTN: -Will restart HCTZ tomorrow morning. Today giving IV lasix Dispo: PCU. My ambitious goal this admission is to try to have some reduction in the hematuria with radiation oncology's help to give enough room to safely anticoagulate him for home discharge. For now on heparin gtt with plan to transition to a NoAC. As for the DIC, he has required some cryo, but hope that it may be low grade enough to land in oncology clinic to start treatment, because the only definitive treatment for his DIC will be to treat the underlying cause which is his malignancy. DVT ppx: heparin gtt VS,Fishbone, I+O VS, Fishbone, I+O Laboratory Tests 04/24/20 11:52 04/25/20 05:01 Vital Signs Date Time Temp Pulse Resp B/P (MAP) Pulse Ox O2 Delivery O2 Flow Rate FiO2 04/25/20 08:00 97.0 74 18 179/72 (107) 96 Room Air 04/22/20 19:20 2.0 04/22/20 18:37 96 I&O- Last 24 Hours up to 6 AM 04/25/20 05:59 Intake Total 280 ml Output Total 300 ml Balance -20 ml KUPAKUWANA-SUKHJINDER,HARDY V. MD April 25, 2020 11:37
[2020-04-25] MEDS ORDERED: FUROSEMIDE 40MG/4ML VIAL (J1940) IV ONE (12:00)
[2020-04-25] MEDS ORDERED: SODIUM CHLORIDE 0.9% INJ 10 ML SYR IV PRN (13:00)
[2020-04-25] MEDS: SODIUM CHLORIDE 0.9% INJ 10 ML SYR IV SCH ×2 (13:19→20:45)
[2020-04-25] MEDS: FINASTERIDE 5 MG TAB PO SCH (20:44)
[2020-04-25] MEDS: LATANOPROST 0.005% OPHTH SOLN 2.5 ML OU SCH (20:44)
[2020-04-25] MEDS: oxyBUTYnin 5 MG TAB PO PRN (23:13)
[2020-04-26] VITALS (16 sets, daily range): BP systolic 100–190; BP diastolic 48–78; O2SAT 91–94
[2020-04-26 04:28] LABS: HEMATOCRIT 30.5 % (42.0-52.0); HEMOGLOBIN 9.8 g/dl (13.5-17.5); MEAN CORPUSCULAR HEMOGLOBIN 28.7 pg (27.0-33.0); MEAN CORPUSCULAR HGB CONC 32.1 g/dl (32.0-36.5); MEAN CORPUSCULAR VOLUME 89.4 fl (80.0-96.0); RED BLOOD COUNT 3.41 10^6/uL (4.30-6.10); WHITE BLOOD COUNT 15.5 10^3/uL (4.0-10.0)
[2020-04-26 04:29] LABS: PLATELET COUNT, AUTOMATED 91 10^3/uL (150-450)
[2020-04-26 04:38] LABS: INR 2.03; PROTHROMBIN TIME 22.7 SECONDS (11.8-14.0)
[2020-04-26 04:40] LABS: PARTIAL THROMBOPLASTIN TIME 97.8 SECONDS (25.0-38.4)
[2020-04-26 04:48] LABS: ALBUMIN 2.2 GM/DL (3.2-5.2); BILIRUBIN,TOTAL 8.2 MG/DL (0.2-1.0); CALCIUM LEVEL 8.4 MG/DL (8.8-10.2); CREATININE FOR GFR 2.58 MG/DL (0.70-1.30); POTASSIUM SERUM 3.8 MEQ/L (3.5-5.1); TOTAL PROTEIN 6.3 GM/DL (6.4-8.2)
[2020-04-26] MEDS: SODIUM CHLORIDE 0.9% INJ 10 ML SYR IV SCH ×3 (05:07→21:21)
[2020-04-26] MEDS: ACETAMINOPHEN TAB 650MG DOSE (2X325MG) PO PRN (05:07)
[2020-04-26] MEDS: MORPHINE 2 MG/ML 1ML VIAL (J2270) IV PRN (05:34)
[2020-04-26] MEDS: TAMSULOSIN 0.4 MG CAP PO SCH ×2 (08:00→21:20)
[2020-04-26] MEDS: PANTOPRAZOLE 40MG VIAL (C9113 PER 1) IV SCH ×2 (08:00→21:20)
[2020-04-26] MEDS: hydroCHLOROthiazide 12.5 MG CAPSULE PO SCH (08:00)
[2020-04-26] MEDS: MORPHINE 4 MG/ML 1ML VIAL/SYRINGE (J2270) IV PRN ×2 (09:45→21:22)
[2020-04-26] MEDS: oxyBUTYnin 5 MG TAB PO PRN (11:00)
--- NOTE | 2020-04-26 11:57 | IPNPDOC ---
Text Note Date of Service The patient was seen on 04/26/20. NOTE Subjective: -Has significant worsening abdominal this morning -Continues to have stable hematuria Objective: Vitals: HDS, hypertensive to SBP 180s, afebrile General: Alert, in NAD this morning Eye: EOMI, reactive to light ENT: Dry MM Chest: CTAB Heart: RRR, no mrg Abdomen: Hypoactive bowel sounds, new massive splenomegaly? severe ttp on left side, no rebound, no guarding Extremities: swollen LE, 3+ pitting edema to thighs, TTP calves and thighs bilaterally Skin: No skin breakdown or lesions, no noted rashes Neuro: Normal Speech, CN 2-12 appear in tact, moving all extremities Psych: AOx3 Laboratory: WBC 15.5 Hgb 9.8 platelets 91 INR 2.03 PTT 93.2 na 138 K 3.8 Cr 2.58 Fibrinogen 449 Microbiology 04/21/20 Blood Culture x 2 - 1 bottle grew staph epi 04/23 BCx NGTD MRSA PCR negative Imaging: Noncon head CT: Digital preliminary dye house hand radiographs unremarkable. The bony calvarium is intact. There is heavy vascular calcification in the distal internal carotid and distal vertebral arteries. Visualized paranasal sinuses are clear. No intraorbital abnormality is seen. On soft tissue window settings, the lateral, third, and fourth ventricles are normal in position. 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 This is unchanged from comparison CT study February 15, 2018. There is no evidence of acute infarction. No intracranial hemorrhage is seen. Mild diffuse atrophy is noted. No extra- axial fluid collection or mass lesion is seen. LE venous doppler US: Right deep veins: Heterogeneously hypoechoic nearly occlusive to occlusive thrombus in the common femoral, femoral and popliteal veins, as well as the tibioperoneal trunk. Left deep veins: Heterogeneously hypoechoic nearly occlusive to occlusive thrombus in the common femoral, femoral and popliteal veins, as well as the tibioperoneal trunk. Soft tissues: Diffuse subcutaneous edema. Assessment: 75 yo M with a recent diagnosis of metastatic high grade urothelial carcinoma, +supraclavicular LN, urothelial CA cells in ascitic fluid with chronic hematuria with tentative plan for oncology work up for staging, pending PET, who was r ecently admitted 04/05-04/16 during which most of the above was established, as well as a history of a recent DVT previously on xarelto c/b GIB, s/p IVF filter, recent diagnosis of left renal infarct, marantic endocarditis, as well as a history of PVD, carotic disease s/p endarterectomy, HTN, HLD, GERD, gout who presented to the ED reporting acute worsening of abdominal pain that he reports to have been present over the last 3 weeks with ongoing painless hematuria with worsening leukocytosis and extensive LE clot burden found to be in DIC with bleeding and thromboses, with course c/b waxing and waning AMS and now worsening abdominal pain with noted new massive splenomegaly? with pending CT A/P while on heparin gtt. Abdominal and LE pain: Now acutely worsening with noted exam change of what appears to be massive painful splenomegaly c/f clot. Admission dry CT A/P showed moderate ascites, renal hypodensity c/w recent L renal infarct, bladder wall thickening with some bladder wall gas c/f infection, and potential proctitis without obstruction, masses, pneumoperitoneum or navin evidence ischemia, though it was not performed with contrast to definitively query vascular compromise. Has extensive bilateral LE DVTs -continue tylenol PRN for mild pain, morphine 2Q2 IV PRN for mild to moderate pain and morphine 4Q4HP for severe pain. May have to escalate to dilaudid until adequate pain control -CT A/P given worsening pain and exam changes -I suspect that Mr. Abdul has at minimum some mesenteric insufficiency and given the exam changes may have a significant splenic venous congestion from downstream portal thrombosis vs. bleed with hematoma given recent DIC. Metastatic bladder cancer: Cystoscopy was done on 04/13/20, patient was found to have high-grade urothelial carcinoma, infiltrating lamina propria and muscularis propria. Ascitic fluid on 04/13 was positive metastatic urothelial carcinoma, and L clavicular node was positive for malignancy. Was seen by Dr. Ritchie consult ation during last admission, was due for outpatient evaluation with Dr. Jimenez and pending PET -c/b navin DIC with thromboses and bleeding, s/p 30units of cryoprecipitate to date. Fibrinogen now normalized and improving, will continue to monitor daily -Consulted heme/onc, appreciate Dr. Blaise sierra -consulted radiation oncology s/p bladder tumor radiation to curb hematuria, appreciate recs -is still to establish with oncology in the outpatient setting, pending PET -tried to get MRI brain but was too uncomfortable and declined DIC with extensive DVTs, renal infarct and bleeding (hematuria, +FOBT with navin hematochezia), now with what appears to be massive splenomegaly -s/p cryoprecipitate 30u to date -currently on a heparin gtt for thromboses -Daily CBC, daily fibrinogen, goal Hgb >8 and fibrinogen>100 -CT A/P for abdominal exam changes and worsening pain AMS: on 03/23 had pinpoint pupils, AOx1, in the setting of DIC 2/2 metastatic urothelial bladder CA. Improved at this time. -Noncon CT head without new findings, showed an old infarct. -MRI brain deferred as patient did not tolerate -Monitor for now Persistent navin hematuria: stable with stable H/H post bladder tumor radiation. -Secondary to bladder cancer -Reached out to Dr. Linder, bilateral hydro is mild and stable and there is nothing procedurally he could do to stop the bleeding until tumor is treated. Recommended removal of amaya that may cause further irritation and increased risk for infection, to only consider if he has obstructive symptoms. -s/p radiation by rad-onc for bladder tumor radiation in an effort to control the bleeding -Daily CBC Acute blood loss anemia on chronic anemia: -Multifactorial 2/2 hematuria, hematochezia, in DIC -s/p 2 units of blood in the ED and 30u of fibrinogen to date -Discussed with urology, and now consulted radiation oncology and s/p bladder tumor radiation for hematuria -will continue home Fe supplementation -Daily H/H, while on heparin gtt, fibrinogen daily with 10u for fibrinogen<100 or if worsening of bleeding Ascites -2/2 metastatic bladder carcinoma -Last paracentesis was done on 04/13/20, will defer paracentesis at this time with ongoing anticoagulation acute on chronic HFpEF: with massive LE edema -no diuretics for now, monitor Endocarditis: marantic -Recent TTE showed normal LV size with hyperdynamic LV systolic function and grade 1 diastolic dysfunction. No left ventricular hypertrophy (LVH). Heavily sclerotic aortic valve with vegetation versus calcifications with mild aortic stenosis and mild aortic insufficiency, while ESTEFANI showed vegetation of aortic valve 04/09/20 that was deemed secondary to malignancy with multiple negative blood cultures at that time. -04/21 Bcx with 1 bottle growing staph epi, likely contaminant of skin rosenda, re peated BCx on 04/23 NGTD, MRSA negative, had 4d of empiric zosyn, initially with vanc as well. Left kidney infarct -Most likely secondary to malignant emboli vs thromboses -Continue to monitor Worsening VINCENT: -Most likely multifactorial secondary to left renal infarct, post obstructive nephropathy with bilateral hydro, recent NSAID, allopurinol and dehydration -Also with proteinuria and hematuria with sterile pyuria without UTI -hold NSAIDs, allopurinol, s/p volume resuscitation with fluids and blood products -continue to monitor PVRs Q8H and strict I/Os given ongoing hematuria Leukocytosis: -C/f UTI given imaging findings of bladder wall thickening with gas, however culture was negative and UA did not have bacteria, had 4d of empiric zosyn -1 of the 2 bottles of the 04/21 BCx grew staph epi, though I suspect skin rosenda contamination. MRSA PCR was negative. -04/23 BCx NGTD -CXR without acute infiltrates or effusions -Will consider IR for paracentesis, for now held off while on heparin gtt and coagulopathy -Consulted ID, appreciate recs -possibly reactive to clots as well, on heparin gtt Extensive DVTs -On heparin gtt per hematology recs, c/b persistent hematuria, monitoring cl osely -s/p IVC filter -with ongoing DIC with both thromboses and bleeding BPH - c/w Tamsulosin and Finasteride Gout -continue holding allopurinol given declining renal function GERD - pantoprazole IV 40 BID in the setting of ongoing bleeding, with some episodes of hematochezia HTN: -Will restart HCTZ tomorrow morning. Today giving IV lasix Dispo: PCU. My ambitious goal this admission had been to try reduce the hematuria with bladder tumor radiation to allow safe anticoagulation for home d ischarge. For now on heparin gtt with plan to transition to a NoAC but now with large spleen with c/f clot vs. hematoma. Will remain in PCU, with plan being to eventually discharge home for f/u in oncology clinic to start treatment. DVT ppx: heparin gtt VS,Fishbone, I+O VS, Fishbone, I+O Laboratory Tests 04/26/20 04:07 Vital Signs Date Time Temp Pulse Resp B/P (MAP) Pulse Ox O2 Delivery O2 Flow Rate FiO2 04/26/20 10:00 74 168/60 (96) 04/26/20 09:55 18 Room Air 04/26/20 07:40 98.1 95 04/22/20 19:20 2.0 04/22/20 18:37 96 I&O- Last 24 Hours up to 6 AM 04/26/20 06:00 Intake Total 1110 ml Output Total 450 ml Balance 660 ml HARDY MILLS MD April 26, 2020 11:57
--- NOTE | 2020-04-26 12:43 | REP ---
CT ABDOMEN/PELVIS WITHOUT CONTRAST: CT abdomen/pelvis performed without oral or IV contrast. Sagittal and coronal reconstruction images are performed. In the visualized lung bases, there are mild fibroatelectatic changes. There are tiny pleural effusions. The liver demonstrates a calcified granuloma. Gallbladder is distended and contains tiny stones in the neck of the gallbladder. Common bile duct appears mildly dilated. Spleen demonstrates a peripheral hypodensity which may represent a small splenic infarct, unchanged. Adrenal glands are normal. There is no gross abnormality of the pancreas. There is again mild bilateral hydronephrosis which is unchanged since 04/21/2020. A cyst is seen in the upper pole and lower pole of right kidney. There is not significant hydroureter. There is moderate atherosclerotic calcification of the abdominal aorta with no aneurysm. IVC filter is again noted. I see no significant adenopathy in the abdomen or pelvis. There is no free air. There is mild diffuse free fluid in the abdomen and pelvis. This is unchanged. There is no gross bowel wall thickening. Again, diffuse sigmoid diverticulosis. Rectum may be thickened, unchanged. Bladder wall appears diffusely thickened. There is again a small amount of air in the bladder lumen. IMPRESSION: Tiny bilateral pleural effusions. No change in rectal and bladder wall thickening. There is again a small amount of air in the bladder lumen. There is mild diffuse free fluid in the abdomen and pelvis, unchanged. Once again, the gallbladder is distended containing tiny stones with apparent dilatation of the common bile duct, unchanged. There is mild bilateral hydronephrosis, unchanged. Electronically Signed by Dhiraj Underwood MD 04/26/2020 01:39 P
[2020-04-26] MEDS: HEPARIN DRIP 25,000 UNITS in IV 1 EA IV SCH (13:38)
[2020-04-26] MEDS ORDERED: HYDROmorphone HCL 2 MG/ML 1ML VIAL (J1170) IV PRN (14:00)
[2020-04-26] MEDS: FINASTERIDE 5 MG TAB PO SCH (21:20)
[2020-04-26] MEDS: LATANOPROST 0.005% OPHTH SOLN 2.5 ML OU SCH (21:20)
[2020-04-27] VITALS (11 sets, daily range): BP systolic 143–178; BP diastolic 56–82; O2SAT 84–97
[2020-04-27] MEDS: MORPHINE 4 MG/ML 1ML VIAL/SYRINGE (J2270) IV PRN (04:35)
[2020-04-27] MEDS: SODIUM CHLORIDE 0.9% INJ 10 ML SYR IV SCH (06:08)
[2020-04-27 06:31] LABS: HEMATOCRIT 28.7 % (42.0-52.0); MEAN CORPUSCULAR HEMOGLOBIN 28.3 pg (27.0-33.0); MEAN CORPUSCULAR HGB CONC 31.4 g/dl (32.0-36.5); MEAN CORPUSCULAR VOLUME 90.3 fl (80.0-96.0); PLATELET COUNT, AUTOMATED 128 10^3/uL (150-450); RED BLOOD COUNT 3.18 10^6/uL (4.30-6.10); WHITE BLOOD COUNT 13.7 10^3/uL (4.0-10.0)
[2020-04-27 06:39] LABS: INR 1.72; PROTHROMBIN TIME 19.9 SECONDS (11.8-14.0)
[2020-04-27 06:41] LABS: PARTIAL THROMBOPLASTIN TIME 75.7 SECONDS (25.0-38.4)
[2020-04-27 07:13] LABS: ALBUMIN 2.1 GM/DL (3.2-5.2); BILIRUBIN,TOTAL 6.4 MG/DL (0.2-1.0); CALCIUM LEVEL 8.5 MG/DL (8.8-10.2); CREATININE FOR GFR 2.39 MG/DL (0.70-1.30); GLOMERULAR FILTRATION RATE 28.4 (>42); POTASSIUM SERUM 3.9 MEQ/L (3.5-5.1); TOTAL PROTEIN 6.5 GM/DL (6.4-8.2)
[2020-04-27] MEDS ORDERED: MIRALAX *UNIT DOSE* 17GM PACKET PO PRN (08:15)
[2020-04-27] MEDS ORDERED: MORPHINE 30 MG TAB **MSIR PO PRN (08:15)
--- NOTE | 2020-04-27 08:59 | IPNPDOC ---
Text Note Date of Service The patient was seen on 04/27/20. NOTE Subjective: -Has significant worsening abdominal this morning -Continues to have stable hematuria Objective: Vitals: HDS, hypertensive to SBP 180s, afebrile General: Alert, in NAD this morning Eye: EOMI, reactive to light ENT: Dry MM Chest: CTAB Heart: RRR, no mrg Abdomen: Hypoactive bowel sounds, moderate tosevere ttp on left side, no rebound, no guarding Extremities: swollen LE, 3+ pitting edema to thighs, mild TTP calves and thighs bilaterally Skin: No skin breakdown or lesions, no noted rashes Neuro: Normal Speech, CN 2-12 appear in tact, moving all extremities Psych: AOx3 Laboratory: WBC 13.7 Hgb 9.0 platelets 128 PTT 75.7 na 141 K 3.9 Cr 2.39 Fibrinogen 631 ast 253 ALT 209 alk phos 1054 Microbiology 04/21/20 Blood Culture x 2 - 1 bottle grew staph epi 04/23 BCx NGTD MRSA PCR negative Imaging: Noncon head CT: Digital preliminary hide and skin classer radiographs unremarkable. The bony calvarium is intact. There is heavy vascular calcification in the distal internal carotid and distal vertebral arteries. Visualized paranasal sinuses are clear. No intraorbital abnormality is seen. On soft tissue window settings, the lateral, third, and fourth ventricles are normal in position. 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 This is unchanged from comparison CT study February 15, 2018. There is no evidence of acute infarction. No intracranial hemorrhage is seen. Mild diffuse atrophy is noted. No extra- axial fluid collection or mass lesion is seen. LE venous doppler US: Right deep veins: Heterogeneously hypoechoic nearly occlusive to occlusive thrombus in the common femoral, femoral and popliteal veins, as well as the tibioperoneal trunk. Left deep veins: Heterogeneously hypoechoic nearly occlusive to occlusive thrombus in the common femoral, femoral and popliteal veins, as well as the ti bioperoneal trunk. Soft tissues: Diffuse subcutaneous edema. 04/26/2020 CT A/P: The liver demonstrates a calcified granuloma. Gallbladder is distended and contains tiny stones in the neck of the gallbladder. Common bile duct appears mildly dilated. Spleen demonstrates a peripheral hypodensity which may represent a small splenic infarct, unchanged. Adrenal glands are normal. There is no gross abnormality of the pancreas. There is again mild bilateral hydronephrosis which is unchanged since 04/21/2020. A cyst is seen in the upper pole and lower pole of right kidney. There is not significant hydroureter. There is moderate atherosclerotic calcification of the abdominal aorta with no aneurysm. IVC filter is again noted. I see no significant adenopathy in the abdomen or pelvis. There is no free air. There is mild diffuse free fluid in the abdomen and pelvis. This is unchanged. There is no gross bowel wall thickening. Again, diffuse sigmoid diverticulosis. Rectum may be thickened, unchanged. Bladder wall appears diffusely thickened. There is again a small amount of air in the bladder lumen. IMPRESSION: Tiny bilateral pleural effusions. No change in rectal and bladder wall thickening. There is again a small amount of air in the bladder lumen. There is mild diffuse free fluid in the abdomen and pelvis, unchanged. Once again, the gallbladder is distended containing tiny stones with apparent dilatation of the common bile duct, unchanged. There is mild bilateral hydronephrosis, unchanged. Assessment: 75 yo M with a recent diagnosis of metastatic high grade urothelial carcinoma, +supraclavicular LN, urothelial CA cells in ascitic fluid with chronic hematuria with tentative plan for oncology work up for staging, pending PET, who was recently admitted 04/05-04/16 during which most of the above was established, as well as a history of a recent DVT previously on xarelto c/b GIB, s/p IVF filter, recent diagnosis of left renal infarct, marantic endocarditis, as well as a history of PVD, carotic disease s/p endarterectomy, HTN, HLD, GERD, gout who presented to the ED reporting acute worsening of abdominal pain that he reports to have been present over the last 3 weeks with ongoing painless hematuria with worsening leukocytosis and extensive LE clot burden found to be in DIC with bleeding and thromboses, with course c/b waxing and waning AMS and now severe abdominal pain that waxes and wanes with L sided firmness with relatively unchanged CT A/P while on heparin gtt. Abdominal and LE pain: Waxing and waning severity with dynamic exam with sometimes firmness. Admission dry CT A/P showed moderate ascites, renal hypodensity c/w recent L renal infarct, bladder wall thickening with some bladder wall gas c/f infection, and potential proctitis without obstruction, masses, pneumoperitoneum or navin evidence ischemia. Repeat CT A/P showed stable anatomy with mention of a splenic infarct that appears stable. Both scan were not performed with contrast to definitively query vascular compromise. Has extensive bilateral LE DVTs with some concern for mesenteric insufficiency given significant clot burden with splenic and renal infarcts. -Will attempt to change pain management to 15 BID MS contin, 7.5Q4H PRN morphine IR, as well as PRN tylenol as we plan for home discharge -Placed palliative care consult for pain management as we plan for home discharge. Family has some interest in home hospice, however expressly state that they want to land in oncology clinic for evaluation and seek chemotherapy treatment. -bowel regimen with senna/colace BID and PRN miralax Metastatic bladder cancer: Cystoscopy was done on 04/13/20, patient was found to have high-grade urothelial carcinoma, infiltrating lamina propria and muscularis propria. Ascitic fluid on 04/13 was positive metastatic urothelial carcinoma, and L clavicular node was positive for malignancy. Was seen by Dr. Ritchie consultation during last admission, was due for outpatient evaluation with Dr. Jimenez and pending PET -c/b navin DIC with thromboses and bleeding, s/p 30units of cryoprecipitate to date. Fibrinogen now normalized and improving, platelets improving, will continue to monitor daily while inpatient -Consulted heme/onc, appreciate Dr. Blaise sierra -consulted radiation oncology s/p bladder tumor radiation to curb hematuria, appreciate rigo -is still to establish with oncology in the outpatient setting, pending PET -tried to get MRI brain but was too uncomfortable and declined DIC with extensive DVTs, renal infarct and bleeding (hematuria, +FOBT with navin hematochezia), now with what appears to be massive splenomegaly -s/p cryoprecipitate 30u, with thromboses and bleeding, s/p 30units of cryoprecipitate to date. Fibrinogen now normalized and improving, platelets improving, will continue to monitor -currently on a heparin gtt for thromboses, will switch to eliquis 5 BID now -Daily CBC, daily fibrinogen, goal Hgb >8 and fibrinogen>100 AMS: on 03/23 had pinpoint pupils, AOx1, in the setting of DIC 2/2 metastatic urothelial bladder CA. Improved at this time. -Noncon CT head without new findings, showed an old infarct. -MRI brain deferred as patient did not tolerate -Monitor for now Persistent navin hematuria: stable with stable H/H post bladder tumor radiation. -Secondary to bladder cancer -Reached out to Dr. Linder, bilateral hydro is mild and stable and there is nothing procedurally he could do to stop the bleeding until tumor is treated. Recommended removal of amaya that may cause further irritation and increased risk for infection, to only consider if he has obstructive symptoms. -s/p radiation by rad-onc for bladder tumor radiation in an effort to control the bleeding -Daily CBC Acute blood loss anemia on chronic anemia: -Multifactorial 2/2 hematuria, hematochezia, in DIC -s/p 2 units of blood in the ED and 30u of fibrinogen to date -Discussed with urology, and now consulted radiation oncology and s/p bladder tumor radiation for hematuria -will continue home Fe supplementation -Daily H/H, while on heparin gtt, fibrinogen daily with 10u for fibrinogen<100 or if worsening of bleeding Ascites -2/2 metastatic bladder carcinoma -Last paracentesis was done on 04/13/20, will defer paracentesis at this time with ongoing anticoagulation acute on chronic HFpEF: with massive LE edema -no diuretics for now, monitor Endocarditis: marantic -Recent TTE showed normal LV size with hyperdynamic LV systolic function and grade 1 diastolic dysfunction. No left ventricular hypertrophy (LVH). Heavily sclerotic aortic valve with vegetation versus calcifications with mild aortic stenosis and mild aortic insufficiency, while ESTEFANI showed vegetation of aortic valve 04/09/20 that was deemed secondary to malignancy with multiple negative blood cultures at that time. -04/21 Bcx with 1 bottle growing staph epi, likely contaminant of skin rosenda, repeated BCx on 04/23 NGTD, MRSA negative, had 4d of empiric zosyn, initially with vanc as well. Left kidney infarct -Most likely secondary to malignant emboli vs thromboses -Continue to monitor Worsening renal function: stable -Most likely multifactorial secondary to left renal infarct, post obstructive nephropathy with bilateral hydro, recent NSAID, allopurinol and dehydration -Also with proteinuria and hematuria with sterile pyuria without UTI -hold NSAIDs, allopurinol, s/p volume resuscitation with fluids and blood products -strict I/Os given ongoing hematuria Leukocytosis: -C/f UTI given imaging findings of bladder wall thickening with gas, however culture was negative and UA did not have bacteria, had 4d of empiric zosyn -1 of the 2 bottles of the 04/21 BCx grew staph epi, though I suspect skin rosenda contamination. MRSA PCR was negative. -04/23 BCx NGTD -CXR without acute infiltrates or effusions -Will consider IR for paracentesis, for now held off while on heparin gtt and coagulopathy -Consulted ID, appreciate recs -possibly reactive to clots as well, on anticoagulation Extensive DVTs -On heparin gtt per hematology recs, c/b persistent hematuria, however with stable hgb, now switching to eliquis 5 BID -s/p IVC filter -Now with resolving DIC with both thromboses and bleeding BPH - c/w Tamsulosin and Finasteride Gout -continue holding allopurinol given declining renal function GERD - pantoprazole IV 40 BID in the setting of ongoing bleeding, with some episodes of hematochezia HTN: -Will restart HCTZ tomorrow morning. Today giving IV lasix Dispo: PCU. My ambitious goal this admission had been to try reduce the hematuria with bladder tumor radiation to allow safe anticoagulation for home discharge. Hgb is stable and he is therapeutic on heparin. Will now transition to eliquis. Now switching pain control to PO regimen with palliative care consult. Tentatively planning for home discharge as expressed by family with plan for pursuing chemo with oncology. DVT ppx: eliquis. VS,Fishbone, I+O VS, Fishbone, I+O Laboratory Tests 04/27/20 06:19 Vital Signs Date Time Temp Pulse Resp B/P (MAP) Pulse Ox O2 Delivery O2 Flow Rate FiO2 04/27/20 06:00 95 Room Air 04/27/20 04:45 22 04/27/20 04:00 97.0 86 154/56 (88) 04/22/20 19:20 2.0 04/22/20 18:37 96 I&O- Last 24 Hours up to 6 AM 04/27/20 05:59 Intake Total 560 ml Output Total 575 ml Balance -15 ml HARDY MILLS MD Apr 27, 2020 08:58
[2020-04-27] MEDS: SENOKOT S TAB PO SCH ×2 (09:09→21:32)
[2020-04-27] MEDS: TAMSULOSIN 0.4 MG CAP PO SCH ×2 (09:09→21:31)
[2020-04-27] MEDS: APIXABAN 5 MG TAB (ELIQUIS) PO SCH ×2 (09:09→21:32)
[2020-04-27] MEDS: hydroCHLOROthiazide 12.5 MG CAPSULE PO SCH (09:09)
[2020-04-27] MEDS: PANTOPRAZOLE 40MG VIAL (C9113 PER 1) IV SCH ×2 (09:09→21:32)
[2020-04-27] MEDS: MORPHINE 15 MG SA TAB PO SCH ×2 (09:10→21:31)
[2020-04-27] MEDS ORDERED: ELIQ5TAB PO (10:38)
[2020-04-27] MEDS ORDERED: SLF 3 ML SYR IV PRN (15:45)
[2020-04-27] MEDS: FINASTERIDE 5 MG TAB PO SCH (21:30)
[2020-04-27] MEDS: SLF 3 ML SYR IV SCH (21:32)
[2020-04-27] MEDS: LATANOPROST 0.005% OPHTH SOLN 2.5 ML OU SCH (21:32)
[2020-04-28] VITALS: BP 162/72
[2020-04-28 03:58] LABS: HEMATOCRIT 29.9 % (42.0-52.0); HEMOGLOBIN 9.7 g/dl (13.5-17.5); MEAN CORPUSCULAR HEMOGLOBIN 29.2 pg (27.0-33.0); MEAN CORPUSCULAR HGB CONC 32.4 g/dl (32.0-36.5); MEAN CORPUSCULAR VOLUME 90.1 fl (80.0-96.0); PLATELET COUNT, AUTOMATED 109 10^3/uL (150-450); RED BLOOD COUNT 3.32 10^6/uL (4.30-6.10); WHITE BLOOD COUNT 11.1 10^3/uL (4.0-10.0)
[2020-04-28 04:00] VITALS: BP_SYST 162; BP_SYST 164; BP_DIAS 72
[2020-04-28 04:10] LABS: INR 2.86; PROTHROMBIN TIME 29.9 SECONDS (11.8-14.0)
[2020-04-28 04:47] LABS: ALBUMIN 2.2 GM/DL (3.2-5.2); BILIRUBIN,TOTAL 6.7 MG/DL (0.2-1.0); CALCIUM LEVEL 8.3 MG/DL (8.8-10.2); CREATININE FOR GFR 2.42 MG/DL (0.70-1.30); POTASSIUM SERUM 4.2 MEQ/L (3.5-5.1); TOTAL PROTEIN 5.7 GM/DL (6.4-8.2)
[2020-04-28] MEDS: SLF 3 ML SYR IV SCH ×3 (05:22→20:39)
[2020-04-28 08:00] VITALS: BP 160/67
[2020-04-28] MEDS: hydroCHLOROthiazide 12.5 MG CAPSULE PO SCH (09:17)
[2020-04-28] MEDS: TAMSULOSIN 0.4 MG CAP PO SCH ×2 (09:17→20:38)
[2020-04-28] MEDS: SENOKOT S TAB PO SCH ×2 (09:18→20:39)
[2020-04-28] MEDS: APIXABAN 5 MG TAB (ELIQUIS) PO SCH (09:18)
[2020-04-28] MEDS: PANTOPRAZOLE 40MG VIAL (C9113 PER 1) IV SCH ×2 (09:19→20:39)
[2020-04-28] MEDS: MORPHINE 15 MG SA TAB PO SCH ×2 (09:19→20:39)
[2020-04-28 12:00] VITALS: BP 160/70
--- NOTE | 2020-04-28 15:24 | IPNPDOC ---
Date Seen The patient was seen on 04/28/20. Progress Note SUBJECTIVE: Nosebleeds occurred this AM, discussed case with heme/onc. D/c eliquis and starting on low dose lovenox, repeating labs. Continues with palliative radiation for hematuria. OBJECTIVE: VITAL SIGNS: Please see below PHYSICAL EXAMINATION: CONSTITUTIONAL: No acute distress, resting comfortably, AAO x 3 EYES: PERRLA, EOM intact HENT, MOUTH: Normocephalic, atraumatic, moist mucous membranes, blood in the nares on right side, not actively bleeding NECK: SUPPLE, no JVD, no lymphadenopathy, no carotid bruit CV: irreguarly irregular, rate controlled, S1S2 normal, no murmurs/rubs/gallops RESPIRATORY: Clear to auscultation bilaterally, no rales/rhonchi/wheezes GI: BS positive in 4 quadrants, soft, nontender, nondistended, no rebound or guarding, no organomegaly : Deferred MUSCULOSKELETAL: Normal ROM. No cyanosis, clubbing, swelling, joint deformity. extremity edema +2 bilateral lower ext INTEGUMENTARY: Intact, no rashes, no lesions, no erythema NEUROLOGIC: Cranial Nerves II-XII are intact, no focal deficits PSYCHIATRIC: Mood and affect are normal CURRENT MEDICATIONS: Please see below LABORATORY DATA: Please see below IMAGING: No new imaging. ASSESSMENT: 75 y/o M treating for metastatic high grade urothelial carcinoma, hematuria, epistaxis, abdominal pain 2/2 to metastatic carcinoma and ascities. 1. Hematuria 2/2 to bladder cancer. Stable H/H, does not appear worsened. Hemody namically stable. Urology, Dr. Linder, was contacted earlier and bilateral hydro is mild and stable- there is nothing procedurally he could do to stop the bleeding until tumor is treated. Receiving radiation by rad-onc for bladder tumor radiation in an effort to control the bleeding. Daily CBC 2. DIC with epistaxis, extensive DVTs, renal infarct and bleeding (hematuria, +FOBT with navin hematochezia), now with what appears to be massive splenomegaly -s/p 30 units of cryoprecipitate to date. Rechecking fibrinogen, ddimer, LDH. May need more cryoprecipitate based off fibrinogen level if <100. PLTs >100. -D/olivia eliquis BID and started low dose lovenox per Dr. Pelaez, heme/onc -H/H 9.06/24. -Daily CBC, goal Hgb >8 and fibrinogen>100 3. Metastatic bladder cancer. Cystoscopy was done on 04/13/20, patient was found to have high-grade urothelial carcinoma, infiltrating lamina propria and mus cularis propria. Ascitic fluid on 04/13 was positive metastatic urothelial carcinoma, and L clavicular node was positive for malignancy. -complicated by DIC with thromboses and bleeding, s/p 30units of cryoprecipitate to date. -Heme/onc, radiation oncology consulted. Pt is still to establish with oncology in the outpatient setting, pending PET. Attempted to get MRI brain but was too uncomfortable and declined 4. Abdominal and LE pain likely multifactorial due to metastatic urothelial carcinoma, ascites. Still waxing and waning severity- CT A/P showed moderate ascites, renal hypodensity c/w recent L renal infarct, bladder wall thickening with some bladder wall gas c/f infection, and potential proctitis without obstruction, masses, pneumoperitoneum or navin evidence ischemia. Repeat CT A/P showed stable anatomy with mention of a splenic infarct that appears stable. Has extensive bilateral LE DVTs with some concern for mesenteric insufficiency given significant clot burden with splenic and renal infarcts. Pain management to c/w 15 BID MS contin, 7.5Q4H PRN morphine IR, PRN tylenol , senna/colace BID and PRN miralax. He is agreeable to palliative care consult for pain management. 5. Acute blood loss anemia on chronic anemia multifactorial 2/2 hematuria, epistaxis, hematochezia currently in DIC. Currently s/p 2 units of blood and 30u of fibrinogen to date -Discussed with urology, and now consulted radiation oncology and s/p bladder tumor radiation for hematuria. Daily CBC. F/u fibrinogen, LDH, d dimer level. If fibrinogen<100 consider giving more cryoprecipitate. 6. Ascites 2/2 metastatic bladder carcinoma. Last paracentesis was done on 04/13/20, will defer paracentesis at this time with ongoing anticoagulation 7. Acute on chronic HFpEF with +3 LE edema. Holding diuretics for now, monitor 8. Endocarditis: marantic -Recent TTE showed normal LV size with hyperdynamic LV systolic function and grade 1 diastolic dysfunction. No left ventricular hypertrophy (LVH). Heavily sclerotic aortic valve with vegetation versus calcifications with mild aortic stenosis and mild aortic insufficiency, while ESTEFANI showed vegetation of aortic valve 04/09/20 that was deemed secondary to malignancy with multiple negative blood cultures at that time. -04/21 Bcx with 1 bottle growing staph epi, likely contaminant of skin rosenda, repeated BCx on 04/23 NGTD, MRSA negative, had 4d of empiric zosyn, initially with vanc as well. 9. 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 Continue to monitor 10. VINCENT likely multifactorial secondary to left renal infarct, post obstructive nephropathy with bilateral hydro, recent NSAID, allopurinol and dehydration. Dehydration resolved. Hold NSAIDs, allopurinol, s/p volume resuscitation with fluids and blood products. Strict I/Os given ongoing hematuria. 11. Leukocytosis, improving. S/p 4d of empiric zosyn -1 of the 2 bottles of the 04/21 BCx grew staph epi, though I suspect skin rosenda contamination. MRSA PCR was negative. -04/23 BCx NGTD -CXR without acute infiltrates or effusions -Will consider IR for paracentesis, for now held off while on AC and coagulopathy -possibly reactive to clots as well, on anticoagulation 12. Extensive DVTs. On low dose heparin as per heme/onc. Complicated by persistent hematuria, however with stable hgb. S /p IVC filter. Now with slightly improved DIC with both thromboses and bleeding 13. BPH. c/w Tamsulosin and Finasteride 14. Gout. Holding allopurinol given declining renal function. 15. GERD. Pantoprazole IV 40 BID in the setting of ongoing bleeding, with some e pisodes of hematochezia. 16. HTN. Stable. C/w current treatment. 17. DVT px. Stopped eliquis BID per heme/onc recs. STarted on lovenox daily with him having continued bleeding. DISPOSITION: Currently still having hematuria, heme/onc to see him again today. F/u recs. Tentatively planning for home discharge as expressed by family with plan for pursuing chemo with oncology. Palliative care for pain management at discharge. VS, I&O, 24H, Fishbone Vital Signs/I&O Vital Signs Date Time Temp Pulse Resp B/P (MAP) Pulse Ox O2 Delivery O2 Flow Rate FiO2 04/28/20 12:00 97.6 80 16 160/70 (100) 99 Room Air 04/22/20 19:20 2.0 04/22/20 18:37 96 I&O- Last 24 Hours up to 6 AM 04/28/20 06:00 Intake Total 264 ml Output Total 650 ml Balance -386 ml Laboratory Data 24H LABS Laboratory Tests 2 04/28/20 03:47: Nucleated Red Blood Cells % (auto) 0.0, Prothrombin Time 29.9H, Prothromb Time International Ratio 2.86, Fibrinogen 562H, Anion Gap 7L, Glomerular Filtration Rate 28.0L, Calcium Level 8.3L, Total Bilirubin 6.7H, Aspartate Amino Transf (AST/SGOT) 299H, Alanine Aminotransferase (ALT/SGPT) 229H, Alkaline Phosphatase 1548H, Total Protein 5.7L, Albumin 2.2L, Albumin/Globulin Ratio 0.6 CBC/BMP Laboratory Tests 04/28/20 03:47 Microbiology Microbiology 04/23/20 Blood Culture - Final, Complete NO GROWTH AFTER 5 DAYS 04/23/20 Blood Culture - Final, Complete NO GROWTH AFTER 5 DAYS 04/22/20 Stool Occult Blood (RAY) - Final, Complete 04/21/20 Urine Culture - Final, Complete 04/21/20 Blood Culture - Final, Complete NO GROWTH AFTER 5 DAYS 04/21/20 Blood Culture - Final, Complete Staphylococcus Epidermidis Current Medications Current Medications Medications (Trade) Dose Ordered Sig/Soheila Route PRN Reason Start Time Stop Time Status Last Admin Dose Admin Acetaminophen (Tylenol Tab) 650 mg Q4H PRN PO PAIN OR FEVER 04/21/20 10:45 04/26/20 05:07 Apixaban (Eliquis) 5 mg BID PO 04/27/20 09:00 04/28/20 15:09 DC 04/28/20 09:18 Atropine Sulfate (Isopto Atropine 1%) 1 drop Q2HP PRN SL TERMINAL SECRETIONS 04/22/20 20:00 Enoxaparin Sodium (Lovenox) 40 mg DAILY SC 04/29/20 09:00 UNV EZETIMIBE (Zetia) 10 mg QPM PO 04/21/20 21:00 04/22/20 20:00 DC 04/21/20 20:43 Fentanyl Citrate (Sublimaze) 25 mcg Q30M PRN IV MODERATE/SEVERE PAIN (PS 5-10) 04/21/20 07:15 04/21/20 08:08 DC 04/21/20 08:08 Ferrous Sulfate (Ferrous Sulfate) 325 mg BID PO 04/21/20 21:00 04/22/20 20:00 DC 04/21/20 20:42 Finasteride (Proscar) 5 mg QPM PO 04/21/20 21:00 04/27/20 21:30 Heparin Sodium (Heparin Lock Flush 10units/ml) 10 units ASDIRECTED PRN IV SEE LABEL COMMENTS 04/25/20 13:00 04/27/20 14:53 DC Heparin Sodium (Heparin Lock Flush 10units/ml) 10 units HLF IV 04/25/20 14:00 04/27/20 14:53 DC 04/27/20 06:08 Heparin Sodium (Porcine) (Heparin) ASDIRECTED PRN IV SEE LABEL COMMENTS 04/22/20 11:45 04/22/20 20:00 DC Heparin Sodium (Porcine) (Heparin) ASDIRECTED PRN IV SEE LABEL COMMENTS 04/23/20 15:00 04/27/20 08:28 DC Heparin Sodium (Porcine) 21867 units/IV Miscellaneous Supplies 250 ml @ 11.25 mls/ hr ASDIRECTED IV 04/22/20 11:45 04/22/20 20:00 DC 04/22/20 19:17 Heparin Sodium (Porcine) 25284 units/IV Miscellaneous Supplies 250 ml @ 0 mls/hr Q0M IV 04/23/20 14:46 04/27/20 08:28 DC 04/26/20 13:38 Home Med (Med Rec Complete!) ASDIRECTED XX 04/21/20 09:45 04/21/20 09:41 DC Hydrochlorothiazide (Hydrodiuril) 12.5 mg DAILY PO 04/25/20 09:00 04/25/20 11:34 DC Hydrochlorothiazide (Hydrodiuril) 12.5 mg DAILY PO 04/26/20 09:00 04/28/20 09:17 Hydromorphone HCl (Dilaudid) 1.6 mg Q3HP PRN IV MODERATE/SEVERE PAIN (PS 5-10) 04/26/20 14:00 04/27/20 08:28 DC 04/26/20 15:03 Latanoprost (Xalatan 0.005% Op Soln) 1 drop QHS OU 04/21/20 21:00 04/27/20 21:32 Lorazepam (Ativan) 1 mg STAT STAT IV 04/22/20 09:26 04/22/20 12:39 DC Magnesium Chloride (Slow-Mag) 64 mg DAILY PO 04/22/20 09:00 04/22/20 20:00 DC 04/22/20 12:02 Midazolam HCl (Versed) 2 mg STAT STAT IV 04/22/20 20:30 04/22/20 20:32 DC 04/22/20 18:15 Morphine Sulfate (Morphine Sulfate Inj) 2 mg Q2H PRN IV SEVERE PAIN (PS 8-10) 04/22/20 20:00 04/27/20 08:28 DC 04/26/20 05:34 Morphine Sulfate (Morphine Sulfate Inj) 4 mg Q4HP PRN IV severe pain 04/21/20 10:45 04/22/20 09:21 DC 04/21/20 23:17 Morphine Sulfate (Morphine Sulfate Inj) 4 mg Q4HP PRN IV MODERATE/SEVERE PAIN (PS 5-10) 04/22/20 17:00 04/27/20 09:00 DC 04/27/20 04:35 Morphine Sulfate (Ms Contin) 15 mg BID PO 04/27/20 09:00 04/28/20 09:19 Morphine Sulfate (Msir) 7.5 mg Q4HP PRN PO SEVERE PAIN (PS 8-10) 04/27/20 08:15 04/27/20 15:56 Multivitamins (Theragram-M) 1 tab DAILY PO 04/22/20 09:00 04/22/20 20:00 DC Non-Formulary Medication (Heparin Iv Rate Change Documentation ml/ Hr) ASDIRECTED XX 04/22/20 11:45 04/22/20 20:00 DC Non-Formulary Medication (Heparin Iv Rate Change Documentation ml/ Hr) ASDIRECTED XX 04/23/20 15:00 04/27/20 08:28 DC 04/25/20 16:00 Ondansetron HCl (ZOFRAN INJection) 4 mg Q6HP PRN IV NAUSEA OR VOMITING 04/22/20 20:00 Oxybutynin Chloride (Ditropan) 5 mg Q8H PRN PO BLADDER SPASM 04/21/20 14:15 04/26/20 11:00 Oxycodone/ Acetaminophen (Percocet 5mg/ 325mg Tablet) 1 tab Q4H PRN PO PAIN 04/21/20 14:15 04/22/20 09:22 DC Pantoprazole Sodium (Protonix) 40 mg BID IV 04/23/20 21:00 04/28/20 09:19 Pantoprazole Sodium (Protonix) 40 mg DAILY PO 04/21/20 09:00 04/22/20 20:00 DC 04/22/20 12:03 Piperacillin Sod/ Tazobactam Sod 3.375 gm/Dextrose 50 ml @ 50 mls/hr Q6H IV 04/21/20 16:00 04/22/20 20:00 DC 04/22/20 16:33 Piperacillin Sod/ Tazobactam Sod 3.375 gm/Dextrose 50 ml @ 50 mls/hr Q6H IV 04/23/20 15:00 04/25/20 11:38 DC 04/25/20 08:19 Polyethylene Glycol (Miralax) 1 pkt DAILYPRN PRN PO CONSTIPATION 04/27/20 08:15 04/27/20 09:09 Rosuvastatin Calcium (Crestor) 5 mg QPM PO 04/21/20 21:00 04/22/20 20:00 DC 04/21/20 20:43 Senna/Docusate Sodium (Senokot S) 1 tab BID PO 04/27/20 09:00 04/28/20 09:18 Sodium Chloride 1,000 ml @ 125 mls/hr Q8H IV 04/21/20 10:45 04/21/20 14:14 DC 04/21/20 12:14 Sodium Chloride (Saline Lock Flush) 2 ml ASDIRECTED PRN IV SEE LABEL COMMENTS 04/21/20 14:30 04/22/20 20:00 DC Sodium Chloride (Saline Lock Flush) 2 ml ASDIRECTED PRN IV SEE LABEL COMMENTS 04/27/20 15:45 Sodium Chloride (Saline Lock Flush) 2 ml SLF IV 04/21/20 22:00 04/22/20 20:00 DC 04/22/20 15:00 Sodium Chloride (Saline Lock Flush) 2 ml SLF IV 04/27/20 22:00 04/28/20 13:15 Sodium Chloride (Saline Lock Flush) 10 ml ASDIRECTED PRN IV SEE LABEL COMMENTS 04/25/20 13:00 04/27/20 14:53 DC Sodium Chloride (Saline Lock Flush) 10 ml SLF IV 04/25/20 14:00 04/27/20 14:53 DC 04/27/20 06:08 Tamsulosin HCl (Flomax) 0.4 mg BID PO 04/21/20 21:00 04/28/20 09:17 Vancomycin HCl 1000 mg/IV Miscellaneous Supplies 20 ml @ 20 mls/hr Q12H IV 04/22/20 09:30 04/22/20 10:13 DC Vancomycin HCl 1000 mg/IV Miscellaneous Supplies 1 each/ Dextrose 270 ml @ 270 mls/hr Q24H IV 04/22/20 12:00 04/22/20 20:00 DC 04/22/20 12:02 Vancomycin HCl 1000 mg/IV Miscellaneous Supplies 1 each/ Dextrose 270 ml @ 270 mls/hr Q24H IV 04/23/20 15:00 04/23/20 14:41 DC Vitamin D (Vitamin D) 1,000 units DAILY PO 04/22/20 09:00 04/22/20 20:00 DC Allergies Coded Allergies: No Known Allergies (Verified Allergy, Unknown, 03/23/20) Queta Diop MD Apr 28, 2020 15:24
[2020-04-28 16:00] VITALS: BP 165/72
[2020-04-28 16:06] LABS: FIBRINOGEN 413 MG/DL (221-452)
[2020-04-28 16:57] LABS: D-DIMER QUANT > 4000 ng/ml (<500)
--- NOTE | 2020-04-28 17:37 | IPNPDOC ---
Date Seen The patient was seen on 04/28/20. Progress Note DIAGNOSIS: 1. Metastatic urothelial carcinoma -CT abdomen/pelvis with contrast, 04/05/20: The liver has a nodule or contour which can be seen with cirrhosis. No liver masses seen. No splenomegaly is noted. There is a large wedge-shaped region of low attenuation in the left kidney compatible with left renal infarct. Mild bilateral hydronephrosis noted. There is thickening of the wall of the stomach concerning for gastritis. There is a small amount of ascites in the abdomen and pelvis. Inferior vena cava filter is in place. There is severe thickening of the wall of the urinary bladder. The prostate gland is enlarged. -CT chest without contrast, 04/07/20: Left lung airspace opacities suspicious for pneumonia noted. Ascites of uncertain etiology. -Left supraclavicular lymph node, FNA, 04/08/20: Metastatic carcinoma with minimal lymphoid cells noted. Tumor cells are positive for TTF-1 (weak), CK 7, CK 20 and APURVA-3. -Transurethral resection, 04/14/20: Pathology showed high-grade urothelial carcinoma, infiltrating lamina propria and muscularis propria. Malignant cells are positive for CK 7, CK 20, p63, and APURVA-3. Ascitic fluid also shows metastatic urothelial carcinoma. 2. Bilateral lower extremity edema, initially right lower extremity DVT - The patient developed swelling and pain in the right lower extremity in February,. Doppler blood flow studies performed at [facility] documented deep venous thrombosis. He was placed on an oral anti-XA inhibitor as anticoagulation consisting of xarelto. He was also on Plavix given arteriosclerotic disease. - In late February, the patient developed hematochezia one week after starting Xarelto. He presented to [facility] emergency Department on 03/23/20 with lower gastrointestinal tract hemorrhage. -The patient was taken off Xarelto and an inferior vena cava filter was placed. -The patient developed gross hematuria during hospitalization on 04/05/20. Anticoagulation was thus discontinued. -Ultrasound, bilateral lower extremity, 04/21/20: Extensive bilateral lower extremity deep venous thrombosis. Left lower extremity now with hypoechoic nearly occlusive to occlusive thrombus in the common femoral, femoral, and popliteal veins as well as tibioperoneal trunk. 3. DIC Subjective: Patient has metastatic urothelial cancer and with DAC. He isn't having gross hematuria still and is getting radiation therapy daily. His hematuria is less than before, although he still complains of bright drug urine. Today he complains of bleeding. 3. OBJECTIVE PHYSICAL EXAMINATION: VITAL SIGNS: Please see below. GENERAL: [A pleasant gentleman in no acute distress] HEENT: [, Currently no activebleeding] CARDIOVASCULAR: [Normal]. RESPIRATORY: [. Lungs are clear]. ABDOMINAL: [Abdomen distended. There is hard mass on the left lower abdomen about 10 cm across] EXTREMITIES: [Bipedal edema. 2+] NEUROLOGICAL: [No focal neurological deficit although had slight degree of dementia] PSYCHOLOGICAL: [Not depressed or anxious.] LABORATORY DATA, IMAGING STUDIES, MICROBIOLOGY: Please see below. ASSESSMENT AND PLAN: Mr. Abdul has metastatic extensive urothelial carcinoma with DIC. Patient has hematuria with a persisting and is getting radiation therapy to the bladder. Hematuria is slightly better. His hemoglobin is not dropping drastically. We need to reduce the anticoagulation. PROBLEMS: 1. [Metastatic urothelial carcinoma]: . 2. [DIC]: . 3. [, Epistaxis]: . DISPOSITION: . Patient needs to continue with radiation therapy. Keep Eliquis on hold. Start Lovenox 40 mg subcutaneous daily. Please order fibrinogen level, LDH, and d-dimer. Daily CBC needs to be watched. Patient prognosis is poor because of metastatic urothelial carcinoma and is not a candidate for any active intervention unless he becomes stable and hematuria stops. He is no longer having epistaxis. Once labs are ready. We'll see the patient for further decision making. VS, I&O, 24H, Fishbone Vital Signs/I&O Vital Signs Date Time Temp Pulse Resp B/P (MAP) Pulse Ox O2 Delivery O2 Flow Rate FiO2 04/28/20 16:00 98.0 83 16 165/72 (103) 94 Room Air 04/22/20 19:20 2.0 04/22/20 18:37 96 I&O- Last 24 Hours up to 6 AM 04/28/20 06:00 Intake Total 264 ml Output Total 650 ml Balance -386 ml Laboratory Data 24H LABS Laboratory Tests 2 04/28/20 03:47: Nucleated Red Blood Cells % (auto) 0.0, Prothrombin Time 29.9H, Prothromb Time International Ratio 2.86, Fibrinogen 562H, Anion Gap 7L, Glomerular Filtration Rate 28.0L, Calcium Level 8.3L, Total Bilirubin 6.7H, Aspartate Amino Transf (AST/SGOT) 299H, Alanine Aminotransferase (ALT/SGPT) 229H, Alkaline Phosphatase 1548H, Total Protein 5.7L, Albumin 2.2L, Albumin/Globulin Ratio 0.6 04/28/20 15:30: Fibrinogen 413, D-Dimer, Quantitative > 4000H, Lactate Dehydrogenase 567H CBC/BMP Laboratory Tests 04/28/20 03:47 Microbiology Microbiology 04/23/20 Blood Culture - Final, Complete NO GROWTH AFTER 5 DAYS 04/23/20 Blood Culture - Final, Complete NO GROWTH AFTER 5 DAYS 04/22/20 Stool Occult Blood (RAY) - Final, Complete 04/21/20 Urine Culture - Final, Complete 04/21/20 Blood Culture - Final, Complete NO GROWTH AFTER 5 DAYS 04/21/20 Blood Culture - Final, Complete Staphylococcus Epidermidis JACKELYN LINK MD Apr 28, 2020 17:37
[2020-04-28 20:00] VITALS: BP 131/69
[2020-04-28] MEDS: FINASTERIDE 5 MG TAB PO SCH (20:38)
[2020-04-28] MEDS: ENOXAPARIN 30MG/0.3ML SYRINGE (J1650 PER 10MG) SC SCH (20:39)
[2020-04-28] MEDS: LATANOPROST 0.005% OPHTH SOLN 2.5 ML OU SCH (20:39)
[2020-04-29] VITALS: BP 152/66
[2020-04-29 04:00] VITALS: BP 155/69
[2020-04-29 04:24] LABS: HEMATOCRIT 28.8 % (42.0-52.0); HEMOGLOBIN 9.2 g/dl (13.5-17.5); MEAN CORPUSCULAR HEMOGLOBIN 28.8 pg (27.0-33.0); MEAN CORPUSCULAR HGB CONC 31.9 g/dl (32.0-36.5); WHITE BLOOD COUNT 9.8 10^3/uL (4.0-10.0)
[2020-04-29 04:27] LABS: PLATELET COUNT, AUTOMATED 95 10^3/uL (150-450)
[2020-04-29 04:33] LABS: INR 2.41; PROTHROMBIN TIME 26.1 SECONDS (11.8-14.0)
[2020-04-29 05:30] LABS: ALBUMIN 2.3 GM/DL (3.2-5.2); CALCIUM LEVEL 8.2 MG/DL (8.8-10.2); CREATININE FOR GFR 2.47 MG/DL (0.70-1.30); GLOMERULAR FILTRATION RATE 27.3 (>42); POTASSIUM SERUM 3.6 MEQ/L (3.5-5.1); TOTAL PROTEIN 6.1 GM/DL (6.4-8.2)
[2020-04-29] MEDS: SLF 3 ML SYR IV SCH ×3 (05:47→20:33)
[2020-04-29 08:00] VITALS: BP 150/64
[2020-04-29] MEDS: TAMSULOSIN 0.4 MG CAP PO SCH ×2 (09:17→20:32)
[2020-04-29] MEDS: PANTOPRAZOLE 40MG VIAL (C9113 PER 1) IV SCH ×2 (09:17→20:31)
[2020-04-29] MEDS: MORPHINE 15 MG SA TAB PO SCH (09:17)
[2020-04-29] MEDS: SENOKOT S TAB PO SCH ×2 (09:18→20:32)
[2020-04-29] MEDS: hydroCHLOROthiazide 12.5 MG CAPSULE PO SCH (09:18)
[2020-04-29 12:00] VITALS: BP 158/62
[2020-04-29 16:00] VITALS: BP 163/73
--- NOTE | 2020-04-29 17:54 | IPNPDOC ---
Date Seen The patient was seen on 04/29/20. Progress Note SUBJECTIVE: No nosebleeds overnight, discussed case with heme/onc. Changed morphine to oxycodone and oxyIR. Palliative care met with patient today, slightly sluggish at times perhaps 2/2 to VINCENT and decreased metabolism of morphine. Denies chest pain but had occasional shortness of breath. OBJECTIVE: VITAL SIGNS: Please see below PHYSICAL EXAMINATION: CONSTITUTIONAL: No acute distress, resting comfortably, AAO x 3 EYES: PERRLA, EOM intact. yellow sclera HENT, MOUTH: Normocephalic, atraumatic, moist mucous membranes, blood in the nares on right side, not actively bleeding NECK: SUPPLE, no JVD, no lymphadenopathy, no carotid bruit CV: irreguarly irregular, rate controlled, S1S2 normal, no murmurs/rubs/gallops RESPIRATORY: Clear to auscultation bilaterally, no rales/rhonchi/wheezes GI: BS positive in 4 quadrants, soft, tenderness of left side of abdomen- unchanged from 04/28/20, distended abdomen, no rebound or guarding, no organomegaly : Deferred MUSCULOSKELETAL: Normal ROM. No cyanosis, clubbing, swelling, joint deformity. extremity edema +2 bilateral lower ext INTEGUMENTARY: Intact, no rashes, no lesions, no erythema NEUROLOGIC: Cranial Nerves II-XII are intact, no focal deficits PSYCHIATRIC: Mood and affect are normal CURRENT MEDICATIONS: Please see below LABORATORY DATA: Please see below IMAGING: No new imaging. ASSESSMENT: 75 y/o M treating for metastatic high grade urothelial carcinoma, hematuria, abdominal pain 2/2 to metastatic carcinoma and ascities. 1. Increased confusion likely medication induced from decreased metabolism 2/2 to VINCENT. Intermittent with increased shortness of breath at times. Changed narcotics from morphine to oxycodone and oxycontin. Cannot r/o due to worsening renal failure also. Monitor closely. 2. Hematuria 2/2 to bladder cancer. Persists, Stable H/H. C/w radiation by rad- onc for bladder tumor radiation in an effort to control the bleeding. Daily CBC. Will discuss with rad/onc in the AM when patient will/may be able to be discharged and maybe continue treatment as o/p. 3. DIC with hx of epistaxis, extensive DVTs, renal infarct and bleeding (hematuria, +FOBT with navin hematochezia), now with what appears to be massive splenomegaly. Currently not worsening, no bleeding since yesterday. Fibrinogen 400, not decreased, no need for more cryoprecipitate. S/p 30 units of cryoprecipitate to date. PLTs >100. C/w low dose lovenox per Dr. Pelaez, heme/onc. Daily CBC, goal Hgb >8 and fibrinogen>100 3. Metastatic bladder cancer. Cystoscopy was done on 04/13/20, patient was found to have high-grade urothelial carcinoma, infiltrating lamina propria and muscularis propria. Ascitic fluid on 04/13 was positive metastatic urothelial carcinoma, and L clavicular node was positive for malignancy. Complicated by DIC with thromboses and bleeding, s/p 30units of cryoprecipitate to date. Heme/onc, radiation oncology following. Pt is still to establish with oncology in the outpatient setting, pending PET. Attempted to get MRI brain but was too uncomfortable and declined 4. Abdominal and LE pain likely multifactorial due to metastatic urothelial carcinoma, ascites. Still waxing and waning severity- CT A/P showed moderate ascites, renal hypodensity c/w recent L renal infarct, bladder wall thickening with some bladder wall gas c/f infection, and potential proctitis without obstruction, masses, pneumoperitoneum or navin evidence ischemia. Repeat CT A/P showed stable anatomy with mention of a splenic infarct that appears stable. Has extensive bilateral LE DVTs with some concern for mesenteric insufficiency given significant clot burden with splenic and renal infarcts. Pain management changed to oxycontin 10 mg PO BID, oxycodone 5 mg PO Q4 HRs PRN for breakthrough pain. Palliative care is following. C/w PRN tylenol, senna/colace BID and PRN miralax. 5. Acute blood loss anemia on chronic anemia multifactorial 2/2 hematuria, ep istaxis, hematochezia currently in DIC. Currently s/p 2 units of blood and 30u of fibrinogen to date Discussed with urology, and now consulted radiation oncology and s/p bladder tumor radiation for hematuria. Daily CBC. 6. Ascites 2/2 metastatic bladder carcinoma. Last paracentesis was done on , will defer paracentesis at this time with ongoing anticoagulation 7. Acute on chronic HFpEF with +3 LE edema. Holding diuretics for now, monitor 8. Endocarditis: marantic. Recent TTE showed normal LV size with hyperdynamic LV systolic function and grade 1 diastolic dysfunction. No left ventricular hypertrophy (LVH). Heavily sclerotic aortic valve with vegetation versus calcifications with mild aortic stenosis and mild aortic insufficiency, while ESTEFANI showed vegetation of aortic valve 04/09/20 that was deemed secondary to malignancy with multiple negative blood cultures at that time. 04/21 Bcx with 1 bottle growing staph epi, likely contaminant of skin rosenda, repeated BCx on 04/23 NGTD, MRSA negative, had 4d of empiric zosyn, initially with vanc as well. 9. 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 Continue to monitor 10. VINCENT likely multifactorial secondary to left renal infarct, post obstructive nephropathy with bilateral hydro. Cr waxing and waning. Currently 2.4. Hold NSAIDs, allopurinol, s/p volume resuscitation with fluids and blood products. Strict I/Os given ongoing hematuria. 11. Leukocytosis, improved. S/p 4d of empiric zosyn. 1 of the 2 bottles of the 04/21 BCx grew staph epi, though likely skin rosenda contamination. MRSA PCR was negative. 04/23 BCx NGTD. CXR without acute infiltrates or effusions. Possibly reactive to clots as well, on anticoagulation 12. Extensive DVTs. On low dose heparin as per heme/onc. Complicated by persistent hematuria, however with stable hgb. S/p IVC filter. Now with slightly improved DIC with both thromboses and bleeding 13. BPH. c/w Tamsulosin and Finasteride 14. Gout. Holding allopurinol given declining renal function. 15. GERD. Pantoprazole IV 40 BID in the setting of ongoing bleeding, with some episodes of hematochezia. 16. HTN. Stable. C/w current treatment. 17. DVT px. Stopped eliquis BID per heme/onc recs. C/w lovenox daily with him having continued bleeding. DISPOSITION: Will touch base with rad/onc in the AM to discuss plan for discharge. Palliative care for pain management at discharge. VS, I&O, 24H, Fishbone Vital Signs/I&O Vital Signs Date Time Temp Pulse Resp B/P (MAP) Pulse Ox O2 Delivery O2 Flow Rate FiO2 04/29/20 16:00 96.8 90 19 163/73 (103) 95 04/29/20 08:00 Room Air I&O- Last 24 Hours up to 6 AM 04/29/20 06:00 Intake Total 120 ml Output Total 895 ml Balance -775 ml Laboratory Data 24H LABS Laboratory Tests 2 04/29/20 04:11: Nucleated Red Blood Cells % (auto) 0.0, Immature Platelet Fraction 5.5, Prothrombin Time 26.1H, Prothromb Time International Ratio 2.41, Fibrinogen 445, Anion Gap 10, Glomerular Filtration Rate 27.3L, Calcium Level 8.2L, Total Bilirubin 5.0H, Aspartate Amino Transf (AST/SGOT) 230H, Alanine Aminotransferase (ALT/SGPT) 218H, Alkaline Phosphatase 1988H, Total Protein 6.1L, Albumin 2.3L, Albumin/Globulin Ratio 0.6 CBC/BMP Laboratory Tests 04/29/20 04:11 Microbiology Microbiology 04/23/20 Blood Culture - Final, Complete NO GROWTH AFTER 5 DAYS 04/23/20 Blood Culture - Final, Complete NO GROWTH AFTER 5 DAYS 04/22/20 Stool Occult Blood (RAY) - Final, Complete 04/21/20 Urine Culture - Final, Complete 04/21/20 Blood Culture - Final, Complete NO GROWTH AFTER 5 DAYS 04/21/20 Blood Culture - Final, Complete Staphylococcus Epidermidis Current Medications Current Medications Medications (Trade) Dose Ordered Sig/Soheila Route PRN Reason Start Time Stop Time Status Last Admin Dose Admin Acetaminophen (Tylenol Tab) 650 mg Q4H PRN PO PAIN OR FEVER 04/21/20 10:45 04/26/20 05:07 Apixaban (Eliquis) 5 mg BID PO 04/27/20 09:00 04/28/20 15:09 DC 04/28/20 09:18 Atropine Sulfate (Isopto Atropine 1%) 1 drop Q2HP PRN SL TERMINAL SECRETIONS 04/22/20 20:00 Enoxaparin Sodium (Lovenox) 30 mg QHS SC 04/28/20 21:00 04/28/20 20:39 EZETIMIBE (Zetia) 10 mg QPM PO 04/21/20 21:00 04/22/20 20:00 DC 04/21/20 20:43 Fentanyl Citrate (Sublimaze) 25 mcg Q30M PRN IV MODERATE/SEVERE PAIN (PS 5-10) 04/21/20 07:15 04/21/20 08:08 DC 04/21/20 08:08 Ferrous Sulfate (Ferrous Sulfate) 325 mg BID PO 04/21/20 21:00 04/22/20 20:00 DC 04/21/20 20:42 Finasteride (Proscar) 5 mg QPM PO 04/21/20 21:00 04/28/20 20:38 Heparin Sodium (Heparin Lock Flush 10units/ml) 10 units ASDIRECTED PRN IV SEE LABEL COMMENTS 04/25/20 13:00 04/27/20 14:53 DC Heparin Sodium (Heparin Lock Flush 10units/ml) 10 units HLF IV 04/25/20 14:00 04/27/20 14:53 DC 04/27/20 06:08 Heparin Sodium (Porcine) (Heparin) ASDIRECTED PRN IV SEE LABEL COMMENTS 04/22/20 11:45 04/22/20 20:00 DC Heparin Sodium (Porcine) (Heparin) ASDIRECTED PRN IV SEE LABEL COMMENTS 04/23/20 15:00 04/27/20 08:28 DC Heparin Sodium (Porcine) 41186 units/IV Miscellaneous Supplies 250 ml @ 11.25 mls/ hr ASDIRECTED IV 04/22/20 11:45 04/22/20 20:00 DC 04/22/20 19:17 Heparin Sodium (Porcine) 10359 units/IV Miscellaneous Supplies 250 ml @ 0 mls/hr Q0M IV 04/23/20 14:46 04/27/20 08:28 DC 04/26/20 13:38 Home Med (Med Rec Complete!) ASDIRECTED XX 04/21/20 09:45 04/21/20 09:41 DC Hydrochlorothiazide (Hydrodiuril) 12.5 mg DAILY PO 04/25/20 09:00 04/25/20 11:34 DC Hydrochlorothiazide (Hydrodiuril) 12.5 mg DAILY PO 04/26/20 09:00 04/29/20 09:18 Hydromorphone HCl (Dilaudid) 1.6 mg Q3HP PRN IV MODERATE/SEVERE PAIN (PS 5-10) 04/26/20 14:00 04/27/20 08:28 DC 04/26/20 15:03 Latanoprost (Xalatan 0.005% Op Soln) 1 drop QHS OU 5/26/20 21:00 04/28/20 20:39 Lorazepam (Ativan) 1 mg STAT STAT IV 04/22/20 09:26 04/22/20 12:39 DC Magnesium Chloride (Slow-Mag) 64 mg DAILY PO 04/22/20 09:00 04/22/20 20:00 DC 04/22/20 12:02 Midazolam HCl (Versed) 2 mg STAT STAT IV 04/22/20 20:30 04/22/20 20:32 DC 04/22/20 18:15 Morphine Sulfate (Morphine Sulfate Inj) 2 mg Q2H PRN IV SEVERE PAIN (PS 8-10) 04/22/20 20:00 04/27/20 08:28 DC 04/26/20 05:34 Morphine Sulfate (Morphine Sulfate Inj) 4 mg Q4HP PRN IV severe pain 04/21/20 10:45 04/22/20 09:21 DC 04/21/20 23:17 Morphine Sulfate (Morphine Sulfate Inj) 4 mg Q4HP PRN IV MODERATE/SEVERE PAIN (PS 5-10) 04/22/20 17:00 04/27/20 09:00 DC 04/27/20 04:35 Morphine Sulfate (Ms Contin) 15 mg BID PO 04/27/20 09:00 04/29/20 09:17 Morphine Sulfate (Msir) 7.5 mg Q4HP PRN PO SEVERE PAIN (PS 8-10) 04/27/20 08:15 04/27/20 15:56 Multivitamins (Theragram-M) 1 tab DAILY PO 04/22/20 09:00 04/22/20 20:00 DC Non-Formulary Medication (Heparin Iv Rate Change Documentation ml/ Hr) ASDIRECTED XX 04/22/20 11:45 04/22/20 20:00 DC Non-Formulary Medication (Heparin Iv Rate Change Documentation ml/ Hr) ASDIRECTED XX 04/23/20 15:00 04/27/20 08:28 DC 04/25/20 16:00 Ondansetron HCl (ZOFRAN INJection) 4 mg Q6HP PRN IV NAUSEA OR VOMITING 04/22/20 20:00 Oxybutynin Chloride (Ditropan) 5 mg Q8H PRN PO BLADDER SPASM 04/21/20 14:15 04/26/20 11:00 Oxycodone/ Acetaminophen (Percocet 5mg/ 325mg Tablet) 1 tab Q4H PRN PO PAIN 04/21/20 14:15 04/22/20 09:22 DC Pantoprazole Sodium (Protonix) 40 mg BID IV 04/23/20 21:00 04/29/20 09:17 Pantoprazole Sodium (Protonix) 40 mg DAILY PO 04/21/20 09:00 04/22/20 20:00 DC 04/22/20 12:03 Piperacillin Sod/ Tazobactam Sod 3.375 gm/Dextrose 50 ml @ 50 mls/hr Q6H IV 04/21/20 16:00 04/22/20 20:00 DC 04/22/20 16:33 Piperacillin Sod/ Tazobactam Sod 3.375 gm/Dextrose 50 ml @ 50 mls/hr Q6H IV 04/23/20 15:00 04/25/20 11:38 DC 04/25/20 08:19 Polyethylene Glycol (Miralax) 1 pkt DAILYPRN PRN PO CONSTIPATION 04/27/20 08:15 04/27/20 09:09 Rosuvastatin Calcium (Crestor) 5 mg QPM PO 04/21/20 21:00 04/22/20 20:00 DC 04/21/20 20:43 Senna/Docusate Sodium (Senokot S) 1 tab BID PO 04/27/20 09:00 04/29/20 09:18 Sodium Chloride 1,000 ml @ 125 mls/hr Q8H IV 04/21/20 10:45 04/21/20 14:14 DC 04/21/20 12:14 Sodium Chloride (Saline Lock Flush) 2 ml ASDIRECTED PRN IV SEE LABEL COMMENTS 04/21/20 14:30 04/22/20 20:00 DC Sodium Chloride (Saline Lock Flush) 2 ml ASDIRECTED PRN IV SEE LABEL COMMENTS 04/27/20 15:45 Sodium Chloride (Saline Lock Flush) 2 ml SLF IV 04/21/20 22:00 04/22/20 20:00 DC 04/22/20 15:00 Sodium Chloride (Saline Lock Flush) 2 ml SLF IV 04/27/20 22:00 04/29/20 14:04 Sodium Chloride (Saline Lock Flush) 10 ml ASDIRECTED PRN IV SEE LABEL COMMENTS 04/25/20 13:00 04/27/20 14:53 DC Sodium Chloride (Saline Lock Flush) 10 ml SLF IV 04/25/20 14:00 04/27/20 14:53 DC 04/27/20 06:08 Tamsulosin HCl (Flomax) 0.4 mg BID PO 04/21/20 21:00 04/29/20 09:17 Vancomycin HCl 1000 mg/IV Miscellaneous Supplies 20 ml @ 20 mls/hr Q12H IV 04/22/20 09:30 04/22/20 10:13 DC Vancomycin HCl 1000 mg/IV Miscellaneous Supplies 1 each/ Dextrose 270 ml @ 270 mls/hr Q24H IV 04/22/20 12:00 04/22/20 20:00 DC 04/22/20 12:02 Vancomycin HCl 1000 mg/IV Miscellaneous Supplies 1 each/ Dextrose 270 ml @ 270 mls/hr Q24H IV 04/23/20 15:00 04/23/20 14:41 DC Vitamin D (Vitamin D) 1,000 units DAILY PO 04/22/20 09:00 04/22/20 20:00 DC Allergies Coded Allergies: No Known Allergies (Verified Allergy, Unknown, 03/23/20) Queta Diop MD Apr 29, 2020 17:53
[2020-04-29] MEDS ORDERED: oxyCODONE 5MG TAB PO PRN (18:00)
[2020-04-29 20:00] VITALS: BP 178/74
[2020-04-29] MEDS: ENOXAPARIN 30MG/0.3ML SYRINGE (J1650 PER 10MG) SC SCH (20:31)
[2020-04-29] MEDS: LATANOPROST 0.005% OPHTH SOLN 2.5 ML OU SCH (20:32)
[2020-04-29] MEDS: FINASTERIDE 5 MG TAB PO SCH (20:32)
[2020-04-29] MEDS: oxyCODONE 10 MG CR TAB PO SCH (20:33)
[2020-04-29] MEDS ORDERED: ONDANSETRON 4 MG TAB PO PRN (23:00)
[2020-04-30] VITALS (7 sets, daily range): BP systolic 120–179; BP diastolic 40–86
[2020-04-30] MEDS: oxyBUTYnin 5 MG TAB PO PRN (00:39)
[2020-04-30] MEDS: ACETAMINOPHEN TAB 650MG DOSE (2X325MG) PO PRN (00:39)
[2020-04-30 06:14] LABS: HEMATOCRIT 27.3 % (42.0-52.0); HEMOGLOBIN 8.8 g/dl (13.5-17.5); MEAN CORPUSCULAR HEMOGLOBIN 29.3 pg (27.0-33.0); MEAN CORPUSCULAR HGB CONC 32.2 g/dl (32.0-36.5); WHITE BLOOD COUNT 8.5 10^3/uL (4.0-10.0)
[2020-04-30 06:27] LABS: INR 1.97; PROTHROMBIN TIME 22.2 SECONDS (11.8-14.0)
[2020-04-30 06:44] LABS: PLATELET COUNT, AUTOMATED 66 10^3/uL (150-450)
[2020-04-30 06:53] LABS: ALBUMIN 2.3 GM/DL (3.2-5.2); BILIRUBIN,TOTAL 4.3 MG/DL (0.2-1.0); CALCIUM LEVEL 8.2 MG/DL (8.8-10.2); CREATININE FOR GFR 2.23 MG/DL (0.70-1.30); GLOMERULAR FILTRATION RATE 30.7 (>42); POTASSIUM SERUM 3.9 MEQ/L (3.5-5.1)
[2020-04-30] MEDS: SENOKOT S TAB PO SCH ×2 (09:09→20:50)
[2020-04-30] MEDS: TAMSULOSIN 0.4 MG CAP PO SCH ×2 (09:09→20:50)
[2020-04-30] MEDS: hydroCHLOROthiazide 12.5 MG CAPSULE PO SCH (09:09)
[2020-04-30] MEDS: PANTOPRAZOLE 40MG TAB (PROTONIX) PO SCH (09:09)
[2020-04-30] MEDS: oxyCODONE 10 MG CR TAB PO SCH ×2 (09:09→20:50)
--- NOTE | 2020-04-30 13:21 | CR ---
RADIATION ONCOLOGY CONSULTATION NOTE DATE OF CONSULTATION: 04/22/2020 CHART NUMBER: [id number]. DIAGNOSIS: Bladder cancer. STAGE: IV, metastatic. ECOG PERFORMANCE STATUS : 4. CONSULTATION NOTE: Mr. Abdul is a pleasant 75-year-old white male with the diagnosis of widely metastatic end-stage bladder cancer who is presenting to us today for gross hematuria, as well as GI bleeding, while on anticoagulation therapy for bilateral DVTs for consideration of palliative hypofractionated radiation to the bladder in an attempt to decrease his bleeding. HISTORY OF PRESENT ILLNESS: The patient has a diagnosis of metastatic urothelial adenocarcinoma with a positive supraclavicular lymph node and was found to have metastatic carcinoma in the left supraclavicular node as per biopsy on 04/08/2020. Peritoneal fluid was sampled also on 04/15/2020 and was positive for malignant cells. The patient was noted to have significant ascites. In addition, a transurethral resection of a bladder tumor was done on 04/13/2020, which showed high-grade urothelial carcinoma infiltrating the lamina propria and muscularis propria. CT scans were undertaken of the abdomen and pelvis on 04/21/2020, which revealed thickening of the ornelas of the rectum, as well as diffuse bladder wall thickening. There was also noted to be ascites. A left lower vein and bilateral duplex ultrasound was done and showed extensive bilateral extremity deep venous thromboses. The patient has an IVC filter. He was started on anticoagulation therapy with Xarelto but developed significant hematuria and GI and rectal bleeding. We are now being called to see if we can give urgent radiation to slow down his bleeding. PAST MEDICAL HISTORY: The patient's past medical history is positive for a DVT with the IVC filter. He has a history of GERD, gout, hematuria, hypertension, left kidney infarct, left neck mass, endocarditis, progressive renal failure, ascites, and atherosclerotic vascular disease. He has had CABG with stents and bilateral endarterectomies. He had bilateral LE stents. ALLERGIES: The patient has no known drug allergies. SOCIAL HISTORY: The patient has smoked one pack of cigarettes per day for 30 years. He reports that he stopped drinking alcohol 5 months ago. FAMILY HISTORY: The patient's family history is negative for bladder cancer or other malignancies. REVIEW OF SYSTEMS: The patient's review of systems is positive for anorexia, as well as anxiety. He reports rectal bleeding and urinary bleeding. He has weakness in his arms and legs, as well as occasional fevers and chills. He has decreased energy and bilateral leg and abdominal swelling. He denies nausea, vomiting, fevers, chills, night sweats, diplopia, headaches, chest pain, neurological problems. PHYSICAL EXAMINATION: The patient was seen in his hospital bed. He has a urinary catheter in place with blood clearly visible in the stream. He has bilateral lower extremity edema. HEENT exam is normocephalic, atraumatic. Extraocular movements are intact. Further physical was deferred as per COVID-19 precautions. ASSESSMENT: The patient has very advanced urothelial carcinoma, which is metastatic with ascites. He is presenting to us for consideration of palliative radiation therapy in an attempt to stop hematuria. I have scheduled the patient for the next available simulation slot, and radiation treatments will begin subsequently. We have discussed with the patient in detail the potential benefits, as well as possible acute and chronic sequelae, of external beam radiation therapy. We discussed logistics of treatment planning, simulation, and subsequent fractionated daily radiation treatments. I have scheduled the patient once again for the next available simulation slot. We will be simulating him tomorrow, and radiation will begin subsequently. Thank you for allowing us to participate in the care of this very pleasant gentleman. As always, with warm regards. Wilman Moss cc: MD Aubrey Sagastume MD
--- NOTE | 2020-04-30 15:40 | IPNPDOC ---
Date Seen The patient was seen on 04/30/20. Progress Note SUBJECTIVE: No bleeding overnight, H/H slightly decreased at 8.8/27.3 with continued hematuria. Not expected to see rapid decrease in bleeding with external beam radiation per rad/onc. GI consulted to give additional input with rising alk phos, slightly jaundiced color. Tolerating oxycodone and OxyIR better, VINCENT slightly improved. Denies chest pain but had occasional shortness of breath. OBJECTIVE: VITAL SIGNS: Please see below PHYSICAL EXAMINATION: CONSTITUTIONAL: No acute distress, resting comfortably, AAO x 3 EYES: PERRLA, EOM intact. yellow sclera HENT, MOUTH: Normocephalic, atraumatic, moist mucous membranes NECK: SUPPLE, no JVD, no lymphadenopathy, no carotid bruit CV: NSR, S1S2 normal, no murmurs/rubs/gallops RESPIRATORY: Clear to auscultation bilaterally, no rales/rhonchi/wheezes GI: BS positive in 4 quadrants, tenderness of left side of abdomen- distended abdomen. Hardness felt on left side of abdomen- unchanged from days prior : Deferred MUSCULOSKELETAL: Normal ROM. No cyanosis, clubbing, swelling, joint deformity. extremity edema +2 bilateral lower ext INTEGUMENTARY: Intact, no rashes, no lesions, no erythema NEUROLOGIC: Cranial Nerves II-XII are intact, no focal deficits PSYCHIATRIC: Mood and affect are normal CURRENT MEDICATIONS: Please see below LABORATORY DATA: Please see below IMAGING: No new imaging. ASSESSMENT: 75 y/o M treating for metastatic high grade urothelial carcinoma, hematuria, abdominal pain 2/2 to metastatic carcinoma and ascites. 1. Hematuria 2/2 to bladder cancer. Persists, H/H dropped to 8.8/27.3. C/w radiation by rad-onc for bladder tumor external beam radiation in an effort to control the bleeding. Per Dr. Moss (rad/onc), this will not be a rapid result and could take weeks to see bleeding decrease. He is scheduled to complete 10 sessions as inpatient, currently has completed 5. F/u daily CBC. 2. Abdominal pain likely multifactorial due to metastatic urothelial carcinoma, ascites. Still waxing and waning severity- CT A/P showed moderate ascites, renal hypodensity c/w recent L renal infarct, bladder wall thickening with some bladder wall gas c/f infection, and potential proctitis without obstruction, masses, pneumoperitoneum or navin evidence ischemia. Repeat CT A/P showed stable anatomy with mention of a splenic infarct that appears stable. Rising alkaline phosphatase, persistent transaminitis. Concern for mesenteric insufficiency given significant clot burden with splenic and renal infarcts. Pain management changed to oxycontin 10 mg PO BID, oxycodone 5 mg PO Q4 HRs PRN for breakthrough pain. Palliative care is following for pain control. C/w PRN tylenol, senna/colace BID and PRN miralax. GI consulted today to see if any additional options/treatment to consider. 3. DIC with hx of epistaxis, extensive DVTs, renal infarct and bleeding (hematuria, +FOBT with navni hematochezia), splenomegaly. Currently not worsening but existing bleeding exists. Fibrinogen 400, no need for more cryoprecipitate. S/p 30 units of cryoprecipitate to date. PLTs >100. C/w low dose lovenox per Dr. Pelaez, heme/onc. Daily CBC, goal Hgb >8 and fibrinogen>100. 4. Hematochezia r/o GI bleed. Dark stools, FOBT +. H/H decreased slightly. GI consulted, r/u consult to discuss options for possible options for evaluation/treatment. 5. Increased confusion likely medication induced from decreased metabolism 2/2 to VINCENT. Resolved with changing of narcotics to oxycodone and oxycontin. Monitor closely. 6. Acute blood loss anemia on chronic anemia multifactorial 2/2 hematuria, epistaxis, hematochezia with recent diagnosis of DIC. Currently s/p 2 units of blood and 30u of fibrinogen to shiv. Discussed with urology, radiation oncology already with treatment plans in place with their specialty. Consulted GI to offer recs or suggestions for hematochezia, f/u consult. Daily CBC. 7. VINCENT likely multifactorial secondary to left renal infarct, post obstructive nephropathy with bilateral hydro. Cr slightly improved today to 2.23. S/p volume resuscitation with fluids and blood products. Strict I/Os given ongoing hematuria. 8. Metastatic bladder cancer. Cystoscopy was done on 04/13/20, patient was found to have high-grade urothelial carcinoma, infiltrating lamina propria and muscularis propria. Ascitic fluid on 04/13 was positive metastatic urothelial carcinoma, and L clavicular node was positive for malignancy. Complicated by DIC with thromboses and bleeding, s/p 30units of cryoprecipitate to date. Pt is still to establish with oncology in the outpatient setting, has not had PET. Heme/onc, radiation oncology following. 9. Acute on chronic HFpEF with +3 LE edema. Restarting low dose diuretics as lower ext edema appears to be worsened. 10. Ascites 2/2 metastatic bladder carcinoma. Last paracentesis was done on 04/13/20, will defer paracentesis at this time with ongoing anticoagulation. 11. 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 VINCENT slightly improved, on low dose lovenox. 12. Endocarditis, marantic. Recent TTE showed normal LV size with hyperdynamic LV systolic function and grade 1 diastolic dysfunction. No left ventricular hypertrophy (LVH). Heavily sclerotic aortic valve with vegetation versus calcifications with mild aortic stenosis and mild aortic insufficiency, while ESTEFANI showed vegetation of aortic valve 04/09/20 that was deemed secondary to malignancy with multiple negative blood cultures at that time. 04/21 Bcx with 1 bottle growing staph epi, likely contaminant of skin rosenda, repeated BCx on 04/23 NGTD, MRSA negative, had 4d of empiric zosyn, initially with vanc as well. 13. Leukocytosis with no definitive etiology identified, cannot r/o reactive due to thromboses. Resolved. S/p 4d of empiric zosyn. 1 of the 2 bottles of the 04/21 BCx grew staph epi, though likely skin rosenda contamination. MRSA PCR was negative. 04/23 BCx NGTD. CXR without acute infiltrates or effusions. 14. Extensive DVTs. On low dose heparin as per heme/onc. S/p IVC filter. Comp licated by persistent hematuria.Now with slightly improved DIC with both thromboses and bleeding 15. BPH. c/w Tamsulosin and Finasteride 16. Gout. Holding allopurinol given declining renal function. 17. HTN. Stable. C/w current treatment. 18. GI px, hx of GERD. Pantoprazole IV 40 BID in the setting of ongoing bleeding, hematochezia. 19. DVT px. C/w lovenox daily per heme/onc with DIC, clots. DISPOSITION: Complex case with many consultation services attempting to manage. At this time, radiation oncology would like to continue with an additional 5 sessions of external beam radiation while patient is inpatient, after which patient can resume as o/p. Palliative care for pain management at discharge. With decreasing H/H, GI consulted to offer recommendations with hematochezia present. of palliative radiation therapy in an attempt to stop hematuria. I have scheduled the patient for the next available simulation slot, and radiation treatments will begin subsequently. We have discussed with the patient in detail the potential benefits, as well as possible acute and chronic sequelae, of external beam radiation therapy [facility]&O Vital Signs Date Time Temp Pulse Resp B/P (MAP) Pulse Ox O2 Delivery O2 Flow Rate FiO2 04/30/20 12:00 96.5 19 98 179/86 (117) 98 Room Air I&O- Last 24 Hours up to 6 AM 04/30/20 06:00 Intake Total 1020 ml Output Total 400 ml Balance 620 ml Laboratory Data 24H LABS Laboratory Tests 2 04/30/20 05:32: Nucleated Red Blood Cells % (auto) 0.0, Immature Platelet Fraction 8.0, Prothrombin Time 22.2H, Prothromb Time International Ratio 1.97, Fibrinogen 317, Anion Gap 8, Glomerular Filtration Rate 30.7L, Calcium Level 8.2L, Total Bilir ubin 4.3H, Aspartate Amino Transf (AST/SGOT) 218H, Alanine Aminotransferase (ALT/SGPT) 192H, Alkaline Phosphatase 2218H, Total Protein 6.0L, Albumin 2.3L, Albumin/Globulin Ratio 0.6 CBC/BMP Laboratory Tests 04/30/20 05:32 Microbiology Microbiology 04/23/20 Blood Culture - Final, Complete NO GROWTH AFTER 5 DAYS 04/23/20 Blood Culture - Final, Complete NO GROWTH AFTER 5 DAYS 04/22/20 Stool Occult Blood (RAY) - Final, Complete 04/21/20 Urine Culture - Final, Complete 04/21/20 Blood Culture - Final, Complete NO GROWTH AFTER 5 DAYS 04/21/20 Blood Culture - Final, Complete Staphylococcus Epidermidis Current Medications Current Medications Medications (Trade) Dose Ordered Sig/Soheila Route PRN Reason Start Time Stop Time Status Last Admin Dose Admin Acetaminophen (Tylenol Tab) 650 mg Q4H PRN PO PAIN OR FEVER 04/21/20 10:45 04/30/20 00:39 Apixaban (Eliquis) 5 mg BID PO 04/27/20 09:00 04/28/20 15:09 DC 04/28/20 09:18 Atropine Sulfate (Isopto Atropine 1%) 1 drop Q2HP PRN SL TERMINAL SECRETIONS 04/22/20 20:00 Enoxaparin Sodium (Lovenox) 30 mg QHS SC 04/28/20 21:00 04/29/20 20:31 EZETIMIBE (Zetia) 10 mg QPM PO 04/21/20 21:00 04/22/20 20:00 DC 04/21/20 20:43 Fentanyl Citrate (Sublimaze) 25 mcg Q30M PRN IV MODERATE/SEVERE PAIN (PS 5-10) 04/21/20 07:15 04/21/20 08:08 DC 04/21/20 08:08 Ferrous Sulfate (Ferrous Sulfate) 325 mg BID PO 04/21/20 21:00 04/22/20 20:00 DC 04/21/20 20:42 Finasteride (Proscar) 5 mg QPM PO 04/21/20 21:00 04/29/20 20:32 Heparin Sodium (Heparin Lock Flush 10units/ml) 10 units ASDIRECTED PRN IV SEE LABEL COMMENTS 04/25/20 13:00 04/27/20 14:53 DC Heparin Sodium (Heparin Lock Flush 10units/ml) 10 units HLF IV 04/25/20 14:00 04/27/20 14:53 DC 04/27/20 06:08 Heparin Sodium (Porcine) (Heparin) ASDIRECTED PRN IV SEE LABEL COMMENTS 04/22/20 11:45 04/22/20 20:00 DC Heparin Sodium (Porcine) (Heparin) ASDIRECTED PRN IV SEE LABEL COMMENTS 04/23/20 15:00 04/27/20 08:28 DC Heparin Sodium (Porcine) 97109 units/IV Miscellaneous Supplies 250 ml @ 11.25 mls/ hr ASDIRECTED IV 04/22/20 11:45 04/22/20 20:00 DC 04/22/20 19:17 Heparin Sodium (Porcine) 38647 units/IV Miscellaneous Supplies 250 ml @ 0 mls/hr Q0M IV 04/23/20 14:46 04/27/20 08:28 DC 04/26/20 13:38 Home Med (Med Rec Complete!) ASDIRECTED XX 04/21/20 09:45 04/21/20 09:41 DC Hydrochlorothiazide (Hydrodiuril) 12.5 mg DAILY PO 04/25/20 09:00 04/25/20 11:34 DC Hydrochlorothiazide (Hydrodiuril) 12.5 mg DAILY PO 04/26/20 09:00 04/30/20 09:09 Hydromorphone HCl (Dilaudid) 1.6 mg Q3HP PRN IV MODERATE/SEVERE PAIN (PS 5-10) 04/26/20 14:00 04/27/20 08:28 DC 04/26/20 15:03 Latanoprost (Xalatan 0.005% Op Soln) 1 drop QHS OU 04/21/20 21:00 04/29/20 20:32 Lorazepam (Ativan) 1 mg STAT STAT IV 04/22/20 09:26 04/22/20 12:39 DC Magnesium Chloride (Slow-Mag) 64 mg DAILY PO 04/22/20 09:00 04/22/20 20:00 DC 04/22/20 12:02 Midazolam HCl (Versed) 2 mg STAT STAT IV 04/22/20 20:30 04/22/20 20:32 DC 04/22/20 18:15 Morphine Sulfate (Morphine Sulfate Inj) 2 mg Q2H PRN IV SEVERE PAIN (PS 8-10) 04/22/20 20:00 04/27/20 08:28 DC 04/26/20 05:34 Morphine Sulfate (Morphine Sulfate Inj) 4 mg Q4HP PRN IV severe pain 04/21/20 10:45 04/22/20 09:21 DC 04/21/20 23:17 Morphine Sulfate (Morphine Sulfate Inj) 4 mg Q4HP PRN IV MODERATE/SEVERE PAIN (PS 5-10) 04/22/20 17:00 04/27/20 09:00 DC 04/27/20 04:35 Morphine Sulfate (Ms Contin) 15 mg BID PO 04/27/20 09:00 04/29/20 17:51 DC 04/29/20 09:17 Morphine Sulfate (Msir) 7.5 mg Q4HP PRN PO SEVERE PAIN (PS 8-10) 04/27/20 08:15 04/29/20 17:51 DC 04/27/20 15:56 Multivitamins (Theragram-M) 1 tab DAILY PO 04/22/20 09:00 04/22/20 20:00 DC Non-Formulary Medication (Heparin Iv Rate Change Documentation ml/ Hr) ASDIRECTED XX 04/22/20 11:45 04/22/20 20:00 DC Non-Formulary Medication (Heparin Iv Rate Change Documentation ml/ Hr) ASDIRECTED XX 04/23/20 15:00 04/27/20 08:28 DC 04/25/20 16:00 Ondansetron HCl (ZOFRAN INJection) 4 mg Q6HP PRN IV NAUSEA OR VOMITING 04/22/20 20:00 Cancel Ondansetron HCl (Zofran) 8 mg Q4HP PRN PO NAUSEA OR VOMITING 04/29/20 23:00 Oxybutynin Chloride (Ditropan) 5 mg Q8H PRN PO BLADDER SPASM 04/21/20 14:15 04/30/20 00:39 Oxycodone HCl (OxyCONTIN) 10 mg BID PO 04/29/20 21:00 04/30/20 09:09 Oxycodone HCl (Roxicodone, Oxyir) 5 mg Q4HP PRN PO PAIN 04/29/20 18:00 Oxycodone/ Acetaminophen (Percocet 5mg/ 325mg Tablet) 1 tab Q4H PRN PO PAIN 04/21/20 14:15 04/22/20 09:22 DC Pantoprazole Sodium (Protonix) 40 mg BID IV 04/23/20 21:00 04/29/20 23:09 DC 04/29/20 09:17 Pantoprazole Sodium (Protonix) 40 mg DAILY PO 04/21/20 09:00 04/22/20 20:00 DC 04/22/20 12:03 Pantoprazole Sodium (Protonix) 40 mg DAILY PO 04/30/20 09:00 04/30/20 09:09 Piperacillin Sod/ Tazobactam Sod 3.375 gm/Dextrose 50 ml @ 50 mls/hr Q6H IV 04/21/20 16:00 04/22/20 20:00 DC 04/22/20 16:33 Piperacillin Sod/ Tazobactam Sod 3.375 gm/Dextrose 50 ml @ 50 mls/hr Q6H IV 04/23/20 15:00 04/25/20 11:38 DC 04/25/20 08:19 Polyethylene Glycol (Miralax) 1 pkt DAILYPRN PRN PO CONSTIPATION 04/27/20 08:15 04/27/20 09:09 Rosuvastatin Calcium (Crestor) 5 mg QPM PO 04/21/20 21:00 04/22/20 20:00 DC 04/21/20 20:43 Senna/Docusate Sodium (Senokot S) 1 tab BID PO 04/27/20 09:00 04/30/20 09:09 Sodium Chloride 1,000 ml @ 125 mls/hr Q8H IV 04/21/20 10:45 04/21/20 14:14 DC 04/21/20 12:14 Sodium Chloride (Saline Lock Flush) 2 ml ASDIRECTED PRN IV SEE LABEL COMMENTS 04/21/20 14:30 04/22/20 20:00 DC Sodium Chloride (Saline Lock Flush) 2 ml ASDIRECTED PRN IV SEE LABEL COMMENTS 04/27/20 15:45 04/30/20 06:49 DC Sodium Chloride (Saline Lock Flush) 2 ml SLF IV 04/21/20 22:00 04/22/20 20:00 DC 04/22/20 15:00 Sodium Chloride (Saline Lock Flush) 2 ml SLF IV 04/27/20 22:00 04/30/20 06:49 DC 04/29/20 20:33 Sodium Chloride (Saline Lock Flush) 10 ml ASDIRECTED PRN IV SEE LABEL COMMENTS 04/25/20 13:00 04/27/20 14:53 DC Sodium Chloride (Saline Lock Flush) 10 ml SLF IV 04/25/20 14:00 04/27/20 14:53 DC 04/27/20 06:08 Tamsulosin HCl (Flomax) 0.4 mg BID PO 04/21/20 21:00 04/30/20 09:09 Vancomycin HCl 1000 mg/IV Miscellaneous Supplies 20 ml @ 20 mls/hr Q12H IV 04/22/20 09:30 04/22/20 10:13 DC Vancomycin HCl 1000 mg/IV Miscellaneous Supplies 1 each/ Dextrose 270 ml @ 270 mls/hr Q24H IV 04/22/20 12:00 04/22/20 20:00 DC 04/22/20 12:02 Vancomycin HCl 1000 mg/IV Miscellaneous Supplies 1 each/ Dextrose 270 ml @ 270 mls/hr Q24H IV 04/23/20 15:00 04/23/20 14:41 DC Vitamin D (Vitamin D) 1,000 units DAILY PO 04/22/20 09:00 04/22/20 20:00 DC Allergies Coded Allergies: No Known Allergies (Verified Allergy, Unknown, 03/23/20) Queta Diop MD Apr 30, 2020 15:40
[2020-04-30] MEDS ORDERED: FUROSEMIDE 20 MG TAB PO SCH (16:00)
--- NOTE | 2020-04-30 18:54 | REPVR ---
PROCEDURE INFORMATION: Exam: US Abdomen Complete Exam date and time: 04/30/2020 5:31 PM Age: 75 years old Clinical indication: Abnormal findings; Abnormal lab test; Other: Alk phos; Additional info: Worsening alk phos TECHNIQUE: Imaging protocol: Real-time ultrasound of the abdomen with image documentation. COMPARISON: 1. PARACENTESIS NEEDLE PLACE US 04/13/2020 12:06 PM 2. COMPARISON MORE: CT ABD PELVIS W/O CONTRAST 04/26/2020 11:23:15 AM FINDINGS: Liver: Calcified granuloma as seen on recent CT exam. No mass suspicious mass. Gallbladder: Tiny gallstones and sludge. Gallbladder wall thickening measuring 9.5 mm. Common bile duct: Dilated common bile duct measuring 16.9 mm. Pancreas: The pancreas was sought but not demonstrated due to bowel gas. Right kidney: The right kidney measures 10.6 x 6.5 x 6.0 cm. Mild to moderate hydronephrosis. Cyst within the upper pole measuring a maximum of 5.6 cm in diameter. Second cyst in the lower pole measuring up to 3.5 cm in diameter. Left kidney: Left kidney measures 12.8 by 6.1 x 5.0 cm. Mild to moderate left hydronephrosis better seen on recent CT exam.. Spleen: No splenomegaly. The spleen measures 11.1 cm in length. Aorta: Aorta sought but not well seen on ultrasound due to bowel gas. Prominent atherosclerotic calcification on recent CT abdomen. No aneurysm seen on prior CT. Inferior vena cava: Known IVC filter from CT scan. IVC sought but not well seen on ultrasound due to bowel gas. Intraperitoneal space: Ascites noted. IMPRESSION: 1. Tiny gallstones and sludge. Gallbladder wall thickening measuring 9.5 mm. Dilated common bile duct measuring 16.9 mm. 2. Known ascites. 3. Known calcified granuloma from CT scan. No suspicious hepatic mass. 4. Pancreas sought but not well seen due to bowel gas. 5. [id number] bilateral hydronephrosis. Right renal cysts described above. Electronically signed by: Eric Castelan On 04/30/2020 18:54:36 PM
[2020-04-30] MEDS: FINASTERIDE 5 MG TAB PO SCH (20:50)
[2020-04-30] MEDS: LATANOPROST 0.005% OPHTH SOLN 2.5 ML OU SCH (20:51)
[2020-04-30] MEDS: ENOXAPARIN 30MG/0.3ML SYRINGE (J1650 PER 10MG) SC SCH (20:51)
[2020-05-01] VITALS (9 sets, daily range): BP systolic 148–186; BP diastolic 58–70
[2020-05-01 05:58] LABS: HEMATOCRIT 28.1 % (42.0-52.0); MEAN CORPUSCULAR HEMOGLOBIN 28.8 pg (27.0-33.0); MEAN CORPUSCULAR VOLUME 89.8 fl (80.0-96.0); RED BLOOD COUNT 3.13 10^6/uL (4.30-6.10); WHITE BLOOD COUNT 9.2 10^3/uL (4.0-10.0)
[2020-05-01 06:15] LABS: PLATELET COUNT, AUTOMATED 49 10^3/uL (150-450)
[2020-05-01 06:54] LABS: ALBUMIN 2.4 GM/DL (3.2-5.2); BILIRUBIN,TOTAL 3.2 MG/DL (0.2-1.0); CALCIUM LEVEL 8.2 MG/DL (8.8-10.2); CREATININE FOR GFR 1.82 MG/DL (0.70-1.30); GLOMERULAR FILTRATION RATE 38.9 (>42); POTASSIUM SERUM 3.7 MEQ/L (3.5-5.1)
[2020-05-01] MEDS: PANTOPRAZOLE 40MG TAB (PROTONIX) PO SCH (08:19)
[2020-05-01] MEDS: SENOKOT S TAB PO SCH ×2 (08:19→20:27)
[2020-05-01] MEDS: hydroCHLOROthiazide 12.5 MG CAPSULE PO SCH (08:20)
[2020-05-01] MEDS: oxyCODONE 10 MG CR TAB PO SCH (08:20)
[2020-05-01] MEDS: TAMSULOSIN 0.4 MG CAP PO SCH ×2 (08:20→20:27)
[2020-05-01] MEDS: FUROSEMIDE 40 MG TAB PO SCH (08:20)
[2020-05-01] MEDS: ACETAMINOPHEN TAB 650MG DOSE (2X325MG) PO PRN (09:31)
[2020-05-01] MEDS: bisoproloL fumarate 10 MG TAB PO SCH (10:30)
[2020-05-01] MEDS ORDERED: oxyCODONE 5MG TAB PO ONE (10:30)
[2020-05-01] MEDS ORDERED: PILL CUTTER 1 EACH XX PRN (11:00)
--- NOTE | 2020-05-01 18:57 | IPNPDOC ---
Date Seen The patient was seen on 05/01/20. Progress Note SUBJECTIVE: Patient continues to have persistent hematuria, H&H slightly improved today. Platelets have decreased to 49, creatinine improved 1.82, fibrinogen also decreased to 317. Case discussed with hematology/oncology who recommended to not stop anticoagulation or transfuse platelets at this time. Case also discussed with urology due to mildmoderate hydronephrosis being seen on ultrasound of the abdomen. At this time will not insert Amaya catheter due to risk of causing more bleeding. The case was also discussed with palliative care who talked at length with the patient's who is currently seeking a second opinion. At this time she is requesting the oncologists to discuss case with another oncologist specializes in bladder cancers at [facility]. The patient had severe pain today and his pain medication was adjusted. The patient denies nausea, vomiting, chest pain or increased shortness of breath. OBJECTIVE: VITAL SIGNS: Please see below PHYSICAL EXAMINATION: CONSTITUTIONAL: Uncomfortable with increased abdominal pain, AAO x 3 EYES: PERRLA, EOM intact. yellow sclera HENT, MOUTH: Normocephalic, atraumatic, moist mucous membranes NECK: SUPPLE, no JVD, no lymphadenopathy, no carotid bruit CV: NSR, S1S2 normal, no murmurs/rubs/gallops RESPIRATORY: Clear to auscultation bilaterally, no rales/rhonchi/wheezes GI: BS positive in 4 quadrants, tenderness of left and right side of abdomen- distended abdomen. Hardness felt on left side of abdomen- unchanged from days prior : Deferred MUSCULOSKELETAL: Normal ROM. No cyanosis, clubbing, swelling, joint deformity. extremity edema +2 bilateral lower ext INTEGUMENTARY: Intact, no rashes, no lesions, no erythema NEUROLOGIC: Cranial Nerves II-XII are intact, no focal deficits PSYCHIATRIC: Mood and affect are normal CURRENT MEDICATIONS: Please see below LABORATORY DATA: Please see below IMAGING: US abdomen: 1. Tiny gallstones and sludge. Gallbladder wall thickening measuring 9.5 mm. Dilated common bile duct measuring 16.9 mm. 2. Known ascites. 3. Known calcified granuloma from CT scan. No suspicious hepatic mass. 4. Pancreas sought but not well seen due to bowel gas. 5. [id number] bilateral hydronephrosis. Right renal cysts described above. ASSESSMENT: 75 y/o M treating for metastatic high grade urothelial carcinoma, hematuria, abdominal pain 2/2 to metastatic carcinoma and ascites. 1. Hematuria 2/2 to bladder cancer. Persists, H/H improved slightly. Hydronephrosis seen on US abdomen, discussed with urology who does not recommend amaya catheter due to friable bladder and increased risk of bleeding. C/w radiation by rad-onc for bladder tumor external beam radiation in an effort to control the bleeding. Per Dr. Moss (rad/onc), this will not be a rapid result and could take weeks to see bleeding decrease. He is scheduled to complete 10 sessions as inpatient (possibly mid next week), currently has completed 5. F/u daily CBC. 2. Abdominal pain likely multifactorial due to metastatic urothelial carcinoma, ascites. Still waxing and waning severity- CT A/P showed moderate ascites, renal hypodensity c/w recent L renal infarct, bladder wall thickening with some bladder wall gas c/f infection, and potential proctitis without obstruction, masses, pneumoperitoneum or navin evidence ischemia. Repeat CT A/P showed stable anatomy with mention of a splenic infarct that appears stable. Concern for mesenteric insufficiency given significant clot burden with splenic and renal infarcts. Alk phos slightly lower today, transaminitis still present. GI con sulted and ordered MRCP- could not go down today due to severe pain. Pain regimen changed to oxycontin 15 mg PO BID, oxycodone 5 mg PO Q4 HRs PRN for breakthrough pain. Palliative care is following for pain control. C/w PRN tylenol, senna/colace BID and PRN miralax. GI following. 3. DIC with hx of epistaxis, extensive DVTs, renal infarct and bleeding (hematuria, +FOBT with navin hematochezia), splenomegaly. Fibrinogen slowly decreasing, PLTs 40's. S/p 30 units of cryoprecipitate to date. Discussed with Dr. Jimenez- do not stop anticoagulation until platelets less than 30, transfuse for platelets less than 20 even with hematuria. C/w low dose lovenox, daily CBC. Goal Hgb >8 and fibrinogen>100. 4. Hematochezia r/o GI bleed. Dark stools, FOBT +. H/H slightly improved today. GI consulted. 6. Acute blood loss anemia on chronic anemia multifactorial 2/2 hematuria, epistaxis, hematochezia with recent diagnosis of DIC. Currently s/p 2 units of blood and 30u of fibrinogen to shiv. Discussed with urology, radiation oncology already with treatment plans in place with their specialty. Consulted GI to offer recs or suggestions for hematochezia, f/u consult. Daily CBC. 7. VINCENT likely multifactorial secondary to left renal infarct, post obstructive nephropathy with bilateral hydro. Cr slightly more improved today. Strict I/Os given ongoing hematuria. 8. Metastatic bladder cancer. Cystoscopy was done on 04/13/20, patient was found to have high-grade urothelial carcinoma, infiltrating lamina propria and muscularis propria. Ascitic fluid on 04/13 was positive metastatic urothelial car cinoma, and L clavicular node was positive for malignancy. Complicated by DIC with thromboses and bleeding, s/p 30units of cryoprecipitate to date. Pt is still to establish with oncology in the outpatient setting, has not had PET. Heme/onc, radiation oncology following. Currently family is seeking 2nd opinion, Dr. Jimenez (oncology) is currently involved. 9. Acute on chronic HFpEF with +3 LE edema. C/w low dose lasix, restarted BB. 10. HTN, uncontrolled. Restarted home BB, added lasix. 11. Ascites 2/2 metastatic bladder carcinoma. Last paracentesis was done on 04/13/20, will defer paracentesis at this time with ongoing anticoagulation. 12. 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 VINCENT slightly improved, on low dose lovenox. 13. Endocarditis, marantic. Recent TTE showed normal LV size with hyperdynamic LV systolic function and grade 1 diastolic dysfunction. No left ventricular hypertrophy (LVH). Heavily sclerotic aortic valve with vegetation versus c alcifications with mild aortic stenosis and mild aortic insufficiency, while ESTEFANI showed vegetation of aortic valve 04/09/20 that was deemed secondary to malignancy with multiple negative blood cultures at that time. 04/21 Bcx with 1 bottle growing staph epi, likely contaminant of skin rosenda, repeated BCx on 04/23 NGTD, MRSA negative, had 4d of empiric zosyn, initially with vanc as well. 14. Extensive DVTs. On low dose heparin as per heme/onc. S/p IVC filter. Complicated by persistent hematuria. Now with DIC with both thromboses and bleeding 15. BPH. c/w Tamsulosin and Finasteride 16. Gout. Holding allopurinol given declining renal function. 18. GI px, hx of GERD. Pantoprazole IV 40 BID in the setting of ongoing bleeding, hematochezia. 19. DVT px. C/w lovenox daily per heme/onc with DIC, clots. DISPOSITION: Complex case with many consultation services attempting to manage- including hematology/oncology, radiation oncology, gastroenterology, urology. Discharge plan is not yet in place. Palliative care is following closely. VS, I&O, 24H, Fishbone Vital Signs/I&O Vital Signs Date Time Temp Pulse Resp B/P (MAP) Pulse Ox O2 Delivery O2 Flow Rate FiO2 05/01/20 16:00 96.7 64 18 156/65 (95) 98 Room Air I&O- Last 24 Hours up to 6 AM 05/01/20 06:00 Intake Total 120 ml Output Total 100 ml Balance 20 ml Laboratory Data 24H LABS Laboratory Tests 2 05/01/20 05:22: Nucleated Red Blood Cells % (auto) 0.4H, Anion Gap 9, Glomerular Filtration Rate 38.9L, Calcium Level 8.2L, Total Bilirubin 3.2H, Aspartate Amino Transf (AST/SGO T) 134H, Alanine Aminotransferase (ALT/SGPT) 160H, Alkaline Phosphatase 1933H, Total Protein 6.0L, Albumin 2.4L, Albumin/Globulin Ratio 0.7 CBC/BMP Laboratory Tests 05/01/20 05:22 Microbiology Microbiology 04/23/20 Blood Culture - Final, Complete NO GROWTH AFTER 5 DAYS 04/23/20 Blood Culture - Final, Complete NO GROWTH AFTER 5 DAYS 04/22/20 Stool Occult Blood (RAY) - Final, Complete 04/21/20 Urine Culture - Final, Complete 04/21/20 Blood Culture - Final, Complete NO GROWTH AFTER 5 DAYS 04/21/20 Blood Culture - Final, Complete Staphylococcus Epidermidis Current Medications Current Medications Medications (Trade) Dose Ordered Sig/Soheila Route PRN Reason Start Time Stop Time Status Last Admin Dose Admin Acetaminophen (Tylenol Tab) 650 mg Q4H PRN PO PAIN OR FEVER 04/21/20 10:45 05/01/20 09:31 Apixaban (Eliquis) 5 mg BID PO 04/27/20 09:00 04/28/20 15:09 DC 04/28/20 09:18 Atropine Sulfate (Isopto Atropine 1%) 1 drop Q2HP PRN SL TERMINAL SECRETIONS 04/22/20 20:00 Bisoprolol Fumarate (Zebeta) 10 mg DAILY PO 05/01/20 10:30 05/01/20 10:30 Enoxaparin Sodium (Lovenox) 30 mg QHS SC 04/28/20 21:00 04/30/20 20:51 EZETIMIBE (Zetia) 10 mg QPM PO 04/21/20 21:00 04/22/20 20:00 DC 04/21/20 20:43 Fentanyl Citrate (Sublimaze) 25 mcg Q30M PRN IV MODERATE/SEVERE PAIN (PS 5-10) 04/21/20 07:15 04/21/20 08:08 DC 04/21/20 08:08 Ferrous Sulfate (Ferrous Sulfate) 325 mg BID PO 04/21/20 21:00 04/22/20 20:00 DC 04/21/20 20:42 Finasteride (Proscar) 5 mg QPM PO 04/21/20 21:00 04/30/20 20:50 Furosemide (Lasix) 20 mg DAILY PO 04/30/20 16:00 05/01/20 07:48 DC 04/30/20 18:24 Furosemide (Lasix) 40 mg DAILY PO 05/01/20 09:00 05/01/20 08:20 Heparin Sodium (Heparin Lock Flush 10units/ml) 10 units ASDIRECTED PRN IV SEE LABEL COMMENTS 04/25/20 13:00 04/27/20 14:53 DC Heparin Sodium (Heparin Lock Flush 10units/ml) 10 units HLF IV 04/25/20 14:00 04/27/20 14:53 DC 04/27/20 06:08 Heparin Sodium (Porcine) (Heparin) ASDIRECTED PRN IV SEE LABEL COMMENTS 04/22/20 11:45 04/22/20 20:00 DC Heparin Sodium (Porcine) (Heparin) ASDIRECTED PRN IV SEE LABEL COMMENTS 04/23/20 15:00 04/27/20 08:28 DC Heparin Sodium (Porcine) 20369 units/IV Miscellaneous Supplies 250 ml @ 11.25 mls/ hr ASDIRECTED IV 04/22/20 11:45 04/22/20 20:00 DC 04/22/20 19:17 Heparin Sodium (Porcine) 77466 units/IV Miscellaneous Supplies 250 ml @ 0 mls/hr Q0M IV 04/23/20 14:46 04/27/20 08:28 DC 04/26/20 13:38 Home Med (Med Rec Complete!) ASDIRECTED XX 04/21/20 09:45 04/21/20 09:41 DC Hydrochlorothiazide (Hydrodiuril) 12.5 mg DAILY PO 04/25/20 09:00 04/25/20 11:34 DC Hydrochlorothiazide (Hydrodiuril) 12.5 mg DAILY PO 04/26/20 09:00 05/01/20 08:20 Hydromorphone HCl (Dilaudid) 1.6 mg Q3HP PRN IV MODERATE/SEVERE PAIN (PS 5-10) 04/26/20 14:00 04/27/20 08:28 DC 04/26/20 15:03 Latanoprost (Xalatan 0.005% Op Soln) 1 drop QHS OU 04/21/20 21:00 04/30/20 20:51 Lorazepam (Ativan) 1 mg STAT STAT IV 04/22/20 09:26 04/22/20 12:39 DC Magnesium Chloride (Slow-Mag) 64 mg DAILY PO 04/22/20 09:00 04/22/20 20:00 DC 04/22/20 12:02 Midazolam HCl (Versed) 2 mg STAT STAT IV 04/22/20 20:30 04/22/20 20:32 DC 04/22/20 18:15 Morphine Sulfate (Morphine Sulfate Inj) 2 mg Q2H PRN IV SEVERE PAIN (PS 8-10) 04/22/20 20:00 04/27/20 08:28 DC 04/26/20 05:34 Morphine Sulfate (Morphine Sulfate Inj) 4 mg Q4HP PRN IV severe pain 04/21/20 10:45 04/22/20 09:21 DC 04/21/20 23:17 Morphine Sulfate (Morphine Sulfate Inj) 4 mg Q4HP PRN IV MODERATE/SEVERE PAIN (PS 5-10) 04/22/20 17:00 04/27/20 09:00 DC 04/27/20 04:35 Morphine Sulfate (Ms Contin) 15 mg BID PO 04/27/20 09:00 04/29/20 17:51 DC 04/29/20 09:17 Morphine Sulfate (Msir) 7.5 mg Q4HP PRN PO SEVERE PAIN (PS 8-10) 04/27/20 08:15 04/29/20 17:51 DC 04/27/20 15:56 Multivitamins (Theragram-M) 1 tab DAILY PO 04/22/20 09:00 04/22/20 20:00 DC Non-Formulary Medication (Heparin Iv Rate Change Documentation ml/ Hr) ASDIRECTED XX 04/22/20 11:45 04/22/20 20:00 DC Non-Formulary Medication (Heparin Iv Rate Change Documentation ml/ Hr) ASDIRECTED XX 04/23/20 15:00 04/27/20 08:28 DC 04/25/20 16:00 Ondansetron HCl (ZOFRAN INJection) 4 mg Q6HP PRN IV NAUSEA OR VOMITING 04/22/20 20:00 Cancel Ondansetron HCl (Zofran) 8 mg Q4HP PRN PO NAUSEA OR VOMITING 04/29/20 23:00 Oxybutynin Chloride (Ditropan) 5 mg Q8H PRN PO BLADDER SPASM 04/21/20 14:15 04/30/20 00:39 Oxycodone HCl (OxyCONTIN) 10 mg BID PO 04/29/20 21:00 05/01/20 14:36 DC 05/01/20 08:20 Oxycodone HCl (OxyCONTIN) 15 mg BID PO 05/01/20 21:00 Oxycodone HCl (Roxicodone, Oxyir) 5 mg Q4HP PRN PO PAIN 04/29/20 18:00 05/01/20 10:39 DC Oxycodone HCl (Roxicodone, Oxyir) 7.5 mg Q4HP PRN PO PAIN 05/01/20 10:45 Oxycodone/ Acetaminophen (Percocet 5mg/ 325mg Tablet) 1 tab Q4H PRN PO PAIN 04/21/20 14:15 04/22/20 09:22 DC Pantoprazole Sodium (Protonix) 40 mg BID IV 04/23/20 21:00 04/29/20 23:09 DC 04/29/20 09:17 Pantoprazole Sodium (Protonix) 40 mg DAILY PO 04/21/20 09:00 04/22/20 20:00 DC 04/22/20 12:03 Pantoprazole Sodium (Protonix) 40 mg DAILY PO 04/30/20 09:00 05/01/20 08:19 Piperacillin Sod/ Tazobactam Sod 3.375 gm/Dextrose 50 ml @ 50 mls/hr Q6H IV 04/21/20 16:00 04/22/20 20:00 DC 04/22/20 16:33 Piperacillin Sod/ Tazobactam Sod 3.375 gm/Dextrose 50 ml @ 50 mls/hr Q6H IV 04/23/20 15:00 04/25/20 11:38 DC 04/25/20 08:19 Polyethylene Glycol (Miralax) 1 pkt DAILYPRN PRN PO CONSTIPATION 04/27/20 08:15 04/27/20 09:09 Rosuvastatin Calcium (Crestor) 5 mg QPM PO 04/21/20 21:00 04/22/20 20:00 DC 04/21/20 20:43 Senna/Docusate Sodium (Senokot S) 1 tab BID PO 04/27/20 09:00 05/01/20 08:19 Sodium Chloride 1,000 ml @ 125 mls/hr Q8H IV 04/21/20 10:45 04/21/20 14:14 DC 04/21/20 12:14 Sodium Chloride (Saline Lock Flush) 2 ml ASDIRECTED PRN IV SEE LABEL COMMENTS 04/21/20 14:30 04/22/20 20:00 DC Sodium Chloride (Saline Lock Flush) 2 ml ASDIRECTED PRN IV SEE LABEL COMMENTS 04/27/20 15:45 04/30/20 06:49 DC Sodium Chloride (Saline Lock Flush) 2 ml SLF IV 04/21/20 22:00 04/22/20 20:00 DC 04/22/20 15:00 Sodium Chloride (Saline Lock Flush) 2 ml SLF IV 04/27/20 22:00 04/30/20 06:49 DC 04/29/20 20:33 Sodium Chloride (Saline Lock Flush) 10 ml ASDIRECTED PRN IV SEE LABEL COMMENTS 04/25/20 13:00 04/27/20 14:53 DC Sodium Chloride (Saline Lock Flush) 10 ml SLF IV 04/25/20 14:00 04/27/20 14:53 DC 04/27/20 06:08 Tamsulosin HCl (Flomax) 0.4 mg BID PO 04/21/20 21:00 05/01/20 08:20 Vancomycin HCl 1000 mg/IV Miscellaneous Supplies 20 ml @ 20 mls/hr Q12H IV 04/22/20 09:30 04/22/20 10:13 DC Vancomycin HCl 1000 mg/IV Miscellaneous Supplies 1 each/ Dextrose 270 ml @ 270 mls/hr Q24H IV 04/22/20 12:00 04/22/20 20:00 DC 04/22/20 12:02 Vancomycin HCl 1000 mg/IV Miscellaneous Supplies 1 each/ Dextrose 270 ml @ 270 mls/hr Q24H IV 04/23/20 15:00 04/23/20 14:41 DC Vitamin D (Vitamin D) 1,000 units DAILY PO 04/22/20 09:00 04/22/20 20:00 DC Allergies Coded Allergies: No Known Allergies (Verified Allergy, Unknown, 03/23/20) Queta Diop MD May 01, 2020 18:57
--- NOTE | 2020-05-01 19:44 | CR ---
DATE OF CONSULTATION: 04/30/2020 STATUS OF PATIENT: Inpatient. REQUESTING PHYSICIAN: Hospitalist service. REASON FOR CONSULTATION: Abnormal liver function tests. HISTORY OF THE PRESENT ILLNESS: Mr. Abdul is a 75-year-old male with a recent diagnosis of metastatic bladder carcinoma with malignant ascites. He has complications of bilateral deep vein thromboses (DVTs). He is undergoing evaluation and treatment as well as management of his complicated hospital course. The patient's liver enzymes have been noted to be markedly elevated. I was consulted to comment on these and potentially manage. PAST MEDICAL HISTORY: Coronary artery disease. Transient ischemic attack (TIA). PAST SURGICAL HISTORY: Coronary artery bypass graft (CABG). Carotid endarterectomy. FAMILY HISTORY: Negative for colorectal carcinoma, inflammatory bowel disease. SOCIAL HISTORY: It is positive for alcohol in the remote past. PHYSICAL EXAMINATION: Temperature is 96.4, pulse 83, respiratory rate 18, blood pressure 140/65. General: He is awake and alert but seems somewhat confused. He is chronically ill appearing. He is jaundiced. Head, eyes, ears, nose and throat: Grossly without abnormality except for the jaundice. Neck is negative for lymphadenopathy. Chest: Coarse, distant breath sounds. Abdomen is protuberant, soft, positive for ascites. Positive for firmness in the left abdomen. Extremities: Positive for edema. LABORATORY DATA: BUN 86, creatinine 1.82, total bilirubin in series is 6.7, 5.0, 4.3, 3.2, AST is 299, 230, 218, 134, ALT is 229, 218, 192, 160, alkaline phosphatase is 1548, 1988, 2218, 1933, LDH is 567, albumin 2.4. PT/INR is 1.97, platelet count is 128/109/95/66/49. IMAGING STUDIES: 04/26/2020 - CT abdomen and pelvis. Impression: Tiny bilateral pleural effusions, no change in rectal and bladder wall thickening. There is again small amount of air in the bladder lumen. There is mild diffuse free fluid in the abdomen and pelvis, unchanged. Once again the gallbladder is distended containing tiny stones with apparent dilation of the common bile duct, unchanged. There is bilateral hydronephrosis, unchanged. Ultrasound of the abdomen. Impression: Tiny gallstones and sludge, gallbladder wall thickening measuring 9.5 mm, dilated common bile duct measuring 16.9 mm, known ascites, known calcified granuloma from CT scan. No suspicious hepatic mass. Pancreas is not well seen due to bowel gas. Mild to moderate bilateral hydronephrosis. Renal cyst described as above. IMPRESSION: 1. Abnormal liver enzymes in the form of transaminitis; however, also significant cholestasis. 2. Dilated common bile duct. 3. Known gallstones in gallbladder. 4. Probable cirrhosis. DISCUSSION: His liver enzyme abnormalities are likely related to multifactorial causes and/or treatment for his disease process. He, however, also has a dilated common bile duct suggesting obstruction by either stone or metastatic disease/implant. I do note that the trend of his liver functions is now improving with the bilirubin nicely decreasing, and I suspect he likely has passed a gallstone. To confirm this, and assess biliary tree furtherr, a magnetic resonance cholangiopancreatography (MRCP) was ordered; however, the patient refused to proceed with this testing. PLAN: Continue to monitor his liver enzymes, and as long as they continue to improve, would hold off on pursuing this with endoscopic retrograde cholangiopancreatography (ERCP) as he is clearly not a good candidate for such. Depending on progress on his liver enzymes and should they start worsening again, we will have to decide on either proceeding with ERCP versus a percutaneous transhepatic cholangiogram (PTC) by interventional radiology. ROGERIO
[2020-05-01] MEDS: FINASTERIDE 5 MG TAB PO SCH (20:27)
[2020-05-01] MEDS: ENOXAPARIN 30MG/0.3ML SYRINGE (J1650 PER 10MG) SC SCH (20:28)
[2020-05-01] MEDS: LATANOPROST 0.005% OPHTH SOLN 2.5 ML OU SCH (20:28)
[2020-05-01] MEDS ORDERED: oxyCODONE 15 MG CR TAB PO SCH (21:00)
[2020-05-02] VITALS: BP 142/67
[2020-05-02] MEDS: oxyCODONE 5MG TAB PO PRN ×3 (00:34→13:44)
[2020-05-02] MEDS ORDERED: MORPHINE 4 MG/ML 1ML VIAL/SYRINGE (J2270) SQ ONE (02:45)
[2020-05-02 04:00] VITALS: BP 137/58
[2020-05-02 06:00] LABS: ALBUMIN 2.6 GM/DL (3.2-5.2); BILIRUBIN,TOTAL 2.8 MG/DL (0.2-1.0); CALCIUM LEVEL 8.2 MG/DL (8.8-10.2); CREATININE FOR GFR 2.07 MG/DL (0.70-1.30); GLOMERULAR FILTRATION RATE 33.5 (>42); POTASSIUM SERUM 3.9 MEQ/L (3.5-5.1); TOTAL PROTEIN 6.5 GM/DL (6.4-8.2)
[2020-05-02 07:52] LABS: HEMATOCRIT 27.4 % (42.0-52.0); HEMOGLOBIN 8.6 g/dl (13.5-17.5); MEAN CORPUSCULAR HEMOGLOBIN 28.6 pg (27.0-33.0); MEAN CORPUSCULAR HGB CONC 31.4 g/dl (32.0-36.5); RED BLOOD COUNT 3.01 10^6/uL (4.30-6.10); WHITE BLOOD COUNT 12.1 10^3/uL (4.0-10.0)
[2020-05-02 08:00] VITALS: BP 162/58
[2020-05-02 08:30] LABS: PLATELET COUNT, AUTOMATED 24 10^3/uL (150-450)
[2020-05-02] MEDS: bisoproloL fumarate 10 MG TAB PO SCH (09:00)
[2020-05-02] MEDS: hydroCHLOROthiazide 12.5 MG CAPSULE PO SCH (09:00)
[2020-05-02] MEDS: PIPERACILLIN/TAZOBACTAM SOD 3.375 GM in D5W MINI-BAG PLUS 50 ML IV SCH ×2 (09:00→15:00)
[2020-05-02] MEDS: TAMSULOSIN 0.4 MG CAP PO SCH (09:00)
[2020-05-02] MEDS: PANTOPRAZOLE 40MG TAB (PROTONIX) PO SCH (09:00)
[2020-05-02] MEDS: SENOKOT S TAB PO SCH ×2 (09:00→20:26)
[2020-05-02] MEDS: FUROSEMIDE 40 MG TAB PO SCH (09:00)
[2020-05-02] MEDS ORDERED: oxyCODONE 10 MG CR TAB PO SCH (09:00)
[2020-05-02 09:31] LABS: INR 1.85; PARTIAL THROMBOPLASTIN TIME 36.5 SECONDS (25.0-38.4); PROTHROMBIN TIME 21.1 SECONDS (11.8-14.0)
--- NOTE | 2020-05-02 09:38 | IPNPDOC ---
Date Seen The patient was evaluated on 05/02/20. Progress Note Hematology/Oncology SUBJECTIVE: Patient had an eventful 24 hours. Marked clinical decline noted. Multi-organ failure now includes liver, kidneys, hematologic and brain. DIC ongoing. Patient now has increased WBC and increased abdominal pain. Metabolic encephalopathy noted this AM. Patient refusing IV placement. The disseminated intravascular coagulopathy is not consistent with it being malignancy induced. High suspicion for ongoing infectious process. 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 Spontaneous bacterial peritonitis is a consideration here as well For treatment of the ongoing DIC, proceed with 2 units FFP and 1 unit platelets once IV access obtained Hold lovenox for platelet count less than 30K This patient is rapidly becoming critically ill again The underlying malignancy is again not the problem here It is highly unlikely to be responsible for DIC It is not responsible for multiorgan failure In talking with the patient's yesterday, she described a prodrome constellation of symptoms prior to admission with the patient sleeping all the time, severe fatigue. He did not have significant urinary symptoms prior. It seems patient has been suffering with some systemic illness prior to presentation. The patient's house water should also be tested as this may have been the source of patient's infection ASSESSMENT: 75 year old gentleman who presently has multi-organ failure involving hematological system, liver, kidneys, brain and is in fulminant DIC. 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 RECOMMENDATIONS: Repeat urine leigionella Empiric treatment for leigionella Empiric broad spectrum antibiotics to cover intra-abdominal process One units platelets 2 units FFP Peripheral or central line access if possible Would limit psychoactive medications and narcotics for now given metabolic encephalopathy Should allow to see patient Prognosis extremely poor due to active issues and not from the cancer (which still is terminal, but does not have vital organ involvement at this time) His active issues are not primarily malignancy driven here. DNR/DNI Case discussed with Dr. Diop VS, I&O, 24H, [place]vin Vital Signs/I&O Vital Signs Date Time Temp Pulse Resp B/P (MAP) Pulse Ox O2 Delivery O2 Flow Rate FiO2 05/02/20 08:00 97.1 71 20 162/58 (92) 97 Room Air I&O- Last 24 Hours up to 6 AM 05/02/20 06:00 Intake Total 720 ml Output Total 0 ml Balance 720 ml Laboratory Data 24H LABS Laboratory Tests 2 05/02/20 05:11: Fibrinogen 147L, Anion Gap 12, Glomerular Filtration Rate 33.5L, Calcium Level 8.2L, Total Bilirubin 2.8H, Aspartate Amino Transf (AST/SGOT) 108H, Alanine Aminotransferase (ALT/SGPT) 136H, Alkaline Phosphatase 1872H, Total Protein 6.5, Albumin 2.6L, Albumin/Globulin Ratio 0.7 05/02/20 07:39: Nucleated Red Blood Cells % (auto) 0.6H, Immature Platelet Fraction 14.6H CBC/BMP Laboratory Tests 05/02/20 05:11 05/02/20 07:39 Microbiology Microbiology 04/23/20 Blood Culture - Final, Complete NO GROWTH AFTER 5 DAYS 04/23/20 Blood Culture - Final, Complete NO GROWTH AFTER 5 DAYS 04/22/20 Stool Occult Blood (RAY) - Final, Complete JENNIFER ESTRADA MD May 02, 2020 09:38
--- NOTE | 2020-05-02 11:45 | IPNPDOC ---
Text Note Date of Service The patient was seen on 05/02/20. NOTE I was asked to place a central venous catheter on Mr. Abdul as they are karrie ble to get any peripheral access on him. He continues to be in DIC and would need blood products to catch up with this. At the bedside, he is refusing the procedure or any other treatments at this point. He seems to be aware of what is going on with him. I called his and had them talk as to what to do next. At this point, patient is refusing furtherance of care. VS,Fishbone, I+O VS, Fishbone, I+O Laboratory Tests 05/02/20 05:11 05/02/20 07:39 Vital Signs Date Time Temp Pulse Resp B/P (MAP) Pulse Ox O2 Delivery O2 Flow Rate FiO2 05/02/20 08:00 97.1 71 20 162/58 (92) 97 Room Air I&O- Last 24 Hours up to 6 AM 05/02/20 06:00 Intake Total 720 ml Output Total 0 ml Balance 720 ml CLEMENCIA KAY MD May 02, 2020 11:45
[2020-05-02 16:42] LABS: APPEARANCE, URINE CLOUDY (CLEAR); BACTERIA, URINE AUTO NEGATIVE (NEGATIVE); BILIRUBIN, URINE AUTO NEGATIVE (NEGATIVE); BLOOD, URINE BLOOD 3+ (NEGATIVE); COLOR, URINE AMBER (YELLOW); GLUCOSE, URINE (UA) AUTO NEGATIVE (NEGATIVE); KETONE, URINE AUTO NEGATIVE (NEGATIVE); LEUKOCYTE ESTERASE, URINE AUTO NEGATIVE (NEGATIVE); NITRITE, URINE AUTO NEGATIVE (NEGATIVE); PROTEIN, URINE AUTO 2+ mg/dL (NEGATIVE); RBC, URINE AUTO TNTC /HPF (0-3); SPECIFIC GRAVITY URINE AUTO 1.016 (1.002-1.035); SQUAMOUS EPITHELIAL CELL UR AU 0 /HPF (0-6); UROBILINOGEN, URINE AUTO 0.2 mg/dL (0.0-2.0); WBC, URINE AUTO 89 /HPF (0-3)
--- NOTE | 2020-05-02 17:05 | IPNPDOC ---
Date Seen The patient was seen on 05/02/20. Progress Note SUBJECTIVE: WBC increased to 12.1 after being within normal limits for the past 3 days. DIC has worsened during that time as well as functional decline, increasing metabolic encephalopathy, concerning for a potential infection driving this process. The case was discussed with Dr. Jimenez (heme/onc) today at great length who is suspicious of this as well. Upon review of the patient's infection h istory, the patient's leukocytosis were believed to previously have been 2/2 to UTI (04/10/20), legionnaire antigen urinary was positive with antibody legionnaire culture later came back neg. He was empirically treated with IV Zosyn for the urinary tract infection and ID was following. 1/2 bottles of the 04/21 blood cultures grew staph epi, thought to be a skin contamination. No other cultures grew legionnaire bacteria and the second set of blood cultures came back no growth. Repeat blood cultures also came back no growth. Antibiotics were stopped on 04/25/2020 when repeat cx were neg. The patient has been afebrile but his pain is also worsened over the past several days. Gastroenterology had suggested MRCP; however, the patient was not agreeable to do this on 05/01/2020 due to increased pain. Pain medications were modified and pain resolved but altered mental status worsened. Today the platelets were lower than yesterday at 24, fibrinogen 147. Anticoagulation was stopped, hematology was called. 2 of FFP were ordered along with one of platelets to be infused today. Empiric Zosyn was added to his regimen and repeat blood cultures, urine culture, Legionella culture was ordered. Also due to increased abdominal pain, could not r/o development of spontaneous bacterial peritonitis with abdominal ascites being known but repeat abdominal pericentesis not being able to be done due to DIC. Peripheral access was unable to be obtained and surgery was consulted to place central line, as the patient was originally agreeable to this upon conversation. His was also made notified of the happenings of today and agreed with the central line as well. When surgery came to the room to place a central line, the patient refused and did not want to proceed any further with treatment or to have central access placed. His was notified of him no longer wanting treatment. The decision was made to allow for her to come to see him, as it has been understandably difficult for her to make major medical decisions without seeing him in person. During her time at the hospital, the patient was uncomfortable, he received his increased dose of oxycodone which was of little help. After the patient's left, the patient had what appeared to be possible rectal bleeding in the bedpan. His pain was severe 10 out of 10. I called his again to discuss giving another dose of pain medication, explaining that if we go up higher on narcotics that his mental status may change further and his condition may worsen. I explained to her again that the patient was in multiorgan failure with increased confusion, acute kidney injury, transaminitis, now possibly increased rectal bleeding. He was unable to stand today which was another change from the days prior. With the new rectal bleeding and worsening DIC, I explained my fear was that his decompensation could happen rapidly and that she should be aware of this. After some discussion the patient's said she did not wish to see her in pain and the decision was made by her to change him to [employer] at 4:30 PM on 05/02/2020. The patient's wanted to talk to her family and then come back to the hospital to be with her . After making [employer], oxycodone and OxyContin was stopped. The patient was switched to liquid morphine, as the pills earlier were hard for him to swallow. A hospice consult has been placed as requested by his who would like to take him home if possible. OBJECTIVE: VITAL SIGNS: Please see below PHYSICAL EXAMINATION: CONSTITUTIONAL: Uncomfortable with increased abdominal pain, confused to place, time, reason as to why he is here. He knew his name. Following commands EYES: PERRLA, EOM intact. yellow sclera HENT, MOUTH: Normocephalic, atraumatic, moist mucous membranes NECK: SUPPLE, no JVD, no lymphadenopathy, no carotid bruit CV: NSR, S1S2 normal, no murmurs/rubs/gallops RESPIRATORY: Clear to auscultation bilaterally, no rales/rhonchi/wheezes GI: BS positive in 4 quadrants, tenderness of left and right side of abdomen- distended abdomen. tense left side of abdomen : Deferred MUSCULOSKELETAL: ROM not tested. No cyanosis, clubbing, swelling, joint deformity. extremity edema +2 bilateral lower ext INTEGUMENTARY: Intact, no rashes, no lesions, no erythema NEUROLOGIC: No focal deficits CURRENT MEDICATIONS: Please see below LABORATORY DATA: Please see below IMAGING: No new imaging today ASSESSMENT/PLAN: 75 y/o M treating for metastatic high grade urothelial carc inoma, hematuria, abdominal pain 2/2 to metastatic carcinoma and ascites with worsening DIC changed to [employer] today. Family would like to take home with Hospice. Consult placed. MOLST form changed. DIAGNOSES: 1. Metabolic encephalopathy likely multifactorial 2/2 to possible infection and multiorgan failure: brain, liver, kidney, hematologic 2. Leukocytosis cannot r/o developing infection-? UTI, bacteremia, spontaneous bacterial peritonitis 3. DIC, worsening 4. Hematuria likely 2/2 to bladder cancer in presence of DIC 5. Abdominal pain likely 2/2 to metastatic urothelial carcinoma, ascites, ? bacterial peritonitis, ? biliary tree issue 6. Rectal bleeding in presence of worsening DIC 7. Acute blood loss anemia on chronic anemia multifactorial 2/2 hematuria, epistaxis, rectal bleeding 8. Acute kidney injury likely multifactorial secondary to left renal infarct, post obstructive nephropathy with bilateral hydronephrosis 9. Metastatic bladder cancer 10. Acute on chronic HFpEF 11. HTN 12. 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 BPH 17. Gout DISPOSITION: After a very complicated hospital course, patient declined significantly over the past several days. Patient was made [employer] today, multiple discussion both in person and on the phone with the patient's Diane took place. New MOLST form filled out in chart. His would like Hospice consulted and to bring patient home as soon as possible. [facility]O Vital Signs Date Time Temp Pulse Resp B/P (MAP) Pulse Ox O2 Delivery O2 Flow Rate FiO2 05/02/20 14:32 20 05/02/20 08:00 97.1 71 162/58 (92) 97 Room Air I&O- Last 24 Hours up to 6 AM 05/02/20 06:00 Intake Total 720 ml Output Total 0 ml Balance 720 ml Laboratory Data 24H LABS Laboratory Tests 2 05/02/20 05:11: Fibrinogen 147L, Anion Gap 12, Glomerular Filtration Rate 33.5L, Calcium Level 8.2L, Total Bilirubin 2.8H, Aspartate Amino Transf (AST/SGOT) 108H, Alanine Aminotransferase (ALT/SGPT) 136H, Alkaline Phosphatase 1872H, Total Protein 6.5, Albumin 2.6L, Albumin/Globulin Ratio 0.7 05/02/20 07:39: Nucleated Red Blood Cells % (auto) 0.6H, Immature Platelet Fraction 14.6H 05/02/20 09:00: Prothrombin Time 21.1H, Prothromb Time International Ratio 1.85, Activated Partial Thromboplast Time 36.5, Lactic Acid Level 2.7*H 05/02/20 16:24: Urine Color DONNY, Urine Appearance CLOUDYH, Urine pH 6.0, Urine Specific [place] 1.016, Urine Protein 2+H, Urine Glucose (Auto)(UA) NEGATIVE, Urine Ketones (Auto) NEGATIVE, Urine Blood 3+H, Urine Nitrite NEGATIVE, Urine Bilirubin NEGATIVE, Urine Urobilinogen 0.2, Urine Leukocyte Esterase (Auto) NEGATIVE, Urine WBC (Auto) 89H, Urine RBC (Auto) TNTCH, Urine Hyaline Casts (Auto) 0, Urine Bacteria (Auto) NEGATIVE, Urine Squamous Epithelial Cells 0, Urine Sperm (Auto) CBC/BMP Laboratory Tests 05/02/20 05:11 05/02/20 07:39 Microbiology Microbiology 05/02/20 Blood Culture, Received Pending 05/02/20 Blood Culture, Received Pending 04/23/20 Blood Culture - Final, Complete NO GROWTH AFTER 5 DAYS 04/23/20 Blood Culture - Final, Complete NO GROWTH AFTER 5 DAYS 04/22/20 Stool Occult Blood (RAY) - Final, Complete Current Medications Current Medications Medications (Trade) Dose Ordered Sig/Soheila Route PRN Reason Start Time Stop Time Status Last Admin Dose Admin Acetaminophen (Tylenol Tab) 650 mg Q4H PRN PO PAIN OR FEVER 04/21/20 10:45 05/02/20 16:59 DC 05/01/20 09:31 Apixaban (Eliquis) 5 mg BID PO 04/27/20 09:00 04/28/20 15:09 DC 04/28/20 09:18 Atropine Sulfate (Isopto Atropine 1%) 1 drop Q2HP PRN SL TERMINAL SECRETIONS 04/22/20 20:00 Bisoprolol Fumarate (Zebeta) 10 mg DAILY PO 05/01/20 10:30 05/02/20 16:59 DC 05/01/20 10:30 Enoxaparin Sodium (Lovenox) 30 mg QHS SC 04/28/20 21:00 05/02/20 08:39 DC 05/01/20 20:28 EZETIMIBE (Zetia) 10 mg QPM PO 04/21/20 21:00 04/22/20 20:00 DC 04/21/20 20:43 Fentanyl Citrate (Sublimaze) 25 mcg Q30M PRN IV MODERATE/SEVERE PAIN (PS 5-10) 04/21/20 07:15 04/21/20 08:08 DC 04/21/20 08:08 Ferrous Sulfate (Ferrous Sulfate) 325 mg BID PO 04/21/20 21:00 04/22/20 20:00 DC 04/21/20 20:42 Finasteride (Proscar) 5 mg QPM PO 04/21/20 21:00 05/01/20 20:27 Furosemide (Lasix) 20 mg DAILY PO 04/30/20 16:00 05/01/20 07:48 DC 04/30/20 18:24 Furosemide (Lasix) 40 mg DAILY PO 05/01/20 09:00 05/02/20 16:55 DC 05/01/20 08:20 Heparin Sodium (Heparin Lock Flush 10units/ml) 10 units ASDIRECTED PRN IV SEE LABEL COMMENTS 04/25/20 13:00 04/27/20 14:53 DC Heparin Sodium (Heparin Lock Flush 10units/ml) 10 units HLF IV 04/25/20 14:00 04/27/20 14:53 DC 04/27/20 06:08 Heparin Sodium (Porcine) (Heparin) ASDIRECTED PRN IV SEE LABEL COMMENTS 04/22/20 11:45 04/22/20 20:00 DC Heparin Sodium (Porcine) (Heparin) ASDIRECTED PRN IV SEE LABEL COMMENTS 04/23/20 15:00 04/27/20 08:28 DC Heparin Sodium (Porcine) 81056 units/IV Miscellaneous Supplies 250 ml @ 11.25 mls/ hr ASDIRECTED IV 04/22/20 11:45 04/22/20 20:00 DC 04/22/20 19:17 Heparin Sodium (Porcine) 30701 units/IV Miscellaneous Supplies 250 ml @ 0 mls/hr Q0M IV 04/23/20 14:46 04/27/20 08:28 DC 04/26/20 13:38 Home Med (Med Rec Complete!) ASDIRECTED XX 04/21/20 09:45 04/21/20 09:41 DC Hydrochlorothiazide (Hydrodiuril) 12.5 mg DAILY PO 04/25/20 09:00 04/25/20 11:34 DC Hydrochlorothiazide (Hydrodiuril) 12.5 mg DAILY PO 04/26/20 09:00 05/02/20 16:55 DC 05/01/20 08:20 Hydromorphone HCl (Dilaudid) 1.6 mg Q3HP PRN IV MODERATE/SEVERE PAIN (PS 5-10) 04/26/20 14:00 04/27/20 08:28 DC 04/26/20 15:03 Latanoprost (Xalatan 0.005% Op Soln) 1 drop QHS OU 04/21/20 21:00 05/01/20 20:28 Lorazepam (Ativan) 1 mg STAT STAT IV 04/22/20 09:26 04/22/20 12:39 DC Magnesium Chloride (Slow-Mag) 64 mg DAILY PO 04/22/20 09:00 04/22/20 20:00 DC 04/22/20 12:02 Midazolam HCl (Versed) 2 mg STAT STAT IV 04/22/20 20:30 04/22/20 20:32 DC 04/22/20 18:15 Morphine Sulfate (Morphine Sulfate Inj) 2 mg Q2H PRN IV SEVERE PAIN (PS 8-10) 04/22/20 20:00 04/27/20 08:28 DC 04/26/20 05:34 Morphine Sulfate (Morphine Sulfate Inj) 4 mg Q4HP PRN IV severe pain 04/21/20 10:45 04/22/20 09:21 DC 04/21/20 23:17 Morphine Sulfate (Morphine Sulfate Inj) 4 mg Q4HP PRN IV MODERATE/SEVERE PAIN (PS 5-10) 04/22/20 17:00 04/27/20 09:00 DC 04/27/20 04:35 Morphine Sulfate (Morphine Sulfate Oral Solution) 3 mg Q4HP PRN SL PAIN 05/02/20 17:00 Morphine Sulfate (Ms Contin) 15 mg BID PO 04/27/20 09:00 04/29/20 17:51 DC 04/29/20 09:17 Morphine Sulfate (Msir) 7.5 mg Q4HP PRN PO SEVERE PAIN (PS 8-10) 04/27/20 08:15 04/29/20 17:51 DC 04/27/20 15:56 Multivitamins (Theragram-M) 1 tab DAILY PO 04/22/20 09:00 04/22/20 20:00 DC Non-Formulary Medication (Heparin Iv Rate Change Documentation ml/ Hr) ASDIRECTED XX 04/22/20 11:45 04/22/20 20:00 DC Non-Formulary Medication (Heparin Iv Rate Change Documentation ml/ Hr) ASDIRECTED XX 04/23/20 15:00 04/27/20 08:28 DC 04/25/20 16:00 Ondansetron HCl (ZOFRAN INJection) 4 mg Q6HP PRN IV NAUSEA OR VOMITING 04/22/20 20:00 Cancel Ondansetron HCl (Zofran) 8 mg Q4HP PRN PO NAUSEA OR VOMITING 04/29/20 23:00 Oxybutynin Chloride (Ditropan) 5 mg Q8H PRN PO BLADDER SPASM 04/21/20 14:15 04/30/20 00:39 Oxycodone HCl (OxyCONTIN) 10 mg BID PO 04/29/20 21:00 05/01/20 14:36 DC 05/01/20 08:20 Oxycodone HCl (OxyCONTIN) 10 mg BID PO 05/02/20 09:00 05/02/20 16:56 DC Oxycodone HCl (OxyCONTIN) 15 mg BID PO 05/01/20 21:00 05/02/20 09:27 DC 05/01/20 20:28 Oxycodone HCl (Roxicodone, Oxyir) 5 mg Q4HP PRN PO PAIN 04/29/20 18:00 05/01/20 10:39 DC Oxycodone HCl (Roxicodone, Oxyir) 7.5 mg Q4HP PRN PO PAIN 05/01/20 10:45 05/02/20 16:56 DC 05/02/20 13:44 Oxycodone/ Acetaminophen (Percocet 5mg/ 325mg Tablet) 1 tab Q4H PRN PO PAIN 04/21/20 14:15 04/22/20 09:22 DC Pantoprazole Sodium (Protonix) 40 mg BID IV 04/23/20 21:00 04/29/20 23:09 DC 04/29/20 09:17 Pantoprazole Sodium (Protonix) 40 mg DAILY PO 04/21/20 09:00 04/22/20 20:00 DC 04/22/20 12:03 Pantoprazole Sodium (Protonix) 40 mg DAILY PO 04/30/20 09:00 05/02/20 16:55 DC 05/01/20 08:19 Piperacillin Sod/ Tazobactam Sod 3.375 gm/Dextrose 50 ml @ 50 mls/hr Q6H IV 04/21/20 16:00 04/22/20 20:00 DC 04/22/20 16:33 Piperacillin Sod/ Tazobactam Sod 3.375 gm/Dextrose 50 ml @ 50 mls/hr Q6H IV 04/23/20 15:00 04/25/20 11:38 DC 04/25/20 08:19 Piperacillin Sod/ Tazobactam Sod 3.375 gm/Dextrose 50 ml @ 50 mls/hr Q6H IV 05/02/20 09:00 05/02/20 16:55 DC Polyethylene Glycol (Miralax) 1 pkt DAILYPRN PRN PO CONSTIPATION 04/27/20 08:15 05/02/20 16:59 DC 04/27/20 09:09 Rosuvastatin Calcium (Crestor) 5 mg QPM PO 04/21/20 21:00 04/22/20 20:00 DC 04/21/20 20:43 Senna/Docusate Sodium (Senokot S) 1 tab BID PO 04/27/20 09:00 05/01/20 20:27 Sodium Chloride 1,000 ml @ 125 mls/hr Q8H IV 04/21/20 10:45 04/21/20 14:14 DC 04/21/20 12:14 Sodium Chloride (Saline Lock Flush) 2 ml ASDIRECTED PRN IV SEE LABEL COMMENTS 04/21/20 14:30 04/22/20 20:00 DC Sodium Chloride (Saline Lock Flush) 2 ml ASDIRECTED PRN IV SEE LABEL COMMENTS 04/27/20 15:45 04/30/20 06:49 DC Sodium Chloride (Saline Lock Flush) 2 ml SLF IV 04/21/20 22:00 04/22/20 20:00 DC 04/22/20 15:00 Sodium Chloride (Saline Lock Flush) 2 ml SLF IV 04/27/20 22:00 04/30/20 06:49 DC 04/29/20 20:33 Sodium Chloride (Saline Lock Flush) 10 ml ASDIRECTED PRN IV SEE LABEL COMMENTS 04/25/20 13:00 04/27/20 14:53 DC Sodium Chloride (Saline Lock Flush) 10 ml SLF IV 04/25/20 14:00 04/27/20 14:53 DC 04/27/20 06:08 Tamsulosin HCl (Flomax) 0.4 mg BID PO 04/21/20 21:00 05/02/20 16:59 DC 05/01/20 20:27 Vancomycin HCl 1000 mg/IV Miscellaneous Supplies 20 ml @ 20 mls/hr Q12H IV 04/22/20 09:30 04/22/20 10:13 DC Vancomycin HCl 1000 mg/IV Miscellaneous Supplies 1 each/ Dextrose 270 ml @ 270 mls/hr Q24H IV 04/22/20 12:00 04/22/20 20:00 DC 04/22/20 12:02 Vancomycin HCl 1000 mg/IV Miscellaneous Supplies 1 each/ Dextrose 270 ml @ 270 mls/hr Q24H IV 04/23/20 15:00 04/23/20 14:41 DC Vitamin D (Vitamin D) 1,000 units DAILY PO 04/22/20 09:00 04/22/20 20:00 DC Allergies Coded Allergies: No Known Allergies (Verified Allergy, Unknown, 03/23/20) Queta Diop MD May 02, 2020 17:05
[2020-05-02] MEDS ORDERED: MORPHINE 4 MG/ML 1ML VIAL/SYRINGE (J2270) As Ordered ONE (19:04)
[2020-05-02] MEDS: MORPHINE 4 MG/ML 1ML VIAL/SYRINGE (J2270) SQ PRN (19:08)
[2020-05-02] MEDS ORDERED: HALOPERIDOL 5MG/ML VIAL (J1630 PER 1) IM STA (19:41)
[2020-05-02] MEDS ORDERED: fentaNYL 25 MCG/HR PATCH TOP ONE (20:15)
[2020-05-02] MEDS: FINASTERIDE 5 MG TAB PO SCH (20:26)
[2020-05-02] MEDS: LATANOPROST 0.005% OPHTH SOLN 2.5 ML OU SCH (20:27)
[2020-05-02] MEDS: MORPHINE SULFATE ORAL SOLN 10 MG/5 ML UD SL PRN (20:45)
[2020-05-02] MEDS: HALOPERIDOL 5MG/ML VIAL (J1630 PER 1) IM PRN ×2 (23:10→23:12)
[2020-05-03] MEDS: MORPHINE 4 MG/ML 1ML VIAL/SYRINGE (J2270) SQ PRN (00:33)
[2020-05-03] MEDS: MORPHINE SULFATE ORAL SOLN 10 MG/5 ML UD SL PRN (01:24)
[2020-05-03] MEDS ORDERED: LORazepam 2 MG/ML VIAL IM STA (02:20)
[2020-05-03] MEDS: SENOKOT S TAB PO SCH (09:00)
[2020-05-03] MEDS: HYDROmorphone HCL 2 MG/ML 1ML VIAL (J1170) IV PRN ×3 (11:07→20:04)
--- NOTE | 2020-05-03 15:41 | IPNPDOC ---
Date Seen The patient was seen on 05/03/20. Progress Note SUBJECTIVE: It was difficult administering morphine sulfate due to increased confusion and agitation. Haldol IM was given over night. A peripheral IV was placed for IV dilaudid and fentanyl patch to be given/placed. His was in agreement with the evening provider and this treatment plan. He is resting comfortably currently. OBJECTIVE: VITAL SIGNS: Please see below PHYSICAL EXAMINATION: CONSTITUTIONAL: Lethargic, laying in bed, moans to verbal stimulation, in no acute distress EYES:yellow sclera HENT, MOUTH: Normocephalic, atraumatic, moist mucous membranes NECK: SUPPLE, no JVD, no lymphadenopathy, no carotid bruit CV: NSR, S1S2 normal, no murmurs/rubs/gallops RESPIRATORY: Clear to auscultation bilaterally, no rales/rhonchi/wheezes GI: BS positive in 4 quadrants, distended abdomen. tense left side of abdomen : Deferred MUSCULOSKELETAL: ROM not tested. No cyanosis, clubbing, swelling, joint deformity. 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 DIAGNOSES: 1. Metabolic encephalopathy likely multifactorial 2/2 to possible infection and multiorgan failure: brain, liver, kidney, hematologic 2. Leukocytosis cannot r/o developing infection-? UTI, bacteremia, spontaneous bacterial peritonitis 3. DIC, worsening 4. Hematuria likely 2/2 to bladder cancer in presence of DIC 5. Abdominal pain likely 2/2 to metastatic urothelial carcinoma, ascites, ? bacterial peritonitis, ? biliary tree issue 6. Rectal bleeding in presence of worsening DIC 7. Acute blood loss anemia on chronic anemia multifactorial 2/2 hematuria, epistaxis, rectal bleeding 8. Acute kidney injury likely multifactorial secondary to left renal infarct, post obstructive nephropathy with bilateral hydronephrosis 9. Metastatic bladder cancer 10. Acute on chronic HFpEF 11. HTN 12. 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 BPH 17. Gout DISPOSITION: Awaiting Hospice to evaluate patient, as hope is home with Hospice. This will likely occur after the current weekend. VS, I&O, 24H, Fishbone Vital Signs/I&O Vital Signs Date Time Temp Pulse Resp B/P (MAP) Pulse Ox O2 Delivery O2 Flow Rate FiO2 05/03/20 11:42 14 05/02/20 21:15 Room Air 05/02/20 08:00 97.1 71 162/58 (92) 97 I&O- Last 24 Hours up to 6 AM 05/03/20 06:00 Output Total 0 ml Balance 0 ml Laboratory Data 24H LABS Laboratory Tests 2 05/02/20 16:24: Urine Color DONNY, Urine Appearance CLOUDYH, Urine pH 6.0, Urine Specific [place] 1.016, Urine Protein 2+H, Urine Glucose (Auto)(UA) NEGATIVE, Urine Ketones (Auto) NEGATIVE, Urine Blood 3+H, Urine Nitrite NEGATIVE, Urine Bilirubin NEGATIVE, Urine Urobilinogen 0.2, Urine Leukocyte Esterase (Auto) NEGATIVE, Urine WBC (Auto) 89H, Urine RBC (Auto) TNTCH, Urine Hyaline Casts (Auto) 0, Urine Bacteria (Auto) NEGATIVE, Urine Squamous Epithelial Cells 0, Urine Sperm (Auto) Microbiology Microbiology 05/02/20 Blood Culture - Preliminary, Resulted No growth after 24 hours . All specim... 05/02/20 Blood Culture - Preliminary, Resulted No growth after 24 hours . All specim... 04/23/20 Blood Culture - Final, Complete NO GROWTH AFTER 5 DAYS 04/23/20 Blood Culture - Final, Complete NO GROWTH AFTER 5 DAYS Current Medications Current Medications Medications (Trade) Dose Ordered Sig/Soheila Route PRN Reason Start Time Stop Time Status Last Admin Dose Admin Acetaminophen (Tylenol Tab) 650 mg Q4H PRN PO PAIN OR FEVER 04/21/20 10:45 05/02/20 16:59 DC 05/01/20 09:31 Apixaban (Eliquis) 5 mg BID PO 04/27/20 09:00 04/28/20 15:09 DC 04/28/20 09:18 Atropine Sulfate (Isopto Atropine 1%) 1 drop Q2HP PRN SL TERMINAL SECRETIONS 04/22/20 20:00 Bisoprolol Fumarate (Zebeta) 10 mg DAILY PO 05/01/20 10:30 05/02/20 16:59 DC 05/01/20 10:30 Enoxaparin Sodium (Lovenox) 30 mg QHS SC 04/28/20 21:00 05/02/20 08:39 DC 05/01/20 20:28 EZETIMIBE (Zetia) 10 mg QPM PO 04/21/20 21:00 04/22/20 20:00 DC 04/21/20 20:43 Fentanyl Citrate (Sublimaze) 25 mcg Q30M PRN IV MODERATE/SEVERE PAIN (PS 5-10) 04/21/20 07:15 04/21/20 08:08 DC 04/21/20 08:08 Ferrous Sulfate (Ferrous Sulfate) 325 mg BID PO 04/21/20 21:00 04/22/20 20:00 DC 04/21/20 20:42 Finasteride (Proscar) 5 mg QPM PO 04/21/20 21:00 05/01/20 20:27 Furosemide (Lasix) 20 mg DAILY PO 04/30/20 16:00 05/01/20 07:48 DC 04/30/20 18:24 Furosemide (Lasix) 40 mg DAILY PO 05/01/20 09:00 05/02/20 16:55 DC 05/01/20 08:20 Haloperidol (Haldol) 5 mg Q6HP PRN IM AGITATION 05/03/20 02:00 05/03/20 02:32 DC 05/02/20 23:10 Haloperidol (Haldol) 5 mg STAT STAT IM 05/02/20 19:41 05/02/20 19:43 DC 05/02/20 20:25 Heparin Sodium (Heparin Lock Flush 10units/ml) 10 units ASDIRECTED PRN IV SEE LABEL COMMENTS 04/25/20 13:00 04/27/20 14:53 DC Heparin Sodium (Heparin Lock Flush 10units/ml) 10 units HLF IV 04/25/20 14:00 04/27/20 14:53 DC 04/27/20 06:08 Heparin Sodium (Porcine) (Heparin) ASDIRECTED PRN IV SEE LABEL COMMENTS 04/22/20 11:45 04/22/20 20:00 DC Heparin Sodium (Porcine) (Heparin) ASDIRECTED PRN IV SEE LABEL COMMENTS 04/23/20 15:00 04/27/20 08:28 DC Heparin Sodium (Porcine) 30852 units/IV Miscellaneous Supplies 250 ml @ 11.25 mls/ hr ASDIRECTED IV 04/22/20 11:45 04/22/20 20:00 DC 04/22/20 19:17 Heparin Sodium (Porcine) 61286 units/IV Miscellaneous Supplies 250 ml @ 0 mls/hr Q0M IV 04/23/20 14:46 04/27/20 08:28 DC 04/26/20 13:38 Home Med (Med Rec Complete!) ASDIRECTED XX 04/21/20 09:45 04/21/20 09:41 DC Hydrochlorothiazide (Hydrodiuril) 12.5 mg DAILY PO 04/25/20 09:00 04/25/20 11:34 DC Hydrochlorothiazide (Hydrodiuril) 12.5 mg DAILY PO 04/26/20 09:00 05/02/20 16:55 DC 05/01/20 08:20 Hydromorphone HCl (Dilaudid) 1 mg Q3HP PRN IV MILD PAIN (PS 1-4) 05/03/20 02:30 05/03/20 11:07 Hydromorphone HCl (Dilaudid) 1.6 mg Q3HP PRN IV MODERATE/SEVERE PAIN (PS 5-10) 04/26/20 14:00 04/27/20 08:28 DC 04/26/20 15:03 Hydromorphone HCl (Dilaudid) 1.6 mg Q3HP PRN IV MODERATE/SEVERE PAIN (PS 5-10) 05/03/20 02:30 05/10/20 02:29 Latanoprost (Xalatan 0.005% Op Soln) 1 drop QHS OU 04/21/20 21:00 05/01/20 20:28 Lorazepam (Ativan) 1 mg STAT STAT IV 04/22/20 09:26 04/22/20 12:39 DC Lorazepam (Ativan) 2 mg STAT STAT IM 05/03/20 02:20 05/03/20 02:22 DC 05/03/20 02:34 Magnesium Chloride (Slow-Mag) 64 mg DAILY PO 04/22/20 09:00 04/22/20 20:00 DC 04/22/20 12:02 Midazolam HCl (Versed) 2 mg STAT STAT IV 04/22/20 20:30 04/22/20 20:32 DC 04/22/20 18:15 Morphine Sulfate (Morphine Sulfate Inj) 2 mg Q2H PRN IV SEVERE PAIN (PS 8-10) 04/22/20 20:00 04/27/20 08:28 DC 04/26/20 05:34 Morphine Sulfate (Morphine Sulfate Inj) 4 mg Q4HP PRN IV severe pain 04/21/20 10:45 04/22/20 09:21 DC 04/21/20 23:17 Morphine Sulfate (Morphine Sulfate Inj) 4 mg Q4HP PRN IV MODERATE/SEVERE PAIN (PS 5-10) 04/22/20 17:00 04/27/20 09:00 DC 04/27/20 04:35 Morphine Sulfate (Morphine Sulfate Inj) 4 mg Q4HP PRN SQ SEVERE PAIN (PS 8-10) 05/02/20 19:00 05/03/20 02:32 DC 05/03/20 00:33 Morphine Sulfate (Morphine Sulfate Oral Solution) 3 mg Q4HP PRN SL PAIN 05/02/20 17:00 05/03/20 02:32 DC 05/03/20 01:24 Morphine Sulfate (Ms Contin) 15 mg BID PO 04/27/20 09:00 04/29/20 17:51 DC 04/29/20 09:17 Morphine Sulfate (Msir) 7.5 mg Q4HP PRN PO SEVERE PAIN (PS 8-10) 04/27/20 08:15 04/29/20 17:51 DC 04/27/20 15:56 Multivitamins (Theragram-M) 1 tab DAILY PO 04/22/20 09:00 04/22/20 20:00 DC Non-Formulary Medication ( See Comment Field Below ) SEE COMMENT FIELD ASDIRECTED XX 05/05/20 21:00 Non-Formulary Medication (Heparin Iv Rate Change Documentation ml/ Hr) ASDIRECTED XX 04/22/20 11:45 04/22/20 20:00 DC Non-Formulary Medication (Heparin Iv Rate Change Documentation ml/ Hr) ASDIRECTED XX 04/23/20 15:00 04/27/20 08:28 DC 04/25/20 16:00 Ondansetron HCl (ZOFRAN INJection) 4 mg Q6HP PRN IV NAUSEA OR VOMITING 04/22/20 20:00 Cancel Ondansetron HCl (Zofran) 8 mg Q4HP PRN PO NAUSEA OR VOMITING 04/29/20 23:00 Oxybutynin Chloride (Ditropan) 5 mg Q8H PRN PO BLADDER SPASM 04/21/20 14:15 04/30/20 00:39 Oxycodone HCl (OxyCONTIN) 10 mg BID PO 04/29/20 21:00 05/01/20 14:36 DC 05/01/20 08:20 Oxycodone HCl (OxyCONTIN) 10 mg BID PO 05/02/20 09:00 05/02/20 16:56 DC Oxycodone HCl (OxyCONTIN) 15 mg BID PO 05/01/20 21:00 05/02/20 09:27 DC 05/01/20 20:28 Oxycodone HCl (Roxicodone, Oxyir) 5 mg Q4HP PRN PO PAIN 04/29/20 18:00 05/01/20 10:39 DC Oxycodone HCl (Roxicodone, Oxyir) 7.5 mg Q4HP PRN PO PAIN 05/01/20 10:45 05/02/20 16:56 DC 05/02/20 13:44 Oxycodone/ Acetaminophen (Percocet 5mg/ 325mg Tablet) 1 tab Q4H PRN PO PAIN 04/21/20 14:15 04/22/20 09:22 DC Pantoprazole Sodium (Protonix) 40 mg BID IV 04/23/20 21:00 04/29/20 23:09 DC 04/29/20 09:17 Pantoprazole Sodium (Protonix) 40 mg DAILY PO 04/21/20 09:00 04/22/20 20:00 DC 04/22/20 12:03 Pantoprazole Sodium (Protonix) 40 mg DAILY PO 04/30/20 09:00 05/02/20 16:55 DC 05/01/20 08:19 Piperacillin Sod/ Tazobactam Sod 3.375 gm/Dextrose 50 ml @ 50 mls/hr Q6H IV 04/21/20 16:00 04/22/20 20:00 DC 04/22/20 16:33 Piperacillin Sod/ Tazobactam Sod 3.375 gm/Dextrose 50 ml @ 50 mls/hr Q6H IV 04/23/20 15:00 04/25/20 11:38 DC 04/25/20 08:19 Piperacillin Sod/ Tazobactam Sod 3.375 gm/Dextrose 50 ml @ 50 mls/hr Q6H IV 05/02/20 09:00 05/02/20 16:55 DC Polyethylene Glycol (Miralax) 1 pkt DAILYPRN PRN PO CONSTIPATION 04/27/20 08:15 05/02/20 16:59 DC 04/27/20 09:09 Rosuvastatin Calcium (Crestor) 5 mg QPM PO 04/21/20 21:00 04/22/20 20:00 DC 04/21/20 20:43 Senna/Docusate Sodium (Senokot S) 1 tab BID PO 04/27/20 09:00 05/01/20 20:27 Sodium Chloride 1,000 ml @ 125 mls/hr Q8H IV 04/21/20 10:45 04/21/20 14:14 DC 04/21/20 12:14 Sodium Chloride (Saline Lock Flush) 2 ml ASDIRECTED PRN IV SEE LABEL COMMENTS 04/21/20 14:30 04/22/20 20:00 DC Sodium Chloride (Saline Lock Flush) 2 ml ASDIRECTED PRN IV SEE LABEL COMMENTS 04/27/20 15:45 04/30/20 06:49 DC Sodium Chloride (Saline Lock Flush) 2 ml SLF IV 04/21/20 22:00 04/22/20 20:00 DC 04/22/20 15:00 Sodium Chloride (Saline Lock Flush) 2 ml SLF IV 04/27/20 22:00 04/30/20 06:49 DC 04/29/20 20:33 Sodium Chloride (Saline Lock Flush) 10 ml ASDIRECTED PRN IV SEE LABEL COMMENTS 04/25/20 13:00 04/27/20 14:53 DC Sodium Chloride (Saline Lock Flush) 10 ml SLF IV 04/25/20 14:00 04/27/20 14:53 DC 04/27/20 06:08 Tamsulosin HCl (Flomax) 0.4 mg BID PO 04/21/20 21:00 05/02/20 16:59 DC 05/01/20 20:27 Vancomycin HCl 1000 mg/IV Miscellaneous Supplies 20 ml @ 20 mls/hr Q12H IV 04/22/20 09:30 04/22/20 10:13 DC Vancomycin HCl 1000 mg/IV Miscellaneous Supplies 1 each/ Dextrose 270 ml @ 270 mls/hr Q24H IV 04/22/20 12:00 04/22/20 20:00 DC 04/22/20 12:02 Vancomycin HCl 1000 mg/IV Miscellaneous Supplies 1 each/ Dextrose 270 ml @ 270 mls/hr Q24H IV 04/23/20 15:00 04/23/20 14:41 DC Vitamin D (Vitamin D) 1,000 units DAILY PO 04/22/20 09:00 04/22/20 20:00 DC Allergies Coded Allergies: No Known Allergies (Verified Allergy, Unknown, 03/23/20) Queta Diop MD May 03, 2020 15:41
[2020-05-03] MEDS: LATANOPROST 0.005% OPHTH SOLN 2.5 ML OU SCH (20:05)
[2020-05-04] MEDS: HYDROmorphone HCL 2 MG/ML 1ML VIAL (J1170) IV PRN ×3 (00:08→09:49)
[2020-05-04] MEDS: ATROPINE SULFATE 1% OP SOLN 2 ML BTL SL PRN ×2 (09:32→13:57)
[2020-05-04] MEDS ORDERED: MORPHINE 2 MG/ML 1ML VIAL (J2270) IV PRN (10:30)
[2020-05-04] MEDS ORDERED: SCOPOLAMINE 1MG TRANSDERMAL PATCH TOP PRN (10:30)
[2020-05-04] MEDS ORDERED: LORazepam 1 MG TAB PO PRN ×2 (10:30→11:00)
[2020-05-04] MEDS ORDERED: LORazepam 2 MG/ML VIAL IV PRN (11:45)
--- NOTE | 2020-05-04 13:52 | IPNPDOC ---
Date Seen The patient was seen on 05/04/20. Progress Note SUBJECTIVE: RR 12-24, not responsive to verbal stimuli today. Mottling and cyanosis seen on the tips of all digits of extremities. Myself, social work and the nurse were at the bedside today. His was understandably upset and support was offered. He is resting comfortably and does not appear in distress. OBJECTIVE: VITAL SIGNS: Please see below PHYSICAL EXAMINATION: CONSTITUTIONAL: Not responsive to verbal stimulation, secretions heard in throat. in bed, in no acute distress EYES:yellow sclera HENT, MOUTH: Normocephalic, atraumatic, dry mucous membranes NECK: SUPPLE, no JVD, no lymphadenopathy, no carotid bruit CV: NSR, S1S2 normal, no murmurs/rubs/gallops RESPIRATORY: Clear to auscultation bilaterally, no rales/rhonchi/wheezes GI: BS positive in 4 quadrants, distended abdomen. tense left side of abdomen : Deferred MUSCULOSKELETAL: Extremities are cool to touch. ROM not tested. extremity edema +2 bilateral lower ext INTEGUMENTARY: Mottling of upper and lower ext, purple/cyanotic areas on all digitis of extremities. 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 DIAGNOSES: 1. Metabolic encephalopathy likely multifactorial 2/2 to possible infection and multiorgan failure: brain, liver, kidney, hematologic 2. Leukocytosis cannot r/o developing infection-? UTI, bacteremia, spontaneous bacterial peritonitis 3. DIC, worsening 4. Hematuria likely 2/2 to bladder cancer in presence of DIC 5. Abdominal pain likely 2/2 to metastatic urothelial carcinoma, ascites, ? bacterial peritonitis, ? biliary tree issue 6. Rectal bleeding in presence of worsening DIC 7. Acute blood loss anemia on chronic anemia multifactorial 2/2 hematuria, epistaxis, rectal bleeding 8. Acute kidney injury likely multifactorial secondary to left renal infarct, post obstructive nephropathy with bilateral hydronephrosis 9. Metastatic bladder cancer 10. Acute on chronic HFpEF 11. HTN 12. 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 BPH 17. Gout DISPOSITION: Patient has decompensated quickly within the last 24 hours. Lynette aguilar's states Hospice home has no bed and she does not think him going home is an option. If he continues to decompensate at this rate, Hospice will not even be needed. For now will c/w hospice care in hospital. VS, I&O, 24H, Fishbone Vital Signs/I&O Vital Signs Date Time Temp Pulse Resp B/P (MAP) Pulse Ox O2 Delivery O2 Flow Rate FiO2 05/04/20 09:59 26 05/02/20 21:15 Room Air 05/02/20 08:00 97.1 71 162/58 (92) 97 Laboratory Data Microbiology Microbiology 05/02/20 Blood Culture - Preliminary, Resulted No Growth after 48 hours. All Specime... 05/02/20 Blood Culture - Preliminary, Resulted No Growth after 48 hours. All Specime... Current Medications Current Medications Medications (Trade) Dose Ordered Sig/Soheila Route PRN Reason Start Time Stop Time Status Last Admin Dose Admin Acetaminophen (Tylenol Tab) 650 mg Q4H PRN PO PAIN OR FEVER 04/21/20 10:45 05/02/20 16:59 DC 05/01/20 09:31 Apixaban (Eliquis) 5 mg BID PO 04/27/20 09:00 04/28/20 15:09 DC 04/28/20 09:18 Atropine Sulfate (Isopto Atropine 1%) 1 drop Q2HP PRN SL TERMINAL SECRETIONS 04/22/20 20:00 05/04/20 09:32 Bisoprolol Fumarate (Zebeta) 10 mg DAILY PO 05/01/20 10:30 05/02/20 16:59 DC 05/01/20 10:30 Enoxaparin Sodium (Lovenox) 30 mg QHS SC 04/28/20 21:00 05/02/20 08:39 DC 05/01/20 20:28 EZETIMIBE (Zetia) 10 mg QPM PO 04/21/20 21:00 04/22/20 20:00 DC 04/21/20 20:43 Fentanyl Citrate (Sublimaze) 25 mcg Q30M PRN IV MODERATE/SEVERE PAIN (PS 5-10) 04/21/20 07:15 04/21/20 08:08 DC 04/21/20 08:08 Ferrous Sulfate (Ferrous Sulfate) 325 mg BID PO 04/21/20 21:00 04/22/20 20:00 DC 04/21/20 20:42 Finasteride (Proscar) 5 mg QPM PO 04/21/20 21:00 05/03/20 15:38 DC 05/01/20 20:27 Furosemide (Lasix) 20 mg DAILY PO 04/30/20 16:00 05/01/20 07:48 DC 04/30/20 18:24 Furosemide (Lasix) 40 mg DAILY PO 05/01/20 09:00 05/02/20 16:55 DC 05/01/20 08:20 Haloperidol (Haldol) 5 mg Q6HP PRN IM AGITATION 05/03/20 02:00 05/03/20 02:32 DC 05/02/20 23:10 Haloperidol (Haldol) 5 mg STAT STAT IM 05/02/20 19:41 05/02/20 19:43 DC 05/02/20 20:25 Heparin Sodium (Heparin Lock Flush 10units/ml) 10 units ASDIRECTED PRN IV SEE LABEL COMMENTS 04/25/20 13:00 04/27/20 14:53 DC Heparin Sodium (Heparin Lock Flush 10units/ml) 10 units HLF IV 04/25/20 14:00 04/27/20 14:53 DC 04/27/20 06:08 Heparin Sodium (Porcine) (Heparin) ASDIRECTED PRN IV SEE LABEL COMMENTS 04/22/20 11:45 04/22/20 20:00 DC Heparin Sodium (Porcine) (Heparin) ASDIRECTED PRN IV SEE LABEL COMMENTS 04/23/20 15:00 04/27/20 08:28 DC Heparin Sodium (Porcine) 22202 units/IV Miscellaneous Supplies 250 ml @ 11.25 mls/ hr ASDIRECTED IV 04/22/20 11:45 04/22/20 20:00 DC 04/22/20 19:17 Heparin Sodium (Porcine) 40668 units/IV Miscellaneous Supplies 250 ml @ 0 mls/hr Q0M IV 04/23/20 14:46 04/27/20 08:28 DC 04/26/20 13:38 Home Med (Med Rec Complete!) ASDIRECTED XX 04/21/20 09:45 04/21/20 09:41 DC Hydrochlorothiazide (Hydrodiuril) 12.5 mg DAILY PO 04/25/20 09:00 04/25/20 11:34 DC Hydrochlorothiazide (Hydrodiuril) 12.5 mg DAILY PO 04/26/20 09:00 05/02/20 16:55 DC 05/01/20 08:20 Hydromorphone HCl (Dilaudid) 1 mg Q3HP PRN IV MILD PAIN (PS 1-4) 05/03/20 02:30 05/04/20 13:40 DC 05/04/20 09:49 Hydromorphone HCl (Dilaudid) 1.6 mg Q3HP PRN IV MODERATE/SEVERE PAIN (PS 5-10) 04/26/20 14:00 04/27/20 08:28 DC 04/26/20 15:03 Hydromorphone HCl (Dilaudid) 1.6 mg Q3HP PRN IV MODERATE/SEVERE PAIN (PS 5-10) 05/03/20 02:30 05/04/20 13:40 DC 05/04/20 03:35 Latanoprost (Xalatan 0.005% Op Soln) 1 drop QHS OU 04/21/20 21:00 05/03/20 20:05 Lorazepam (Ativan) 1 mg Q2HP PRN IV ANXIETY/AGITATION 05/04/20 11:45 Lorazepam (Ativan) 1 mg Q2HP PRN PO ANXIETY 05/04/20 10:30 05/04/20 10:50 DC Lorazepam (Ativan) 1 mg Q2HP PRN PO AGITATION 05/04/20 11:00 05/04/20 11:33 DC Lorazepam (Ativan) 1 mg STAT STAT IV 04/22/20 09:26 04/22/20 12:39 DC Lorazepam (Ativan) 2 mg STAT STAT IM 05/03/20 02:20 05/03/20 02:22 DC 05/03/20 02:34 Magnesium Chloride (Slow-Mag) 64 mg DAILY PO 04/22/20 09:00 04/22/20 20:00 DC 04/22/20 12:02 Midazolam HCl (Versed) 2 mg STAT STAT IV 04/22/20 20:30 04/22/20 20:32 DC 04/22/20 18:15 Morphine Sulfate (Morphine Sulfate Inj) 2 mg Q2H PRN IV SEVERE PAIN (PS 8-10) 04/22/20 20:00 04/27/20 08:28 DC 04/26/20 05:34 Morphine Sulfate (Morphine Sulfate Inj) 2 mg Q2H PRN IV SEVERE PAIN (PS 8-10) 05/04/20 10:30 Morphine Sulfate (Morphine Sulfate Inj) 4 mg Q4HP PRN IV severe pain 04/21/20 10:45 04/22/20 09:21 DC 04/21/20 23:17 Morphine Sulfate (Morphine Sulfate Inj) 4 mg Q4HP PRN IV MODERATE/SEVERE PAIN (PS 5-10) 04/22/20 17:00 04/27/20 09:00 DC 04/27/20 04:35 Morphine Sulfate (Morphine Sulfate Inj) 4 mg Q4HP PRN SQ SEVERE PAIN (PS 8-10) 05/02/20 19:00 05/03/20 02:32 DC 05/03/20 00:33 Morphine Sulfate (Morphine Sulfate Oral Solution) 3 mg Q4HP PRN SL PAIN 05/02/20 17:00 05/03/20 02:32 DC 05/03/20 01:24 Morphine Sulfate (Ms Contin) 15 mg BID PO 04/27/20 09:00 04/29/20 17:51 DC 04/29/20 09:17 Morphine Sulfate (Msir) 7.5 mg Q4HP PRN PO SEVERE PAIN (PS 8-10) 04/27/20 08:15 04/29/20 17:51 DC 04/27/20 15:56 Multivitamins (Theragram-M) 1 tab DAILY PO 04/22/20 09:00 04/22/20 20:00 DC Non-Formulary Medication ( See Comment Field Below ) SEE COMMENT FIELD ASDIRECTED XX 05/05/20 21:00 Non-Formulary Medication (Heparin Iv Rate Change Documentation ml/ Hr) ASDIRECTED XX 04/22/20 11:45 04/22/20 20:00 DC Non-Formulary Medication (Heparin Iv Rate Change Documentation ml/ Hr) ASDIRECTED XX 04/23/20 15:00 04/27/20 08:28 DC 04/25/20 16:00 Ondansetron HCl (ZOFRAN INJection) 4 mg Q6HP PRN IV NAUSEA OR VOMITING 04/22/20 20:00 Cancel Ondansetron HCl (Zofran) 8 mg Q4HP PRN PO NAUSEA OR VOMITING 04/29/20 23:00 Oxybutynin Chloride (Ditropan) 5 mg Q8H PRN PO BLADDER SPASM 04/21/20 14:15 05/03/20 15:38 DC 04/30/20 00:39 Oxycodone HCl (OxyCONTIN) 10 mg BID PO 04/29/20 21:00 05/01/20 14:36 DC 05/01/20 08:20 Oxycodone HCl (OxyCONTIN) 10 mg BID PO 05/02/20 09:00 05/02/20 16:56 DC Oxycodone HCl (OxyCONTIN) 15 mg BID PO 05/01/20 21:00 05/02/20 09:27 DC 05/01/20 20:28 Oxycodone HCl (Roxicodone, Oxyir) 5 mg Q4HP PRN PO PAIN 04/29/20 18:00 05/01/20 10:39 DC Oxycodone HCl (Roxicodone, Oxyir) 7.5 mg Q4HP PRN PO PAIN 05/01/20 10:45 05/02/20 16:56 DC 05/02/20 13:44 Oxycodone/ Acetaminophen (Percocet 5mg/ 325mg Tablet) 1 tab Q4H PRN PO PAIN 04/21/20 14:15 04/22/20 09:22 DC Pantoprazole Sodium (Protonix) 40 mg BID IV 04/23/20 21:00 04/29/20 23:09 DC 04/29/20 09:17 Pantoprazole Sodium (Protonix) 40 mg DAILY PO 04/21/20 09:00 04/22/20 20:00 DC 04/22/20 12:03 Pantoprazole Sodium (Protonix) 40 mg DAILY PO 04/30/20 09:00 05/02/20 16:55 DC 05/01/20 08:19 Piperacillin Sod/ Tazobactam Sod 3.375 gm/Dextrose 50 ml @ 50 mls/hr Q6H IV 04/21/20 16:00 04/22/20 20:00 DC 04/22/20 16:33 Piperacillin Sod/ Tazobactam Sod 3.375 gm/Dextrose 50 ml @ 50 mls/hr Q6H IV 04/23/20 15:00 04/25/20 11:38 DC 04/25/20 08:19 Piperacillin Sod/ Tazobactam Sod 3.375 gm/Dextrose 50 ml @ 50 mls/hr Q6H IV 05/02/20 09:00 05/02/20 16:55 DC Polyethylene Glycol (Miralax) 1 pkt DAILYPRN PRN PO CONSTIPATION 04/27/20 08:15 05/02/20 16:59 DC 04/27/20 09:09 Rosuvastatin Calcium (Crestor) 5 mg QPM PO 04/21/20 21:00 04/22/20 20:00 DC 04/21/20 20:43 Scopolamine (Scopolamine) 1 mg Q3DP PRN TOP EXCESSIVE SECRETIONS 05/04/20 10:30 05/04/20 10:40 Senna/Docusate Sodium (Senokot S) 1 tab BID PO 04/27/20 09:00 05/03/20 15:38 DC 05/01/20 20:27 Sodium Chloride 1,000 ml @ 125 mls/hr Q8H IV 04/21/20 10:45 04/21/20 14:14 DC 04/21/20 12:14 Sodium Chloride (Saline Lock Flush) 2 ml ASDIRECTED PRN IV SEE LABEL COMMENTS 04/21/20 14:30 04/22/20 20:00 DC Sodium Chloride (Saline Lock Flush) 2 ml ASDIRECTED PRN IV SEE LABEL COMMENTS 04/27/20 15:45 04/30/20 06:49 DC Sodium Chloride (Saline Lock Flush) 2 ml SLF IV 04/21/20 22:00 04/22/20 20:00 DC 04/22/20 15:00 Sodium Chloride (Saline Lock Flush) 2 ml SLF IV 04/27/20 22:00 04/30/20 06:49 DC 04/29/20 20:33 Sodium Chloride (Saline Lock Flush) 10 ml ASDIRECTED PRN IV SEE LABEL COMMENTS 04/25/20 13:00 04/27/20 14:53 DC Sodium Chloride (Saline Lock Flush) 10 ml SLF IV 04/25/20 14:00 04/27/20 14:53 DC 04/27/20 06:08 Tamsulosin HCl (Flomax) 0.4 mg BID PO 04/21/20 21:00 05/02/20 16:59 DC 05/01/20 20:27 Vancomycin HCl 1000 mg/IV Miscellaneous Supplies 20 ml @ 20 mls/hr Q12H IV 04/22/20 09:30 04/22/20 10:13 DC Vancomycin HCl 1000 mg/IV Miscellaneous Supplies 1 each/ Dextrose 270 ml @ 270 mls/hr Q24H IV 04/22/20 12:00 04/22/20 20:00 DC 04/22/20 12:02 Vancomycin HCl 1000 mg/IV Miscellaneous Supplies 1 each/ Dextrose 270 ml @ 270 mls/hr Q24H IV 04/23/20 15:00 04/23/20 14:41 DC Vitamin D (Vitamin D) 1,000 units DAILY PO 04/22/20 09:00 04/22/20 20:00 DC Allergies Coded Allergies: No Known Allergies (Verified Allergy, Unknown, 03/23/20) Queta Diop MD May 04, 2020 13:52
--- NOTE | 2020-05-04 15:04 | DS.PDOC ---
Discharge Summary General Date of Admission April 21, 2020 at 10:38 Date of Discharge 05/04/20 Primary Care Physician: Jr Pantoja Collins Attending Physician: Queta Diop MD Discharge Summary HISTORY OF PRESENT ILLNESS: Patient was a 75 yo M with a recent diagnosis of metastatic adenocarcinoma with +FNA of R neck mass, malignant cells in ascitic fluid and bladder mass presumed to be origin with chronic hematuria and oncology work up for definitive diagnosis and typing, who was recently admitted 04/05-04/16 during which most of the above was established, as well as a history of DVT previously on AC c/b GIB, recent diagnosis of left renal infarct, marantic endocarditis, PVD, carotic disease s/p endarterectomy, HTN, HLD, GERD, gout who now represents to the ED reporting worsening abdominal pain that he reports to have been present over the last 3 weeks with ongoing painless hematuria. In the ED, he was HDS and afebrile with an exam that was notable for abdominal distention, severe abdominal pain that remitted with fentanyl and initially per ED physician was tense and she was concerned about an acute abdomen such that she consulted surgery that examined him at bedside and on evaluation determined he did not have an acute abdomen, while imaging as discussed below was also consistent with that assessment. Workup was notable for leukocytosis to 25.2, hgb 8.3, platelets 84, INR 1.9, troponin wnl, lipase wnl, Tbili 1.8 with Dbili 1.1, with normal AST and ALT, na 136, K 4.6, worsening Cr of 2.59, UA with navin hematuria with 3+ protein, +leukoestarase while CXR was with an elevated R hemidiaphragm with sharp angles without effusions or consolidations with noted nodules, and CT A/P without contrast showed a hypodensity in the lateral left renal cortex in area of previously seen renal infarction, mild bilateral hydronephrosis, diffuse bladder wall thickening and small gas in the bladder, as well as rectal wall thickening and moderate ascites. Of note, he had a [address] way amaya placed empirically in the ED that after discussion with Dr. Linder, the ED physician reported that Dr. Linder recommended discontinuing the amaya given known etiology of hematuria without clinically relevant obstruction that may increase risk of infection. Given the recent history presumed marantic endocarditis with negative BCx, leukocytosis and relatively low BP compared to his baseline, I continued him on zosyn that was started by the ED and consulted Dr. Ruiz as well as oncology. While in the ED, he got 2u pRBCs, fentanyl 25mg x 3 doses and 2.25L NS. HOSPITAL COURSE: The patient was treated early for DIC, metastatic urothelial carcinoma and bilateral lower extremity DVT. He was treated with cryoprecipitate and blood product for ongoing hematuria, low fibrinogen high d dimer levels. Upon review of the patient's infection history, the patient's leukocytosis were believed to previously have been 2/2 to UTI (04/10/20), legionnaire antigen urinary was positive with antibody legionnaire culture later came back neg. He was empirically treated with IV Zosyn for the urinary tract infection and ID was following. 1/2 bottles of the 04/21 blood cultures grew staph epi, thought to be a skin contamination. No other cultures grew legionnaire bacteria and the second set of blood cultures came back no growth. Repeat blood cultures also came back no growth. Antibiotics were stopped on 04/25/2020 when repeat cx were neg. WBC gradually trended down but fibrinogen and PLTs continued to drop after remaining elevated for a short time. GI was called in as consultation service due to elevated AST/ALT, alk phos, as imaging had not shown obstruction in biliary tree but numbers remained high with bilirubin. MRCP was suggested ; however, patient refused due to increased pain. ERCP was unable to be done. Urology was on board for hematuria and patient had had cystoscopy which showed very friable bladder. Because of this, a amaya catheter could not be placed due to risk of causing increased bleeding. Prognosis was deemed poor with life expectancy being 6-12 months. From 04/28/2020 the patient has been afebrile but his pain is also worsened over the past several days. Pain medications were modified and pain resolved but altered mental status worsened. PLTs dropped to a low 24, fibrinogen 147. DIC was worsening and we were highly suspicious of an infection as cause. Anticoagulation was stopped, hematology was called. 2 of FFP were ordered along with one of platelets to be infused. Empiric Zosyn was added to his regimen again and repeat blood cultures, urine culture, Legionella culture was ordered. Also due to increased abdominal pain, could not r/o development of spontaneous bacterial peritonitis with abdominal ascites being known but repeat abdominal pericentesis not being able to be done due to DIC. Peripheral access was unable to be obtained and surgery was consulted to place central line, as the patient was originally agreeable to this upon conversation but later declined placement. There was concern for GI bleed as well with FOBT + in prescence of DIC. His was updated and, patient's wishes of stopping treatment were honored by . 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 Patient was attempted on morphine sulfate PO and ativan PO but he was unable to keep in mouth, had increased agitation. IV ativan, IV dilaudid, scopalamine and atropine PRN were added to regimen. On 05/04/20, patient was showing signs of abnormal breath, mottling and cyanosis of all digits. Time of was called at 14:40. His was at the bedside. PAST MEDICAL HISTORY: Bladder carcinoma, metastatic Shortness of breath Hematuria Metastatic adenocarcinoma Left neck mass Bladder cancer Ongoing malignancy workup Ascites Marantic endocarditis Left kidney infarct Progressive renal failure since 11/2019 Right Lung nodule Hypertension HLD BPH Gout GERD history of DVT s/p IVC filter History of GIB PAST SURGICAL HISTORY: Bilateral endarterectomy Bilateral LE stents FAMILY HISTORY: Motherpig heart valve, PVD. FatherCVA. Brother, deceasedfrom liver disease and ESRD with HD SOCIAL HISTORY: Smoker: Denies Alcohol: Denies Drugs: denies Recent Travel/Sick Contacts: Reports: Recent travel Former Smoker (quit 30 years ago) until 5 months ago, drank 1-2 beers per night No illicit drug use ALLERGIES: Please see below. LABORATORY DATA: Please see below IMAGING: Please refer to transcriptions under Imaging ASSESSMENT: 75 y/o M treated for metastatic high grade urothelial carcinoma, hematuria, abdominal pain 2/2 to metastatic carcinoma and ascites, worsening DIC. . DIAGNOSES AT TIME OF : 1. Disseminated Intravascular Coagulation (DIC) 2. Leukocytosis cannot r/o developing infection-? UTI, bacteremia, spontaneous bacterial peritonitis 3. Metabolic encephalopathy likely multifactorial 2/2 to possible infection and multiorgan failure: brain, liver, kidney, hematologic 4. Hematuria likely 2/2 to bladder cancer in presence of DIC 5. Abdominal pain likely 2/2 to metastatic urothelial carcinoma, ascites, ? bacterial peritonitis, ? biliary tree issue 6. Rectal bleeding in presence of worsening DIC 7. Acute blood loss anemia on chronic anemia multifactorial 2/2 hematuria, epistaxis, rectal bleeding 8. Acute kidney injury likely multifactorial secondary to left renal infarct, post obstructive nephropathy with bilateral hydronephrosis 9. Metastatic bladder cancer 10. Acute on chronic HFpEF 11. HTN 12. 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 BPH 17. Gout TIME SPENT ON DISCHARGE: Greater than 30 minutes. Vital Signs/I&Os Vital Signs Date Time Temp Pulse Resp B/P (MAP) Pulse Ox O2 Delivery O2 Flow Rate FiO2 05/04/20 09:59 26 05/02/20 21:15 Room Air 05/02/20 08:00 97.1 71 162/58 (92) 97 Microbiology Microbiology 05/02/20 Blood Culture - Preliminary, Resulted No Growth after 48 hours. All Specime... 05/02/20 Blood Culture - Preliminary, Resulted No Growth after 48 hours. All Specime... Discharge Medications Scheduled Allopurinol (Allopurinol) 100 Mg Tab, 100 MG PO DAILY, (Reported) Apixaban (Eliquis) 5 Mg Tablet, 5 MG PO BID Bisoprolol/Hydrochlorothiazide (Bisoprolol-Hctz 10-6.25 mg Tab) 1 Each Tablet, 1 TAB PO DAILY, (Reported) Cholecalciferol (Vitamin D3) (Vitamin D3) 1,000 Unit Tablet, 1,000 UNITS PO DAILY, (Reported) Ezetimibe (Zetia) 10 Mg Tab, 10 MG PO QPM, (Reported) Ferrous Sulfate (Ferrous Sulfate) 325 Mg Tablet, 325 MG PO BID, (Reported) Finasteride (Finasteride) 5 Mg Tablet, 5 MG PO QPM, (Reported) Magnesium Chloride (Mag64) 64 Mg Tablet.dr, 64 MG PO DAILY, (Reported) Multivitamins (Thera M Plus Tablet) 1 Tab Tab, 1 TAB PO DAILY, (Reported) Pantoprazole Sodium (Pantoprazole Sodium) 40 Mg Tablet.dr, 40 MG PO DAILY, (Reported) Rosuvastatin Calcium (Rosuvastatin Calcium) 5 Mg Tab, 5 MG PO QPM, (Reported) Tamsulosin HCl (Flomax) 0.4 Mg Cap, 0.4 MG PO BID, (Reported) Travoprost (Travatan Z) 50 Drop/2.5 Ml Soln, 1 DROP OU QHS, (Reported) Scheduled PRN Ibuprofen (Ibu-200) 200 Mg Tablet, 400 MG PO Q6H PRN for PAIN, (Reported) Oxybutynin Chloride (Oxybutynin Chloride) 5 Mg Tablet, 5 MG PO Q8H PRN for BLADDER SPASM, (Reported) Oxycodone HCl/Acetaminophen (Percocet 5-325 mg Tablet) 1 Each Tablet, 1 TAB PO Q4H PRN for PAIN, (Reported) Allergies Coded Allergies: No Known Allergies (Verified Allergy, Unknown, 03/23/20) Queta Diop MD May 04, 2020 15:04
[2020-05-05] MEDS ORDERED: FENTANYL REMOVAL DOCUMENTATION MISC XX SCH (21:00)
[2020-05-06 21:11] LABS: COAGULATION FACTOR X ACTIVITY 59 % (76-183); COAGULATION FACTOR XI ACTIVITY 148 % (60-150); COAGULATION FACTOR XIII NORMAL (No Lysis/24); HAPTOGLOBIN 275 mg/dL (34-355)
== END 2020-05-04 14:40 | disposition expired | DRG 686 ==
LOC: M ED 06:27 → M ED INP 10:38 → ENRESERV 11:37 → M PCU 11:55 → M ICU 04-22 18:55 → M MSPAV 04-23 09:42 → M PCU 04-23 18:15
PROVIDERS: ADMIT Internal Medicine; ATTEND Internal Medicine
PROC: 30233N1 Transfusion of Nonautologous Red Blood Cells into Peripheral Vein, Percutaneous Approach (ICD-10-PCS; principal; 2020-04-21)
PROC: 30233K1 Transfusion of Nonautologous Frozen Plasma into Peripheral Vein, Percutaneous Approach (ICD-10-PCS; 2020-04-24)
PROC: 30233R1 Transfusion of Nonautologous Platelets into Peripheral Vein, Percutaneous Approach (ICD-10-PCS; 2020-04-24)
PROC: 30233M1 Transfusion of Nonautologous Plasma Cryoprecipitate into Peripheral Vein, Percutaneous Approach (ICD-10-PCS; 2020-04-24)
DX: C67.5 Malignant neoplasm of bladder neck (principal); D65 Disseminated intravascular coagulation [defibrination syndrome]; I50.33 Acute on chronic diastolic (congestive) heart failure; G93.41 Metabolic encephalopathy; K65.2 Spontaneous bacterial peritonitis; K83.1 Obstruction of bile duct; R18.0 Malignant ascites; I38 Endocarditis, valve unspecified; N28.0 Ischemia and infarction of kidney; D62 Acute posthemorrhagic anemia; N17.9 Acute kidney failure, unspecified; E87.2 Acidosis; N13.30 Unspecified hydronephrosis; I82.401 Acute embolism and thrombosis of unspecified deep veins of right lower extremity; I82.1 Thrombophlebitis migrans; C78.6 Secondary malignant neoplasm of retroperitoneum and peritoneum; N39.0 Urinary tract infection, site not specified; I82.402 Acute embolism and thrombosis of unspecified deep veins of left lower extremity; K62.5 Hemorrhage of anus and rectum; Z51.5 Encounter for palliative care; Z66 Do not resuscitate; I73.9 Peripheral vascular disease, unspecified; R91.1 Solitary pulmonary nodule; D72.829 Elevated white blood cell count, unspecified; R16.1 Splenomegaly, not elsewhere classified; I11.0 Hypertensive heart disease with heart failure; D73.5 Infarction of spleen; R04.0 Epistaxis; E78.5 Hyperlipidemia, unspecified; K74.60 Unspecified cirrhosis of liver; K21.9 Gastro-esophageal reflux disease without esophagitis; R74.0 Nonspecific elevation of levels of transaminase and lactic acid dehydrogenase [LDH]; N40.0 Benign prostatic hyperplasia without lower urinary tract symptoms; Z95.828 Presence of other vascular implants and grafts; Z95.5 Presence of coronary angioplasty implant and graft; Z95.820 Peripheral vascular angioplasty status with implants and grafts; Z87.891 Personal history of nicotine dependence; Z79.899 Other long term (current) drug therapy

== ENCOUNTER 2020-04-24 14:45 | Outpatient (RCR) | payer OTHER ==
[~2020-04-24 14:45] MED LIST changes: +FERR1TAB8 PO; +IBUP200T45 PO; +PERC5TAB12 PO
[2020-04-27] MEDS ORDERED: ELIQ5TAB PO (10:38)
== END 2020-04-26 ==
LOC: M ONCR 14:45
PROVIDERS: ATTEND Radiology Radiation Oncology
DX: C67.9 Malignant neoplasm of bladder, unspecified (principal); Z53.8 Procedure and treatment not carried out for other reasons

== ENCOUNTER 2020-04-30 10:45 | Outpatient (RCR) | payer OTHER ==
--- NOTE | 2020-04-29 10:25 | CR.PDOC ---
General Date of Consultation: Apr 28, 2020 Referring Provider: JACKELYN LINK MD Primary Care Physician: Jr Pantoja Collins Attending Physician: JACKELYN LINK MD Consultation REASON FOR CONSULTATION/CHIEF COMPLAINT: metastatic urothelial bladder cancer, malignant ascites, hematuria HISTORY OF PRESENT ILLNESS: 75 year old male with diagnosis of bladder cancer in March 2020. Heh as a history of problems with DVT and he has a renal infarct in addition to DIC. ALLERGIES: Please see below. HOME MEDICATIONS: Please see below. PAST MEDICAL HISTORY: 1. BPH 2. CAD s/p stents 3. vascular disease 4. DVT s/p David filter PAST SURGICAL HISTORY: 1. Cardiac stents 2. bilateral LE fem pop bypass 3. cataract ext and lens placement SOCIAL HISTORY: Marital status and/or living arrangements: 50 years to supportive Diane Employment: retired Tobacco use:former smoker ETOH: 2-3 beers daily for many years, none since February Illicit drug use:none IV drug use: none Other relevant social factors:none REVIEW OF SYSTEMS: CONSTITUTIONAL: no fevers, chills, night sweats, +fatigue HEENT: denies vision changes, ear pain dysphagia CARDIOVASCULAR: denies chest pain, palpitations. Chart indicates possible vegetations on aortic valve RESPIRATORY: denies hemoptysis, dyspnea GENITOURINARY: +hematuria, frequency. Denies dysuria MUSCULOSKELETAL: denies spasm, wekaness, joint or muscular pain GASTROINTESTINAL: +ascites, pain upper right and upper left quadrants and in groins. Denies n/v/c/d SKIN:easy bruising. NEUROLOGICAL: denies tremors headaches, vision changes PSYCHIATRIC: denies depression, anxiety ENDOCRINE: denies excessive thirst or hunger, no heat or cold sensitivity HEMATOLOGIC/LYMPHATIC: metastatic bladder cancer with supraclavicular involvement ALLERGIC/IMMUNOLOGIC: no allergies PHYSICAL EXAMINATION: VITAL SIGNS: Please see below. GENERAL APPEARANCE: Ill appearing male in no acute distress, able to make his needs known HEENT: JUDSON, EOM intact. No icterus. Pharynx clear RESPIRATORY: no wheezing or rhonchi CARDIOVASCULAR: 2/6 systolic murmur best heard over right sternal border ABDOMEN: Distended. Tense over left and right midline, liver and spleen are palpable, hypoactive BS EXTREMITIES: 2+ edema NEUROLOGICAL: CN 2-12 grossly intact. Gait is slow, wide based. Alert, oriented PSYCHIATRIC: appears euthymic. LABORATORY DATA: Please see below. ASSESSMENT/PLAN: 1. metastatic bladder cancer. I explained the role oif [facility] and both Arti and his understand this is an outpatient clinic once he is discharged. Both Arti and his express that they want him to have treatment for his cancer although in my clinical opinion, he may not be stable enough for chemotherapy. His informed me on the telephone today she has reached out to [facility] and is awaiting a call back from them regarding whether he can be seen there. I think the reality of his diagnosis has not fully been accepted by either Arti or his Diane. 2. Pain from metastatic cancer. Arti reported he is tolerating his current regmimen but thinks he may need a higher dose of pain medication. with his renal infarct, morphine may not be the best choice for him and he would be better managed with oxycodone or hydromorphone due to ongoing renal issues. Allergies Coded Allergies: No Known Allergies (Verified Allergy, Unknown, 03/23/20) Home Medications Scheduled Allopurinol (Allopurinol) 100 Mg Tab, 100 MG PO DAILY, (Reported) Apixaban (Eliquis) 5 Mg Tablet, 5 MG PO BID for 30 Days, #60 Bisoprolol/Hydrochlorothiazide (Bisoprolol-Hctz 10-6.25 mg Tab) 1 Each Tablet, 1 TAB PO DAILY, (Reported) Cholecalciferol (Vitamin D3) (Vitamin D3) 1,000 Unit Tablet, 1,000 UNITS PO DAILY, (Reported) Ezetimibe (Zetia) 10 Mg Tab, 10 MG PO QPM, (Reported) Ferrous Sulfate (Ferrous Sulfate) 325 Mg Tablet, 325 MG PO BID, (Reported) Finasteride (Finasteride) 5 Mg Tablet, 5 MG PO QPM, (Reported) Magnesium Chloride (Mag64) 64 Mg Tablet.dr, 64 MG PO DAILY, (Reported) Multivitamins (Thera M Plus Tablet) 1 Tab Tab, 1 TAB PO DAILY, (Reported) Pantoprazole Sodium (Pantoprazole Sodium) 40 Mg Tablet.dr, 40 MG PO DAILY, (Reported) Rosuvastatin Calcium (Rosuvastatin Calcium) 5 Mg Tab, 5 MG PO QPM, (Reported) Tamsulosin HCl (Flomax) 0.4 Mg Cap, 0.4 MG PO BID, (Reported) Travoprost (Travatan Z) 50 Drop/2.5 Ml Soln, 1 DROP OU QHS, (Reported) Scheduled PRN Ibuprofen (Ibu-200) 200 Mg Tablet, 400 MG PO Q6H PRN for PAIN, (Reported) Oxybutynin Chloride (Oxybutynin Chloride) 5 Mg Tablet, 5 MG PO Q8H PRN for BLADDER SPASM, (Reported) Oxycodone HCl/Acetaminophen (Percocet 5-325 mg Tablet) 1 Each Tablet, 1 TAB PO Q4H PRN for PAIN, (Reported) Date Seen The patient was seen on 04/30/20. Plan/VTE VTE Prophylaxis Ordered?: No VTE Exclusion Mechanical Proph: Andrews Lower Ex Ischemia Plan Diet: Continue Current Activity: Continue Current Therapy: PT Pt and Family Services: Other PFS (he will be followed by by [facility] once he is discharged) Medications: Other Med: Anticipated Discharge: Home Advance Directives: DNR Education Assessment: Initial Assessment (information about [facility] to patient verbally and I spoke with his Diane by telephone) Learning Barriers: cognitive, ready Family Support: Yes Tobacco use: No Tobacco Use Smokeless tobacco: No Education Goals Met: No (Pt and family are struggling with his diagnosis and wish to continue active treatment for his cancer. He has renal insufficiency, low platelets and anemia that may preclude any chemotherapy. His wishes to havea consultation with [facility]) Target Goals Complete cessation of tobacco use (1). Carol GILL [facility] Apr 29, 2020 10:22
[~2020-04-30 10:45] MED LIST changes: +ELIQ5TAB PO
--- NOTE | 2020-04-30 19:21 | RADONC ---
RADIATION ONCOLOGY PROGRESS NOTE DATE: 04/23/2020 CHART NUMBER: [id number] We had planned on undertaking simulation and initiation of radiation today to Mr. Abdul's bladder and rectal area in an attempt to slow down the bleeding. I came in today and found out that the patient has been placed on comfort measures only. In light of this, we are discharging him from our treatment planning schedule, treatment schedule and follow up. I believe this is the appropriate course and agree and hope that Mr. Abdul can be kept comfortable.
--- NOTE | 2020-04-30 21:46 | RADONC ---
RADIATION ONCOLOGY SIMULATION NOTE DATE: 04/23/2020 CHART NUMBER: [id number] We were told Mr. Abdul had chosen comfort measures only this morning and had removed him from our treatment schedule. An hour ago or so, we were told that the situation has changed, and he has decided he wants treatment. In light of this, the patient was taken to the CT scan for CT simulation of his bladder field. CT was accomplished without difficulty or discomfort. Radiation treatment planning is underway. In light of the fact that radiation has been delayed a day, rather than start his treatments today, they will begin tomorrow if all goes as planned. An immobilization device was created and will be used throughout the course of treatment. It was created without difficulty or discomfort. I was physically present throughout the course of CT simulation.
--- NOTE | 2020-05-01 09:58 | IPNPDOC ---
Date Seen The patient was seen on 05/01/20. Progress Note SUBJECTIVE: My pleasure seeing Mr. Chi the first time to help him with her stage IV high- grade urothelial carcinoma of the bladder with malignant ascites Case discussed with Dr. Diop this morning Prolonged discussion with the today Discussed with Dr. Goodman in [place] at the request of today Patient initially seen by Dr. Welsh Patient is newly diagnosed metastatic disease Patient is recovering from Legionella pneumonia Patient has ongoing hematuria and hydronephrosis as well as stage IV chronic kidney disease Patient has severe atherosclerotic vascular disease Patient has a IVC filter placed and has history of deep vein thrombosis Patient had shock liver and still has transaminitis and hyperbilirubinemia Patient has worsening cytopenias from consumption and recent DIC due to infection Cystoscopy from 04/15/20 reviewed Patient has multifocal disease and fairly extensive disease in the bladder Dr. Linder reported that the patient had several tumors throughout his bladder. No normal urothelium could be seen. The largest of the bladder tumors were on the lateral wall near the trigone and there were other papillary tumors as well as smaller friable tumors throughout the bladder OBJECTIVE Patient sitting up eating lunch Limited physical exam today as I needed to focus attention on issues as discussed in this note LABORATORY DATA, IMAGING STUDIES, MICROBIOLOGY: Please see below. ASSESSMENT AND PLAN: This is a 75 year-old gentleman with stage IV high-grade urothelial carcinoma PD1 non-expressing who has multiorgan failure with active liver dysfunction, stage IV kidney disease malignant ascites and ongoing hematuria PLAN AND RECOMMENDATIONS The patient and are struggling severely with his recent medical conditions and problems. The Legionella pneumonia has really sent the patient back and has caused the cascade of problems that we have not yet recovered from. It Is unfortunate that the patient is doing so poorly but there is nothing we can do about it at this moment. Patient has a terminal condition with high-grade urothelial carcinoma, but presently that seems to be at least of his problems. I encouraged the patient and to transfer his care if they are unhappy. Recommended [facility] in [place]. To the patient's if she wanted to transfer. Patient and his understand patient can leave at any time and sign out AGAINST MEDICAL ADVICE and go to another facility if they so wished. Patient refused radiation today to the bladder initiation today Recommend palliative radiation to the bladder to help with hematuria Would try to avoid nephrostomy tubes of possible at this particular junction May require intravesicular continuous irrigation Still urinating Even though I spent quite a bit of time talking with the patient's she reports that she remains confused about the situation I tried to highlight the concept that the patient has multiple active problems at once I discussed with the patient's that it is quite likely that the patient will not leave the hospital alive given his active medical issues. The is upset that everyone so negative about the patient's condition. I explained that we have to present data honestly an openly and the fact is that her is seriously ill and could worsen at any time. I further discussed with her if she is unhappy with the care here, she should arrange transfer to another facility. Blood product transfusion as discussed with Dr. Diop as needed We'll follow along with you This is not going to end well Recommend risk management get involved in case immediately given the ongoing complaints to help with resolving any underlying issues concerns and problems and help the patient moving forward. My sense is that we should transfer the patient to get a second opinion regarding his multiorgan failure and metastatic disease because I don't think that is going to happen otherwise. The patient refuses radiation because he was not feeling well and he wants to feel better before he receives treatment, I do not think that is going to happen JENNIFER ESTRADA MD May 01, 2020 09:58
--- NOTE | 2020-05-01 15:32 | IPNPDOC ---
Text Note Date of Service The patient was seen on 05/01/20. NOTE I saw Arti at his bedside briefly yesterday and at that time he told me his pain was well controlled with oxycodone. He appeared more sallow and was intermitttently mildly confused during my visit and also this was reported by nursing staff. This afternoon I was informed he was complaining about pain in his abdomen and back and that oxycodone did not seem to be helping. When I saw Arti he was grimacing and engaging in other pain behaviors such as restlessness and clutching his abdomen. He reported his pain was worst in his low back and in his lower abdomen. He reported he refused to have MRCP done this mornign ": because I was in too much pain and I never want to go through that test again anyway." I spent several minutes talking with Arti about what his feelings are about ongoing invasive interventions to manage his cancer. He stated he felt radiation therapy "isn't that bad but it's not the easist thing to go through either." He appeared frustrated. I asked him what he thought about his 's wanting him to go to [facility] for a second opinion. He stated he would be willing to do that, but when I mentioned the possibility of chemotherapy, he indicated he did not think this was something he would want to go through. Iasked permission to call his Diane who is is HCP and he gave me permission. I had a 20 minute conversation with Diane and she is clearly overwhelmed by his diagnosis and also be being physically from him. She received a call from Dr. Jimenez while I was on the phone with me and she attended to his call during which time she told Dr Jimenez she had ocntacted a Dr. Marcial, a urology oncologist at [facility] who had told her he would be happy to review her 's case and render an opinion about whether or not he might benefit from treatment. Dr. Jimenez indicated he would call Dr Marcial. I did express to Diane that Arti appears weaker and more frial with each passing day, and with his DIC, renal failure, elevated liver enzymes, elevated Alk phos, low platelets, anemia and ongoing hematuria, further treatment with chemotherapy may not be something he can tolerate safely. I am not sure if she fully processed this, but did express she feels uncertain about "what to do". I am hopeful if she is told that Arti is unlikely to benefit from a different oncologist, she may be able to start focusing more on his comfort as opposed to treatment. TOday she was indeed very concerned about his increased pain and I assured her and I were having a discussion about how to best help him with this by making some changes in his medications. Dr Diop was changing Oxycontin from 10 to 15 mg q12hr. If this is ineffective in 234 hours, I recommended she decrease the dosing interval to q8hr for better baseline pain control. She hadalready increased oxycodone IR from 5 to 7.5 mg q 4 hr. If this is not effective ,this could be increased to 10 mg dose. [employer] May 01, 2020 15:32
--- NOTE | 2020-05-03 08:24 | RADONC ---
RADIATION ONCOLOGY PROGRESS NOTE DATE: 04/27/2020 CHART NUMBER: [id number] PROGRESS NOTE: Mr. Arreola is presently at a dose of 600 cGy to his pelvis and has received his second 300 cGy fraction today. He tolerated his previous fraction without difficulty. The patient is basically unchanged with regards to his review of systems and physical exam from Monday. Radiation and treatments will continue as scheduled.
--- NOTE | 2020-05-07 23:37 | RADONC ---
RADIATION ONCOLOGY TREATMENT SUMMARY DATE: 05/04/2020 CHART NUMBER: [id number] Mr. Abdul is a 75-year-old male who presented to us for consideration of palliative radiation therapy for urinary and rectal bleeding. We initially planned on treating this patient, and then he had gone on to comfort measures only. Following a 24-hour period, he then decided to undergo treatment, and we treated the patient to his pelvis for a total dose of 1500 cGy delivered in five fractions of 300 cGy each over six elapsed days from 04/24/2020 through 04/30/2020. The patient's pelvis was treated on a linear accelerator utilizing a 15 MV photon beam via 3D conformal technique with a four field plan. We had planned on delivering another five fractions of radiation for a total dose of 3000 cGy, but the patient once again decided he was going to go on to comfort measures and discontinue aggressive care. In light of this, I have discharged him from our followup and treatment schedule. Should the patient change his mind again, we are more than happy to reinitiate radiation.
== END 2020-05-04 ==
LOC: M ONCR 10:45
PROVIDERS: ATTEND Radiology Radiation Oncology
DX: C67.9 Malignant neoplasm of bladder, unspecified (principal)